=== PATIENT | female | born 1995 | race Caucasian/White ===

== ENCOUNTER 2018-06-22 15:02 | Emergency (ER) | payer OTHER, MEDICAID, SELFPAY ==
[2018-06-22 15:08] VITALS: BP 132/73; PULSE 98; RESP 16; TEMP 36.7; O2SAT 98
--- NOTE | 2018-06-22 15:14 | DI.RAD_ITS ---
SYMPTOM/DIAGNOSIS: LATERAL PAIN AFTER FALL RIGHT ANKLE: No fracture or ankle mortise widening is seen. The talar dome appears intact. IMPRESSION: Negative right ankle.
--- NOTE | 2018-06-22 15:17 | ED.GENADUL_ITS ---
Discharge Plan Disposition Patient Disposition: HOME Condition: Improving Discharge Details Chief Complaint: Orthopedic Clinical Impression: Right ankle sprain Primary Care Provider: Alexa Almonte ED Provider: Geremias Nair Discharge Instructions Instructions: Ankle Sprain (ED) Additional Instructions: Crutches and walking boot as needed. As we discussed if you have persistent pain a 2 weeks time please see regular doctor for repeat evaluation. May use crutches as needed for 3-5 days time, then continue walking boot for additional 3-5 days time. Elevate above the level of heart to reduce pain and swelling. Tylenol and/or ibuprofen as needed for discomfort. Return to the ER for any acute concern Stand Alone Forms: Work Release Discharge Data Discharge Date/Time-TO BE ENTERED AT DEPARTURE: 06/22/18 16:34 Medical Decision Making 22-year-old female who slipped and fell, deviating her right ankle, now with right lateral ankle pain and swelling. She is stable and without evidence of other injury. Given ice and ibuprofen, referred for x-ray to rule out underlying fracture, dislocation. No underlying fracture. She has significant pain. Vascular and sensory testing is intact. We will place in a walking boot. Discussed expected course of resolution over 7-10 days time including crutch walking and then eventual ambulation without support. She will return for any acute concern HPI General Mode of arrival: wheelchair . Date/Time Provider Initiated Documentation: 06/22/18 15:05 . Limitations to Documentation: no limitations . Information obtained by: patient . History of Present Illness 22 year old F presents to the emergency department with the chief complaint of Right ankle pain after fall, no other injury, described as moderate, Quality is described as aching, and is localized to the right and lower extremity. Patient reports no radiation. Patient started experiencing this minute(s) and it has been constant. Rest improves symptom(s), Movement worsens symptoms . Patient notes no other symptoms.. Patient did receive the following treatments prior to arrival, none Related Data Allergies Allergy/AdvReac Type Severity Reaction Status Date / Time adhesive Allergy Mild Skin Rash Unverified 06/22/18 15:12 ketorolac tromethamine Allergy Mild Skin Rash Unverified 06/22/18 15:12 [From Toradol] hydromorphone [Hydromorphone] Allergy hives Unverified 06/22/18 15:12 latex Allergy itching,audie Unverified 06/22/18 15:12 h General Stated Complaint: Orthopedic ROEL: 4 Review of Systems Review of Systems For systems reviewed and otherwise - PFSH Family History Mother Mental disorder Father Mental disorder Medical History BMI 45.0-49.9, adult History of depression Migraine Social History Smoking/Tobacco Use Status: Never Exam Narrative Exam Narrative: GEN: awake, alert, oriented 3. Pleasant, well groomed, interactive. HEAD: Normocephalic, atraumatic ENT: Mucous membranes moist, oropharynx unremarkable, External ear exam unremarkable EYES: PERRL, EOMI NECK: Full ROM, no OBEY, no menigismus EXT: Full ROM, no edema, no rash. Tender R lateral malleolus Neuro: Grossly normal neurologic exam, conversant, interactive. Psych: Speech fluent, thoughts congruent, affect normal Course Vital Signs Temperature 36.7 C 06/22/18 15:08 Pulse 98 H 06/22/18 15:08 Respiratory Rate 16 06/22/18 15:08 Blood Pressure 132/73 06/22/18 15:08 Pulse Oximetry 98 06/22/18 15:08 Temperature 36.7 C 06/22/18 15:08 Temperature Source Temporal Artery Scan 06/22/18 15:08 Pulse 98 H 06/22/18 15:08 Respiratory Rate 16 06/22/18 15:08 Respiratory Effort 06/22/18 15:13 Blood Pressure 132/73 06/22/18 15:08 Blood Pressure Position Sitting 06/22/18 15:08 Pulse Oximetry 98 06/22/18 15:08 Oxygen Delivery Method Room Air 06/22/18 15:08 Oxygen Flow Rate 0 06/22/18 15:08 Pain Level 8 06/22/18 15:08
[2018-06-22] MEDS: Ibuprofen 800 MG TAB PO (15:21)
--- NOTE | 2018-06-22 15:46 | DI.VRAD_ITS ---
EXAM: XR Right Ankle Complete, 3 or more Views EXAM DATE/TIME: 06/22/2018 3:37 PM CLINICAL HISTORY: 22 years old, female; Injury or trauma; Fall; Initial encounter; Sprain or strain; Ankle; Right TECHNIQUE: XR Right ankle 3 or more views. COMPARISON: No relevant prior studies available. FINDINGS: Bones/joints: Normal. No fracture or subluxation. Soft tissues: Soft tissue swelling is noted. IMPRESSION: No acute osseous findings. Dictated and Authenticated by: Brian Mg MD. Ordering:JOEL MELTON MD
== END 2018-06-22 16:34 | disposition home or self-care (01) ==
LOC: ER 16:42
PROVIDERS: Emergency Provider Emergency Medicine; PCP Nurse Practitioner
DX: S93.401A Sprain of unspecified ligament of right ankle, initial encounter (principal); W10.8XXA Fall (on) (from) other stairs and steps, initial encounter
CPT/HCPCS: 29515; 99283; 73610; E0114; L4361

== ENCOUNTER 2018-07-30 06:21 | Emergency (ER) | payer BC, SELFPAY ==
[2018-07-30 06:34] VITALS: BP 140/69; PULSE 119; RESP 16; TEMP 37.1; O2SAT 97
--- NOTE | 2018-07-30 06:36 | W.ED.GENAD ---
Discharge Plan Disposition Patient Disposition: HOME Condition: Stable Discharge Details Chief Complaint: Sorethroat Clinical Impression: Acute streptococcal pharyngitis Primary Care Provider: Alexa Almonte ED Provider: Akhil Lopez Home Meds and New Rx's Prescriptions: New amoxicillin 500 mg tablet 1,000 mg PO BID 10 Days Qty: 40 RF: 0 Discharge Instructions Instructions: Pharyngitis (ED) Additional Instructions: follow up with your primary care provider in 1-2 weeks especially if symptoms continue If you have inability to swallow liquids or difficulty breathing return to the emergency department Medical Decision Making 22 yo female comes in with sore throat and left ear pain for two days. No stridor or drooling or difficulty swallowing. Has midline uvula on exam, no restricted neck mvoements or pain over hyoid. Has posterior pharynx erythema and exudates with some mild swollen tonsils. No findings to suggest rpa, scow captain, epiglotitis, ludwigs. Her left tm has no erythema and has no pain behind over the mastoid to suggest mastoiditis. Strep test is positive, will treat for strep pharyngitis, advised f/u with pcp and return precautions given Differential Diagnosis strep pharyngitis, viral pharyngitis HPI General Mode of arrival: ambulatory. Date/Time Provider Initiated Documentation: 07/30/18 06:22. Limitations to Documentation: no limitations. Information obtained by: patient. History of Present Illness 22 year old F presents to the emergency department with the chief complaint of sore throat, described as moderate, with intensity rated at 5. Quality is described as aching, Patient started experiencing this day(s) (2) and it has been constant. No relieving factors improve symptom(s), No exacerbating factors reported . Patient notes other (left ear pain). Patient did receive the following treatments prior to arrival, NSAID Related Data Home Medications Medication Instructions Recorded Confirmed amoxicillin 1,000 mg PO BID 10 Days #40 tab 07/30/18 Previous Rx's Medication Instructions Recorded amoxicillin 1,000 mg PO BID 10 Days #40 tab 07/30/18 Allergies Allergy/AdvReac Type Severity Reaction Status Date / Time adhesive Allergy Mild Skin Rash Unverified 07/30/18 06:38 ketorolac tromethamine Allergy Mild Skin Rash Unverified 07/30/18 06:38 [From Toradol] hydromorphone [Hydromorphone] Allergy hives Unverified 07/30/18 06:38 latex Allergy itching,audie Unverified 07/30/18 06:38 h General ROEL: 4 Review of Systems Review of Systems All systems reviewed & are unremarkable except as noted in HPI and below Constitutional Denies chills and Denies weakness Cardiovascular Denies chest pain and Denies dyspnea Respiratory Denies dyspnea Gastrointestinal Denies abdominal pain, Denies nausea and Denies vomiting Genitourinary Denies dysuria Musculoskeletal Denies joint swelling Integumentary/Breasts Denies rash Neurologic Denies weakness [facility] Medical History BMI 45.0-49.9, adult History of depression Migraine Family History Mother Mental disorder Father Mental disorder Social History Smoking/Tobacco Use Status: Never Exam Const General: no acute distress Orientation: alert HENMT Head: normal to inspection Ears: external ears normal General nose exam: external nose normal Mouth: moist mucous membranes Eyes General: appearance normal, both eyes and all related structures Neck Neck: normal visual inspection Resp Effort & Inspection: normal respiratory effort and able to speak in complete sentences Cardio Rate: regular rate Skin General skin exam: no rashes or lesions noted Neuro General: alert and oriented x3 Extrem General: normal to inspection Psych Mental Status: mental status grossly normal
--- NOTE | 2018-07-30 06:53 | ED.GENADUL_ITS ---
Discharge Plan Disposition Patient Disposition: HOME Condition: Stable Discharge Details Chief Complaint: Sorethroat Clinical Impression: Acute streptococcal pharyngitis Primary Care Provider: Alexa Almonte ED Provider: Akhil Lopez Home Meds and New Rx's Prescriptions: New amoxicillin 500 mg tablet 1,000 mg PO BID 10 Days Qty: 40 RF: 0 Discharge Instructions Instructions: Pharyngitis (ED) Additional Instructions: follow up with your primary care provider in 1-2 weeks especially if symptoms continue If you have inability to swallow liquids or difficulty breathing return to the emergency department Medical Decision Making 22 yo female comes in with sore throat and left ear pain for two days. No stridor or drooling or difficulty swallowing. Has midline uvula on exam, no restricted neck mvoements or pain over hyoid. Has posterior pharynx erythema and exudates with some mild swollen tonsils. No findings to suggest rpa, captain airline pilot, epiglotitis, ludwigs. Her left tm has no erythema and has no pain behind over the mastoid to suggest mastoiditis. Strep test is positive, will treat for strep pharyngitis, advised f/u with pcp and return precautions given Differential Diagnosis strep pharyngitis, viral pharyngitis HPI General Mode of arrival: ambulatory . Date/Time Provider Initiated Documentation: 07/30/18 06:22 . Limitations to Documentation: no limitations . Information obtained by: patient . History of Present Illness 22 year old F presents to the emergency department with the chief complaint of sore throat, described as moderate, with intensity rated at 5. Quality is described as aching, Patient started experiencing this day(s) (2) and it has been constant. No relieving factors improve symptom(s), No exacerbating factors reported . Patient notes other (left ear pain). Patient did receive the following treatments prior to arrival, NSAID Related Data Home Medications Medication Instructions Recorded Confirmed amoxicillin 1,000 mg PO BID 10 Days #40 tab 07/30/18 Previous Rx's Medication Instructions Recorded amoxicillin 1,000 mg PO BID 10 Days #40 tab 07/30/18 Allergies Allergy/AdvReac Type Severity Reaction Status Date / Time adhesive Allergy Mild Skin Rash Unverified 07/30/18 06:38 ketorolac tromethamine Allergy Mild Skin Rash Unverified 07/30/18 06:38 [From Toradol] hydromorphone [Hydromorphone] Allergy hives Unverified 07/30/18 06:38 latex Allergy itching,audie Unverified 07/30/18 06:38 h General ROEL: 4 Review of Systems Review of Systems All systems reviewed & are unremarkable except as noted in HPI and below Constitutional Denies chills and Denies weakness Cardiovascular Denies chest pain and Denies dyspnea Respiratory Denies dyspnea Gastrointestinal Denies abdominal pain, Denies nausea and Denies vomiting Genitourinary Denies dysuria Musculoskeletal Denies joint swelling Integumentary/Breasts Denies rash Neurologic Denies weakness [facility] Medical History BMI 45.0-49.9, adult History of depression Migraine Family History Mother Mental disorder Father Mental disorder Social History Smoking/Tobacco Use Status: Never Exam Const General: no acute distress Orientation: alert HENMT Head: normal to inspection Ears: external ears normal General nose exam: external nose normal Mouth: moist mucous membranes Eyes General: appearance normal, both eyes and all related structures Neck Neck: normal visual inspection Resp Effort & Inspection: normal respiratory effort and able to speak in complete sentences Cardio Rate: regular rate Skin General skin exam: no rashes or lesions noted Neuro General: alert and oriented x3 Extrem General: normal to inspection Psych Mental Status: mental status grossly normal
[2018-07-30] MEDS: Dexamethasone 10 MG/ML VIAL PO (06:58)
[2018-07-30] MEDS: Amoxicillin 500 MG CAP 1000 MG PO (06:58)
[2018-07-30 07:20] VITALS: PULSE 115; RESP 16; TEMP 37.1; O2SAT 97
== END 2018-07-30 07:20 | disposition home or self-care (01) ==
PROVIDERS: Emergency Provider Emergency Medicine; PCP Nurse Practitioner
DX: J02.0 Streptococcal pharyngitis (principal)
CPT/HCPCS: 87880; 99283; J1100

== ENCOUNTER 2018-09-10 01:19 | Outpatient (CLI) | payer BC, SELFPAY ==
--- NOTE | 2018-09-10 11:51 | DI.US_ITS ---
SYMPTOM/DIAGNOSIS: RT KNEE PAIN, M25.561 RIGHT LOWER EXTREMITY ULTRASOUND: The deep veins of the right lower extremity show normal compression, augmentation and color flow. There is no evidence of a deep venous thrombus present. The visualized portions of the greater saphenous vein show normal compression and blood flow. No evidence of a popliteal cyst is seen. IMPRESSION: No evidence of a right lower extremity deep venous thrombus or popliteal cyst.
== END 2018-09-10 01:39 ==
PROVIDERS: PCP Nurse Practitioner; Visit Provider Nurse Practitioner
DX: M79.604 Pain in right leg (principal); M25.561 Pain in right knee
CPT/HCPCS: 93971

== ENCOUNTER 2018-10-10 16:15 | Outpatient (CLI) | payer BC, SELFPAY ==
[2018-10-10 17:04] LABS: *AMPHETAMINES SCREEN URINE Negative (Negative); *BARBITURATES SCREEN URINE Negative (Negative); *BENZODIAZEPINES SCREEN URINE Negative (Negative); Cannabinoids THC Negative (Negative); Cocaine Screen,Urine Negative (Negative); METHADONE URINE SCREEN Negative (Negative); OPIATES URINE SCREEN Negative (Negative); Tricyclic Antidepressants Negative (Negative)
[2018-10-15 17:17] LABS: Buprenorphine Negative; Norbuprenorphine Negative
== END 2018-10-10 16:35 ==
PROVIDERS: PCP Nurse Practitioner; Visit Provider Advanced Practice Midwife
DX: Z34.91 Encounter for supervision of normal pregnancy, unspecified, first trimester (principal)
CPT/HCPCS: 80307; 87086

== ENCOUNTER 2018-10-10 16:58 | Outpatient (REF) | payer BC, SELFPAY ==
[2018-10-12 13:46] LABS: GC Result Negative; Specimen Description CERVIX
[2018-10-12 16:22] LABS: Chlamydia Result Positive
== END 2018-10-10 17:18 ==
LOC: LBN 16:58
PROVIDERS: PCP Nurse Practitioner; Visit Provider Advanced Practice Midwife
DX: Z34.91 Encounter for supervision of normal pregnancy, unspecified, first trimester (principal); Z11.3 Encounter for screening for infections with a predominantly sexual mode of transmission
CPT/HCPCS: 87491; 87591

== ENCOUNTER 2018-10-11 20:41 | Emergency (ER) | payer BC, SELFPAY ==
[2018-10-11 20:44] VITALS: BP 134/74; PULSE 97; RESP 18; TEMP 36.7; O2SAT 98
--- NOTE | 2018-10-11 21:46 | ED.GENADUL_ITS ---
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 Touch base with OB in the morning. Return to ED for worse bleeding, severe pelvic pain, other concerns. Stand Alone Forms: Work Release Referrals: [facility] [Provider Group] Discharge Data Discharge Date/Time-TO BE ENTERED AT DEPARTURE: 10/11/18 23:59 Medical Decision Making Patient is 9 weeks presenting with vaginal bleeding without pain. I was able to perform bedside ultrasound and document IUP with heart beat detected. Pelvic exam performed with female nurse present. Unable to visualize cervical os. Minimal blood present in the vaginal vault. Os confirmed to be close on bimanual exam. Laboratory studies were obtained including a hemoglobin and beta quant for baseline. Patient's Rh status was determined to be negative. Patient ordered for RhoGam. Case discussed with OB on-call. Patient reassured. She is asked to rest and stay hydrated and contact OB in the morning for follow-up. She is given a note off from work for the rest of the weekend. Medical Records Medical records reviewed: Yes I reviewed the patient's medical records. Lab Data Lab results reviewed: Yes I reviewed the patient's lab results. HPI General Mode of arrival: ambulatory . Date/Time Provider Initiated Documentation: 10/11/18 20:42 . Limitations to Documentation: no limitations . Information obtained by: patient . HPI Narrative: Patient presents to ED with vaginal bleeding. Patient is 9 weeks . She is . She was just seen by OB yesterday. She has had no issues. She started bleeding this evening. She has no pain or cramping associated with it. She describes the bleeding as dark red blood like a period. She was very concerned and came in for evaluation. Related Data Home Medications Medication Instructions Recorded Confirmed 1 tab PO DAILY 09/27/18 10/11/18 vitamin,calcium,xzwiksaw-lkya-ejunr acid tablet aspirin 81 mg tablet,delayed 81 mg PO DAILY #90 tab 10/10/18 10/10/18 release Previous Rx's Medication Instructions Recorded aspirin 81 mg tablet,delayed 81 mg PO DAILY #90 tab 10/10/18 release Allergies Allergy/AdvReac Type Severity Reaction Status Date / Time adhesive Allergy Mild Skin Rash Unverified 10/11/18 20:49 ketorolac tromethamine Allergy Mild Skin Rash Unverified 10/11/18 20:49 [From Toradol] hydromorphone [Hydromorphone] Allergy hives Unverified 10/11/18 20:49 latex Allergy itching,audie Unverified 10/11/18 20:49 h General Stated Complaint: 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 CONSULTANT ROEL: 3 Review of Systems Constitutional Denies fever(s), Denies headache(s), Denies poor appetite and Denies weakness ENT Denies headache(s), Denies nasal congestion, Denies nasal discharge, Denies neck pain and Denies sore throat Cardiovascular Denies chest pain, Denies syncope, Denies leg edema and Denies dyspnea Respiratory Denies dyspnea Gastrointestinal Denies abdominal pain, Denies nausea and Denies vomiting Genitourinary Reports abnormal vaginal bleeding, Denies dysuria, Denies pelvic pain and Denies flank pain Musculoskeletal Denies back pain and Denies neck pain Neurologic Denies syncope, Denies headache(s) and Denies weakness [facility] Medical History BMI 45.0-49.9, adult History of depression Migraine Social History Smoking/Tobacco Use Status: Never Alcohol Intake: never Drug use: Never Substance use type: does not use Do you feel safe at home: Yes Do you feel safe in your relationship?: Yes History History 1 Para 0 Hx # Term Pregnancies 0 Multiple births 0 Hx # Pregnancies 0 Ectopic pregnancies 0 AB induced 0 Hx Number of Living Children 0 AB spontaneous 0 Exam Const General: cooperative, comfortable and no acute distress Nutritional Appearance: obese Orientation: alert and oriented x3 Neck Neck: trachea midline and supple Resp Effort & Inspection: normal respiratory effort GI Inspection: normal to inspection Palpation: soft and nontender External Female Exam: external appearance normal Speculum Exam - Vagina: vaginal bleeding and No tissue present in vagina Speculum Exam - Cervix: closed cervix and nontender Bimanual Exam- Vagina & Uterus: No cervical tenderness OB/External & Speculum: no tissue noted in vagina and vaginal bleeding Neuro General: alert, oriented x3, no focal motor deficits and CN's II-XI intact bilaterally Extrem General: normal to inspection and no clubbing, cyanosis or edema Course Vital Signs Temperature 98.1 F 10/11/18 20:44 Pulse 97 H 10/11/18 20:44 Respiratory Rate 18 10/11/18 20:44 Blood Pressure 134/74 10/11/18 20:44 Pulse Oximetry 98 10/11/18 20:44 Temperature 98.1 F 10/11/18 20:44 Temperature Source Skin 10/11/18 20:44 Pulse 97 H 10/11/18 20:44 Respiratory Rate 18 10/11/18 20:44 Respiratory Effort 10/11/18 20:50 Blood Pressure 134/74 10/11/18 20:44 Blood Pressure Position Sitting 10/11/18 20:44 Pulse Oximetry 98 10/11/18 20:44 Oxygen Delivery Method Room Air 10/11/18 20:44 Oxygen Flow Rate 0 10/11/18 20:44 Pain Level 0 10/11/18 20:44
[2018-10-11 22:04] LABS: HCT 36.7 % (36.0-46.0); HGB 12.4 g/dL (12.0-15.5)
[2018-10-11 23:55] VITALS: BP 128/64; PULSE 86; RESP 18; TEMP 36.7; O2SAT 98
== END 2018-10-11 23:59 | disposition home or self-care (01) ==
PROVIDERS: Emergency Provider Emergency Medicine; PCP Nurse Practitioner
DX: O20.0 Threatened abortion (principal); Z3A.09 9 weeks gestation of pregnancy
CPT/HCPCS: 86900; 86901; 90384; 96372; 99284; 84702; 85014; 85018; J2790

== ENCOUNTER 2018-10-15 07:00 | Outpatient (CLI) | payer BC, SELFPAY ==
[2018-10-15 14:01] LABS: Glucose,1 Hr (Glucola) 81 mg/dL (80-140)
[2018-10-15 14:05] LABS: Abs Immature Grans 0.03 k/cumm (0.0-0.09); Absolute Basophil Count 0.03 k/cumm (0.0-0.2); Absolute Lymphocyte Count 1.91 k/cumm (1.2-3.4); Basophils % 0.3; Eosinophils % 0.9; HCT 37.9 % (36.0-46.0); HGB 12.8 g/dL (12.0-15.5); Immature Grans % 0.3; Lymphocytes % 16.8; Mean Corp. HGB Concentration 33.8 g/dL (32.0-36.0); Mean Corpuscular Hemoglobin 31.1 pg (27.0-33.0); Mean Corpuscular Volume 92.2 fL (80-95); Mean Platelet Volume 10.7 fL (8.0-11.0); Monocytes % 4.4; Neutrophils % 77.3; Platelet Count 285 x1000/uL (130-400); RBC 4.11 m/cumm (4.00-5.20); RBC Distribution Width 12.3 % (11.7-14.6); White Blood Cell Count 11.38 k/cumm (4.4-10.8)
[2018-10-15 15:21] LABS: TSH (W/Ref FT4) 1.59 uIU/mL (0.358-3.74)
[2018-10-16 09:41] LABS: Hepatitis B Surface Ag Negative (NEGAT)
[2018-10-16 10:40] LABS: HIV-1/2 Ag & Ab Screen Negative (NEGAT)
[2018-10-16 10:49] LABS: Hepatitis C Ab w Rflx HCV PCR Negative (NEGAT)
[2018-10-16 13:18] LABS: Rubella IgG Ab (UVM) Positive; Syphilis Serology (RPR) Negative (Negative)
[2018-10-16 14:21] LABS: Varicella IgG Antibody Positive
== END 2018-10-15 07:20 ==
PROVIDERS: PCP Nurse Practitioner; Visit Provider Advanced Practice Midwife
DX: Z34.91 Encounter for supervision of normal pregnancy, unspecified, first trimester (principal); Z11.59 Encounter for screening for other viral diseases; Z11.4 Encounter for screening for human immunodeficiency virus [HIV]; Z01.84 Encounter for antibody response examination
CPT/HCPCS: 36415; 80055; 82950; 86787; 86803; 86850; 86900; 86901; 87340; 87389; 84443; 86592; 86762; 86870

== ENCOUNTER 2018-11-07 21:44 | Outpatient (REF) | payer BC, SELFPAY ==
[2018-11-09 13:48] LABS: Chlamydia Result Negative; GC Result Negative; Specimen Description URINE
== END 2018-11-07 22:04 ==
LOC: LBN 21:44
PROVIDERS: PCP Nurse Practitioner; Visit Provider Advanced Practice Midwife
DX: A74.9 Chlamydial infection, unspecified (principal)
CPT/HCPCS: 87491; 87591

== ENCOUNTER 2018-12-17 11:14 | Outpatient (REF) | payer BC, SELFPAY | END 2018-12-17 11:34 | LOC: NCHCN 11:14 | PROVIDERS: PCP Nurse Practitioner; Visit Provider Specialist/Technologist Athletic Trainer | DX: J02.9 Acute pharyngitis, unspecified (principal) | CPT/HCPCS: 87070 ==

== ENCOUNTER 2019-02-19 01:36 | Outpatient (CLI) | payer BC, SELFPAY ==
[2019-02-19 13:16] LABS: Absolute Basophil Count 0.01 k/cumm (0.0-0.2); Absolute Eosinophil Count 0.09 k/cumm (0.0-0.7); Absolute Lymphocyte Count 2.01 k/cumm (1.2-3.4); Absolute Monocyte Count 0.65 k/cumm (0.11-0.7); Basophils % 0.1; Eosinophils % 0.8; HCT 36.1 % (36.0-46.0); HGB 12.1 g/dL (12.0-15.5); Immature Grans % 0.9; Lymphocytes % 17.3; Mean Corp. HGB Concentration 33.5 g/dL (32.0-36.0); Mean Corpuscular Hemoglobin 31.4 pg (27.0-33.0); Mean Corpuscular Volume 93.8 fL (80-95); Mean Platelet Volume 10.4 fL (8.0-11.0); Monocytes % 5.6; Neutrophils % 75.3; Platelet Count 252 x1000/uL (130-400); RBC 3.85 m/cumm (4.00-5.20); RBC Distribution Width 13.7 % (11.7-14.6); White Blood Cell Count 11.63 k/cumm (4.4-10.8)
[2019-02-19 13:21] LABS: Absolute Neutrophil Count 8.76 k/cumm (1.2-6.7)
[2019-02-19 13:23] LABS: Glucose,1 Hr (Glucola) 78 mg/dL (80-140)
== END 2019-02-19 01:56 ==
PROVIDERS: PCP Nurse Practitioner; Visit Provider Obstetrics & Gynecology
DX: Z34.02 Encounter for supervision of normal first pregnancy, second trimester (principal)
CPT/HCPCS: 36415; 82950; 86850; 86900; 86901; 85025

== ENCOUNTER 2019-09-30 08:04 | Outpatient (CLI) | payer BC, SELFPAY ==
--- NOTE | 2019-09-30 | DI.RAD_ITS ---
EXAM: XR LUMBAR SPINE COMPLETE INDICATION: LOW BACK PAIN, M54.5. COMPARISON: No exams were available for comparison TECHNIQUE: 2D digital imaging was performed. FINDINGS: There are 5 lumbar type vertebral bodies. The vertebral bodies and disc spaces are well maintained. There is no spondylolysis, spondylolisthesis or scoliosis. The hip joints and SI joints are unremar kable. IMPRESSION: Negative lumbar spine. DATA REPOSITORY: RADIATION DOSE DELIVERED:
== END 2019-09-30 08:24 ==
PROVIDERS: PCP Nurse Practitioner; Visit Provider Nurse Practitioner Family
DX: M54.5 Low back pain (principal)
CPT/HCPCS: 72110

== ENCOUNTER 2020-06-30 20:19 | Outpatient (REF) | payer BC, SELFPAY ==
[2020-07-03 13:02] LABS: COVID-19 RT-PCR Result NEGATIVE (Negative)
== END 2020-06-30 20:39 ==
LOC: NCHCN 20:19
PROVIDERS: PCP Nurse Practitioner Family; Visit Provider Nurse Practitioner Family
DX: Z20.828 Contact with and (suspected) exposure to other viral communicable diseases (principal)
CPT/HCPCS: U0003

== ENCOUNTER 2020-12-31 17:16 | Outpatient (REF) | payer OTHER, SELFPAY ==
[2020-12-31 20:36] LABS: Bilirubin Negative (Negative); Blood Trace-intact (Negative); Clarity Clear (Clear); Glucose Negative (Negative); Ketones Negative (Negative); Leukocyte Esterase Negative (Negative); Nitrite Negative (Negative); Specific Gravity >= 1.030 (1.005-1.025); Urobilinogen 0.2 EU/dL (Up TO 0.2)
[2020-12-31 20:50] LABS: Bacteria Negative HPF (Negative); C & S Indicated? No; Casts Negative LPF (Negative); Crystals Negative HPF (Negative); Epithelial Cells Few HPF (Negative); Mucus Negative (Negative); Other Cells Negative (Negative); WBC 0-2 HPF (0-5)
== END 2020-12-31 17:17 | disposition home or self-care (01) ==
LOC: NCHCN 17:16
PROVIDERS: PCP Nurse Practitioner Family; Visit Provider Nurse Practitioner Family
DX: R31.9 Hematuria, unspecified (principal); R35.0 Frequency of micturition
CPT/HCPCS: 81003; 81015

== ENCOUNTER 2021-02-05 01:35 | Outpatient (CLI) | payer OTHER, SELFPAY ==
[2021-02-05 12:23] LABS: Source Nasal/Nares
[2021-02-05 15:00] LABS: COVID-19 PCR Negative (Negative)
== END 2021-02-05 01:36 | disposition home or self-care (01) ==
LOC: LBO 01:35
PROVIDERS: PCP Nurse Practitioner Family; Visit Provider Urology
DX: Z20.822 Contact with and (suspected) exposure to COVID-19 (principal); Z01.818 Encounter for other preprocedural examination
CPT/HCPCS: 87635

== ENCOUNTER 2021-02-08 14:54 | Observation (INO) | payer OTHER, SELFPAY ==
[2021-02-08] VITALS (14 sets, daily range): BP systolic 110–149; BP diastolic 60–85; PULSE 47–85; RESP 14–21; TEMP 35.8–36.7; O2SAT 92–100; BMI 49.2
--- NOTE | 2021-02-08 06:21 | W.ANESPRE ---
General Info Date of Service Date Performed: 02/08/21 Height: 5 ft 4 in Weight: 130.181 kg Body Mass Index (BMI): 49.2 Surgical Procedure: Operation Date: 02/08/21 08:40 Proposed Procedures Side Surgeon p CYSTO, RT RETROGRADE, RT FLEX URETEROSCOPY WITH HOLMIUM LASAER, POSSIBLE STENT Right Casey Alaniz MD Meds Allergies and Home Medications Allergies Allergy/AdvReac Type Severity Reaction Status Date / Time adhesive Allergy Mild Skin Rash Verified 02/08/21 07:31 ketorolac tromethamine Allergy Mild Skin Rash Verified 02/08/21 07:31 [From Toradol] hydromorphone [Hydromorphone] Allergy hives Verified 02/08/21 07:31 latex Allergy itching,audie Verified 02/08/21 07:31 h Home Medication Medication Instructions Recorded buspirone 10 mg tablet 10 mg PO DAILY tab 01/04/21 sertraline 100 mg tablet 100 mg PO DAILY 01/04/21 norelgestromin-ethin.estradiol See Rx Instructions .ROUTE .COMPLEX 02/04/21 [Zafemy] Current Visit Medications: Current Medications Generic Name Dose Route Start Last Admin Trade Name Freq PRN Reason Stop Dose Admin Ringer's Solution 1,000 mls @ 80 mls/hr 02/08/21 06:00 IV 03/07/21 23:59 INFUSION BEBETO Cefazolin Sodium/Dextrose 2 gm in 50 mls @ 100 mls/hr 02/08/21 06:00 Ancef Duplex IVPB 02/08/21 18:00 PREOP BEBETO IV Miscellaneous Supplies 1 each 02/08/21 06:00 Iv Access IV 03/07/21 23:59 DIRECTED BEBETO Sodium Chloride 0 ml 02/08/21 06:00 Normal Saline Flush 10 Ml Syr IV 03/07/21 23:59 PRN PRN Sodium Chloride 0 ml 02/08/21 06:00 Normal Saline 10 Ml Vial IJ 03/07/21 23:59 DIRECTED PRN Sterile Water 0 ml 02/08/21 06:00 Water,Injection,Sterile 10 Ml Vial IJ 03/07/21 23:59 DIRECTED PRN PFSH Active Problems Active Problems: Problem Status Onset Code Right kidney stone N20.0 Chlamydia A74.9 Rh negative state in antepartum period O26.899, Z67.91 Z34.90 BMI 45.0-49.9, adult 08/24/17 Z68.42 Other specified contraceptive management 04/22/13 Z30.8 Chronic rhinitis 05/29/17 J31.0 Chronic tonsillitis 05/29/17 J35.01 Family history of bleeding or clotting disorder 08/24/17 Z83.2 History of depression 08/24/17 Z86.59 Knee instability 03/12/14 M25.369 Postnasal drip 05/29/17 R09.82 Psoas tendinitis, right hip 12/06/17 M76.11 Right snapping hip 12/06/17 M24.851 Tonsillar hypertrophy 05/29/17 J35.1 Medical History Medical History BMI 45.0-49.9, adult History of depression Migraine Rh negative state in antepartum period Right kidney stone Surgical History Surgical History History of arthroscopic knee surgery History of carpal tunnel release History of section History of nasal septoplasty Tobacco Smoking/Tobacco Use Status: Never Alcohol Alcohol Intake: current Alcohol intake frequency: holidays/special occasions only Substance Use Substance use: Never Substance use type: does not use Prental History History 1 Para 0 Hx # Term Pregnancies 0 Multiple births 0 Hx # Pregnancies 0 Ectopic pregnancies 0 AB induced 0 Hx Number of Living Children 0 AB spontaneous 0 Vital Signs and Lab Results Lab Results Blood Type / Crossmatch: No Data to Display Complete Blood Count: No Data to Display Complete Metabolic Panel: No Data to Display Liver Function Panel: No Data to Display Coagulation Panel: No Data to Display Cardiac Panel: No Data to Display Arterial Blood Gas: No Data to Display Venous Blood Gas: No Data to Display Pancreas Panel: No Data to Display Thyroid Panel: No Data to Display Infectious Disease: Coronavirus (COVID-19)(PCR) Negative (Negative) 02/05/21 09:30 02/05/21 Coronavirus 2019 Source Nasal/Nares 02/05/21 09:30 02/05/21 Blood Cultures: No Data to Display Toxicology Panel: No Data to Display Panel: No Data to Display Anesthesia Assessment and Plan Anesthesia History Personal History: No History of Anesthesia Complications Family History: No Family History of Anesthesia Complications Exercise Tolerance Exercise Tolerance: Metabolic Equivalents>4 Pertinent Negatives Pertinent Negatives: No Symptoms of GERD, No Major Cardiovascular Symptoms or Complaints, No Major Pulmonary Symptoms or Complaints and No History of CVA/TIA Cardiac & Pulmonary Exam Cardiac Exam: Normal S1/S2 Heart Sounds Pulmonary Exam: Clear Bilateral Breath Sounds Airway Exam Known Difficult Airway: No Mallampati Class: 3 Mouth Opening: Normal (> 3cm) Thyromental Distance: Greater than 3 cm Neck Range of Motion: Full ROM Neck Circumference: Normal Teeth Condition: Normal Dentition ASA Classification ASA Score: ASA 3 Emergency Case?: No NPO Status NPO Status: NPO Clears >2 hours, Solids >8 hours Status Status: Negative HCG Anesthesia Plan Resuscitation Status: Full Code Anesthesia Technique: General Anesthesia Airway Planned: Endotracheal Tube Monitors Used: Standard Monitors Preoperative Comments:: 25 yo F for right kidney stone. no significant PmHx outside of BMI ~50. No airway/anesthesia history seen in chart review.
--- NOTE | 2021-02-08 06:25 | W.ANESPOSTOP ---
Postoperative Evaluation Date, Time and Location Date Performed: 02/08/21 Time Performed: 10:51 Patient Location: PACU Vital Signs Most Recent Imported Vital Signs: Temp Pulse Resp BP Pulse Ox 36.4 C L 64 17 118/61 95 02/08/21 10:25 02/08/21 10:25 02/08/21 10:25 02/08/21 10:25 02/08/21 10:25 Pain Score Most Recent Pain Score: 5 Assessment Mental Status: Awake (Alert & Oriented to Patient Baseline) Airway and Respiratory Function: Patent airway with normal (patient baseline) respiratory exam Cardiovascular Function: Hemodynamically Stable Hydration Status: Adequately Hydrated Nausea & Vomiting: Active Nausea or Vomiting Present Nausea and Vomiting Management: Nausea and vomiting active, being addressed with medication Pain: Pain is tolerable per patient Peripheral Nerve Block: Patient did not receive a nerve block
[2021-02-08] MEDS: Lactated Ringers 1,000 ML 80 ML IV ×2 (07:53→13:17)
--- NOTE | 2021-02-08 08:03 | W.PM.HP.N ---
Date of service: 02/08/21 Time of Service: 08:03 Assessment and Plan Assessment and plan (1) Right kidney stone: Status: Acute Assessment and plan: For flexible ureteroscopy and stone manipulation History of Present Illness History of Present Illness Chief Complaint: Right kidney stone Narrative: This is a 25 year old woman who had a CT scan to evaluate for abdominal pain. The source of her pain was an IUD (which has subsequently been removed), but a right sided kidney stone was also identified. She is not comfortable with observing the stone over time. She presents for a stone manipulation. She has no gross hematuria. She has some mild occasional flank discomfort. Review of Systems Narrative: No fevers or chills No vision change or dysphasia No diabetes or thyroid No shortness of breath, cough or hemoptysis No chest pain or palpitations No nausea, vomiting, hepatitis, ulcers, jaundice No seizures, strokes or peripheral neuropathy No bleeding disorders No gout PFSH Medical History BMI 45.0-49.9, adult History of depression Migraine Rh negative state in antepartum period Right kidney stone Surgical History History of arthroscopic knee surgery History of carpal tunnel release History of section History of nasal septoplasty Family History Mother Mental disorder Disabled. Mental health issues. Father Mental disorder suicide. Maternal Grandfather Diabetes Social History Smoking/Tobacco Use Status: Never Smoking risk assessment performed?: Yes Alcohol Intake: current Alcohol Intake frequency: holidays/special occasions only Drug use: Never Substance use type: does not use Do you feel safe at home: Yes Do you feel safe in your relationship?: Yes History History 1 Para 0 Hx # Term Pregnancies 0 Multiple births 0 Hx # Pregnancies 0 Ectopic pregnancies 0 AB induced 0 Hx Number of Living Children 0 AB spontaneous 0 Meds Allergies and Home Medications Allergies Allergy/AdvReac Type Severity Reaction Status Date / Time adhesive Allergy Mild Skin Rash Verified 02/08/21 07:31 ketorolac tromethamine Allergy Mild Skin Rash Verified 02/08/21 07:31 [From Toradol] hydromorphone [Hydromorphone] Allergy hives Verified 07/12/21 07:31 latex Allergy itching,audie Verified 02/08/21 07:31 h Home Medications Medication Instructions Recorded Confirmed Type buspirone 10 mg tablet 10 mg PO DAILY tab 01/04/21 02/08/21 History sertraline 100 mg tablet 100 mg PO DAILY 01/04/21 02/08/21 History norelgestromin-ethin.estradiol See Rx Instructions .ROUTE .COMPLEX 02/04/21 02/08/21 History [Rhondafemy] Exam Narrative Exam Narrative: I reviewed her CT scan. She has a nonobstructing stone in the right lower pole. Const General: cooperative Nutritional Appearance: obese Neck Neck: supple and nontender Resp Effort & Inspection: normal respiratory effort Auscultation: clear to auscultation bilaterally Cardio Rate: regular rate Rhythm: regular rhythm GI Palpation: soft and no masses Neuro General: patient alert, patient awake and patient oriented x3 Results Last Vital Signs Temp 36.5 C 02/08/21 07:33 Pulse 60 02/08/21 07:33 Resp 18 02/08/21 07:33 BP 114/69 02/08/21 07:33 Pulse Ox 97 02/08/21 07:33
--- NOTE | 2021-02-08 08:15 | DI.RAD_ITS ---
Exam(s) XR RETROGRADE IN OR EXAM: XR RETROGRADE IN OR CLINICAL HISTORY: RIGHT KIDNEY STONE. TECHNIQUE: 2D digital imaging was performed. COMPARISON: No exams were available for comparison FINDINGS: Prosperous provided during urologic procedure for right ureteral tract calculus. Images not provided . Total fluoroscopy time 30 seconds. Total clipped of dose 11.09mGy IMPRESSION: DATA REPOSITORY: RADIATION DOSE DELIVERED:
[2021-02-08] MEDS: ceFAZolin 2 GM/50 ML BAG IVPB (08:51)
[2021-02-08] MEDS: Lidocaine 2% Jelly 6 ML SYR (09:07)
[2021-02-08] MEDS: Omnipaque 300 MG/ML 50 ML BTL (09:10)
--- NOTE | 2021-02-08 09:50 | W.PM.DSUDISC ---
Discharge Plan Disposition Patient Disposition: HOME Condition: Stable Discharge Details Reason For Visit: right kidney stone Attending Provider: Casey Alaniz Primary Care Provider: Ese Alvarado Home Meds and New Rx's Prescriptions: No Action sertraline 100 mg tablet 100 mg PO DAILY RF: 0 buspirone 10 mg tablet 10 mg PO DAILY RF: 0 Zafemy 150-35 mcg/24 hr patch weekly See Rx Instructions .ROUTE .COMPLEX RF: 0 Discharge Instructions Additional Instructions: no need to strain urine followup appt @ 6 weeks with renal US Activity:: Activity as Tolerated Shower/Bathe:: 24 hours Diet:: As Tolerated Discharge Orders Discharge Orders: Discharge Order (Routine); Ordered 02/08/21 Ordered By: Casey Alaniz DS: Diagnosis Discharge Diagnosis (1) Right kidney stone: Status: Acute
--- NOTE | 2021-02-08 09:56 | W.PM.DSUDISC ---
Discharge Plan Disposition Patient Disposition: HOME Condition: Stable Discharge Details Reason For Visit: right kidney stone Attending Provider: Casey Alaniz Primary Care Provider: Ese Alvarado Home Meds and New Rx's Prescriptions: New oxycodone 5 mg capsule 5 - 10 mg PO Q6H PRN (Reason: pain) Qty: 20 RF: 0 No Action sertraline 100 mg tablet 100 mg PO DAILY RF: 0 buspirone 10 mg tablet 10 mg PO DAILY RF: 0 Zafemy 150-35 mcg/24 hr patch weekly See Rx Instructions .ROUTE .COMPLEX RF: 0 Discharge Instructions Additional Instructions: no need to strain urine followup appt @ 6 weeks with renal US Activity:: Activity as Tolerated Shower/Bathe:: 24 hours Diet:: As Tolerated Discharge Orders Discharge Orders: Discharge Order (Routine); Ordered 02/08/21 Ordered By: Casey Alaniz DS: Diagnosis Discharge Diagnosis (1) Right kidney stone: Status: Acute
--- NOTE | 2021-02-08 09:59 | W.PM.OP ---
Date of service: 02/08/21 Time of Service: 09:59 Operative Note Operative Note DATE OF PROCEDURE: 02/08/21 PRE-OP DIAGNOSIS: right kidney stone POST-OP DIAGNOSIS: same PROCEDURE: Cystoscopy, right retrograde pyelogram, right flexible ureteroscopy, holmium laser lithotripsy of stone, stone fragment extraction SURGEON: Casey Alaniz ANESTHESIA TYPE: Local By Surgeon and General LMA/ETT Refer to Anesthesia Record ESTIMATED BLOOD LOSS: 25 PATHOLOGY: other (stones for chemical analysis) Patient was transported to: PACU Patient's condition: stable Indications: This is a 25-year-old woman being evaluated for abdominal pain. She had a CT scan which showed a nonobstructing right kidney stone. The source of her pain was actually her IUD. Her pain improved once the IUD was removed. She was not comfortable with monitoring the stone alone. She presents now for stone manipulation. Findings: Stone in midpole calyx Procedure Description: The patient was brought to the operating room on 02/08/2021. She was given preoperative IV antibiotics. After successful induction of general anesthesia, she was placed in the dorsal lithotomy position. Her genitalia was prepped and draped. 2% Xylocaine jelly was instilled into the urethra to act as a local anesthetic. A 22 [place] rigid cystoscope was passed through the urethra into the bladder. The bladder was inspected with a 30 degree lens. Both ureteral orifices appeared normal with no blood coming from either side. The remainder of the bladder was smooth-walled with no papillary or nodular lesions. A 6 [place]ian access catheter was introduced to the cystoscope and maneuvered into the right ureteral orifice. Retrograde film was obtained by injecting Omnipaque through the access catheter under fluoroscopic guidance. This allowed us to map out the position of the calyces. We then passed the guidewire through the access catheter and maneuvered the wire up the ureter until the proximal end was seen in the collecting system. The access catheter was removed and replaced by a dual-lumen catheter. A second wire was then positioned. A ureteral access sheath was advanced over one of the wires. The other wire remained as a safety wire. We then passed the flexible ureteroscope up through the access sheath into the renal pelvis. Each of the calyces was inspected. The stone could be seen in the midpole calyx. There appeared to be a thin membrane over the stone. We treated the stone with a 272 ?m holmium laser fiber. We used a dusting setting with a rate of 8 and a power of 200. The stone fragmented very well. The largest fragment was grasped in a 0 tip stone basket and removed in its entirety. At the completion of the procedure no large stone fragments were noted. We elected not to place a ureteral stent. The ureteroscope and ureteral access sheath were both removed. The bladder was emptied. The patient tolerated this procedure well with no complications. She was taken to the recovery room in stable condition.
[2021-02-08] MEDS: fentaNYL 100 MCG/2 ML VIAL IVP ×2 (10:19→10:35)
[2021-02-08] MEDS: Phenazopyridine 200 MG TAB PO (11:17)
[2021-02-08] MEDS: oxyCODONE 5 MG TAB PO (11:49)
[2021-02-08] MEDS: Ondansetron 4 MG/2 ML VIAL IVP ×2 (13:57→17:26)
--- NOTE | 2021-02-08 15:02 | W.PM.DSUDISC ---
Discharge Plan Disposition Patient Disposition: HOME Condition: Stable Discharge Details Reason For Visit: right kidney stone Attending Provider: Casey Alaniz Primary Care Provider: Ese Alvarado Home Meds and New Rx's Prescriptions: New oxycodone 5 mg capsule 5 - 10 mg PO Q6H PRN (Reason: pain) Qty: 20 RF: 0 ondansetron HCl [Zofran] 4 mg tablet 4 - 8 mg PO Q6H PRNQty: 20 RF: 0 No Action sertraline 100 mg tablet 100 mg PO DAILY RF: 0 buspirone 10 mg tablet 10 mg PO DAILY RF: 0 Zafemy 150-35 mcg/24 hr patch weekly See Rx Instructions .ROUTE .COMPLEX RF: 0 Discharge Instructions Additional Instructions: no need to strain urine followup appt @ 6 weeks with renal US may take oxycodone with ibuprofen and/or tylenol Stand Alone Forms: Anesthesia Discharge Inst., [facility] May[facility] Moseley ([facility]) Activity:: Activity as Tolerated Shower/Bathe:: 24 hours Diet:: As Tolerated Discharge Orders Discharge Orders: Discharge Order (Routine); Ordered 02/08/21 Ordered By: Casey Alaniz DS: Diagnosis Discharge Diagnosis (1) Right kidney stone: Status: Acute
--- NOTE | 2021-02-08 16:44 | NUR.NOTE ---
Nursing Note: unable to medicate patient at this time as the chart shows being discharged. Charge nurse was notified
[2021-02-08] MEDS: MORPHine 4 MG/ML SYR IVP ×2 (17:26→20:32)
[2021-02-08] MEDS: Scopolamine 1 MG/3 DAYS PATCH TD (17:26)
[2021-02-08] MEDS: Lactated Ringers 1,000 ML 100 ML IV ×2 (17:59→20:31)
--- NOTE | 2021-02-08 18:29 | NUR.NOTE ---
Nursing Note: Patient reports no relief with one dose of morphine and zofran IV. She had one episode of vomit and continuous abdominal pain. Opium/belladona and Phenerhgan administred.
[2021-02-08] MEDS: Docusate Sodium 100 MG CAP PO (20:31)
[2021-02-08] MEDS: oxyCODONE 10 MG TAB PO (22:11)
[2021-02-09] MEDS: Ondansetron 4 MG/2 ML VIAL IVP ×2 (01:32→07:25)
[2021-02-09] MEDS: MORPHine 4 MG/ML SYR IVP ×5 (01:32→23:24)
[2021-02-09] MEDS: Lactated Ringers 1,000 ML 100 ML IV ×2 (06:37→16:42)
[2021-02-09 06:45] VITALS: BP 99/63; PULSE 53; RESP 14; TEMP 36.8; O2SAT 97
[2021-02-09] MEDS: oxyCODONE 10 MG TAB PO ×2 (07:25→21:40)
[2021-02-09] MEDS: Docusate Sodium 100 MG CAP PO ×2 (07:25→19:20)
[2021-02-09] MEDS: busPIRone 5 MG TAB 10 MG PO (07:34)
[2021-02-09] MEDS: Sertraline 50 MG TAB 100 MG PO (07:34)
--- NOTE | 2021-02-09 07:35 | W.PM.PROGNOT ---
Date of Service Date of service: 02/09/21 Time of Service: 07:35 Assessment and Plan Assessment and plan (1) Right kidney stone: Status: Acute (2) Post-op pain: Status: Acute (3) Postoperative nausea: Status: Acute Assessment and plan: Until we get her nausea under control, we are limited in our choice of analgesics for her. I have discontinued the Zofran and started her on Phenergan. She already has a scopolamine patch. I will add an antispasmodic. We have chosen Levsin which can be given in a sublingual fashion. Subjective Subjective Interval history since last seen: She continues to have pain and nausea especially when she moves. She has not been able to tolerate oral medications as of yet. She has been on [id number] Zofran with no improvement of the nausea. With her allergies, we have only been able to provide her with IV morphine. She is not having any fevers or chills. Her urine is clear. Exam Narrative Exam Narrative: She has better color than yesterday afternoon Her vital signs are documented elsewhere Her abdomen is soft with no peritoneal signs She is awake and alert Objective Last Vital Signs Temp 36.8 C 02/09/21 06:45 Pulse 53 L 02/09/21 06:45 Resp 14 02/09/21 06:45 BP 99/63 L 02/09/21 06:45 Pulse Ox 97 02/09/21 06:45
[2021-02-09] MEDS: Hyoscyamine 0.125 MG SL/ORAL/CHEW SL (11:32)
[2021-02-09 12:49] VITALS: BP 110/72; PULSE 52; RESP 12; TEMP 36.6; O2SAT 95
[2021-02-09] MEDS: Omeprazole 20 MG CAPCR PO (16:42)
[2021-02-09] MEDS: Tamsulosin 0.4 MG CAPCR PO (16:42)
--- NOTE | 2021-02-09 16:46 | PHA.REVIEW ---
Pharmacy Admission Review - Admission Clinical Review (Last Reviewed 02/08/21 @ 07:31 by Alley Jones) Postoperative nausea (Acute) Post-op pain (Acute) Right kidney stone (Acute) adhesive Allergy (Mild, Verified 02/08/21 07:31) Skin Rash ketorolac tromethamine [From Toradol] Allergy (Mild, Verified 02/08/21 07:31) Skin Rash hydromorphone [Hydromorphone] Allergy (Verified 02/08/21 07:31) hives latex Allergy (Verified 02/08/21 07:31) itching,rash Resuscitation Status Full Code Height 5 ft 4 in Weight 127.006 kg - Renal Dosing Medications needing adjustments: Reviewed (Crcl ~143.7 mL/min using adjusted body weight, current meds okay) - Anticoagulation DVT Prophylaxis: N/A Therapeutic Anticoagulation: N/A - Opiate Usage Evaluate Pain Scale/Pains Meds: Reviewed Scheduled Bowel Reg ordered if on Opiates?: Yes - Relevant Labs Electrolytes, C-Reactive P, ESR: N/A - DM Control Insulin Dosing: N/A - Heart Failure/[place] EF%, EZEQUIEL's, B-Blockers, Diuretics: N/A - BP Control BP Control: Blood Pressure 110/72 Blood Pressure 99/63 - Qtc Review If Elevated: N/A - IV to PO Switch IV Medications: Reviewed - Home Meds Home Med List reviewed: Reviewed Relevent Home Meds Not ordered & why?: control patch, ondansetron (provider changed antiemetics) - Current meds Current Medication Order Review: Reviewed - Comments Comments/Follow Ups: Watch VS, labs and for med changes.
[2021-02-09 18:32] VITALS: BP 124/65; PULSE 52; RESP 12; TEMP 36.8; O2SAT 95
[2021-02-09] MEDS: Oxybutynin 5 MG TAB PO (19:20)
[2021-02-09] MEDS: Normal Saline Flush 10 ML SYR IV (19:21)
[2021-02-10 01:40] VITALS: BP 114/53; PULSE 92; RESP 20; TEMP 36.9; O2SAT 94
[2021-02-10] MEDS: MORPHine 4 MG/ML SYR IVP (01:52)
[2021-02-10] MEDS: Normal Saline Flush 10 ML SYR IV (01:53)
[2021-02-10] MEDS: Lactated Ringers 1,000 ML 100 ML IV (02:22)
[2021-02-10 07:04] VITALS: BP 97/60; PULSE 86; RESP 18; TEMP 36.8; O2SAT 95
[2021-02-10] MEDS: busPIRone 5 MG TAB 10 MG PO (07:34)
[2021-02-10] MEDS: Sertraline 50 MG TAB 100 MG PO (07:34)
[2021-02-10] MEDS: Docusate Sodium 100 MG CAP PO (07:35)
[2021-02-10] MEDS: Oxybutynin 5 MG TAB PO ×2 (07:35→13:32)
[2021-02-10] MEDS: diazePAM 5 MG TAB PO (08:23)
--- NOTE | 2021-02-10 08:53 | W.PM.PROGNOT ---
Date of Service Date of service: 02/10/21 Time of Service: 08:53 Assessment and Plan Assessment and plan (1) Post-op pain: Status: Acute Assessment and plan: Her pain is spasmotic and episodic in nature likely related to ureteral spasms. NSAIDs are the ideal treatment, but she is unable to take Toradol due to allergies. Now that she can tolerate oral meds, I will start her on round the clock Ibuprofen and muscle relaxers. I will fill out her discharge paperwork with the expectation that she will go home later today if she is tolerating her oral medications. (2) Postoperative nausea: Status: Acute Subjective Subjective Interval history since last seen: Pain under better control but still has spasms especially when she gets up to restroom. Nauseated but did not vomit with oral meds. No fever or chills. Exam Narrative Exam Narrative: She does not appear septic or toxic Her abdomen is soft with no peritoneal signs She is awake and alert Objective Last Vital Signs Temp 36.8 C 02/10/21 07:04 Pulse 86 02/10/21 07:04 Resp 18 02/10/21 07:04 BP 97/60 L 02/10/21 07:04 Pulse Ox 95 02/10/21 07:04
--- NOTE | 2021-02-10 09:05 | DSE_ITS ---
Date of service: 02/10/21 Time of Service: 09:06 DS: Diagnosis Discharge Diagnosis (1) Post-op pain: Status: Acute (2) Postoperative nausea: Status: Acute Discharge Plan Disposition Patient Disposition: HOME Condition: Improving Discharge Details Reason For Visit: Kidney Stone Admit Date/Time: 02/08/21 14:54 Admit Provider: Casey Alaniz Attending Provider: Casey Alaniz Primary Care Provider: Ese Alvarado Hospital Course Hospital Course: The patient had persistent nausea, vomiting and pain following her ureteroscopy on 02/08/2021. We were unable to control her nausea or pain adequately with oral medications, so she was admitted for IV hydration, antiemetics and analgesics. By postoperative day #2, she was able to keep oral medications down. She was fairly comfortable until she would get up to the restroom. She would then have significant spasms in the right flank. We then changed to oral medications and she will be discharged with oral analgesics, antispasmotics and antiemetics later today if she tolerates the oral meds. Home Meds and New Rx's Prescriptions: New oxycodone 5 mg capsule 5 - 10 mg PO Q6H PRN (Reason: pain) Qty: 20 RF: 0 ondansetron HCl [Zofran] 4 mg tablet 4 - 8 mg PO Q6H PRNQty: 20 RF: 0 oxybutynin chloride 5 mg tablet 5 mg PO Q8H PRN (Reason: spasm) Qty: 10 RF: 0 No Action sertraline 100 mg tablet 100 mg PO DAILY RF: 0 buspirone 10 mg tablet 10 mg PO DAILY RF: 0 Zafemy 150-35 mcg/24 hr patch weekly See Rx Instructions .ROUTE .COMPLEX RF: 0 Discharge Instructions Additional Instructions: no need to strain urine followup appt @ 6 weeks with renal US may take oxycodone with ibuprofen 800 mg every 8 hours prescriptions for zofran and oxybutynin also sent to pharmacy pt will need to remove scopolamine patch on afternoon may use lidocaine patches prn Stand Alone Forms: Anesthesia Discharge Inst., [facility]ose[facility] ([facility]) Activity:: Activity as Tolerated Equipment/Supplies:: No Equipment Needed Diet:: As Tolerated Discharge Orders Discharge Orders: Discharge Order (Routine); Ordered 02/08/21 Ordered By: Casey Alaniz Discharge Data Discharge Comment: may discharge later today if tolerating oral meds DS: Summary Time Spent with Patient providing and/or coordinating discharge services: Less than 30 minutes Status at Discharge Functional status at discharge: independent ambulation Overall status at discharge: patient is progressing back to baseline Mental Status: mental status grossly normal Speech and Movement: speech and movement normal Mood: congruent mood Affect: normal affect Exam Const General: cooperative Nutritional Appearance: obese Orientation: alert, awake and oriented x3 Neck Neck: supple Resp Effort & Inspection: normal respiratory effort Auscultation: clear to auscultation bilaterally Cardio Rate: regular rate Rhythm: regular rhythm GI Palpation: soft, not firm, no guarding and nontender Rectal Exam - female: heme negative stool Neuro General: patient alert, patient awake and patient oriented x3 Psych Mental Status: mental status grossly normal Speech and Movement: speech and movement normal Mood: congruent mood Affect: normal affect DS: Data Vitals/I&O Vitals and I&O: Vital Signs Temperature 36.8 C 02/10/21 07:04 Temperature Source Tympanic 02/10/21 07:04 Pulse 86 02/10/21 07:04 Pulse Rhythm Regular 02/10/21 04:53 Respiratory Rate 18 02/10/21 07:04 Respiratory Effort Non-Labored 02/10/21 04:53 Respiratory Depth Normal 02/10/21 04:53 Respiratory Pattern Normal 02/10/21 04:53 Blood Pressure 97/60 L 02/10/21 07:04 Pulse Oximetry 95 02/10/21 07:04 Oxygen Delivery Method Room Air 02/10/21 07:04 Oxygen Flow Rate 0 02/10/21 07:04 Pain Level 4 02/10/21 07:04 Intake & Output 02/09/21 02/09/21 02/10/21 11:59 23:59 11:59 Intake Total 1000 / 3240 2240 / 3240 966.667 / 966.667 Output Total 2100 / 2700 600 / 2700 650 / 650 Balance -1100 / 540 1640 / 540 316.667 / 316.667 Intake: IV 1000 / 3000 2000 / 3000 966.667 / 966.667 Oral 240 / 240 Output: Urine 2100 / 2700 600 / 2700 650 / 650 Other: Urine Color Yellow Light Rachel Yellow Urine Appearance Clear Clear Clear Urine Odor Normal Comment bed side camode Voiding Methods Bedside Commode Bedside Commode Bedside Commode [facility] Medical History BMI 45.0-49.9, adult History of depression Migraine Rh negative state in antepartum period Right kidney stone Surgical History History of arthroscopic knee surgery History of carpal tunnel release History of section History of nasal septoplasty Family History Mother Mental disorder Disabled. Mental health issues. Father Mental disorder suicide. Maternal Grandfather Diabetes Social History Smoking/Tobacco Use Status: Never Smoking risk assessment performed?: Yes Alcohol Intake: current Alcohol Intake frequency: holidays/special occasions only Drug use: Never Substance use type: does not use Do you feel safe at home: Yes Do you feel safe in your relationship?: Yes History History 1 Para 0 Hx # Term Pregnancies 0 Multiple births 0 Hx # Pregnancies 0 Ectopic pregnancies 0 AB induced 0 Hx Number of Living Children 0 AB spontaneous 0
[2021-02-10] MEDS: Lidocaine 5% Patch 1 PATCH TP (10:08)
[2021-02-10] MEDS: Ibuprofen 800 MG TAB PO (10:08)
[2021-02-10] MEDS: Tamsulosin 0.4 MG CAPCR PO (10:08)
--- NOTE | 2021-02-10 13:32 | NUR.NOTE ---
Nursing Note: pt states that she feels lot better and wants to go home, pain at 2 and no N?V
[2021-02-12 14:10] LABS: Source: Right Kidney
== END 2021-02-10 14:20 | disposition home or self-care (01) ==
LOC: MS 15:25
PROVIDERS: Admitting Provider Urology; PCP Nurse Practitioner Family; Visit Provider Urology
PROC: (CPT 52353; principal; 2021-02-08 08:30)
DX: N20.0 Calculus of kidney (principal); G89.18 Other acute postprocedural pain; R11.0 Nausea; G43.909 Migraine, unspecified, not intractable, without status migrainosus; F32.9 Major depressive disorder, single episode, unspecified; E66.9 Obesity, unspecified; Z68.42 Body mass index [BMI] 45.0-49.9, adult
CPT/HCPCS: 52353; 81025; 74420; 82365; G0378; J0690; J1100; J2001; J2250; J2270; J2405; J2704; J3010; J3490; Q9967

== ENCOUNTER 2021-05-21 10:53 | Outpatient (REF) | payer OTHER, SELFPAY ==
[2021-05-21 15:45] LABS: Abs Immature Grans 0.02 10^3/uL (0.0-0.06); Absolute Basophil Count 0.03 10^3/uL (0.0-0.2); Absolute Eosinophil Count 0.05 10^3/uL (0.0-0.7); Absolute Lymphocyte Count 1.63 10^3/uL (1.2-3.4); Absolute Monocyte Count 0.46 10^3/uL (0.1-0.8); Absolute Neutrophil Count 4.82 10^3/uL (1.2-6.7); Basophils % 0.4; Eosinophils % 0.7; HCT 43.8 % (36.0-46.0); HGB 14.3 g/dL (11.2-15.7); Immature Grans % 0.3; Lymphocytes % 23.3; MCH 30.2 pg (27.0-33.0); MCHC 32.6 % (32.0-36.0); MCV 92.4 fL (80-95); MPV 11.3 fL (8.0-11.0); Monocytes % 6.6; Neutrophils % 68.7; Nucleated RBC 0 %; Platelet Count 275 10^3/uL (130-400); RBC 4.74 10^6/uL (3.93-5.22); RDW 12.4 % (11.7-14.6); RDW-SD 42.5 fL; WBC 7.01 10^3/uL (4.4-10.8)
[2021-05-21 16:06] LABS: Mono Screening Negative (Negative)
[2021-05-21 16:36] LABS: ALT 39 U/L (14-59); AST 19 U/L (15-37); Albumin 3.6 g/dL (3.4-5.0); Alkaline Phosphatase 60 U/L (46-116); Anion Gap 10.3 mmol/L (3-11); BUN 12 mg/dL (7-18); Bilirubin, Total 0.5 mg/dL (0.2-1.0); CO2 25.7 mmol/L (21.0-32.0); CREATININE 0.9 mg/dL (0.55-1.02); Calcium 9.1 mg/dL (8.5-10.1); Chloride 105 mmol/L (98-107); Glucose 89 mg/dL (74-106); Potassium 3.9 mmol/L (3.5-5.1); Sodium 141 mmol/L (136-145); Total Protein 7.8 g/dL (6.4-8.2)
[2021-05-23 16:35] LABS: COVID-19 RT-PCR UVMMC Result Negative (Negative)
== END 2021-05-21 10:54 | disposition home or self-care (01) ==
LOC: NCHCN 10:53
PROVIDERS: PCP Nurse Practitioner Family; Visit Provider Nurse Practitioner Family
DX: L72.9 Follicular cyst of the skin and subcutaneous tissue, unspecified (principal); R59.9 Enlarged lymph nodes, unspecified; H92.02 Otalgia, left ear
CPT/HCPCS: 80053; U0003; 85025; 86308

== ENCOUNTER 2021-11-03 14:03 | Outpatient (REF) | payer OTHER, SELFPAY ==
[2021-11-03 15:47] LABS: HCT 44.2 % (36.0-46.0); HGB 14.5 g/dL (11.2-15.7); MCHC 32.8 % (32.0-36.0); MCV 91.3 fL (80-95); MPV 11.2 fL (8.0-11.0); Platelet Count 313 10^3/uL (130-400); RBC 4.84 10^6/uL (3.93-5.22); RDW 12.5 % (11.7-14.6); RDW-SD 41.3 fL; WBC 8.84 10^3/uL (4.4-10.8)
== END 2021-11-03 14:04 | disposition home or self-care (01) ==
LOC: NCHCN 14:03
PROVIDERS: PCP Nurse Practitioner Family; Visit Provider Nurse Practitioner Family
DX: R11.0 Nausea (principal); K21.9 Gastro-esophageal reflux disease without esophagitis
CPT/HCPCS: 80053; 85027

== ENCOUNTER 2021-11-04 18:46 | Outpatient (REF) | payer OTHER, SELFPAY ==
[2021-11-04 20:30] LABS: ALT 36 U/L (14-59); AST 24 U/L (15-37); Albumin 3.6 g/dL (3.4-5.0); Alkaline Phosphatase 60 U/L (46-116); Anion Gap 11.2 mmol/L (3-11); BUN 9 mg/dL (7-18); Bilirubin, Total 0.5 mg/dL (0.2-1.0); CO2 24.8 mmol/L (21.0-32.0); CREATININE 0.9 mg/dL (0.55-1.02); Calcium 8.6 mg/dL (8.5-10.1); Chloride 105 mmol/L (98-107); Glucose 93 mg/dL (74-106); Potassium 3.8 mmol/L (3.5-5.1); Sodium 141 mmol/L (136-145); Total Protein 7.5 g/dL (6.4-8.2)
== END 2021-11-04 18:47 | disposition home or self-care (01) ==
LOC: NCHCN 18:46
PROVIDERS: PCP Nurse Practitioner Family; Visit Provider Nurse Practitioner Family
DX: R11.0 Nausea (principal)
CPT/HCPCS: 80053

== ENCOUNTER 2021-11-15 09:48 | Emergency (ER) | payer OTHER, SELFPAY ==
[2021-11-15 09:57] VITALS: BP 146/70; PULSE 63; RESP 18; TEMP 36.7; O2SAT 99
--- NOTE | 2021-11-15 10:26 | ED.GENADUL_ITS ---
Discharge Plan Disposition Patient Disposition: HOME Condition: Improving Discharge Details Clinical Impression: Epigastric pain Primary Care Provider: Ese Alvarado ED Provider: Bautista Chinchilla Home Meds and New Rx's Prescriptions: Continued buspirone 7.5 mg tablet 7.5 mg PO BID 0RF sertraline 100 mg tablet 100 mg PO HS 0RF sucralfate 1 gram tablet 1 g PO QID 0RF omeprazole 40 mg capsule,delayed release(DR/EC) 40 mg PO DAILY 0RF ondansetron HCl 4 mg tablet 4 mg PO Q8H 0RF hydroxyzine HCl 25 mg tablet 25 mg PO QHS 0RF tretinoin [Retin-A] 0.05 % cream 1 applic topical QHS 0RF Nexplanon 68 mg implant 1 implant subdermal ONCE 0RF Rx Instructions: as a single dose Discharge Instructions Instructions: Epigastric Pain (ED) Additional Instructions: Please continue take your medications as prescribed. Please be seen by your primary care physician and discuss moving your endoscopy procedure forward. Return to emergency department for worsening symptoms including fever abdominal pain nausea vomiting or other abnormal symptoms. Medical Decision Making 26-year-old female history of recurrent abdominal pain presents with epigastric abdominal pain over the past several months, nausea, and decreased p.o. intake, endorses soft small stool without bleeding or mucus. Surgical history includes section. Patient is on Nexplanon control. Abdomen soft nondistended does have epigastric discomfort on palpation without guarding or rebounding. Appears well-hydrated hemodynamically stable. Consider gastritis GERD versus duodenal ulcer versus biliary colic versus less likely cholecystitis is less likely pancreatitis versus unlikely bowel obstruction enteritis or colitis screening labs imaging fluids symptomatic treatment close reassessment. 11: 51 patient resting comfortably, nausea is improved, CT unremarkable labs unremarkable. Likely contaminated urine sample given large amount of squames. Patient encouraged to continue to follow-up with primary as well as surgical team that we will be doing the endoscopy to see if they can push up the procedure. HPI General Date/Time Provider Initiated Documentation: 11/15/21 09:52 . HPI Narrative: 26-year-old female presents endorsing several months of epigastric abdominal discomfort associate with nausea and decreased p.o. intake, endorses small soft stool nonbloody nonmucoid, is scheduled to see surgical services for endoscopy and biopsy to be tested for H. pylori, persistent pain over the past several d ays unchanged from prior. Abdominal surgical history includes section. Patient is on control Nexplanon. Related Data Home Medications Medication Instructions Recorded Confirmed sertraline 100 mg tablet 100 mg PO HS 01/04/21 11/15/21 buspirone 7.5 mg tablet 7.5 mg PO BID 03/23/21 11/09/21 etonogestrel 68 mg subdermal 1 implant SUBDERMAL ONCE 11/05/21 11/15/21 implant (Nexplanon) hydroxyzine HCl 25 mg tablet 25 mg PO QHS 11/05/21 11/15/21 omeprazole 40 mg capsule,delayed 40 mg PO DAILY 11/05/21 11/15/21 release ondansetron HCl 4 mg tablet 4 mg PO Q8H 11/05/21 11/15/21 sucralfate 1 gram tablet 1 g PO QID 11/05/21 11/15/21 tretinoin 0.05 % topical cream 1 applic TOPICAL QHS 11/05/21 11/15/21 (Retin-A) Allergies Allergy/AdvReac Type Severity Reaction Status Date / Time adhesive Allergy Mild Skin Rash Verified 11/15/21 10:15 ketorolac tromethamine Allergy Mild Skin Rash Verified 11/15/21 10:15 [From Toradol] hydromorphone [Hydromorphone] Allergy hives Verified 11/15/21 10:15 latex Allergy itching,audie Verified 11/15/21 10:15 h General Stated Complaint: Abd Prob ROEL: 3 Review of Systems Narrative: Review of Systems Constitutional: negative Eyes: negative ENT: negative Cardiovascular: negative Respiratory: negative Gastrointestinal: Abdominal pain, nausea : negative Musculoskeletal: negative Skin: negative Neurologic: negative Psych: negative PFSH All Active Problems (Updated 11/15/21 @ 11:55 by Bautista Chinchilla MD) Nausea (Acute) Left upper quadrant pain (Acute) Epigastric pain (Acute) GERD (gastroesophageal reflux disease) (Chronic) Medical History Adenopathy BMI 45.0-49.9, adult Chlamydia Chronic rhinitis (05/29/17) Chronic tonsillitis (05/29/17) Deviated septum Family history of bleeding or clotting disorder (08/24/17) Pt reports mother has clotting disorder. Pt told not to use estrogen containing contraception. Hematuria History of depression History of depression (08/24/17) Intermittent palpitations Knee instability (03/12/14) CHRONIC LEFT KNEE Migraine Other specified contraceptive management (04/22/13) Post-op pain Postnasal drip (05/29/17) Postoperative nausea Psoas tendinitis, right hip (12/06/17) Rh negative state in antepartum period Right kidney stone Right snapping hip (12/06/17) Tonsillar hypertrophy (05/29/17) Urinary frequency Urticaria Surgical History History of arthroscopic knee surgery History of carpal tunnel release History of section History of nasal septoplasty Family History Mother Mental disorder Disabled. Mental health issues. Father Mental disorder suicide. Maternal Grandfather Diabetes Social History Smoking/Tobacco Use Status: Never Smoking risk assessment performed?: Yes Alcohol Intake: current Alcohol Intake frequency: holidays/special occasions only Drug use: Never Substance use type: does not use Current gender identity: female Do you feel safe at home: Yes Do you feel safe in your relationship?: Yes History History 1 Para 0 Hx # Term Pregnancies 0 Multiple births 0 Hx # Pregnancies 0 Ectopic pregnancies 0 AB induced 0 Hx Number of Living Children 0 AB spontaneous 0 Exam Narrative Exam Narrative: Physical Examination General: alert, awake, cooperative, resting comfortably, no acute distress HEENT: normocephalic, atraumatic; PERRL, EOM intact, conjunctiva normal; no nasal discharge; moist mucous membranes, oral and pharyngeal mucosa normal, tolerating secretions Neck: supple, trachea midline; full ROM Chest: normal to inspection Respiratory: normal respiratory effort, speaking in full sentences, clear to auscultation, no wheezing, rales or rhonchi Cardiac: regular rate, regular rhythm, S1S2 intact, no murmurs rubs or gallops GI: abdomen soft, tenderness in epigastrium, without guarding or rebounding, non-distended; no palpable mass or hepatosplenomegaly Skin: no lesions, rashes or trauma appreciated Neuro: AAOx3, normal speech, moving all extremities Extremities: Psych: Appropriate mood and affect Course Vital Signs Vital signs: Vital Signs Temperature 36.7 C 11/15/21 09:57 Pulse 63 11/15/21 09:57 Respiratory Rate 18 11/15/21 09:57 Blood Pressure 146/70 H 11/15/21 09:57 Pulse Oximetry 99 11/15/21 09:57 Temperature 36.7 C 11/15/21 09:57 Temperature Source Temporal Artery Scan 11/15/21 09:57 Pulse 63 11/15/21 09:57 Respiratory Rate 18 11/15/21 09:57 Respiratory Effort 11/15/21 10:17 Blood Pressure 146/70 H 11/15/21 09:57 Blood Pressure Position Sitting 11/15/21 09:57 Pulse Oximetry 99 11/15/21 09:57
[2021-11-15] MEDS: Lidocaine 2% Viscous 15 ML CUP PO (10:39)
[2021-11-15 10:48] LABS: Bilirubin Negative (Negative); Blood Moderate (Negative); Clarity Cloudy (Clear); Glucose Negative (Negative); Ketones Negative (Negative); Leukocyte Esterase Moderate (Negative); Nitrite Negative (Negative); Urobilinogen 0.2 EU/dL (Up TO 0.2)
[2021-11-15 10:55] LABS: Bacteria Many HPF (Negative); C & S Indicated? No/Sq. Contamination; Casts Negative LPF (Negative); Crystals Negative HPF (Negative); Epithelial Cells Many HPF (Negative); Mucus Negative (Negative)
[2021-11-15] MEDS: Mylanta Suspension 30 ML CUP PO (10:57)
[2021-11-15] MEDS: Ondansetron 4 MG/2 ML VIAL IVP (10:59)
[2021-11-15] MEDS: Famotidine 20 MG/2 ML VIAL IVP (10:59)
[2021-11-15] MEDS: Normal Saline 500 ML 1000 ML IV (11:00)
[2021-11-15 11:04] LABS: Abs Immature Grans 0.03 10^3/uL (0.0-0.06); Absolute Basophil Count 0.03 10^3/uL (0.0-0.2); Absolute Eosinophil Count 0.05 10^3/uL (0.0-0.7); Absolute Lymphocyte Count 1.97 10^3/uL (1.2-3.4); Absolute Monocyte Count 0.38 10^3/uL (0.1-0.8); Absolute Neutrophil Count 5.98 10^3/uL (1.2-6.7); Basophils % 0.4; Eosinophils % 0.6; HCT 42.6 % (36.0-46.0); HGB 14.1 g/dL (11.2-15.7); Immature Grans % 0.4; Lymphocytes % 23.3; MCH 30.2 pg (27.0-33.0); MCHC 33.1 % (32.0-36.0); MCV 91.2 fL (80-95); MPV 10.6 fL (8.0-11.0); Monocytes % 4.5; Neutrophils % 70.8; Platelet Count 267 10^3/uL (130-400); RBC 4.67 10^6/uL (3.93-5.22); RDW 12.7 % (11.7-14.6); RDW-SD 42.5 fL; WBC 8.44 10^3/uL (4.4-10.8)
--- NOTE | 2021-11-15 11:21 | DI.CT_ITS ---
Exam(s) CT ABDOMEN PELVIS W EXAM: CT ABDOMEN PELVIS W CLINICAL HISTORY: epigastric abdominal pain nausea, vomiting. TECHNIQUE: Imaging Protocol: Axial computed tomography images with coronal and sagittal reformatted images were created and reviewed CONTRAST MATERIAL: Intravenous: Omnipaque 350 Contrast volume:100 ml Oral: no COMPARISON: CT CT RENAL COLIC WO from 01/01/2021 FINDINGS: ABDOMEN: Lung Bases: Normal where visualized. Liver: Normal density. No measurable mass. Gallbladder and biliary tract: No radiodense calculus or dilation. Pancreas: Normal density, no abnormal calcifications or inflammatory process. Spleen: Normal. Kidneys: Normal size, contour and axis. No radiodense stones or obstructive uropathy. No masses seen. Adrenal glands: No masses seen. Abdominal Aorta: Abdominal portion non-dilated. PELVIS: Bladder: No gross wall thickening. No calculi.No focal mass. Bowel: No obstruction or bowel wall thickening. Appendix normal. Peritoneal cavity: No ascites, collection or mesenteric inflammatory response. Bones: Within normal limits for age. Reproductive organs: Within normal limits. Lymph nodes: Unremarkable. Impression: Unremarkable CT scan of the abdomen and pelvis. RADIATION DOSE DELIVERED: 1,527.74mGy.cm Total DLP DATA REPOSITORY: All CT scans at this facility are submitted to the National Radiology Data Registry (NRDR) Dose Index Registry (DIR) with the [employer] (A[employer]). RADIATION OPTIMIZATION: All CT scans at this facility use at least one of these dose optimization te chniques: automated exposure control; mA and/or kV adjustment per patient size (includes targeted exa ms where dose is matched to clinical indication); or iterative reconstruction.
[2021-11-15 11:28] LABS: ALT 36 U/L (14-59); AST 30 U/L (15-37); Albumin 3.6 g/dL (3.4-5.0); Alkaline Phosphatase 57 U/L (46-116); Anion Gap 8.8 mmol/L (3-11); BUN 8 mg/dL (7-18); Bilirubin, Total 0.8 mg/dL (0.2-1.0); CO2 25.2 mmol/L (21.0-32.0); CREATININE 0.8 mg/dL (0.55-1.02); Calcium 8.6 mg/dL (8.5-10.1); Chloride 104 mmol/L (98-107); Glucose 94 mg/dL (74-106); Potassium 3.8 mmol/L (3.5-5.1); Sodium 138 mmol/L (136-145); Total Protein 8.1 g/dL (6.4-8.2)
[2021-11-15] MEDS: Omnipaque 350 MG/ML 100 ML BTL IJ (11:34)
[2021-11-15 11:47] LABS: Lipase 53 U/L (73-393)
[2021-11-15 11:49] VITALS: BP 117/45; PULSE 72
[2021-11-15 11:51] VITALS: BP 117/45; PULSE 75; RESP 18; O2SAT 99
== END 2021-11-15 12:14 | disposition home or self-care (01) ==
PROVIDERS: Emergency Provider Emergency Medicine; PCP Nurse Practitioner Family
DX: R10.13 Epigastric pain (principal); R11.2 Nausea with vomiting, unspecified
CPT/HCPCS: 80053; 81025; 83690; 96361; 96374; 96375; 99285; 74177; 81003; 81015; 85025; 99284; J2405; J3490

== ENCOUNTER 2021-11-16 16:57 | Outpatient (REF) | payer OTHER, SELFPAY | END 2021-11-16 16:58 | disposition home or self-care (01) | LOC: NCHCN 16:57 | PROVIDERS: PCP Nurse Practitioner Family; Visit Provider Nurse Practitioner Family | DX: R30.0 Dysuria (principal) | CPT/HCPCS: 87086 ==

== ENCOUNTER 2021-11-18 15:08 | Emergency (ER) | payer OTHER, SELFPAY ==
[2021-11-18 15:17] VITALS: BP 165/86; PULSE 88; RESP 16; TEMP 37.1; O2SAT 97
[2021-11-18 15:33] LABS: Clarity Clear (Clear)
[2021-11-18 15:34] LABS: Bilirubin Negative (Negative); Blood Trace (Negative); Glucose Negative (Negative); Ketones Negative (Negative); Leukocyte Esterase Trace (Negative); Nitrite Negative (Negative); Specific Gravity 1.015 (1.005-1.025); Urobilinogen 0.2 EU/dL (Up TO 0.2)
--- NOTE | 2021-11-18 15:39 | ED.GENADUL_ITS ---
Discharge Plan Disposition Patient Disposition: HOME Condition: Improving Discharge Details Clinical Impression: UTI (urinary tract infection) Primary Care Provider: Ese Alvarado ED Provider: Bautista Chinchilla Home Meds and New Rx's Prescriptions: New cefpodoxime 100 mg tablet 100 mg PO BID 7 Days Qty: 14 0RF Rx Instructions: must administer with a meal/food phenazopyridine [Pyridium] 100 mg tablet 100 mg PO TID PRN (Reason: pain) Qty: 6 0RF No Action buspirone 7.5 mg tablet 7.5 mg PO BID 0RF sertraline 100 mg tablet 100 mg PO HS 0RF sucralfate 1 gram tablet 1 g PO QID 0RF omeprazole 40 mg capsule,delayed release(DR/EC) 40 mg PO DAILY 0RF ondansetron HCl 4 mg tablet 4 mg PO Q8H 0RF hydroxyzine HCl 25 mg tablet 25 mg PO QHS 0RF tretinoin [Retin-A] 0.05 % cream 1 applic topical QHS 0RF Nexplanon 68 mg implant 1 implant subdermal ONCE 0RF Rx Instructions: as a single dose sulfamethoxazole-trimethoprim 800-160 mg tablet 1 tab PO BID 0RF Discharge Instructions Instructions: Urinary Tract Infection in Women (ED) Additional Instructions: Please take medications as prescribed. Please return the emergency department for any worsening symptomatology which may include fever chills nausea vomiting back pain worsening urinary symptoms vaginal discharge or bleeding. Medical Decision Making 26-year-old female presents with dysuria and urethral irritation recently treated with Bactrim for presumed UTI by her primary care doctor, no vomiting, patient is hemodynamically stable, nontoxic, denies vaginal discharge or bleeding. Will assess UA. Pelvic exam showing normal external genitalia without lesions or rash, internal exam showing white clumping mucoid discharge consider yeast infection versus gonorrhea versus chlamydia versus trichomoniasis. No signs of systemic infection. Patient denies any new sexual partners. Less likely pelvic inflammatory disease will likely broaden spectrum of patient's antibiotic for UTI and cover with Diflucan pending wet prep 17: 27 patient resting comfortably no acute distress. Negative for trichomonas BV or candidiasis. Patient Dors is monogamous relationship with partner last sexual activity 1 week ago. No new vaginal discharge. Will treat empirically for UTI. Home care instructions and return precautions given. HPI General Date/Time Provider Initiated Documentation: 11/18/21 15:11 . HPI Narrative: 26-year-old female history of GERD, presents with dysuria and urethral irritation even without urinating, feels fullness sensation, denies vaginal ble eding or discharge, remote history of chlamydia years ago treated, patient has Implanon. Chronic GERD symptomatology. Patient endorses that she was treated for UTI within the last week by her primary care doctor given Bactrim Related Data Home Medications Medication Instructions Recorded Confirmed sertraline 100 mg tablet 100 mg PO HS 01/04/21 11/18/21 buspirone 7.5 mg tablet 7.5 mg PO BID 03/23/21 11/18/21 etonogestrel 68 mg subdermal 1 implant SUBDERMAL ONCE 11/05/21 11/18/21 implant (Nexplanon) hydroxyzine HCl 25 mg tablet 25 mg PO QHS 11/05/21 11/18/21 omeprazole 40 mg capsule,delayed 40 mg PO DAILY 11/05/21 11/18/21 release ondansetron HCl 4 mg tablet 4 mg PO Q8H 11/05/21 11/18/21 sucralfate 1 gram tablet 1 g PO QID 11/05/21 11/18/21 tretinoin 0.05 % topical cream 1 applic TOPICAL QHS 11/05/21 11/18/21 (Retin-A) cefpodoxime 100 mg tablet 100 mg PO BID 7 Days #14 tab 11/18/21 phenazopyridine 100 mg tablet 100 mg PO TID PRN #6 tab 11/18/21 (Pyridium) sulfamethoxazole 800 1 tab PO BID 11/18/21 11/18/21 mg-trimethoprim 160 mg tablet Previous Rx's Medication Instructions Recorded cefpodoxime 100 mg tablet 100 mg PO BID 7 Days #14 tab 11/18/21 phenazopyridine 100 mg tablet 100 mg PO TID PRN #6 tab 11/18/21 (Pyridium) Allergies Allergy/AdvReac Type Severity Reaction Status Date / Time adhesive Allergy Mild Skin Rash Verified 11/18/21 15:24 ketorolac tromethamine Allergy Mild Skin Rash Verified 11/18/21 15:24 [From Toradol] hydromorphone [Hydromorphone] Allergy hives Verified 11/18/21 15:24 latex Allergy itching,audie Verified 11/18/21 15:24 h General Stated Complaint: Urinary ROEL: 3 Review of Systems Narrative: Review of Systems Constitutional: negative Eyes: negative ENT: negative Cardiovascular: negative Respiratory: negative Gastrointestinal: negative : Dysuria Musculoskeletal: negative Skin: negative Neurologic: negative Psych: negative PFSH All Active Problems (Updated 11/18/21 @ 17:29 by Bautista Chinchilla MD) UTI (urinary tract infection) (Acute) Nausea (Acute) Left upper quadrant pain (Acute) Epigastric pain (Acute) GERD (gastroesophageal reflux disease) (Chronic) Medical History Adenopathy BMI 45.0-49.9, adult Chlamydia Chronic rhinitis (05/29/17) Chronic tonsillitis (05/29/17) Deviated septum Family history of bleeding or clotting disorder (08/24/17) Pt reports mother has clotting disorder. Pt told not to use estrogen containing contraception. Hematuria History of depression History of depression (08/24/17) Intermittent palpitations Knee instability (03/12/14) CHRONIC LEFT KNEE Migraine Other specified contraceptive management (04/22/13) Post-op pain Postnasal drip (05/29/17) Postoperative nausea Psoas tendinitis, right hip (12/06/17) Rh negative state in antepartum period Right kidney stone Right snapping hip (12/06/17) Tonsillar hypertrophy (05/29/17) Urinary frequency Urticaria Surgical History History of arthroscopic knee surgery History of carpal tunnel release History of section History of nasal septoplasty Family History Mother Mental disorder Disabled. Mental health issues. Father Mental disorder suicide. Maternal Grandfather Diabetes Social History Smoking/Tobacco Use Status: Never Smoking risk assessment performed?: Yes Alcohol Intake: current Alcohol Intake frequency: holidays/special occasions only Drug use: Never Substance use type: does not use Current gender identity: female Do you feel safe at home: Yes Do you feel safe in your relationship?: Yes History History 1 Para 0 Hx # Term Pregnancies 0 Multiple births 0 Hx # Pregnancies 0 Ectopic pregnancies 0 AB induced 0 Hx Number of Living Children 0 AB spontaneous 0 Exam Narrative Exam Narrative: Physical Examination General: alert, awake, cooperative, resting comfortably, no acute distress HEENT: normocephalic, atraumatic; PERRL, EOM intact, conjunctiva normal; no nasal discharge; moist mucous membranes, oral and pharyngeal mucosa normal, tolerating secretions Neck: supple, trachea midline; full ROM Chest: normal to inspection Respiratory: normal respiratory effort, speaking in full sentences, clear to auscultation, no wheezing, rales or rhonchi Cardiac: regular rate, regular rhythm, S1S2 intact, no murmurs rubs or gallops GI: abdomen soft, non-tender, non-distended; no palpable mass or hepatosplenomegaly Skin: no lesions, rashes or trauma appreciated Neuro: AAOx3, normal speech, moving all extremities Psych: Appropriate mood and affect Course Vital Signs Vital signs: Vital Signs Temperature 37.1 C 11/18/21 15:17 Pulse 88 11/18/21 15:17 Respiratory Rate 16 11/18/21 15:17 Blood Pressure 165/86 H 11/18/21 15:17 Pulse Oximetry 97 11/18/21 15:17 Temperature 37.1 C 11/18/21 15:17 Temperature Source Skin 11/18/21 15:17 Pulse 88 11/18/21 15:17 Respiratory Rate 16 11/18/21 15:17 Respiratory Effort 11/18/21 15:17 Blood Pressure 165/86 H 11/18/21 15:17 Blood Pressure Position Sitting 11/18/21 15:17 Pulse Oximetry 97 11/18/21 15:17 Oxygen Delivery Method Room Air 11/18/21 15:17 Oxygen Flow Rate 0 11/18/21 15:17 Pain Level 8 11/18/21 15:17 Lab/Test Results Lab/Test Results: Laboratory Tests Range/Units 11/18/21 15:08 Urine Color (Yellow) Yellow Urine Clarity (Clear) Clear Urine pH (5-8) 7.0 Ur Specific Powell (1.005-1.025) 1.015 Urine Protein (Negative) mg/dL Negative Urine Ketones (Negative) mg/dL Negative Urine Blood (Negative) Trace H Urine Nitrite (Negative) Negative Urine Bilirubin (Negative) Negative Urine Urobilinogen (Up TO 0.2) EU/dL 0.2 Ur Leukocyte Esterase (Negative) Trace H Urine Glucose (Negative) mg/dL Negative
[2021-11-18 15:42] LABS: Bacteria Rare HPF (Negative); Crystals Negative HPF (Negative); Epithelial Cells Moderate HPF (Negative); Mucus Trace (Negative)
[2021-11-18 15:43] LABS: C & S Indicated? No; Casts Negative LPF (Negative)
[2021-11-18] MEDS: Phenazopyridine 100 MG TAB PO (16:03)
--- NOTE | 2021-11-18 16:10 | NUR.NOTE ---
Pt states that she has hx of kidney stones. in december pt had stone surgically removed. marlene
[2021-11-18 17:55] VITALS: BP 131/59; PULSE 69; RESP 16; TEMP 37.1; O2SAT 97
== END 2021-11-18 18:03 | disposition home or self-care (01) ==
PROVIDERS: Emergency Provider Emergency Medicine; PCP Nurse Practitioner Family
DX: N39.0 Urinary tract infection, site not specified (principal)
CPT/HCPCS: 87491; 87591; 99284; 81003; 81015; 87480; 87510; 87660; 99283

== ENCOUNTER 2021-11-24 19:34 | Outpatient (REF) | payer OTHER, SELFPAY ==
[2021-11-26 18:09] LABS: Chlamydia Result Negative (Negative); GC Result Negative (Negative)
== END 2021-11-24 19:35 | disposition home or self-care (01) ==
LOC: LBN 19:34
PROVIDERS: PCP Nurse Practitioner Family; Visit Provider Obstetrics & Gynecology
DX: R10.2 Pelvic and perineal pain (principal); Z11.3 Encounter for screening for infections with a predominantly sexual mode of transmission
CPT/HCPCS: 87491; 87591; 87480; 87510; 87660

== ENCOUNTER 2021-11-24 19:56 | Outpatient (REF) | payer OTHER, SELFPAY ==
[2021-11-24 15:47] LABS: Bilirubin Negative (Negative); Blood Trace-intact (Negative); Clarity Clear (Clear); Glucose Negative (Negative); Ketones Negative (Negative); Leukocyte Esterase Negative (Negative); Nitrite Negative (Negative); Specific Gravity 1.015 (1.005-1.025); Urobilinogen 0.2 EU/dL (Up TO 0.2)
[2021-11-24 16:08] LABS: Bacteria Negative HPF (Negative); Epithelial Cells Moderate HPF (Negative); RBC 0-2 HPF (0-2); WBC 0-2 HPF (0-5)
[2021-11-24 16:09] LABS: C & S Indicated? C&S Done As Ordered; Mucus Negative (Negative)
== END 2021-11-24 19:57 | disposition home or self-care (01) ==
LOC: NCHCN 19:56
PROVIDERS: PCP Nurse Practitioner Family; Visit Provider Nurse Practitioner Family
DX: R30.0 Dysuria (principal)
CPT/HCPCS: 81003; 81015; 87086

== ENCOUNTER 2021-11-29 01:59 | Outpatient (CLI) | payer OTHER, SELFPAY ==
[2021-11-29 12:13] LABS: Source Nasal/Nares
[2021-11-29 16:40] LABS: COVID-19 PCR Negative (Negative)
== END 2021-11-29 02:00 | disposition home or self-care (01) ==
LOC: LBO 01:59
PROVIDERS: PCP Nurse Practitioner Family; Visit Provider Surgery
DX: Z20.822 Contact with and (suspected) exposure to COVID-19 (principal); Z01.818 Encounter for other preprocedural examination
CPT/HCPCS: 87635

== ENCOUNTER 2021-12-01 10:36 | Day surgery (SDC) | payer OTHER, SELFPAY ==
--- NOTE | 2021-12-01 07:20 | W.PM.ENDDOP ---
Date of service: 12/01/21 Time of Service: 13:47 Endoscopy Report DATE OF PROCEDURE: 12/01/21 PRE-OP DIAGNOSIS: GERD/NAusea/Epigastric pain POST-OP DIAGNOSIS: other (gastritis and esophagitis) PROCEDURE: EGD with biopsies SURGEON: Rocio Chew ANESTHESIA TYPE: General:No Airway ESTIMATED BLOOD LOSS: 2 PATHOLOGY: other (antral bx, GE junction bx) COMPLICATIONS: None DISPOSITION: same day INDICATIONS: Mrs Harmon is a pleasant 26-year-old female with new onset of reflux, and heartburn symptoms.? Her symptoms are not improved on 40 mg of omeprazole daily and Carafate 4 times daily.? She has not yet been tested for H. pylori although she states her primary care physician placed an order.? I have recommended an upper endoscopy at which point I can test for H. pylori with a biopsy.? I discussed the procedure with the patient in detail and reviewed the risks and benefits. Risks, benefits and complications have been reviewed. Complications include but are not limited to bleeding, pain, perforation, sore throat, aspiration, and adverse reaction to the medications.? Questions were entertained and answered to their satisfaction and they wished to proceed. No guarantees were given or implied. Proceed with EGD under sedation. (2) Nausea: (3) Left upper quadrant pain: (4) Epigastric pain: FINDINGS: mild gastritis moderate GE junction bx PROCEDURE DESCRIPTION: After informed consent was obtained the patient was take to the procedure room and placed in a supine position. Monitors were applied and a time out was done. The patients name, date of , procedure type, allergies to medications and metal in their body was reviewed. A bite block was placed and the patient was sedated. Once sedated and comfortable the gastroscope was advanced through the oropharynx which was grossly normal into the esophagus. The proximal and mid-esophagus were normal. In the distal esophagus there was mild noted. The scope was advanced into the stomach and through the pylorus into the 3rd portion of the duodenum. The duodenum was noted to be normal. The scope was retracted back into the stomach and biopsies were done to rule out H. pylori. There were no ulcers. The scope was retroflexed. The cardia and fundus were noted to be normal. There was no hiatal hernia noted. The scope was retracted back into the esophagus and biopsies were done of the GE junction to rule out Haq's. The Z line was regular. The GE junction was at 34 cm. The scope was removed and the patient was woken up and taken back to [facility] in stable condition. Follow up: 2 weeks in the office
--- NOTE | 2021-12-01 07:21 | PDOC.DSDIS_ITS ---
Discharge Plan Disposition Patient Disposition: HOME Condition: Good Discharge Details Reason For Visit: EGD Attending Provider: Rocio Chew Primary Care Provider: Ese Alvarado Home Meds and New Rx's Prescriptions: New famotidine [Pepcid] 40 mg tablet 40 mg PO QHS Qty: 30 3RF Continued buspirone 7.5 mg tablet 7.5 mg PO BID 0RF hydroxyzine HCl 25 mg tablet 25 mg PO TID 0RF fluconazole 150 mg tablet 150 mg PO ONCE Qty: 2 0RF Label Comments: 12/01 Pt states last dose 11/30 Rx Instructions: Repeat in 72hrs if still having symptoms sertraline 100 mg tablet 100 mg PO HS 0RF omeprazole 40 mg capsule,delayed release(DR/EC) 40 mg PO DAILY 0RF ondansetron HCl 4 mg tablet 4 mg PO Q8H PRN0RF tretinoin [Retin-A] 0.05 % cream 1 applic topical QHS 0RF Nexplanon 68 mg implant 1 implant subdermal ONCE 0RF Rx Instructions: as a single dose metronidazole 500 mg tablet 500 mg PO BID Qty: 10 0RF Discontinued sucralfate 1 gram tablet 1 g PO QID 0RF Discharge Instructions Instructions: Diet for Stomach Ulcers and Gastritis (ED), Gastritis (DC), GERD (Gastroesophageal Reflux Disease) (DC) Additional Instructions: Findings: mild inflammation in the stomach mild inflammation of the GE junction Follow up: 2 weeks in the office Please call if you develop: fevers >101.5 Nausea or Vomiting Abdominal pain that is not transient Rectal bleeding that is more then a tbsp A hard abdomen and inability to pass gas DAY SURGERY UNIT POST ENDOSCOPY INSTRUCTIONS Instructions for everyone who is given Anesthesia: For your safety, please do the following for the next 24 Hours: a. Do not drive or operate dangerous equipment b. Do not drink alcohol beverages or use any recreational drugs for the first 24 hours or while taking pain medications. The medications in your body may have a reaction that can be dangerous. c. Do not make any important decisions or sign any important papers 1. Generally there are no restrictions on your activity after a day or so has go ne by, but you may feel a bit fatigued for a few days. 2. After you arrive home you may have a light meal and return to a normal diet as you can tolerate it without feeling sick to your stomach. 3. After surgery, you may feel pain or discomfort. This should be only transient, but if it persists please contact your doctor. 4. If there are any questions regarding the findings of your procedure, please feel free to contact your doctor. 6. If you are unable to contact your doctor with a problem, contact the hospital at [phone]. 7. Continue all your regular medications unless directed otherwise. I understand the above instructions and have no questions. Signature of Patient or Responsible Adult Escort Date/Time Name of Responsible Adult Escort Signature of Nurse Date/Time Stand Alone Forms: Anesthesia Discharge Inst., Mayi Adame ([facility]) Referrals: Rocio Chew MD [ [facility] STAFF PHYSICIAN] - 12/14/21 9:00 am Activity:: Activity as Tolerated Diet:: As Tolerated Discharge Orders Discharge Orders: Discharge Order (Routine); Ordered 12/01/21 Ordered By: Rocio Chew
--- NOTE | 2021-12-01 10:32 | W.ANESPRE ---
General Info Date of Service Date Performed: 12/01/21 Height: 5 ft 4 in Weight: 136.078 kg Body Mass Index (BMI): 51.5 Surgical Procedure: Operation Date: 12/01/21 12:35 Proposed Procedure Side Surgeon p Gastroscopy Rocio Chew MD Meds Allergies and Home Medications Allergies Allergy/AdvReac Type Severity Reaction Status Date / Time adhesive Allergy Mild Skin Rash Verified 12/01/21 11:01 ketorolac tromethamine Allergy Mild Skin Rash Verified 12/01/21 11:01 [From Toradol] hydromorphone [Hydromorphone] Allergy hives Verified 12/01/21 11:01 latex Allergy itching,audie Verified 12/01/21 11:01 h Home Medication Medication Instructions Recorded sertraline 100 mg tablet 100 mg PO HS 01/04/21 buspirone 7.5 mg tablet 7.5 mg PO BID 03/23/21 etonogestrel 68 mg subdermal 1 implant SUBDERMAL ONCE 11/05/21 implant (Nexplanon) omeprazole 40 mg capsule,delayed 40 mg PO DAILY 11/05/21 release ondansetron HCl 4 mg tablet 4 mg PO Q8H PRN 11/05/21 sucralfate 1 gram tablet 1 g PO QID 11/05/21 tretinoin 0.05 % topical cream 1 applic TOPICAL QHS 11/05/21 (Retin-A) fluconazole 150 mg tablet 150 mg PO ONCE #2 tab 11/24/21 hydroxyzine HCl 25 mg tablet 25 mg PO TID tab 11/24/21 metronidazole 500 mg tablet 500 mg PO BID #10 tab 11/25/21 Current Visit Medications: Current Medications Generic Name Dose Route Start Last Admin Trade Name Freq PRN Reason Stop Dose Admin Hyoscyamine Sulfate 0.125 mg 12/01/21 07:21 Hyoscyamine 0.125 Mg Sl/Oral/Chew SL DIRECTED PRN Ringer's Solution 1,000 mls @ 80 mls/hr 12/01/21 06:00 IV 12/30/21 23:59 INFUSION BEBETO IV Miscellaneous Supplies 1 each 12/01/21 06:00 Iv Access IV 12/30/21 23:59 DIRECTED BEBETO Ondansetron HCl 4 mg 12/01/21 07:21 Ondansetron 4 Mg/2 Ml Vial IVP Q4H PRN PRN Nausea / Vomiting Sodium Chloride 0 ml 12/01/21 06:00 Normal Saline Flush 10 Ml Syr IV 12/30/21 23:59 PRN PRN Sodium Chloride 0 ml 12/01/21 06:00 Normal Saline 10 Ml Vial IJ 12/30/21 23:59 DIRECTED PRN Sterile Water 0 ml 12/01/21 06:00 Water,Injection,Sterile 10 Ml Vial IJ 12/30/21 23:59 DIRECTED PRN PFSH Active Problems Active Problems: Problem Status Onset Code Pelvic pressure in female R10.2 Nausea R11.0 Left upper quadrant pain R10.12 Epigastric pain R10.13 GERD (gastroesophageal reflux disease) K21.9 Medical History Medical History Chronic rhinitis (05/29/17) Chronic tonsillitis (05/29/17) Deviated septum Family history of bleeding or clotting disorder (08/24/17) Pt reports mother has clotting disorder. Pt told not to use estrogen containing contraception. Hematuria History of depression (08/24/17) History of kidney stones Intermittent palpitations Knee instability (03/12/14) CHRONIC LEFT KNEE Migraine Other specified contraceptive management (04/22/13) Psoas tendinitis, right hip (12/06/17) Right snapping hip (12/06/17) Tonsillar hypertrophy (05/29/17) Urticaria UTI (urinary tract infection) Surgical History Surgical History (Updated 12/01/21 @ 11:00 by María Rodriges) History of arthroscopic knee surgery History of carpal tunnel release History of section History of nasal septoplasty Hx of cystoscopy Tobacco Smoking/Tobacco Use Status: Never Alcohol Alcohol Intake: current Alcohol intake frequency: holidays/special occasions only Substance Use Substance use: Never Substance use type: does not use Prental History History 1 Para 1 Hx # Term Pregnancies 0 Multiple births 0 Hx # Pregnancies 0 Ectopic pregnancies 0 AB induced 0 Hx Number of Living Children 0 AB spontaneous 0 Past Pregnancies Del. Date GA/Weeks # Outcome Route Wgt Sex Labor Lgth Anesthesia Location Prov Complic 05/13/19 40 No Successful 3855.535 g Male >24 hours [facility] Delivery Date: 05/13/19 Last Updated by: Suyapa Morin Pt had for failed induction Vital Signs and Lab Results Vital Signs Most Recent Vital Signs in EMR: Temp Pulse Resp BP Pulse Ox 36.3 C L 60 16 129/70 97 12/01/21 10:46 12/01/21 10:46 12/01/21 10:46 12/01/21 10:46 12/01/21 10:46 Lab Results Blood Type / Crossmatch: No Data to Display Complete Blood Count: White Blood Count 8.44 10^3/uL (4.4-10.8) 11/15/21 10:55 11/15/21 Red Blood Count 4.67 10^6/uL (3.93-5.22) 11/15/21 10:55 11/15/21 Hemoglobin 14.1 g/dL (11.2-15.7) 11/15/21 10:55 11/15/21 Hematocrit 42.6 % (36.0-46.0) 11/15/21 10:55 11/15/21 Platelet Count 267 10^3/uL (130-400) 11/15/21 10:55 11/15/21 Complete Metabolic Panel: Sodium Level 138 mmol/L (136-145) 11/15/21 10:55 11/15/21 Potassium Level 3.8 mmol/L (3.5-5.1) 11/15/21 10:55 11/15/21 Chloride Level 104 mmol/L (98-107) 11/15/21 10:55 11/15/21 Carbon Dioxide Level 25.2 mmol/L (21.0-32.0) 11/15/21 10:55 11/15/21 Blood Urea Nitrogen 8 mg/dL (7-18) 11/15/21 10:55 11/15/21 Creatinine 0.8 mg/dL (0.55-1.02) 11/15/21 10:55 11/15/21 Estimated GFR/1.73 m2 >= 60.00 (mL/min/1.73m2) 11/15/21 10:55 11/15/21 Calcium Level 8.6 mg/dL (8.5-10.1) 11/15/21 10:55 11/15/21 Albumin 3.6 g/dL (3.4-5.0) 11/15/21 10:55 11/15/21 Glucose Level 94 mg/dL (74-106) 11/15/21 10:55 11/15/21 Liver Function Panel: Alanine Aminotransferase (ALT/SGPT) 36 U/L (14-59) 11/15/21 10:55 11/15/21 Aspartate Amino Transf (AST/SGOT) 30 U/L (15-37) 11/15/21 10:55 11/15/21 Coagulation Panel: No Data to Display Cardiac Panel: No Data to Display Arterial Blood Gas: No Data to Display Venous Blood Gas: No Data to Display Pancreas Panel: Lipase 53 U/L (73-393) 11/15/21 10:55 11/15/21 Thyroid Panel: No Data to Display Infectious Disease: Coronavirus (COVID-19)(PCR) Negative (Negative) 11/29/21 09:10 11/29/21 Coronavirus 2019 Source Nasal/Nares 11/29/21 09:10 11/29/21 Neisseria gonorrhoeae DNA Probe Negative (Negative) 11/24/21 13:30 11/24/21 Blood Cultures: No Data to Display Toxicology Panel: No Data to Display Panel: No Data to Display Anesthesia Assessment and Plan Anesthesia History Personal History: PONV and Delayed Emergence Family History: No Family History of Anesthesia Complications Exercise Tolerance Exercise Tolerance: Metabolic Equivalents>4 Cardiac & Pulmonary Exam Cardiac Exam: Normal S1/S2 Heart Sounds Pulmonary Exam: Clear Bilateral Breath Sounds Implantable Cardiac Device Does patient have a Pacemaker or an ICD?: No Airway Exam Known Difficult Airway: No Mallampati Class: 3 Mouth Opening: Normal (> 3cm) Thyromental Distance: Greater than 3 cm Neck Range of Motion: Full ROM Neck Circumference: Normal Teeth Condition: Normal Dentition ASA Classification ASA Score: ASA 3 Emergency Case?: No NPO Status NPO Status: NPO Clears >2 hours, Solids >8 hours Status Status: Negative HCG Anesthesia Plan Resuscitation Status: Full Code Anesthesia Technique: General Anesthesia Airway Planned: Natural Airway Monitors Used: Standard Monitors Preoperative Comments:: Active Gerd, ordered famotidine.
[2021-12-01 10:46] VITALS: BP 129/70; PULSE 60; RESP 16; TEMP 36.3; O2SAT 97
[2021-12-01] MEDS: Lactated Ringers 1,000 ML 80 ML IV (11:00)
[2021-12-01 11:58] VITALS: BMI 51.5
[2021-12-01] MEDS: FAMOTIDINE 20 MG in Normal Saline 100 ML 400 MG IVPB (12:29)
[2021-12-01] MEDS: Normal Saline Flush 10 ML SYR IV (12:50)
--- NOTE | 2021-12-01 13:28 | STOM_PTH ---
PATIENT: Mary Ann Harmon LOC: [facility] U#:[id number] AGE/SX: 26/F ROOM: RE12/01/[address]: Rocio Chew MD : 1995 BED: DIS: 12/01/2021 SPEC #: [id number] RECD: 12/01/21 15:25 STATUS: SHALONDA REQ #: [id number] MARZENA: 12/01/21 13:[address]: Rocio Chew DEPT: Surgical Specimen RECD BY: Cassi Reno ENTERED: 12/01/21 15:27 SP TYPE: STOMACH OTHR DR: Ese Alvarado Tissues: 1 - STOMACH BIOPSY 2 - ESOPHAGUS BIOPSY Procedures: GROSS AND MICRO LEVEL 4 Comments: [id number]
[2021-12-01 13:49] VITALS: BP 101/43; PULSE 82; RESP 16; TEMP 36.1; O2SAT 96
[2021-12-01 14:08] VITALS: BP 106/53; PULSE 80; RESP 17; TEMP 36.2; O2SAT 99
--- NOTE | 2021-12-01 15:03 | W.ANESPOSTOP ---
Postoperative Evaluation Date, Time and Location Date Performed: 12/01/21 Time Performed: 14:00 Patient Location: Day Surgery Unit Vital Signs Most Recent Imported Vital Signs: Most Recent Vital Signs Temp Pulse Resp BP Pulse Ox 36.2 C L 82 17 106/53 L 99 12/01/21 14:08 12/01/21 13:49 12/01/21 14:08 12/01/21 14:08 12/01/21 14:08 Pain Score Most Recent Pain Score: Most Recent Pain Score Pain Level 1 12/01/21 14:08 Assessment Mental Status: Awake (Alert & Oriented to Patient Baseline) Airway and Respiratory Function: Patent airway with normal (patient baseline) respiratory exam Cardiovascular Function: Hemodynamically Stable Hydration Status: Adequately Hydrated Nausea & Vomiting: No Nausea or Vomiting Pain: Pt. Denies Any Pain Peripheral Nerve Block: Patient did not receive a nerve block
== END 2021-12-01 15:10 | disposition home or self-care (01) ==
LOC: SUR 10:36
PROVIDERS: PCP Nurse Practitioner Family; Visit Provider Surgery
PROC: 0DJ68ZZ Inspection of Stomach, Via Natural or Artificial Opening Endoscopic (ICD-10-PCS; CPT 43235; principal; 2021-12-01 12:30)
DX: K21.9 Gastro-esophageal reflux disease without esophagitis (principal); K20.90 Esophagitis, unspecified without bleeding; K29.70 Gastritis, unspecified, without bleeding; K22.89 Other specified disease of esophagus; K31.89 Other diseases of stomach and duodenum
CPT/HCPCS: 43239; 81025; 88305

== ENCOUNTER 2021-12-19 13:21 | Emergency (ER) | payer OTHER, SELFPAY ==
[2021-12-19 13:30] VITALS: BP 125/74; PULSE 78; RESP 16; TEMP 36.7; O2SAT 99
[2021-12-19 13:42] LABS: Bilirubin Negative (Negative); Blood Trace-lysed (Negative); Clarity Clear (Clear); Glucose Negative (Negative); Ketones Negative (Negative); Leukocyte Esterase Negative (Negative); Nitrite Negative (Negative); Specific Gravity 1.015 (1.005-1.025); Urobilinogen 0.2 EU/dL (Up TO 0.2)
--- NOTE | 2021-12-19 13:45 | DI.CT_ITS ---
Exam(s) CT ABDOMEN PELVIS WO EXAM: CT ABDOMEN PELVIS WO CLINICAL HISTORY: RUQ pain. TECHNIQUE: Imaging Protocol: Axial computed tomography images with coronal and sagittal reformatted images were created and reviewed. COMPARISON: CT CT ABDOMEN PELVIS W from 11/15/2021 FINDINGS: ABDOMEN: Lung Bases: Normal where visualized. Liver: Normal density. No measurable mass. Gallbladder and biliary tract: No radiodense calculus or biliary ductal dilation. Pancreas: Normal density, no abnormal calcifications or inflammatory process. Spleen: Normal. Kidneys: Normal size, contour and axis.No radiodense stones or obstructive uropathy. No masses seen. Adrenal glands: No mass is seen. Lymph nodes: Within normal limits. Abdominal Aorta: Abdominal portion non-dilated. PELVIS: Bladder:Symmetric distention, no gross wall thickening. Bowel: No obstruction or bowel wall thickening. No inflammatory changes are seen around the bowel. No evidence of appendicitis. Peritoneal cavity: No ascites, collection or mesenteric inflammatory response. No free air. Reproductive organs: There is a 3.2 cm right adnexal cyst, likely ovarian. Reproductive organs are o therwise unremarkable. Bones: Within normal limits. Soft Tissues: Within normal limits. IMPRESSION: 3.2 cm right adnexal cyst, likely ovarian. This may be a physiologic cyst. If there is concern for torsion, ultrasound should be obtained. RADIATION DOSE DELIVERED: 1,558.32mGy.cm Total DLP DATA REPOSITORY: All CT scans at this facility are submitted to the National Radiology Data Registry (NRDR) Dose Index Registry (DIR) with the [employer] (ACR). RADIATION OPTIMIZATION: All CT scans at this facility use at least one of these dose optimization te chniques: automated exposure control; mA and/or kV adjustment per patient size (includes targeted exa ms where dose is matched to clinical indication); or iterative reconstruction.
[2021-12-19 13:48] LABS: Bacteria Rare HPF (Negative); C & S Indicated? No; Casts Negative LPF (Negative); Crystals Negative HPF (Negative); Epithelial Cells Many HPF (Negative); Mucus Trace (Negative); WBC 0-2 HPF (0-5)
[2021-12-19] MEDS: Normal Saline 1,000 ML 1000 ML IV (14:05)
[2021-12-19 14:13] LABS: Abs Immature Grans 0.03 10^3/uL (0.0-0.06); Absolute Basophil Count 0.04 10^3/uL (0.0-0.2); Absolute Eosinophil Count 0.13 10^3/uL (0.0-0.7); Absolute Lymphocyte Count 2.28 10^3/uL (1.2-3.4); Absolute Monocyte Count 0.45 10^3/uL (0.1-0.8); Basophils % 0.4; Eosinophils % 1.4; HCT 41.1 % (36.0-46.0); HGB 13.5 g/dL (11.2-15.7); Immature Grans % 0.3; MCH 29.7 pg (27.0-33.0); MCHC 32.8 % (32.0-36.0); MCV 91 fL (80-95); MPV 10.6 fL (8.0-11.0); Monocytes % 4.9; Platelet Count 261 10^3/uL (130-400); RBC 4.54 10^6/uL (3.93-5.22); RDW 12.4 % (11.7-14.6); RDW-SD 41.1 fL; WBC 9.13 10^3/uL (4.4-10.8)
[2021-12-19] MEDS: Ondansetron 4 MG/2 ML VIAL IVP (14:15)
[2021-12-19 14:25] LABS: ALT 37 U/L (14-59); AST 38 U/L (15-37); Albumin 3.2 g/dL (3.4-5.0); Alkaline Phosphatase 59 U/L (46-116); Anion Gap 9.1 mmol/L (3-11); BUN 12 mg/dL (7-18); Bilirubin, Total 0.5 mg/dL (0.2-1.0); CO2 25.9 mmol/L (21.0-32.0); CREATININE 0.8 mg/dL (0.55-1.02); Calcium 8.5 mg/dL (8.5-10.1); Chloride 105 mmol/L (98-107); Glucose 93 mg/dL (74-106); Lipase 64 U/L (73-393); Potassium 3.8 mmol/L (3.5-5.1); Sodium 140 mmol/L (136-145); Total Protein 7.8 g/dL (6.4-8.2)
[2021-12-19 15:22] VITALS: BP 111/83; PULSE 65; TEMP 36.6; O2SAT 98
--- NOTE | 2021-12-19 15:34 | DI.VRAD_ITS ---
PROCEDURE INFORMATION: Exam: CT Abdomen And Pelvis Without Contrast Exam date and time: 12/19/2021 3:05 PM Age: 26 years old Clinical indication: Abdominal pain; Localized; Right upper quadrant (ruq) TECHNIQUE: Imaging protocol: Computed tomography of the abdomen and pelvis without contrast. Radiation optimization: All CT scans at this facility use at least one of these dose optimization techniques: automated exposure control; mA and/or kV adjustment per patient size (includes targeted exams where dose is matched to clinical indication); or iterative reconstruction. COMPARISON: CT ABDOMEN PELVIS W 11/15/2021 11:21 AM FINDINGS: Liver: Normal. No mass. Gallbladder and bile ducts: Normal. No calcified stones. No ductal dilation. Pancreas: Normal. No ductal dilation. Spleen: Normal. No splenomegaly. Adrenal glands: Normal. No mass. Kidneys and ureters: There is no evidence of renal or ureteral calcifications. Stomach and bowel: Low-attenuation bowel wall thickening is seen throughout the colon consistent with colitis. Differential diagnosis includes infectious and inflammatory etiologies.. Appendix: Normal appendix Intraperitoneal space: Unremarkable. No free air. No significant fluid collection. Vasculature: Unremarkable. No abdominal aortic aneurysm. Lymph nodes: Unremarkable. No enlarged lymph nodes. Urinary bladder: Unremarkable as visualized. Reproductive: 4.4 cm simple cyst in the right adnexal region. This was not present November 15 2021. Findings may reflect right ovarian cyst.. Differential includes torsion.. Bones/joints: Unremarkable. No acute fracture. Soft tissues: Unremarkable. IMPRESSION: 1. 4.4 cm simple cyst in the right adnexal region. This was not present November 15 2021. Findings may reflect right ovarian cyst.. Differential includes torsion.. If torsion is suspected, recommend duplex assessment of the ovaries 2. Low-attenuation bowel wall thickening is seen throughout the colon consistent with colitis. Differential diagnosis includes infectious and inflammatory etiologies.. Dictated and Authenticated by: Chrystal Garcia MD. Ordering:VENKAT Hoyt MD
--- NOTE | 2021-12-19 15:50 | ED.GENADUL_ITS ---
Discharge Plan Disposition Patient Disposition: HOME Condition: Stable Discharge Details Clinical Impression: Diarrhea, Colitis Primary Care Provider: Ese Alvarado ED Provider: Evelina Guzmán Home Meds and New Rx's Prescriptions: New hyoscyamine sulfate [Levsin] 0.125 mg tablet 0.125 mg PO BID-QID PRNQty: 10 0RF hydrocodone-acetaminophen 5-325 mg tablet 1 tab PO Q6H PRNQty: 7 0RF ondansetron HCl 4 mg tablet 4 mg PO Q8H PRNQty: 7 0RF Continued buspirone 7.5 mg tablet 7.5 mg PO BID hydroxyzine HCl 25 mg tablet 25 mg PO TID fluconazole 150 mg tablet 150 mg PO ONCE Qty: 2 0RF Label Comments: 12/01 Pt states last dose 11/30 Rx Instructions: Repeat in 72hrs if still having symptoms sertraline 100 mg tablet 100 mg PO HS esomeprazole magnesium [Nexium] 40 mg capsule,delayed release(DR/EC) 40 mg PO DAILY Qty: 30 2RF ondansetron HCl 4 mg tablet 4 mg PO Q8H PRN tretinoin [Retin-A] 0.05 % cream 1 applic topical QHS Nexplanon 68 mg implant 1 implant subdermal ONCE Rx Instructions: as a single dose Discharge Instructions Instructions: Acute Diarrhea (ED) Additional Instructions: Take the Levsin then as needed for abdominal cramping Return a stool sample to the to the lab Take Zofran as needed for nausea and vomiting Take hydrocodone sparingly, this medication is addictive and he should not drive for 8 hours after taking it Referrals: Ese Alvarado [Primary Care Provider] - Discharge Data Discharge Date/Time-TO BE ENTERED AT DEPARTURE: 12/19/21 16:55 Medical Decision Making Patient is tender predominantly in the right upper quadrant and right flank, no right lower quadrant or adnexal pain appreciated I did review the [facility] interpretation of CT abdomen and pelvis which was utilized without contrast secondary to national shortage The interpretation and did not display any acute findings in the right upper quadrant Patient however did have a reported 4 cm ovarian cyst with a differential listed including that of torsion, patient is presenting clinically with diarrhea for the past 48 hours on recent antibiotic and has no reproducible right lower quadrant pain on examination presents most likely However patient really only: Right upper quadrant ultrasound and they pelvic ultrasound secondary to both her right upper quadrant tenderness and adnexal reported on [facility] interpretation us Is ordered in the outpatient setting secondary to lack of ultrasound ability on the weekends Patient discharged home on Zofran, several tablets of Percocet as needed for pain with risk of addiction reviewed, and Levsin for antispasmodic She also is discharged home to return stool cultures as she will need to be tested for C. difficile and other pathogens, she was supplied with a return kit and laboratory slip Return precautions discussed and patient expressed understanding Medical Records Medical records reviewed: Yes I reviewed the patient's medical records. Lab Data Lab results reviewed: Yes I reviewed the patient's lab results. HPI General Date/Time Provider Initiated Documentation: 12/19/21 13:29 . HPI Narrative: This 26-year-old female presents with diarrhea and abdominal pain today. She states that she has had some intermittent epigastric pain for which she had an endoscopy for several months ago which showed gastritis. She states this pain is different. She has a pain pump with morning. She denies any known sick contacts. She has been on 3 different antibiotics for the past few months per patient. She denies any fever or chills. She states the pain is predominantly in her right quadrant and just to the right flank. She denies any lower abdominal pain. Related Data Home Medications Medication Instructions Recorded Confirmed sertraline 100 mg tablet 100 mg PO HS 01/04/21 12/19/21 buspirone 7.5 mg tablet 7.5 mg PO BID 03/23/21 12/19/21 etonogestrel 68 mg subdermal 1 implant subdermal ONCE 11/05/21 12/19/21 implant (Nexplanon) ondansetron HCl 4 mg tablet 4 mg PO Q8H PRN 11/05/21 12/19/21 tretinoin 0.05 % topical cream 1 applic topical QHS 11/05/21 12/19/21 (Retin-A) fluconazole 150 mg tablet 150 mg PO ONCE #2 tabs 11/24/21 12/14/21 hydroxyzine HCl 25 mg tablet 25 mg PO TID 11/24/21 12/19/21 esomeprazole magnesium 40 mg 40 mg PO DAILY #30 caps 12/14/21 12/19/21 capsule,delayed release (Nexium) hydrocodone 5 mg-acetaminophen 325 1 tab PO Q6H PRN #7 tabs 12/19/21 mg tablet hyoscyamine sulfate 0.125 mg 0.125 mg PO BID-QID PRN #10 tabs 12/19/21 tablet (Levsin) ondansetron HCl 4 mg tablet 4 mg PO Q8H PRN #7 tabs 12/19/21 Previous Rx's Medication Instructions Recorded fluconazole 150 mg tablet 150 mg PO ONCE #2 tabs 11/24/21 esomeprazole magnesium 40 mg 40 mg PO DAILY #30 caps 12/14/21 capsule,delayed release (Nexium) hydrocodone 5 mg-acetaminophen 325 1 tab PO Q6H PRN #7 tabs 12/19/21 mg tablet hyoscyamine sulfate 0.125 mg 0.125 mg PO BID-QID PRN #10 tabs 12/19/21 tablet (Levsin) ondansetron HCl 4 mg tablet 4 mg PO Q8H PRN #7 tabs 12/19/21 Allergies Allergy/AdvReac Type Severity Reaction Status Date / Time adhesive Allergy Mild Skin Rash Verified 12/19/21 13:45 ketorolac tromethamine Allergy Mild Skin Rash Verified 12/19/21 13:45 [From Toradol] hydromorphone [Hydromorphone] Allergy hives Verified 12/19/21 13:45 latex Allergy itching,audie Verified 12/19/21 13:45 h General Stated Complaint: Abd Prob ROEL: 3 Review of Systems All systems reviewed & are unremarkable except as noted in HPI and below PFSH All Active Problems (Updated 12/19/21 @ 15:55 by EMELIA Soto) Diarrhea (Acute) Colitis (Acute) Diarrhea (Acute) Upper abdominal pain (Acute) Gastritis (Acute) Esophagitis (Acute) GERD (gastroesophageal reflux disease) (Chronic) Epigastric pain (Acute) Left upper quadrant pain (Acute) Nausea (Acute) Pelvic pressure in female (Acute) Medical History Chronic rhinitis (05/29/17) Chronic tonsillitis (05/29/17) Deviated septum Family history of bleeding or clotting disorder (08/24/17) Pt reports mother has clotting disorder. Pt told not to use estrogen containing contraception. Hematuria History of depression (08/24/17) History of kidney stones Intermittent palpitations Knee instability (03/12/14) CHRONIC LEFT KNEE Migraine Other specified contraceptive management (04/22/13) Psoas tendinitis, right hip (12/06/17) Right snapping hip (12/06/17) Tonsillar hypertrophy (05/29/17) Urticaria UTI (urinary tract infection) Surgical History History of arthroscopic knee surgery History of carpal tunnel release History of section History of esophagogastroduodenoscopy (EGD) (~11/2021) History of nasal septoplasty Hx of cystoscopy Family History Mother Mental disorder Disabled. Mental health issues. Father Mental disorder suicide. 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 Date GA/Weeks # Outcome Route Wgt Sex Labor Lgth Anesthes ia Location Prov Complic 05/13/19 40 No Successful 3855.535 g Male >[address] [facility] Delivery Date: 05/13/19 Last Updated by: Suyapa Morin Pt had for failed induction Exam Const General: cooperative and comfortable Eyes Sclera: sclerae normal Resp Effort & Inspection: normal respiratory effort Auscultation: clear to auscultation bilaterally Cardio Rate: regular rate Rhythm: regular rhythm GI Other: Mild tenderness right upper quadrant and right, no right lower quadrant tenderness, no rebound or guarding, no CVA tenderness Skin General skin exam: no rashes or lesions noted Neuro General: patient alert and patient oriented x3 Course Vital Signs Vital signs: Vital Signs Temperature 36.7 C 12/19/21 13:30 Pulse 78 12/19/21 13:30 Respiratory Rate 16 12/19/21 13:30 Blood Pressure 125/74 12/19/21 13:30 Pulse Oximetry 99 12/19/21 13:30 Temperature 36.6 C 12/19/21 15:22 Temperature Source Tympanic 12/19/21 15:22 Pulse 65 12/19/21 15:22 Respiratory Rate 16 12/19/21 13:30 Respiratory Effort 12/19/21 13:53 Blood Pressure 111/83 12/19/21 15:22 Pulse Oximetry 98 12/19/21 15:22 Oxygen Delivery Method Room Air 12/19/21 15:22 Oxygen Flow Rate 0 12/19/21 15:22 Pain Level 7 12/19/21 15:22 Lab/Test Results Lab/Test Results: Laboratory Tests Range/Units 12/19/21 12/19/21 12/19/21 13:30 14:05 14:05 WBC (4.4-10.8) 10^3/uL 9.13 RBC (3.93-5.22) 10^6/uL 4.54 Hgb (11.2-15.7) g/dL 13.5 Hct (36.0-46.0) % 41.1 MCV (80-95) fL 91 MCH (27.0-33.0) pg 29.7 MCHC (32.0-36.0) % 32.8 RDW (11.7-14.6) % 12.4 Plt Count (130-400) 10^3/uL 261 MPV (8.0-11.0) fL 10.6 Immature Gran % 0.3 Neutrophils % 68.0 Lymphocytes % 25.0 Monocytes % 4.9 Eosinophils % 1.4 Basophils % 0.4 Nucleated RBC % (0.0-0.3) % 0.0 Absolute Neutrophils (1.2-6.7) 10^3/uL 6.20 Absolute Lymphocytes (1.2-3.4) 10^3/uL 2.28 Absolute Monocytes (0.1-0.8) 10^3/uL 0.45 Absolute Eosinophils (0.0-0.7) 10^3/uL 0.13 Absolute Basophils (0.0-0.2) 10^3/uL 0.04 Sodium (136-145) mmol/L 140 Potassium (3.5-5.1) mmol/L 3.8 Chloride (98-107) mmol/L 105 Carbon Dioxide (21.0-32.0) mmol/L 25.9 Anion Gap (3-11) mmol/L 9.1 BUN (7-18) mg/dL 12 Creatinine (0.55-1.02) mg/dL 0.8 Estimated GFR/1.73 m2 (mL/min/1.73m2) >= 60.00 Glucose (74-106) mg/dL 93 Calcium (8.5-10.1) mg/dL 8.5 Total Bilirubin (0.2-1.0) mg/dL 0.5 AST (15-37) U/L 38 H ALT (14-59) U/L 37 Alkaline Phosphatase (46-116) U/L 59 Total Protein (6.4-8.2) g/dL 7.8 Albumin (3.4-5.0) g/dL 3.2 L Lipase (73-393) U/L 64 Urine Color (Yellow) Yellow Urine Clarity (Clear) Clear Urine pH (5-8) 6.0 Ur Specific Panacea (1.005-1.025) 1.015 Urine Protein (Negative) mg/dL Negative Urine Ketones (Negative) mg/dL Negative Urine Blood (Negative) Trace-lysed H Urine Nitrite (Negative) Negative Urine Bilirubin (Negative) Negative Urine Urobilinogen (Up TO 0.2) EU/dL 0.2 Ur Leukocyte Esterase (Negative) Negative Urine RBC (0-2) HPF 3-5 H Urine WBC (0-5) HPF 0-2 Ur Epithelial Cells (Negative) HPF Many Urine Crystals (Negative) HPF Negative Urine Bacteria (Negative) HPF Rare Urine Casts (Negative) LPF Negative Urine Mucus (Negative) Trace Ur Culture Indicated? No Urine Glucose (Negative) mg/dL Negative POC Urine Test Start: 12/19/21 13:29 Freq: Status: Complete Protocol: Document 12/19/21 13:39 OTTO (Rec: 12/19/21 13:39 [id number] [id number]) Test(Urine)-POC POC- Test(urine) Negative POC- Test(urine) Negative PAWSS Have you Been Recently Intoxicated or Drunk Within the Last 30 days?: No Have you Ever Experienced Previous Episodes of Alcohol Withdrawal?: No Have you ever Experienced Withdrawal Seizures?: No Have you ever Experienced Delirium Tremens(DT)s?: No Have you ever undergone Alcohol Rehabilitation Treatment (i.e, inpt ot outpatient treatment programs)?: No Have you ever Experienced Blackouts?: No Have you ever Combined Alcohol with other Downers within the last 90 days?: No Have you ever Combined Alcohol with any other Substance of Abuse during the last 90 days?: No Positive Blood Alcohol level on Presentation? [PCS.BAL]: No Evidence of Increased Autonomic Activity (i.e. HR>120, tremor, sweating, agitation, nausea)?: No Result: 0
[2021-12-19 16:27] VITALS: BP 137/65; PULSE 68; TEMP 36.5; O2SAT 98
[2021-12-19] MEDS: Dicyclomine 20 MG TAB (16:40)
--- NOTE | 2021-12-19 18:08 | NUR.NOTE ---
pt called ER looking for rx's discussed with Dr Nair advised no concern to wait until morning to pick them up pt stated she would pick them up in the morning Nursing Note:
== END 2021-12-19 16:55 | disposition home or self-care (01) ==
PROVIDERS: Emergency Provider Physician Assistant; PCP Nurse Practitioner Family
DX: R19.7 Diarrhea, unspecified (principal); K52.9 Noninfective gastroenteritis and colitis, unspecified; R10.11 Right upper quadrant pain
CPT/HCPCS: 36415; 80053; 81025; 83690; 96361; 96374; 99284; 74176; 81003; 81015; 85025; J2405

== ENCOUNTER 2021-12-20 14:35 | Outpatient (REF) | payer OTHER, SELFPAY ==
[2021-12-20 10:30] LABS: C Diff PCR Negative (Negative)
[2021-12-20 23:26] LABS: Campylobacter PCR Negative (Negative); Salmonella PCR Negative (Negative); Shiga Toxin PCR Negative (Negative); Shigella/Enteroinvasive Ecoli Negative (Negative)
== END 2021-12-20 14:36 | disposition home or self-care (01) ==
LOC: NCHCN 14:35
PROVIDERS: Physician Assistant; PCP Nurse Practitioner Family; Visit Provider Nurse Practitioner Family
DX: R19.7 Diarrhea, unspecified (principal); K52.89 Other specified noninfective gastroenteritis and colitis
CPT/HCPCS: 87493; 87505; 87177

== ENCOUNTER 2021-12-21 18:44 | Outpatient (REF) | payer OTHER, SELFPAY ==
[2021-12-21 15:08] LABS: TSH (W/Ref FT4) 1.13 uIU/mL (0.36-3.74)
== END 2021-12-21 18:45 | disposition home or self-care (01) ==
LOC: NCHCN 18:44
PROVIDERS: PCP Nurse Practitioner Family; Visit Provider Nurse Practitioner Family
DX: R10.9 Unspecified abdominal pain (principal); R19.7 Diarrhea, unspecified
CPT/HCPCS: 84443

== ENCOUNTER → 2021-12-31 09:52 | Outpatient (CLI) | payer OTHER, SELFPAY ==
--- NOTE | 2021-12-31 07:15 | DI.NM_ITS ---
Exam(s) NM HEPATOBILIARY CCK GRP EXAM: NM HEPATOBILIARY CCK GRP CLINICAL HISTORY: normal US,upper abd pain,diarrhea,r10.10. TECHNIQUE: Injected dose: 4.5 mCi Tc-99 mebrofenin Initial dynamic images: 60 minutes Post-Gallbladder fillin mcg CCK intravenously. No worsening of symptoms with CCK infusion. Addition images: According to protocol. COMPARISON: No exams were available for comparison FINDINGS: Normal hepatic transit time. Prompt excretion into the small bowel. Prompt excretion into the gallbladder. The gallbladder ejection fraction was 25 percent. This is be low normal. IMPRESSION: 1. Decreased gallbladder ejection fraction. This can be seen with gallbladder dyskinesia. SN guidelines: Gallbladder visualization should be present by 3 hours. Delayed doiresw-mm-ifndy may sit beyond 60 min raises the suspicion for partial common bile duct (CBD) obstruction. Gallbladder ejection fraction <35% has a good correlation with acalculous disease (i.e., chronic acal culous cholecystitis, cystic duct syndrome, sphincter of Oddi disease).
[2021-12-31] MEDS: Sincalide 5 MCG VIAL 2 MCG IJ (11:32)
== END ==
PROVIDERS: PCP Nurse Practitioner Family; Visit Provider Surgery
DX: R10.31 Right lower quadrant pain (principal); R19.7 Diarrhea, unspecified
CPT/HCPCS: 78227

== ENCOUNTER 2022-01-04 15:51 | Outpatient (CLI) | payer OTHER, SELFPAY | END 2022-01-04 15:52 | disposition home or self-care (01) | LOC: LBO 15:52 | PROVIDERS: PCP Nurse Practitioner Family; Visit Provider Surgery | DX: Z20.822 Contact with and (suspected) exposure to COVID-19 (principal); Z01.818 Encounter for other preprocedural examination | CPT/HCPCS: 87635 ==

== ENCOUNTER 2022-01-05 06:20 | Day surgery (SDC) | payer OTHER, SELFPAY ==
[2022-01-04 15:48] LABS: Source Nasal/Nares
[2022-01-04 22:21] LABS: COVID-19 PCR Negative (Negative)
[2022-01-05] VITALS (11 sets, daily range): BP systolic 107–133; BP diastolic 56–75; PULSE 58–85; RESP 16–26; TEMP 36.4–36.8; O2SAT 94–98; BMI 36.6
--- NOTE | 2022-01-05 06:30 | W.PREOPHP ---
Assessment and Plan Assessment and plan (1) Biliary dyskinesia: Status: Acute Assessment and plan: Darrian is a pleasant 26 year old female with Biliary Dyskinesia. We discussed treatment which consists of Laparoscopic Cholecystectomy. We reviewed the procedure and the potential complications. Risks, benefits, complications were reviewed with the patient in the office. Complications include but are not limited to bleeding, infection, injury to stomach, small bowel and large bowel, injury to the pancreas, injury to the common bile duct necessitating drainage and referral to tertiary center for repair, bile leak, adverse reactions to the medications, complications of intubation including a sore throat or injury to the uvula, PA, stroke and even . Questions were entertained and answered to her satisfaction and she wished to proceed. No guarantees were given or implied. proceed with Lap. Bia History of Present Illness Narrative: Darrian is a pleasant 26-year-old female who just underwent an upper endoscopy for abdominal pain, bloating and reflux type symptoms.? Pathology showed some inflammation in her stomach with some areas of erosion as well as some mild inflammation in the esophagus consistent with reflux.? She has been on omeprazole, Carafate and Pepcid without improvement in her symptoms.? She is now also complaining of loose stools and right upper quadrant pain.? Looking at her record she has not had an ultrasound done of her gallbladder.? CT scan done in October was unremarkable. US was ordered and was unremarkable. HIDA scan was done which showed an abnormal EF. She continues to have RUQ pain, diarrhea and Nausea Review of Systems All systems reviewed & are unremarkable except as noted in HPI and below PFSH All Active Problems Biliary dyskinesia (Acute) Pelvic pressure in female (Acute) Right lower quadrant pain (Acute) Ovarian cyst, right (Acute) Diarrhea (Acute) Colitis (Acute) Gastritis (Acute) Esophagitis (Acute) GERD (gastroesophageal reflux disease) (Chronic) Medical History Chronic rhinitis (05/29/17) Chronic tonsillitis (05/29/17) Deviated septum Family history of bleeding or clotting disorder (08/24/17) Pt reports mother has clotting disorder. Pt told not to use estrogen containing contraception. Hematuria History of depression (08/24/17) History of kidney stones Intermittent palpitations Knee instability (03/12/14) CHRONIC LEFT KNEE Migraine Nausea Psoas tendinitis, right hip (12/06/17) Tonsillar hypertrophy (05/29/17) Urticaria UTI (urinary tract infection) Surgical History History of arthroscopic knee surgery History of carpal tunnel release History of section History of esophagogastroduodenoscopy (EGD) (~11/2021) History of nasal septoplasty Hx of cystoscopy Family History Mother Mental disorder Disabled. Mental health issues. Father Mental disorder suicide. 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 Date GA/Weeks # Outcome Route Wgt Sex Labor Lgth Anesthesia Location Prov Complic 05/13/19 40 No Successful 8 lb 8 oz Male >24 hours [facility] Delivery Date: 05/13/19 Last Updated by: Suyapa Morin Pt had for failed induction Meds Allergies and Home Medications Allergies Allergy/AdvReac Type Severity Reaction Status Date / Time hydromorphone [Hydromorphone] Allergy Severe Anaphylaxis Verified 01/05/22 06:41 adhesive Allergy Mild Skin Rash Verified 01/05/22 06:41 ketorolac tromethamine Allergy Mild Skin Rash Verified 01/05/22 06:41 [From Toradol] latex Allergy itching,audie Verified 01/05/22 06:41 h Home Medications Medication Instructions Recorded Confirmed Type sertraline 100 mg tablet 100 mg PO HS 01/04/21 01/05/22 History buspirone 7.5 mg tablet 7.5 mg PO BID 03/23/21 01/05/22 History etonogestrel 68 mg subdermal 1 implant subdermal ONCE 11/05/21 01/05/22 History implant (Nexplanon) ondansetron HCl 4 mg tablet 4 mg PO Q8H PRN 11/05/21 01/05/22 History tretinoin 0.05 % topical cream 1 applic topical QHS 11/05/21 01/05/22 History (Retin-A) hydroxyzine HCl 25 mg tablet 25 mg PO TID 11/24/21 01/05/22 History esomeprazole magnesium 40 mg 40 mg PO DAILY #30 caps 12/14/21 01/05/22 Rx capsule,delayed release (Nexium) hydrocodone 5 mg-acetaminophen 325 1 tab PO Q6H PRN #7 tabs 12/19/21 01/05/22 Rx mg tablet hyoscyamine sulfate 0.125 mg 0.125 mg PO BID-QID PRN #10 tabs 12/19/21 01/05/22 Rx tablet (Levsin) omeprazole 40 mg capsule,delayed 40 mg PO DAILY 01/04/22 01/05/22 History release Exam Const General: comfortable and no acute distress Orientation: alert, awake and oriented x3 HENMT Head: normocephalic and atraumatic Eyes Pupils: PERRL Resp Effort & Inspection: normal respiratory effort Auscultation: clear to auscultation bilaterally Cardio Rate: regular rate Rhythm: regular rhythm Heart Sounds: no gallops, no murmurs and no rubs GI Inspection: normal to inspection Palpation: soft, no hepatosplenomegaly and tender in the RUQ Auscultation: normal bowel sounds Results Labs Labs: Laboratory Results - last 24 hr 01/04/22 15:23 COVID-19 Source Nasal/Nares SARS-CoV-2 (PCR) Negative
--- NOTE | 2022-01-05 06:37 | ROE_ITS ---
Date of service: 01/05/22 Time of Service: 08:34 Operative Note Operative Note DATE OF PROCEDURE: 01/05/22 PRE-OP DIAGNOSIS: Biliary Dyskinesia POST-OP DIAGNOSIS: same PROCEDURE: Laparoscopic Cholecystectomy SURGEON: Rocio Chew ROUNDING MACHINE OPERATOR: Cielo Scales ANESTHESIA TYPE: General LMA/ETT Refer to Anesthesia Record PATHOLOGY: other (Gallbladder and contents) COMPLICATIONS: None Patient was transported to: PACU Patient's condition: stable Indications: Mary Ann is a pleasant 26 year old female with Biliary Dyskinesia. We discussed treatment which? consists of Laparoscopic Cholecystectomy.? We reviewed the procedure and the potential complications. Risks, benefits, complications were reviewed with the patient in the office.? Complications include but are not limited to bleeding, infection, injury to stomach, small bowel and large bowel, injury to the pancreas, injury to the common bile duct necessitating drainage and referral to tertiary center for repair, bile leak, adverse reactions to the medications, complications of intubation including a sore throat or injury to the uvula, HI, stroke and even .? Questions were entertained and answered to her satisfaction and she wished to proceed.? No guarantees were given or implied. Procedure Description: After informed consent was obtained the patient was brought to the operating room, placed in a supine position and monitors were applied. SCDs were applied to her lower extremities and she was placed under general anesthesia and intubated without difficulty. Her abdomen was then prepped and draped in a sterile fashion using ChloraPrep. At this point a timeout was done and the patient's name, date of , procedure type, allergies to medications, metal in her body, antibiotic and DVT prophylaxis, and fire risk was assessed. At this point 0.25% Bupivocaine was injected just above the umbilicus into the dermis and subcutaneous tissue. A 5 mm incision was made with an 11 blade. The fascia was grasped with cockers and while pulling up on the fascia a 5 mm port was placed under direct visualization. The abdomen was insuflated and then 3 more ports were placed. A 12 mm port was placed in the subxiphoid area and two 5 mm ports were placed in the right upper quadrant. The liver was inspected and looked normal. The patient's bed was then turned to the left and her head was brought up. The gallbladder was grasped at the body and pushed towards the right shoulder, this allowed me to visualize the neck of the gallbladder. The neck was grasped and pulled towards the right flank and down allowing me to visualize the lymph node. Using a [place] dissector with cautery the lymph node was gently dissected away from the tissues and the fatty tissue was also dissected away. The cystic duct was identified it was normal in size. The duct was dissected 360 degrees using the [place] dissector in order for me to visualize its entrance into the gallbladder. Liver was noted behind it. There were no other structures right behind. Critical view was achieved. 3 clips were placed one proximal and 2 distal and the cystic duct was cut. The cystic artery was then identified and dissected 360 degrees. It was located just medial to the cystic duct. It was visualized going into the gallbladder. Once dissected 3 more clips were placed one proximal and 2 distal and the artery was cut. Using the hook dissector the gallbladder was then dissected away from the liver bed and placed into an Endo Catch bag and pulled through the 12 mm port site. The 12 mm port was placed back into the abdomen under direct visualization. The liver bed was inspected no bleeding was noted. The abdomen was then irrigated with a liter of normal saline until the effluent was clear. Once all the fluid was suctioned out 20 cc of 0.25% Bupivocaine was injected above the liver bed. The 12 mm and the 2 right upper quadrant ports were removed under direct visualization and no bleeding was noted from the fascia. The abdomen was deflated completely and lastly the umbilical port was removed. The skin was cleaned and the incisions were closed with 4-0 Vicryl. The skin was dried and skin affix was applied over the closed incisions. Needle, instrument and sponge counts were correct at the end of the case. At this point the patient was woken up, extubated and taken back to recovery in stable condition. There were no immediate complications.
--- NOTE | 2022-01-05 06:39 | PDOC.DSDIS_ITS ---
Discharge Plan Disposition Patient Disposition: HOME Condition: Good Discharge Details Reason For Visit: Biliary Dyskinesia Attending Provider: Rocio Chew Primary Care Provider: Ese Alvarado Home Meds and New Rx's Prescriptions: New hydrocodone-acetaminophen 5-325 mg tablet 1 tab PO Q6H PRNQty: 14 0RF Continued buspirone 7.5 mg tablet 7.5 mg PO BID hydroxyzine HCl 25 mg tablet 25 mg PO TID sertraline 100 mg tablet 100 mg PO HS esomeprazole magnesium [Nexium] 40 mg capsule,delayed release(DR/EC) 40 mg PO DAILY Qty: 30 2RF ondansetron HCl 4 mg tablet 4 mg PO Q8H PRN tretinoin [Retin-A] 0.05 % cream 1 applic topical QHS Nexplanon 68 mg implant 1 implant subdermal ONCE Rx Instructions: as a single dose hyoscyamine sulfate [Levsin] 0.125 mg tablet 0.125 mg PO BID-QID PRNQty: 10 0RF omeprazole 40 mg Capsule,Delayed Release(Dr/Ec) 40 mg PO DAILY Discontinued hydrocodone-acetaminophen 5-325 mg tablet 1 tab PO Q6H PRNQty: 7 0RF Discharge Instructions Instructions: Low Fat Diet (DC), Laparoscopic Cholecystectomy (DC) Additional Instructions: Activity at Home after surgery: 1. Make sure you walk outside at least 4 times per day 2. You should be able to climb a flight of stairs 3. No driving while in pain or taking pain medications 4. No strenuous activity or heavy lifting for 2 weeks (laparoscopic surgery) Diet, Nutrition, & wound healin. Avoid alcohol until after you are recovered from your surgery 2. Make sure to eat plenty of lean protein (meat, fish, eggs, cottage cheese, beans) 3. Eat a variety of fruits and vegetables. Eat plenty of high fiber foods to avoid constipation. 4. Drink plenty of liquids to stay hydrated and avoid constipation Pain Medications: 1. Tylenol 650mg every 6 hours as needed and Ibuprofen 600 mg every 6 hours as needed. You may alternate between the 2 medications every 3 hours 2. If a narcotic has been prescribed take as directed only for breakthrough pain For Constipation: 1. Take Milk of Magnesia or MiraLax as needed for constipation Other: 1. You may shower daily. Do not scrub the incisions 2. Do not soak the incisions for 1 week 3. You may alternate ice and heat as needed for pain and swelling Wound Care: 1. Keep the incisions clean and dry Please call our office if you develop: 1. Fevers >101.5 2. Nausea or Vomiting 3. Worsening pain 4. Redness and thick discharge from the wounds If after hours please call the Hospital at and ask to speak to the on-call surgeon Referrals: Rocio Chew MD [ [facility] STAFF PHYSICIAN] - 01/18/22 1:00 pm Activity:: see above Remove Dressings/Wound Care:: Do Not Remove Shower/Bathe:: 24 hours Diet:: low fat Discharge Orders Discharge Orders: Discharge Order (Routine); Ordered 01/05/22 Ordered By: Rocio Chew DS: Diagnosis Discharge Diagnosis (1) Biliary dyskinesia: Status: Acute
[2022-01-05] MEDS: Acetaminophen 500 MG TAB 1000 MG PO (06:45)
[2022-01-05] MEDS: Gabapentin 300 MG CAP 600 MG PO (06:46)
[2022-01-05] MEDS: Lactated Ringers 1,000 ML 80 ML IV (06:53)
--- NOTE | 2022-01-05 06:56 | ANES.PREOP_ITS ---
General Info Date of Service Date Performed: 01/05/22 Height: 6 ft 4 in Weight: 136.4 kg Body Mass Index (BMI): 36.6 Surgical Procedure: Operation Date: 01/05/22 07:40 Proposed Procedure Side Surgeon p Cholecystectomy Laparoscopic Rocio Chew MD Meds Allergies and Home Medications Allergies Allergy/AdvReac Type Severity Reaction Status Date / Time hydromorphone [Hydromorphone] Allergy Severe Anaphylaxis Verified 01/05/22 06:41 adhesive Allergy Mild Skin Rash Verified 01/05/22 06:41 ketorolac tromethamine Allergy Mild Skin Rash Verified 01/05/22 06:41 [From Toradol] latex Allergy itching,audie Verified 01/05/22 06:41 h Home Medication Medication Instructions Recorded sertraline 100 mg tablet 100 mg PO HS 01/04/21 buspirone 7.5 mg tablet 7.5 mg PO BID 03/23/21 etonogestrel 68 mg subdermal 1 implant subdermal ONCE 11/05/21 implant (Nexplanon) ondansetron HCl 4 mg tablet 4 mg PO Q8H PRN 11/05/21 tretinoin 0.05 % topical cream 1 applic topical QHS 11/05/21 (Retin-A) hydroxyzine HCl 25 mg tablet 25 mg PO TID 11/24/21 esomeprazole magnesium 40 mg 40 mg PO DAILY #30 caps 12/14/21 capsule,delayed release (Nexium) hydrocodone 5 mg-acetaminophen 325 1 tab PO Q6H PRN #7 tabs 12/19/21 mg tablet hyoscyamine sulfate 0.125 mg 0.125 mg PO BID-QID PRN #10 tabs 12/19/21 tablet (Levsin) omeprazole 40 mg capsule,delayed 40 mg PO DAILY 01/04/22 release Current Visit Medications: Current Medications Generic Name Dose Route Start Last Admin Trade Name Freq PRN Reason Stop Dose Admin Acetaminophen 1,000 mg 01/05/22 06:00 01/05/22 06:45 Acetaminophen 500 Mg Tab PO 02/03/22 23:59 1,000 mg PREOP BEBETO Administration Celecoxib 200 mg 01/05/22 06:00 Celecoxib 200 Mg Cap PO 02/03/22 23:59 PREOP BEBETO Gabapentin 600 mg 01/05/22 06:00 01/05/22 06:46 Gabapentin 300 Mg Cap PO 02/03/22 23:59 600 mg PREOP BEBETO Administration Ringer's Solution 1,000 mls @ 80 mls/hr 01/05/22 06:00 01/05/22 06:53 IV 02/03/22 23:59 80 mls/hr INFUSION BEBETO Administration Cefazolin Sodium 100 mls @ 200 mls/hr 01/05/22 06:00 Ancef Premix IVPB PREOP BEBETO Ondansetron HCl 4 mg/ Sodium 52 mls @ 200 mls/hr 01/05/22 06:41 Chloride IVPB Q6H PRN PRN IV Miscellaneous Supplies 1 each 01/05/22 06:00 Iv Access IV 02/03/22 23:59 DIRECTED BEBETO Sodium Chloride 0 ml 01/05/22 06:00 Normal Saline Flush 10 Ml Syr IV 02/03/22 23:59 PRN PRN Sodium Chloride 0 ml 01/05/22 06:00 Normal Saline 10 Ml Vial IJ 02/03/22 23:59 DIRECTED PRN Sterile Water 0 ml 01/05/22 06:00 Water,Injection,Sterile 10 Ml Vial IJ 02/03/22 23:59 DIRECTED PRN PFSH Active Problems Active Problems: Problem Status Onset Code Biliary dyskinesia K82.8 Pelvic pressure in female R10.2 Right lower quadrant pain R10.31 Ovarian cyst, right N83.201 Diarrhea R19.7 Colitis K52.9 Gastritis K29.70 Esophagitis K20.90 GERD (gastroesophageal reflux disease) K21.9 Medical History Medical History Chronic rhinitis (05/29/17) Chronic tonsillitis (05/29/17) Deviated septum Family history of bleeding or clotting disorder (08/24/17) Pt reports mother has clotting disorder. Pt told not to use estrogen containing contraception. Hematuria History of depression (08/24/17) History of kidney stones Intermittent palpitations Knee instability (03/12/14) CHRONIC LEFT KNEE Migraine Nausea Psoas tendinitis, right hip (12/06/17) Tonsillar hypertrophy (05/29/17) Urticaria UTI (urinary tract infection) Surgical History Surgical History History of arthroscopic knee surgery History of carpal tunnel release History of section History of esophagogastroduodenoscopy (EGD) (~11/2021) History of nasal septoplasty Hx of cystoscopy Tobacco Smoking/Tobacco Use Status: Never Alcohol Alcohol Intake: current Alcohol intake frequency: holidays/special occasions only Alcohol type: hard liquor Substance Use Substance use: Never Substance use type: does not use Prental History History 1 Para 1 Hx # Term Pregnancies 0 Multiple births 0 Hx # Pregnancies 0 Ectopic pregnancies 0 AB induced 0 Hx Number of Living Children 0 AB spontaneous 0 Past Pregnancies Del. Date GA/Weeks # Outcome Route Wgt Sex Labor Lgth Anesthes ia Location Prov Complic 05/13/19 40 No Successful 3855.535 g Male >24 hours [facility] Delivery Date: 05/13/19 Last Updated by: Suyapa Morin Pt had for failed induction Vital Signs and Lab Results Vital Signs Most Recent Vital Signs in EMR: Most Recent Vital Signs Temp Pulse Resp BP Pulse Ox 36.8 C 63 17 122/61 96 01/05/22 06:28 01/05/22 06:28 01/05/22 06:28 01/05/22 06:28 01/05/22 06:28 Lab Results Blood Type / Crossmatch: No Data to Display Complete Blood Count: White Blood Count 9.13 10^3/uL (4.4-10.8) 12/19/21 14:05 Red Blood Count 4.54 10^6/uL (3.93-5.22) 12/19/21 14:05 Hemoglobin 13.5 g/dL (11.2-15.7) 12/19/21 14:05 Hematocrit 41.1 % (36.0-46.0) 12/19/21 14:05 Platelet Count 261 10^3/uL (130-400) 12/19/21 14:05 Complete Metabolic Panel: Sodium Level 140 mmol/L (136-145) 12/19/21 14:05 Potassium Level 3.8 mmol/L (3.5-5.1) 12/19/21 14:05 Chloride Level 105 mmol/L (98-107) 12/19/21 14:05 Carbon Dioxide Level 25.9 mmol/L (21.0-32.0) 12/19/21 14:05 Blood Urea Nitrogen 12 mg/dL (7-18) 12/19/21 14:05 Creatinine 0.8 mg/dL (0.55-1.02) 12/19/21 14:05 Estimated GFR/1.73 m2 >= 60.00 (mL/min/1.73m2) 12/19/21 14:05 Calcium Level 8.5 mg/dL (8.5-10.1) 12/19/21 14:05 Albumin 3.2 g/dL (3.4-5.0) L 12/19/21 14:05 Glucose Level 93 mg/dL (74-106) 12/19/21 14:05 Liver Function Panel: Alanine Aminotransferase (ALT/SGPT) 37 U/L (14-59) 12/19/21 14: 05 Aspartate Amino Transf (AST/SGOT) 38 U/L (15-37) H 12/19/21 14: 05 Coagulation Panel: No Data to Display Cardiac Panel: No Data to Display Arterial Blood Gas: No Data to Display Venous Blood Gas: No Data to Display Pancreas Panel: Lipase 64 U/L (73-393) 12/19/21 14:05 Thyroid Panel: Thyroid Stimulating Hormone (TSH) 1.13 uIU/mL (0.36-3.74) 12/21 11:44 Infectious Disease: Coronavirus (COVID-19)(PCR) Negative (Negative) 01/04/22 15:23 Coronavirus 2019 Source Nasal/Nares 01/04/22 15:23 Blood Cultures: No Data to Display Toxicology Panel: No Data to Display Panel: No Data to Display Anesthesia Assessment and Plan Anesthesia History Personal History: PONV Family History: No Family History of Anesthesia Complications Exercise Tolerance Exercise Tolerance: Metabolic Equivalents>4 Pertinent Negatives Pertinent Negatives: Other (Has gerd. On meds) Cardiac & Pulmonary Exam Cardiac Exam: Normal S1/S2 Heart Sounds Pulmonary Exam: Clear Bilateral Breath Sounds Implantable Cardiac Device Does patient have a Pacemaker or an ICD?: No Airway Exam Known Difficult Airway: No Mallampati Class: 3 Mouth Opening: Normal (> 3cm) Thyromental Distance: Greater than 3 cm Neck Range of Motion: Full ROM Neck Circumference: Normal Teeth Condition: Normal Dentition ASA Classification ASA Score: ASA 3 Emergency Case?: No NPO Status NPO Status: NPO Clears >2 hours, Solids >8 hours Status Status: Negative HCG Anesthesia Plan Resuscitation Status: Full Code Anesthesia Technique: General Anesthesia Airway Planned: Endotracheal Tube Monitors Used: Standard Monitors
[2022-01-05] MEDS: Celecoxib 200 MG CAP PO (07:05)
--- NOTE | 2022-01-05 08:18 | GB_PTH ---
PATIENT: Mary Ann Harmon LOC: [facility] U#:[id number] AGE/SX: 26/F ROOM: RE01/05/[address]: Rocio Chew MD : 1995 BED: DIS: 01/05/2022 SPEC #: [id number] RECD: 01/05/22 16:59 STATUS: SHALONDA REQ #: [id number] MARZENA: 01/05/22 08:[address]: Rocio Chew DEPT: Surgical Specimen RECD BY: Evelina Swanson ENTERED: 01/05/22 17:00 SP TYPE: GB OTHR DR: Ese Alvarado Tissues: 1 - GALLBLADDER Procedures: GROSS AND MICRO LEVEL 3 Comments: [id number]
[2022-01-05] MEDS: Normal Saline 10 ML VIAL IJ (09:01)
[2022-01-05] MEDS: Droperidol 5 MG/2 ML VIAL 0.625 MG IVP (09:01)
[2022-01-05] MEDS: fentaNYL 100 MCG/2 ML VIAL IVP ×3 (09:07→09:37)
--- NOTE | 2022-01-05 10:37 | W.ANESPOSTOP ---
Postoperative Evaluation Date, Time and Location Date Performed: 01/05/22 Time Performed: 10:39 Patient Location: Day Surgery Unit Vital Signs Most Recent Imported Vital Signs: Most Recent Vital Signs Temp Pulse Resp BP Pulse Ox 36.5 C 69 17 120/69 94 01/05/22 10:00 01/05/22 10:00 01/05/22 10:00 01/05/22 10:00 01/05/22 10:00 Pain Score Most Recent Pain Score: Most Recent Pain Score Pain Level 6 01/05/22 10:00 Assessment Mental Status: Awake (Alert & Oriented to Patient Baseline) Airway and Respiratory Function: Patent airway with normal (patient baseline) respiratory exam Cardiovascular Function: Hemodynamically Stable Hydration Status: Adequately Hydrated Nausea & Vomiting: No Nausea or Vomiting Pain: Pain is tolerable per patient Peripheral Nerve Block: Patient did not receive a nerve block
[2022-01-05] MEDS: HYDROcodone 10/Acetaminophen 325 TAB PO (10:48)
== END 2022-01-05 11:45 | disposition home or self-care (01) ==
PROVIDERS: PCP Nurse Practitioner Family; Visit Provider Surgery
PROC: 0FT44ZZ Resection of Gallbladder, Percutaneous Endoscopic Approach (ICD-10-PCS; CPT 47562; principal; 2022-01-05 07:30)
DX: K82.8 Other specified diseases of gallbladder (principal); K29.70 Gastritis, unspecified, without bleeding; K20.90 Esophagitis, unspecified without bleeding; K81.1 Chronic cholecystitis
CPT/HCPCS: 47562; 81025; 88304; J1790; J1885; J2405; J3010; J3490

== ENCOUNTER 2022-03-10 08:43 | Emergency (ER) | payer OTHER, SELFPAY ==
[2022-03-10 08:48] VITALS: BP 135/94; PULSE 79; RESP 18; TEMP 36.8
--- NOTE | 2022-03-10 09:00 | NUR.NOTE ---
patient denies pregnqancy. stated she had U/S on February 17 2022
--- NOTE | 2022-03-10 09:01 | ED.GENADUL_ITS ---
Discharge Plan Disposition Patient Disposition: HOME Condition: Stable Discharge Details Clinical Impression: Left knee sprain, Recurrent subluxation of left patella Primary Care Provider: Ese Alvarado ED Provider: Bailey Engel Home Meds and New Rx's Prescriptions: Continued buspirone 7.5 mg tablet 7.5 mg PO BID hydroxyzine HCl 25 mg tablet 25 mg PO TID sertraline 100 mg tablet 100 mg PO HS esomeprazole magnesium [Nexium] 40 mg capsule,delayed release(DR/EC) 40 mg PO DAILY Qty: 30 2RF ondansetron HCl 4 mg tablet 4 mg PO Q8H PRN tretinoin [Retin-A] 0.05 % cream 1 applic topical QHS Nexplanon 68 mg implant 1 implant subdermal ONCE Rx Instructions: as a single dose hyoscyamine sulfate [Levsin] 0.125 mg tablet 0.125 mg PO BID-QID PRNQty: 10 0RF omeprazole 40 mg Capsule,Delayed Release(Dr/Ec) 40 mg PO DAILY Discharge Instructions Instructions: Knee Sprain (ED) Additional Instructions: Wear the knee immobilizer and use crutches for weightbearing as tolerated. Please see orthopedics in the next 1 to 2 weeks you are placed on a care management list they should call you with an appointment if you do not hear from them the next 3 to 5 days please make an appointment. Rest ice compression elevation. X-rays show no effusion or fluid in the joint space or fracture. However discussed with orthopedics for possible MRI and further evaluation. Please take Tylenol or Ibuprofen with food every 4-6 hours as needed for pain and swelling. Stand Alone Forms: Work Release Referrals: Garrison Pepe MD [ [facility] STAFF PHYSICIAN] - 1 week Medical Decision Making 26-year-old female presents to the ER with chief complaint left knee pain patient reports that last night she was in a deep knee bend and possibly dislocated her patella it did go back in the place. She now has some anterior patellar swelling and tenderness. She reports that she has increased pain with full extension and she states that it does not feel like her patella is tracking well. Patient is declining test, reports that she recently had an ultrasound a couple weeks ago. X-ray left knee 4 view of patella ordered. Patient complains any pain given crutches placed on orthopedic follow-up list. This text was generated using Nuance dictation system, please disregard any oddities of phrase or misspellings. Medical Records Medical records reviewed: Yes I reviewed the patient's medical records. Imaging Data Radiologic Study: Imaging: X-Ray Radiologist's impression: EXAM:? XR KNEE LT 4V AP,LAT,JAZZY,PAT CLINICAL HISTORY: ? Left knee pain, hx mult surg, hx patella dislocati. ? TECHNIQUE:? 2D digital imaging was performed. COMPARISON:? CR LEFT KNEE 4+ VIEWS from 09/18/2013 FINDINGS: Four views Previously present hardware screws in the proximal tibial metaphysis have been removed..? There is no evidence of acute fracture nor obvious joint effusion.? On the merchant's view the patella is situated normally.? There are, however, osteophytes off the medial lateral aspects of the patella noted, difficult to compared to the prior study as prior study did not have a merchant's-sunrise view.? There is no prominent narrowing of the retropatellar space.? There are channels in the patella from prior surgery evident IMPRESSION: As above but without evidence of acute fractures and there is no knee joint effusion evident. HPI General Mode of arrival: ambulatory . Date/Time Provider Initiated Documentation: 03/10/22 08:47 . Limitations to Documentation: no limitations . Information obtained by: patient, RN notes reviewed and old records reviewed . HPI Narrative: 26-year-old female presents to the ER with chief complaint left knee pain patient reports that last night she was in a deep knee bend and possibly dislocated her patella it did go back in the place. She now has some anterior patellar swelling and tenderness. She reports that she has increased pain with full extension and she states that it does not feel like her patella is tracking well. She has had multiple bilateral knee surgeries here and at [facility]. She has taken 800 ibuprofen and a gram of Tylenol prior to arrival. Distal CMS is intact she also reports some tingling to her anterior thigh. Past medical history includes biliary dyskinesia, depression, kidney stones, migraine, nausea, psoas tendinitis right hip, arthroscopic knee surgery, carpal tunnel release, EGD, cholecystectomy January 05 of this year. She is denying possibility of . She did have a urine not OB ultrasound couple weeks ago for ovarian cyst. Related Data Home Medications Medication Instructions Recorded Confirmed sertraline 100 mg tablet 100 mg PO HS 01/04/21 02/08/22 buspirone 7.5 mg tablet 7.5 mg PO BID 03/23/21 02/08/22 etonogestrel 68 mg subdermal 1 implant subdermal ONCE 11/05/21 02/08/22 implant (Nexplanon) ondansetron HCl 4 mg tablet 4 mg PO Q8H PRN 11/05/21 02/08/22 tretinoin 0.05 % topical cream 1 applic topical QHS 11/05/21 02/08/22 (Retin-A) hydroxyzine HCl 25 mg tablet 25 mg PO TID 11/24/21 02/08/22 esomeprazole magnesium 40 mg 40 mg PO DAILY #30 caps 12/14/21 02/08/22 capsule,delayed release (Nexium) hyoscyamine sulfate 0.125 mg 0.125 mg PO BID-QID PRN #10 tabs 12/19/21 02/08/22 tablet (Levsin) omeprazole 40 mg capsule,delayed 40 mg PO DAILY 01/04/22 02/08/22 release Previous Rx's Medication Instructions Recorded esomeprazole magnesium 40 mg 40 mg PO DAILY #30 caps 12/14/21 capsule,delayed release (Nexium) hyoscyamine sulfate 0.125 mg 0.125 mg PO BID-QID PRN #10 tabs 12/19/21 tablet (Levsin) Allergies Allergy/AdvReac Type Severity Reaction Status Date / Time hydromorphone [Hydromorphone] Allergy Severe Anaphylaxis Verified 01/18/22 13:01 adhesive Allergy Mild Skin Rash Verified 01/18/22 13:01 ketorolac tromethamine Allergy Mild Skin Rash Verified 01/18/22 13:01 [From Toradol] latex Allergy itching,audie Verified 01/18/22 13:01 h skin glue Allergy Intermediate Skin Rash Uncoded 01/18/22 13:01 General Stated Complaint: Orthopedic ROEL: 3 Review of Systems All systems reviewed & are unremarkable except as noted in HPI and below PFSH All Active Problems (Updated 03/10/22 @ 10:29 by Bailey Engel NP) Left knee sprain (Acute) Recurrent subluxation of left patella (Acute) S/P laparoscopic cholecystectomy (Acute) Nausea and vomiting (Acute) Pelvic pressure in female (Acute) Right lower quadrant pain (Acute) Ovarian cyst, right (Acute) Gastritis (Acute) Esophagitis (Acute) GERD (gastroesophageal reflux disease) (Chronic) Medical History Biliary dyskinesia Chronic rhinitis (05/29/17) Chronic tonsillitis (05/29/17) Deviated septum Family history of bleeding or clotting disorder (08/24/17) Pt reports mother has clotting disorder. Pt told not to use estrogen containing contraception. Hematuria History of depression (08/24/17) History of kidney stones Intermittent palpitations Knee instability (03/12/14) CHRONIC LEFT KNEE Migraine Nausea Psoas tendinitis, right hip (12/06/17) Tonsillar hypertrophy (05/29/17) Urticaria UTI (urinary tract infection) Surgical History History of arthroscopic knee surgery History of carpal tunnel release History of section History of esophagogastroduodenoscopy (EGD) (~11/2021) History of nasal septoplasty Hx of cystoscopy S/P laparoscopic cholecystectomy (~01/05/22) Family History Mother Mental disorder Disabled. Mental health issues. Father Mental disorder suicide. 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 Date GA/Weeks # Preg Succ Route Wgt Sex Labor Lgth Anesth esia Location Prov Complic 05/13/19 40 No 3855.535 g Male >24 hours [facility] Delivery Date: 05/13/19 Last Updated by: Suyapa Morin Pt had for failed induction Exam Extrem Right upper extremity: normal to inspection Left upper extremity: normal to inspection Left lower extremity: normal capillary refill and knee Details: abnormal to inspection Details: with a suprapatellar bulge, tenderness and swelling; no unusual warmth; no cyanosis and no edema Course Vital Signs Vital signs: Vital Signs Temperature 36.8 C 03/10/22 08:48 Pulse 79 03/10/22 08:48 Respiratory Rate 18 03/10/22 08:48 Blood Pressure 135/94 H 03/10/22 08:48 Temperature 36.8 C 03/10/22 08:48 Temperature Source Tympanic 03/10/22 08:48 Pulse 79 03/10/22 08:48 Respiratory Rate 18 03/10/22 08:48 Respiratory Effort 03/10/22 08:56 Blood Pressure 135/94 H 03/10/22 08:48 Oxygen Delivery Method Room Air 03/10/22 08:48 Oxygen Flow Rate 0 03/10/22 08:48 Pain Level 5 03/10/22 08:53 PAWSS Have you Been Recently Intoxicated or Drunk Within the Last 30 days?: No Have you Ever Experienced Previous Episodes of Alcohol Withdrawal?: No Have you ever Experienced Withdrawal Seizures?: No Have you ever Experienced Delirium Tremens(DT)s?: No Have you ever undergone Alcohol Rehabilitation Treatment (i.e, inpt ot outpatient treatment programs)?: No Have you ever Experienced Blackouts?: No Have you ever Combined Alcohol with other Downers within the last 90 days?: No Have you ever Combined Alcohol with any other Substance of Abuse during the last 90 days?: No Positive Blood Alcohol level on Presentation? [PCS.BAL]: No Evidence of Increased Autonomic Activity (i.e. HR>120, tremor, sweating, agitation, nausea)?: No Result: 0
--- NOTE | 2022-03-10 09:20 | DI.RAD_ITS ---
Exam(s) XR KNEE LT 4V AP,LAT,JAZZY,PAT EXAM: XR KNEE LT 4V AP,LAT,JAZZY,PAT CLINICAL HISTORY: Left knee pain, hx mult surg, hx patella dislocati. TECHNIQUE: 2D digital imaging was performed. COMPARISON: CR LEFT KNEE 4+ VIEWS from 09/18/2013 FINDINGS: Four views Previously present hardware screws in the proximal tibial metaphysis have been removed.. There is no evidence of acute fracture nor obvious joint effusion. On the merchant's view the patell a is situated normally. There are, however, osteophytes off the medial lateral aspects of the patell a noted, difficult to compared to the prior study as prior study did not have a merchant's-sunrise vi ew. There is no prominent narrowing of the retropatellar space. There are channels in the patella f rom prior surgery evident IMPRESSION: As above but without evidence of acute fractures and there is no knee joint effusion evident. DATA REPOSITORY: RADIATION DOSE DELIVERED:
== END 2022-03-10 10:51 | disposition home or self-care (01) ==
PROVIDERS: Emergency Provider Registered Nurse Emergency; PCP Nurse Practitioner Family
DX: S83.92XA Sprain of unspecified site of left knee, initial encounter (principal); M22.12 Recurrent subluxation of patella, left knee; X50.1XXA Overexertion from prolonged static or awkward postures, initial encounter
CPT/HCPCS: 99283; 73564

== ENCOUNTER 2022-03-22 10:53 | Outpatient (CLI) | payer OTHER, SELFPAY ==
--- NOTE | 2022-03-22 | DI.RAD_ITS ---
Exam(s) XR ANKLE RT COMPLETE XR FOOT RT COMPLETE EXAM: XR ANKLE RT COMPLETE CLINICAL HISTORY: SWELLING RT LEG, M79.89 TECHNIQUE: COMPARISON: CR XR ANKLE RT COMPLETE from 06/22/2018 CR XR FOOT RT COMPLETE from 03/22/2022 FINDINGS: Three views of the ankle and three views of the foot were obtained. The ankle mortise is well mainta ined. Alignment of the bones of the foot and ankle is within normal limits. No bony abnormality see n. IMPRESSION: Negative examination of the foot and ankle. RADIATION DOSE DELIVERED: Total DLP
== END 2022-03-22 11:13 ==
LOC: DI 04-01 10:53
PROVIDERS: PCP Nurse Practitioner Family; Visit Provider Nurse Practitioner Family
DX: M25.571 Pain in right ankle and joints of right foot (principal); M79.671 Pain in right foot; M79.89 Other specified soft tissue disorders
CPT/HCPCS: 73610; 73630

== ENCOUNTER 2022-03-22 16:18 | Outpatient (REF) | payer OTHER, SELFPAY ==
[2022-03-22 17:13] LABS: HCT 41.3 % (36.0-46.0); HGB 14.1 g/dL (11.2-15.7); MCH 30.7 pg (27.0-33.0); MCHC 34.1 % (32.0-36.0); MCV 90 fL (80-95); MPV 11.3 fL (8.0-11.0); Platelet Count 316 10^3/uL (130-400); RDW-SD 42.5 fL; WBC 9.29 10^3/uL (4.4-10.8)
[2022-03-22 17:42] LABS: Anion Gap 13.7 mmol/L (3-11); BUN 15 mg/dL (7-18); CO2 23.3 mmol/L (21.0-32.0); CREATININE 0.9 mg/dL (0.55-1.02); Calcium 9.1 mg/dL (8.5-10.1); Chloride 103 mmol/L (98-107); Glucose 94 mg/dL (74-106); Magnesium 1.9 mg/dL (1.8-2.4); Potassium 3.8 mmol/L (3.5-5.1); Sodium 140 mmol/L (136-145)
[2022-03-22 17:59] LABS: D-Dimer 420 ng/mlFEU (<500)
== END 2022-03-22 16:19 | disposition home or self-care (01) ==
LOC: LBN 16:18
PROVIDERS: PCP Nurse Practitioner Family; Visit Provider Nurse Practitioner Family
DX: G43.909 Migraine, unspecified, not intractable, without status migrainosus (principal); M79.89 Other specified soft tissue disorders
CPT/HCPCS: 80048; 85027; 83735; 85379

== ENCOUNTER 2022-03-29 14:04 | Emergency (ER) | payer OTHER, SELFPAY ==
[2022-03-29 14:34] VITALS: BP 125/61; PULSE 87; RESP 18; TEMP 36.7; O2SAT 98
--- NOTE | 2022-03-29 16:01 | ED.GENADUL_ITS ---
Discharge Plan Discharge Details Chief Complaint: RespSymp Primary Care Provider: Ese Alvarado ED Provider: Michelle Nicole Home Meds and New Rx's Prescriptions: No Action buspirone 7.5 mg tablet 7.5 mg PO BID hydroxyzine HCl 25 mg tablet 25 mg PO TID sumatriptan succinate [Imitrex] 25 mg tablet 25 mg PO ONCE sertraline 100 mg tablet 100 mg PO HS esomeprazole magnesium [Nexium] 40 mg capsule,delayed release(DR/EC) 40 mg PO DAILY Qty: 30 2RF ondansetron HCl 4 mg tablet 4 mg PO Q8H PRN tretinoin [Retin-A] 0.05 % cream 1 applic topical QHS Nexplanon 68 mg implant 1 implant subdermal ONCE Rx Instructions: as a single dose HPI General Date/Time Provider Initiated Documentation: 03/29/22 15:38 . Related Data Home Medications Medication Instructions Recorded Confirmed sertraline 100 mg tablet 100 mg PO HS 01/04/21 03/29/22 buspirone 7.5 mg tablet 7.5 mg PO BID 03/23/21 03/29/22 etonogestrel 68 mg subdermal 1 implant subdermal ONCE 11/05/21 03/29/22 implant (Nexplanon) ondansetron HCl 4 mg tablet 4 mg PO Q8H PRN 11/05/21 03/29/22 tretinoin 0.05 % topical cream 1 applic topical QHS 11/05/21 03/29/22 (Retin-A) hydroxyzine HCl 25 mg tablet 25 mg PO TID 11/24/21 03/29/22 esomeprazole magnesium 40 mg 40 mg PO DAILY #30 caps 12/14/21 03/29/22 capsule,delayed release (Nexium) sumatriptan succinate 25 mg tablet 25 mg PO ONCE 03/23/22 03/29/22 (Imitrex) Previous Rx's Medication Instructions Recorded esomeprazole magnesium 40 mg 40 mg PO DAILY #30 caps 12/14/21 capsule,delayed release (Nexium) Allergies Allergy/AdvReac Type Severity Reaction Status Date / Time hydromorphone [Hydromorphone] Allergy Severe Anaphylaxis Verified 03/29/22 14:42 adhesive Allergy Mild Skin Rash Verified 03/29/22 14:42 ketorolac tromethamine Allergy Mild Skin Rash Verified 03/29/22 14:42 [From Toradol] latex Allergy itching,audie Verified 03/29/22 14:42 h skin glue Allergy Intermediate Skin Rash Uncoded 03/29/22 14:42 General Stated Complaint: RespSymp ROEL: 4 PFSH All Active Problems (Updated 03/23/22 @ 09:40 by EMELIA Valdez) Patellofemoral arthritis of left knee (Acute) Left knee sprain (Acute) Recurrent subluxation of left patella (Acute) S/P laparoscopic cholecystectomy (Acute) Nausea and vomiting (Acute) Pelvic pressure in female (Acute) Right lower quadrant pain (Acute) Ovarian cyst, right (Acute) Gastritis (Acute) Esophagitis (Acute) GERD (gastroesophageal reflux disease) (Chronic) Medical History Biliary dyskinesia Chronic rhinitis (05/29/17) Chronic tonsillitis (05/29/17) Deviated septum Family history of bleeding or clotting disorder (08/24/17) Pt reports mother has clotting disorder. Pt told not to use estrogen containing contraception. Hematuria History of depression (08/24/17) History of kidney stones Intermittent palpitations Knee instability (03/12/14) CHRONIC LEFT KNEE Migraine Nausea Psoas tendinitis, right hip (12/06/17) Tonsillar hypertrophy (05/29/17) Urticaria UTI (urinary tract infection) Surgical History History of arthroscopic knee surgery History of carpal tunnel release History of section History of esophagogastroduodenoscopy (EGD) (~11/2021) History of nasal septoplasty Hx of cystoscopy S/P laparoscopic cholecystectomy (~01/05/22) Family History Mother Mental disorder Disabled. Mental health issues. Father Mental disorder suicide. 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 Date GA/Weeks # Preg Succ Route Wgt Sex Labor Lgth Anesth esia Location [facility] 05/13/19 40 No 3855.535 g Male >24 hours [facility] Delivery Date: 05/13/19 Last Updated by: Suyapa Morin Pt had for failed induction Course Vital Signs Vital signs: Vital Signs Temperature 98.0 F 03/29/22 14:34 Pulse 87 03/29/22 14:34 Respiratory Rate 18 03/29/22 14:34 Blood Pressure 125/61 03/29/22 14:34 Pulse Oximetry 98 03/29/22 14:34 Temperature 98.0 F 03/29/22 14:34 Temperature Source Oral 03/29/22 14:34 Pulse 87 03/29/22 14:34 Respiratory Rate 18 03/29/22 14:34 Respiratory Effort Short of Breath 03/29/22 14:38 Respiratory Depth Normal 03/29/22 14:38 Blood Pressure 125/61 03/29/22 14:34 Blood Pressure Position Sitting 03/29/22 14:34 Pulse Oximetry 98 03/29/22 14:34 Oxygen Delivery Method Room Air 03/29/22 14:34 Oxygen Flow Rate 0 03/29/22 14:34 Pain Level 6 03/29/22 14:34 PAWSS Have you Been Recently Intoxicated or Drunk Within the Last 30 days?: No Have you Ever Experienced Previous Episodes of Alcohol Withdrawal?: No Have you ever Experienced Withdrawal Seizures?: No Have you ever Experienced Delirium Tremens(DT)s?: No Have you ever undergone Alcohol Rehabilitation Treatment (i.e, inpt ot outpat ient treatment programs)?: No Have you ever Experienced Blackouts?: No Have you ever Combined Alcohol with other Downers within the last 90 days?: No Have you ever Combined Alcohol with any other Substance of Abuse during the last 90 days?: No Result: 0
--- NOTE | 2022-03-29 16:15 | NUR.NOTE ---
Nursing Note: Dr Nicole went to Triage to evaluate pt, and pt was not in the room @ 1605. Pt LWBS
== END 2022-03-29 16:05 | disposition left before discharge ==
PROVIDERS: Emergency Provider Physician Assistant; PCP Nurse Practitioner Family
DX: Z53.21 Procedure and treatment not carried out due to patient leaving prior to being seen by health care provider (principal)

== ENCOUNTER 2022-04-13 01:17 | Outpatient (CLI) | payer OTHER, SELFPAY ==
--- NOTE | 2022-04-13 07:30 | DI.MRI_ITS ---
Exam(s) MR LOWER JOINT LT WO EXAM: MR LOWER JOINT LT WO CLINICAL HISTORY: LEFT KNEE INJURY,SPRAIN,PAIN,M22.2X2,M22.12,S83.92XA TECHNIQUE: Multiplanar multisequence MRI of the left knee was performed. COMPARISON: MR MRI R LOWER JOINT WO CONT from 01/18/2017 CR XR KNEE LT 4V AP,LAT,JAZZY,PAT from 03/10/2022 FINDINGS: EFFUSION: There is small joint effusion. No Beatty cyst. MARROW:There is no evidence of fracture, bone contusion, nor osteochondral defects.. However, there is artifact in the anterior tibia and findings in the patella which are probably related to prior pat ellar realignment surgery PATELLOFEMORAL COMPARTMENT: The quadriceps tendon is intact. The patellar ligament is intact. There is signal abnormality in the supero lateral aspect of the anterior intra-articular Hoffa fat consist ent with element of impingement. There is moderate thinning of the retropatellar cartilage, more so medially than laterally. There is also approximately 1 cm lateral displacement of the patella. Smal l degenerative subarticular cyst is seen in the posterior aspect of the lateral patella. There are n o acute patellar retinacular tears. CRUCIATE LIGAMENTS: The anterior cruciate ligament is intact.The posterior cruciate ligament is intac t. MEDIAL COMPARTMENT/MEDIAL MENISCUS: There are no tears of the medial meniscus evident.. There are no chondral defects, osteochondral defects, subarticular marrow edema, nor osteophytes evid ent. MEDIAL COLLATERAL LIGAMENT: Intact LATERAL COMPARTMENT/LATERAL MENISCUS: There is no evidence of lateral meniscal tear.There are no antonio dral defects, osteochondral defects, subarticular marrow edema, nor osteophytes evident. ILIOTIBIAL BAND: Intact LATERAL COLLATERAL LIGAMENT COMPLEX: The fibular collateral ligament is intact. The biceps femoris t endon is intact.Popliteus muscle and tendon are intact. IMPRESSION: 1. Evidence of previous patellofemoral compartment stabilization surgery. However, the patella is corona bluxed approximately 1 centimeter laterally with some retropatellar cartilage sys thinning and mild p atellofemoral compartment degenerative changes on the patellar side and there is also signal abnormal ity in the infrapatellar fat within the superior lateral aspect of the intra-articular Hoffa fat pad. Consistent with impingement syndrome at this level 2. Small joint effusion. No Beatty cyst in the popliteal fossa. 3. No meniscal tears and no cruciate ligament tears. No collateral ligament tears. DATA REPOSITORY:
== END 2022-04-13 01:37 ==
LOC: DI 01:17
PROVIDERS: PCP Nurse Practitioner Family; Visit Provider Student in an Organized Health Care Education/Training Program
DX: M25.562 Pain in left knee; M25.462 Effusion, left knee; M23.8X2 Other internal derangements of left knee; M22.12 Recurrent subluxation of patella, left knee; S83.8X2A Sprain of other specified parts of left knee, initial encounter
CPT/HCPCS: 73721

== ENCOUNTER 2022-05-06 19:13 | Outpatient (REF) | payer OTHER, SELFPAY | END 2022-05-06 19:14 | disposition home or self-care (01) | LOC: LBN 19:13 | PROVIDERS: PCP Nurse Practitioner Family; Visit Provider Physician Assistant Medical | DX: J02.0 Streptococcal pharyngitis (principal) | CPT/HCPCS: 87077; 87070 ==

== ENCOUNTER 2022-05-16 20:46 | Outpatient (REF) | payer OTHER, SELFPAY | END 2022-05-16 20:47 | disposition home or self-care (01) | LOC: LBN 20:46 | PROVIDERS: PCP Nurse Practitioner Family; Visit Provider Nurse Practitioner Family | DX: J02.9 Acute pharyngitis, unspecified (principal) | CPT/HCPCS: 87070 ==

== ENCOUNTER 2022-05-18 21:28 | Outpatient (REF) | payer OTHER, SELFPAY | END 2022-05-18 21:29 | disposition home or self-care (01) | LOC: LBN 21:28 | PROVIDERS: PCP Nurse Practitioner Family; Visit Provider Physician Assistant Medical | DX: J02.9 Acute pharyngitis, unspecified (principal) | CPT/HCPCS: 87070 ==

== ENCOUNTER 2022-05-26 09:56 | Day surgery (SDC) | payer OTHER, SELFPAY ==
[2022-05-26] VITALS (10 sets, daily range): BP systolic 89–148; BP diastolic 49–92; PULSE 55–81; RESP 15–24; TEMP 36.1–36.7; O2SAT 94–100; BMI 48.9
[2022-05-26] MEDS: Lactated Ringers 1,000 ML 30 ML IV (10:27)
--- NOTE | 2022-05-26 11:11 | ANES.PREOP_ITS ---
General Info Date of Service Date Performed: 05/26/22 Height: 5 ft 4 in Weight: 129.4 kg Body Mass Index (BMI): 48.9 Surgical Procedure: Operation Date: 05/26/22 11:40 Proposed Procedure Side Surgeon p Knee Arthroscopy w/any indicated Meniscal, Chondrial & Synovial Surgery/ Revision Medial Patellofemoral Ligament Reconstruction (Allograft) Left Garrison Pepe MD Meds Allergies and Home Medications Allergies Allergy/AdvReac Type Severity Reaction Status Date / Time hydromorphone [Hydromorphone] Allergy Severe Anaphylaxis Verified 05/26/22 10:06 adhesive Allergy Mild Skin Rash Verified 05/26/22 10:06 ketorolac tromethamine Allergy Mild Skin Rash Verified 05/26/22 10:06 [From Toradol] latex Allergy itching,audie Verified 05/26/22 10:06 h skin glue Allergy Intermediate Skin Rash Uncoded 05/26/22 10:06 Home Medication Medication Instructions Recorded sertraline 100 mg tablet 100 mg PO DAILY 01/04/21 buspirone 7.5 mg tablet 7.5 mg PO BID 03/23/21 etonogestrel 68 mg subdermal 1 implant subdermal ONCE 11/05/21 implant (Nexplanon) ondansetron HCl 4 mg tablet 4 mg PO Q8H PRN 11/05/21 tretinoin 0.05 % topical cream 1 applic topical QHS 11/05/21 (Retin-A) hydroxyzine HCl 25 mg tablet 25 mg PO TID 11/24/21 esomeprazole magnesium 40 mg 40 mg PO DAILY #30 caps 12/14/21 capsule,delayed release (Nexium) sumatriptan succinate 25 mg tablet 25 mg PO ONCE 03/23/22 (Imitrex) vitamin B complex (B 1 tab PO DAILY 04/27/22 Complex-Vitamin B12 tablet) acetylcysteine 600 mg capsule 1 cap PO DAILY 05/25/22 lamotrigine 25 mg tablet 2 tab PO DAILY 05/25/22 Current Visit Medications: Current Medications Generic Name Dose Route Start Last Admin Trade Name Freq PRN Reason Stop Dose Admin Cefazolin Sodium 3,000 mg/ 100 mls @ 200 mls/hr 05/26/22 06:00 Sodium Chloride IVPB 05/26/22 16:00 PREOP BEBETO Ringer's Solution 1,000 mls @ 30 mls/hr 05/26/22 06:00 05/26/22 10:27 IV 05/26/22 16:00 30 mls/hr INFUSION BEBETO Administration IV Miscellaneous Supplies 1 each 05/26/22 06:00 Iv Access IV 05/26/22 23:59 DIRECTED BEBETO Sodium Chloride 0 ml 05/26/22 06:00 Normal Saline Flush 10 Ml Syr IV 05/26/22 16:00 PRN PRN Sodium Chloride 0 ml 05/26/22 06:00 Normal Saline 10 Ml Vial IJ 05/26/22 23:59 DIRECTED PRN Sterile Water 0 ml 05/26/22 06:00 Water,Injection,Sterile 10 Ml Vial IJ 05/26/22 23:59 DIRECTED PRN PFSH Active Problems Active Problems: Problem Status Onset Code 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 Pt told not to use estrogen containing contraception. Hematuria History of depression (08/24/17) History of kidney stones Intermittent palpitations Knee instability (03/12/14) CHRONIC LEFT KNEE Migraine Nausea Psoas tendinitis, right hip (12/06/17) Tonsillar hypertrophy (05/29/17) Urticaria UTI (urinary tract infection) Surgical History Surgical History History of arthroscopic knee surgery History of carpal tunnel release History of section History of esophagogastroduodenoscopy (EGD) (~11/2021) History of nasal septoplasty Hx of cystoscopy S/P laparoscopic cholecystectomy (~01/05/22) Tobacco Smoking/Tobacco Use Status: Never Alcohol Alcohol Intake: current Alcohol intake frequency: holidays/special occasions on ly Alcohol type: hard liquor Substance Use Substance use: Never Substance use type: does not use Prental History History 1 Para 1 Hx # Term Pregnancies 0 Multiple births 0 Hx # Pregnancies 0 Ectopic pregnancies 0 AB induced 0 Hx Number of Living Children 0 AB spontaneous 0 Past Pregnancies Del. Date GA/Weeks # Preg Succ Route Wgt Sex Labor Lgth [facility]h [facility] No 3855.535 g Male >24 hours [facility] Delivery Date: 05/13/19 Last Updated by: Suyapa Morin Pt had for failed induction Vital Signs and Lab Results Vital Signs Most Recent Vital Signs in EMR: Most Recent Vital Signs Temp Pulse Resp BP Pulse Ox 36.7 C 71 16 143/72 H 96 05/26/22 10:00 05/26/22 10:00 05/26/22 10:00 05/26/22 10:00 05/26/22 10:00 Point of Care Results Point of Care Results: POC- Test(urine) Negative 05/26/22 10:46 Lab Results Blood Type / Crossmatch: No Data to Display Complete Blood Count: No Data to Display Complete Metabolic Panel: No Data to Display Liver Function Panel: No Data to Display Coagulation Panel: No Data to Display Cardiac Panel: No Data to Display Arterial Blood Gas: No Data to Display Venous Blood Gas: No Data to Display Pancreas Panel: No Data to Display Thyroid Panel: No Data to Display Infectious Disease: No Data to Display Blood Cultures: No Data to Display Toxicology Panel: No Data to Display Panel: No Data to Display Anesthesia Assessment and Plan Anesthesia History Personal History: PONV Family History: No Family History of Anesthesia Complications Exercise Tolerance Exercise Tolerance: Metabolic Equivalents>4 Pertinent Negatives Pertinent Negatives: No Symptoms of GERD, No Major Cardiovascular Symptoms or Complaints and No Major Pulmonary Symptoms or Complaints Cardiac & Pulmonary Exam Cardiac Exam: Normal S1/S2 Heart Sounds Pulmonary Exam: Clear Bilateral Breath Sounds Implantable Cardiac Device Does patient have a Pacemaker or an ICD?: No Airway Exam Known Difficult Airway: No Mallampati Class: 3 Mouth Opening: Normal (> 3cm) Thyromental Distance: Greater than 3 cm Neck Range of Motion: Full ROM Neck Circumference: Normal Teeth Condition: Normal Dentition ASA Classification ASA Score: ASA 3 Emergency Case?: No NPO Status NPO Status: NPO Clears >2 hours, Solids >8 hours Status Status: Negative HCG Anesthesia Plan Resuscitation Status: Full Code Anesthesia Technique: General Anesthesia Airway Planned: Endotracheal Tube Pain Management: Surgeon and patient request nerve block Monitors Used: Standard Monitors
--- NOTE | 2022-05-26 12:00 | W.ANESNERVE ---
Nerve Block Single Injection Procedure Date and Time Date Performed: 05/26/22 Procedure Start: 11:53 Location Where Procedure Performed Procedure Location: Operating Room Procedure Stop: 12:00 Reason Performed: Postoperative Analgesia Requesting Provider: Garrison Pepe Timeout Performed Timeout Performed: Yes Monitoring Used ECG, Blood Pressure, SpO2 and See EMR for corresponding vital signs Sterility Sterility: Hand Hygiene, Surgical Cap and Chlorhexidine Sedation Given During Procedure Sedation Given (Indicate Dose Given): Versed IV Dose:: 2mg Patient Mental Status Patient Mental Status: Awake Nerve Block 1st Nerve Block: Laterality: Left Block Type: Femoral Needle / Catheter Used: 100mm SonoPlex II Local Anesthetic Bolus (Indicate Dose Given): Lidocaine used for local infiltration of skin, Injected in 3-5ml increments after negative blood aspiration and Bupivacaine 0.5% Dose:: 15mL Additives (Indicate Dose Given): None Ultrasound: Sterile probe cover and gel used Ultrasound Image Saved?: Yes Nerve Stimulator: Supplement to Ultrasound use, Expected parasthesia or motor response elicited and No twitch or parasthesia noted < 0.5 mA Paresthesia: None Procedure Tolerated: No Complications Procedure Outcome: Successful Performed By: Sandrita Barbosa
--- NOTE | 2022-05-26 12:12 | DI.RAD_ITS ---
Exam(s) XR KNEE LT 2V AP,LAT EXAM: XR KNEE LT 2V AP,LAT CLINICAL HISTORY: MPFL RECONSTRUCTION TECHNIQUE: 2D and realtime digital imaging was performed. CONTRAST MATERIAL: Refer to procedure report. COMPARISON: MR MR LOWER JOINT LT WO from 04/13/2022 FINDINGS: Fluoroscopy was provided for Dr. Pepe during the performance of a ligament reconstruction. Please refer to the procedure report for complete details. Ka,r=1.36 mGy IMPRESSION: RADIATION DOSE DELIVERED:
--- NOTE | 2022-05-26 12:15 | W.PM.DSUDISC ---
Date of service: 05/26/22 Time of Service: 14:00 Discharge Plan Disposition Patient Disposition: HOME Condition: Stable Discharge Details Reason For Visit: Left knee surgery Attending Provider: Garrison Pepe Primary Care Provider: Ese Alvarado Home Meds and New Rx's Prescriptions: New naproxen 250 mg tablet 250 - 500 mg PO BID PRNQty: 40 0RF Rx Instructions: take with a meal aspirin 325 mg tablet,delayed release (DR/EC) 325 mg PO BID 30 Days Qty: 60 0RF oxycodone 5 mg tablet 5 - 10 mg PO Q4H MDD 30 mg PRN (Reason: moderate to severe pain) Qty: 18 0RF Continued buspirone 7.5 mg tablet 7.5 mg PO BID hydroxyzine HCl 25 mg tablet 25 mg PO TID sumatriptan succinate [Imitrex] 25 mg tablet 25 mg PO ONCE sertraline 100 mg tablet 100 mg PO DAILY esomeprazole magnesium [Nexium] 40 mg capsule,delayed release(DR/EC) 40 mg PO DAILY Qty: 30 2RF vitamin B complex [B Complex-Vitamin B12] Tablet 1 tab PO DAILY ondansetron HCl 4 mg tablet 4 mg PO Q8H PRN tretinoin [Retin-A] 0.05 % cream 1 applic topical QHS Nexplanon 68 mg implant 1 implant subdermal ONCE Rx Instructions: as a single dose lamotrigine 25 mg tablet 2 tab PO DAILY Label Comments: TAKE ONE TABLET BY MOUTH EVERY DAY, MONITOR FOR RASH acetylcysteine 600 mg capsule 1 cap PO DAILY Label Comments: TAKE TWO CAPSULES BY MOUTH IN THE MORNING AND AN ADDITIONAL TWO CAPSULES IN THE AFTERNOON OR EVENING NEEDED FOR ANXIETY Discharge Instructions Additional Instructions: Surgery: Left knee arthroscopy with patellar chondroplasty and revision allograft MPFL reconstruction Activity: Weightbearing as tolerated. No knee brace or crutches needed as soon as comfortable. Range of motion 0-90 degrees for 6 weeks. Avoid sports, pivoting, and squatting for 2-3 months. A physical therapy prescription will be sent electronically to start in 2 to 3 weeks. Prescriptions: Aspirin 325 mg take 1 twice daily to prevent a blood clot for 30 days Naproxen 250 mg take 1-2 every 12 hours with a meal as needed for moderate pain Oxycodone 5 mg take 1-2 every 4-6 hours as needed for severe pain You may use [id number]-davgdif Tylenol (acetaminophen) as needed for mild pain. These pain medications may be taken all at once or in different combinations as needed. Also, recommend Colace (docusate) as a stool softener as surgery and pain medicine cause constipation. You may try [id number] diphenhydramine (Benadryl) 25-50 mg nightly as a sleep aid Dressings: Leave dressing in place for 3 days. May then remove and leave open to air or cover incisions with Band-Aids. May shower after 5 days. Follow-up: 10-[address] Pepe You may take off the leg compression stockings this evening at home. You may also leave them on a few days longer if you have a history of leg swelling or edema. Let us know right away if you develop any redness, drainage, fevers, chest pain, or trouble breathing. Do not drink alcohol or drive for at least 24 hours after anesthesia. Please call the office during business hours with any questions or concerns. Discharge Orders Discharge Orders: Discharge Order (Routine); Ordered 05/26/22 Ordered By: Garrison Pepe DS: Diagnosis Discharge Diagnosis (1) Patellar instability of left knee: Status: Acute (2) Chondromalacia of left patella: Status: Acute
[2022-05-26] MEDS: ceFAZolin 3,000 MG in Normal Saline 100 ML 200 MG IVPB (12:37)
[2022-05-26] MEDS: Bupivacaine 0.5% Pres-Free W/EPI 30 ML VIAL (13:30)
[2022-05-26] MEDS: EPINEPHrine 30 MG/30 ML VIAL (13:30)
--- NOTE | 2022-05-26 15:01 | ROE_ITS ---
Date of service: 05/26/22 Time of Service: 14:00 Operative Note Operative Note DATE OF PROCEDURE: 05/26/22 PRE-OP DIAGNOSIS: Left knee 1. Chondromalacia patella 2. Recurrent patellar instability POST-OP DIAGNOSIS: same PROCEDURE: Left knee 1. Arthroscopic chondroplasty, CPT #49025: Undersurface patella 2. Removal of hardware, CPT #16276 3. Revision allograft medial patellofemoral ligament (MPFL) reconstruction, CPT #73558 SURGEON: Garrison Pepe [employer] ACCOUNT REPRESENTATIVE: Farhana Ordonez ANESTHESIA TYPE: Local By Surgeon, General LMA/ETT and Primary Nerve Block Refer to Anesthesia Record ESTIMATED BLOOD LOSS: 15 PATHOLOGY: none sent TOURNIQUET TIME: 0 Patient was transported to: PACU Patient's condition: stable Implants: Arthrex 3.9 mm bio composite SwiveLock x2 and tight rope Indications: Please see complete medical record for details. Findings: Exam under anesthesia: Significantly unstable patella, resting far lateral position, full alignment with increased femoral anteversion Arthroscopic findings: Largely isolated moderately sized undersurface patellar central apex lesion with relatively intact trochlea, especially central and medial trochlea. Some lateral femoral condyle evidence of prior dislocation injury. Intact medial and lateral menisci. Intact ACL. No loose body. Procedure Description: In the operating room, genral anesthesia was induced. The patient was positioned supine on the operating room table. All bony prominences were well- padded. Preoperative antibiotics were administered. The knee was prepped and draped in the usual sterile fashion. The correct patient, procedure, and side of the procedure were all verified prior to incision. Exam under anesthesia was performed. 20 cc of 0.25% bupivacaine containing epinephrine was infiltrated about the planned anteromedial and anterolateral knee arthroscopy portals as well as the prior medial patellar and posterior medial surgical sites. The portals were established and a complete diagnostic arthroscopy was performed with relevant findings detailed above. There was a Central undersurface patellar moderately sized lesion with about full-thickness fissures. Cartilage fraying was debrided but as much cartilage possible was left intact. The remnant had smooth margins without any engaging fraying or loose tissue. The fissures were probed and cartilage was not impending loose so no additional cartilage was removed. Should the patella remained stable but the chondromalacia cause pain, could consider patellar oats procedure. The knee was copiously irrigated with arthroscopic fluid until there was a clear effluent before being drained of all fluid. The prior medial patellar and posterior medial surgical sites were reopened using part of these incisions. Deep dissection down to the medial border the patella while taking care to raise full-thickness tissue down to the medial aspect of the patella palpating the prior suture anchor sites. The suture anchors were somewhat palpable, largely hidden in tissue and somewhat superficial as seen on imaging to the central aspect of the patella. The suture anchor had this and permanent suture was removed with rongeur at both sites sites and the medial aspect of the patella was prepared to optimize bone and tissue healing. In order to avoid prior anchor sites had to start and direct more toward the articular surface. Drill was placed, checked fluoroscopically, distal pain adjusted to be more parallel to the articular surface, second pin was placed proximally, and both overreamed to the appropriate depth. Shuttles point localize laterally about the site of prior interference screw fixation. Beath pin directed anteriorly and proximally toward the lateral thigh coming out mid lateral on the patient's skin at the appropriate level proximally. X-rays did show it was probably targeting the anterior lateral corner of the femur with position somewhat confounded by patient's soft tissue envelope and anatomy but remained superior to the patellofemoral joint. Overdrilled to the far cortex to a depth greater than 60 mm with a 7.5 mm spade tip reamer. The peroneus longus allograft was prepared on the back table. It was doubled over about 7.5 mm diameter. It was trimmed to about 200 mm length. Each side was prepped using fiber loop about 10-15 mm. Back in the medial border the patella, proximal fixated with 3.9mm SwiveLock keeping graft tight to the suture anchor insertion to deliver it in interference fit style also into the premade hole. The tight rope placed around the graft, and distal fixation also done with SwiveLock. The passage of the graft was made bluntly and enlarged with a clamp superficial the capsule deep to the fascia toward shuttles point. Fiber loop used to shuttle tight rope and then passed tight rope sutures with the Beath pin out the lateral thigh. The graft was delivered to the posterior medial incision and directed toward the socket. The button was carefully pulled and then flipped under tactile feeling and confirmed fluoroscopically. The graft was then delivered steadily into the socket in about 30 degrees of flexion until there was early tension. Re-tensioning was done checking patellar excursion and medial tension between 0, 30, 60, and ensuring 90 degrees of flexion and reasonable. After final tightening was done passing sutures were removed and tensioning sutures cut The suture tapes from the graft prep along the medial patellar margin were then passed through the full-thickness raised medial retinacular flaps and then passed again through the patellar sided flaps and securely tied together with excellent reinforced pants over vent style closure. Patellar excursion was appropriate and quite physiologic through range of motion especially considering prior surgeries, challenging anatomy, and complex recurrent problem The anteromedial and anterolateral portals were closed in 3-0 Monocryl in a buried interrupted fashion. The surgical sites were closed using 2-0 Monocryl followed by 3-0 Monocryl. Mastisol, Steri-Strips, and 4 x 4 gauze were applied over the incisions followed by sterile soft roll. The knee was then wrapped gently with an EZEQUIEL comressive bandage. The patient awoke from anesthesia without complication and was transferred to the recovery room in a stable condition.
[2022-05-26] MEDS: fentaNYL 100 MCG/2 ML VIAL IVP (15:45)
--- NOTE | 2022-05-26 16:42 | W.ANESPOSTOP ---
Postoperative Evaluation Date, Time and Location Date Performed: 05/26/22 Time Performed: 16:42 Patient Location: PACU Vital Signs Most Recent Imported Vital Signs: Most Recent Vital Signs Temp Pulse Resp BP Pulse Ox 36.5 C 74 16 148/92 H 94 05/26/22 16:33 05/26/22 16:33 05/26/22 16:33 05/26/22 16:33 05/26/22 16:33 Pain Score Most Recent Pain Score: Most Recent Pain Score Pain Level 0 05/26/22 16:33 Assessment Mental Status: Awake (Alert & Oriented to Patient Baseline) Airway and Respiratory Function: Patent airway with normal (patient baseline) respiratory exam Cardiovascular Function: Hemodynamically Stable Hydration Status: Adequately Hydrated Nausea & Vomiting: No Nausea or Vomiting Pain: Pain is tolerable per patient Peripheral Nerve Block: Regional nerve block not resolved at time of post operative discharge
== END 2022-05-26 17:08 | disposition home or self-care (01) ==
PROVIDERS: PCP Nurse Practitioner Family; Visit Provider Student in an Organized Health Care Education/Training Program
PROC: (CPT 29888; principal; 2022-05-26 11:30)
DX: M25.362 Other instability, left knee (principal); M22.42 Chondromalacia patellae, left knee; Z47.2 Encounter for removal of internal fixation device
CPT/HCPCS: 29877; 20680; 27427; 76942; 81025; 73560; J0690; J1100; J1885; J2250; J2405; J2704; J3010

== ENCOUNTER 2022-06-06 19:28 | Outpatient (REF) | payer OTHER, SELFPAY | END 2022-06-06 19:29 | disposition home or self-care (01) | LOC: LBN 19:28 | PROVIDERS: PCP Nurse Practitioner Family; Visit Provider Physician Assistant | DX: J02.9 Acute pharyngitis, unspecified (principal) | CPT/HCPCS: 87070 ==

== ENCOUNTER 2022-06-09 04:40 | Outpatient (CLI) | payer OTHER, SELFPAY ==
[2022-06-09 12:01] LABS: Abs Immature Grans 0.03 10^3/uL (0.0-0.06); Absolute Basophil Count 0.06 10^3/uL (0.0-0.2); Absolute Eosinophil Count 0.17 10^3/uL (0.0-0.7); Absolute Lymphocyte Count 2.55 10^3/uL (1.2-3.4); Basophils % 0.5; Eosinophils % 1.5; HCT 41.3 % (36.0-46.0); HGB 13.7 g/dL (11.2-15.7); Immature Grans % 0.3; Lymphocytes % 22.3; MCHC 33.2 % (32.0-36.0); MCV 91 fL (80-95); MPV 10.1 fL (8.0-11.0); Monocytes % 4.4; Platelet Count 311 10^3/uL (130-400); RBC 4.56 10^6/uL (3.93-5.22); RDW 12.7 % (11.7-14.6); RDW-SD 42.1 fL; WBC 11.44 10^3/uL (4.4-10.8)
[2022-06-09 12:04] LABS: Absolute Neutrophil Count 8.12 10^3/uL (1.2-6.7)
[2022-06-10 10:42] LABS: EBV EA IgG Negative (Negative)
== END 2022-06-09 04:41 | disposition home or self-care (01) ==
PROVIDERS: PCP Nurse Practitioner Family; Visit Provider Physician Assistant
DX: J03.90 Acute tonsillitis, unspecified (principal)
CPT/HCPCS: 36415; 86663; 85025

== ENCOUNTER 2022-07-28 13:35 | Outpatient (CLI) | payer OTHER, SELFPAY ==
--- NOTE | 2022-07-28 13:40 | DI.RAD_ITS ---
Exam(s) XR ELBOW LT COMPLETE EXAM: XR ELBOW LT COMPLETE CLINICAL HISTORY: LT ELBOW PAIN, M25.522, SLIPPED ON ICE 3 DAYS AGO INJURING LT ELBOW, ? FX. TECHNIQUE: 2D digital imaging was performed. COMPARISON: CR RIGHT ELBOW COMPLETE from 10/18/2009 FINDINGS: 3 views No evidence of fracture or joint effusion. No swelling of the olecranon bursa. Radial head and neck unremarkable. No loose bodies. No degenerative changes. IMPRESSION: No elbow fracture seen. DATA REPOSITORY: RADIATION DOSE DELIVERED:
== END 2022-07-28 13:55 ==
LOC: DI 13:37
PROVIDERS: PCP Nurse Practitioner Family; Visit Provider Physician Assistant Medical
DX: M25.522 Pain in left elbow (principal)
CPT/HCPCS: 73080

== ENCOUNTER 2022-08-08 02:45 | Outpatient (CLI) | payer OTHER, SELFPAY ==
--- NOTE | 2022-08-08 11:45 | DI.MRI_ITS ---
Exam(s) MR LOWER JOINT LT WO EXAM: MR LOWER JOINT LT WO CLINICAL HISTORY: Recurrent pain, instability,PRIOR REVISION MPFL RECONSTRUCTION,M25,32,. TECHNIQUE: Multiplanar multisequence MRI was performed. COMPARISON: CR XR KNEE LT 4V AP,LAT,JAZZY,PAT from 03/10/2022 MR MR LOWER JOINT LT WO from 04/13/2022 No recent plain films are available for comparison. FINDINGS: Exam is limited by patient motion and body habitus.. Patient is status post medial patellofemoral ligament reconstruction. This appears intact. There is some overlying edema in the subcutaneous fat. There is some thinning of the cartilage of the medial patellar facet. There is periarticular spurring at the patella. Cartilage is not well evaluated du e to motion. Artifact related to prior surgery are noted in the proximal anterior tibia. There is a small joint effusion. The patellar tendon and visualized portions of distal quadriceps tendon appear intact. The cruciate and collateral ligaments appear intact. No meniscal tear is are seen. IMPRESSION: Exam limited by patient motion. Status post medial patellofemoral ligament reconstruction which appears intact. No ligament or menisc al tear. DATA REPOSITORY:
== END 2022-08-08 03:05 ==
LOC: DI 02:45
PROVIDERS: PCP Nurse Practitioner Family; Visit Provider Student in an Organized Health Care Education/Training Program
DX: M22.42 Chondromalacia patellae, left knee (principal); M25.362 Other instability, left knee; Z98.890 Other specified postprocedural states
CPT/HCPCS: 73721

== ENCOUNTER 2022-09-03 12:35 | Emergency (ER) | payer OTHER, SELFPAY ==
[2022-09-03 12:42] VITALS: BP 136/98; PULSE 72; RESP 18; TEMP 36.9; O2SAT 99
--- NOTE | 2022-09-03 12:45 | DI.RAD_ITS ---
Exam(s) XR PORTABLE CHEST AP EXAM: XR PORTABLE CHEST AP CLINICAL HISTORY: cough TECHNIQUE: 2D digital imaging was performed of the chest. One image was obtained. An AP view was ob tained. COMPARISON: CR CHEST 2 VIEWS PA,LAT from 11/17/2014 FINDINGS: MEDIASTINUM: Normal. HEART: Normal. PULMONARY VASCULATURE: Normal. LUNGS: Clear. PLEURAL SPACE: No pleural effusion or pneumothorax. BONE:Within normal limits for the patient's age. OTHER FINDINGS:Normal. IMPRESSION: No acute pulmonary findings. DATA REPOSITORY: RADIATION DOSE DELIVERED:
[2022-09-03 12:59] LABS: Bilirubin Negative (Negative); Blood Large (Negative); Clarity Sl Cloudy (Clear); Glucose Negative (Negative); Ketones Negative (Negative); Leukocyte Esterase Small (Negative); Nitrite Negative (Negative); Specific Gravity 1.025 (1.005-1.025); Urobilinogen 0.2 EU/dL (Up TO 0.2)
--- NOTE | 2022-09-03 12:59 | ED.GENADUL_ITS ---
Discharge Plan Disposition Patient Disposition: Home Condition: Stable Discharge Details Clinical Impression: Nausea vomiting and diarrhea, Influenza Primary Care Provider: Ese Alvarado ED Provider: Akhil Lopez Home Meds and New Rx's Prescriptions: Continued buspirone 7.5 mg tablet 7.5 mg PO BID hydroxyzine HCl 25 mg tablet 25 mg PO TID PRN sumatriptan succinate [Imitrex] 25 mg tablet 25 mg PO ONCE PRN trazodone 50 mg tablet 50 mg PO DAILY sertraline 100 mg tablet 100 mg PO DAILY vitamin B complex [B Complex-Vitamin B12] Tablet 1 tab PO DAILY fluticasone propionate [Flonase Allergy Relief] 50 mcg/actuation spray,suspension 2 spray intranasal DAILY 30 Days Qty: 16 6RF Rx Instructions: administer into each nostril ondansetron HCl 4 mg tablet 4 mg PO Q8H PRN tretinoin [Retin-A] 0.05 % cream 1 applic topical QHS Nexplanon 68 mg implant 1 implant subdermal ONCE Rx Instructions: as a single dose esomeprazole magnesium [Nexium] 40 mg capsule,delayed release(DR/EC) 40 mg PO DAILY PRN acetylcysteine 600 mg capsule 600 mg PO DAILY Label Comments: TAKE TWO CAPSULES BY MOUTH IN THE MORNING AND AN ADDITIONAL TWO CAPSULES IN THE AFTERNOON OR EVENING NEEDED FOR ANXIETY lamotrigine 25 mg tablet 150 mg PO DAILY Label Comments: TAKE ONE TABLET BY MOUTH EVERY DAY, MONITOR FOR RASH Discharge Instructions Instructions: Influenza (ED) Additional Instructions: if not improving this week follow up with your primary care provider if you feel more ill, have persistent vomiting or severe worsening pain return to the emergency department Medical Decision Making 26 yo female comes in with several days of n/v and diarrhea. She states a week ago she started with a cough and body aches and subjective fevers, these symptoms improved other than her cough then the n/v/d started. She deniess evere abdominal pain, chest pain, dyspnea. She also has noted vaginal bleeding without clots for 2-3 days. She arrives stable speaking clearly in full sentences. She has a normal posterior pharynx, midline uvula, no submandibular swelling or pain over the hyoid or restricted neck movements. She has no abdominal tenderness, clear lung sounds, no murmurs. Her symtoms seem most consistent with viral gastroenteritis, given lack of abdominal tenderness doubt surgical pathology such as torsion or sbo. Will treat with IV fluids, compazine and check cbc, cmp and reassess. labs show mild low K, is positive for Flu A, xray unremarkable. She is feeling significantly better, tolerating po, still no abdominal tenderness. She is stable for d/c, advised to see pcp this week if not improving, return precautions given Differential Diagnosis Differential Diagnosis: gastroenteritis, flu, covid Imaging Data Radiologic Study: Attestation: I personally reviewed and interpreted this imaging study as follows: Imaging: X-Ray My impression: no acute findings Lab Data Lab results reviewed: Yes I reviewed the patient's lab results. HPI General Mode of arrival: ambulatory . Date/Time Provider Initiated Documentation: 09/03/22 12:36 . Limitations to Documentation: no limitations . Information obtained by: patient . History of Present Illness 26 year old F presents to the emergency department with the chief complaint of nausea/vomiting, described as moderate, Patient started experiencing this day(s) (2) and it has been constant. No relieving factors improve symptom(s), No exacerbating factors reported . Patient notes fever/chills. Patient did receive the following treatments prior to arrival, none Related Data Home Medications Medication Instructions Recorded Confirmed sertraline 100 mg tablet 100 mg PO DAILY 01/04/21 09/03/22 buspirone 7.5 mg tablet 7.5 mg PO BID 03/23/21 09/03/22 etonogestrel 68 mg subdermal 1 implant subdermal ONCE 11/05/21 09/03/22 implant (Nexplanon) ondansetron HCl 4 mg tablet 4 mg PO Q8H PRN 11/05/21 09/03/22 tretinoin 0.05 % topical cream 1 applic topical QHS 11/05/21 09/03/22 (Retin-A) hydroxyzine HCl 25 mg tablet 25 mg PO TID PRN 11/24/21 09/03/22 sumatriptan succinate 25 mg tablet 25 mg PO ONCE PRN 03/23/22 09/03/22 (Imitrex) vitamin B complex (B 1 tab PO DAILY 04/27/22 09/03/22 Complex-Vitamin B12 tablet) fluticasone propionate 50 2 spray intranasal DAILY 30 days 07/18/22 09/03/22 mcg/actuation nasal #16 grams spray,suspension (Flonase Allergy Relief) acetylcysteine 600 mg capsule 600 mg PO DAILY 08/16/22 09/03/22 lamotrigine 25 mg tablet 150 mg PO DAILY 08/16/22 09/03/22 trazodone 50 mg tablet 50 mg PO DAILY 08/16/22 09/03/22 esomeprazole magnesium 40 mg 40 mg PO DAILY PRN 09/03/22 09/03/22 capsule,delayed release (Nexium) Previous Rx's Medication Instructions Recorded fluticasone propionate 50 2 spray intranasal DAILY 30 days 07/18/22 mcg/actuation nasal #16 grams spray,suspension (Flonase Allergy Relief) Allergies Allergy/AdvReac Type Severity Reaction Status Date / Time hydromorphone [Hydromorphone] Allergy Severe Anaphylaxis Verified 09/03/22 14:12 adhesive Allergy Mild Skin Rash Verified 09/03/22 14:12 ketorolac tromethamine Allergy Mild Skin Rash Verified 09/03/22 14:12 [From Toradol] latex Allergy itching,audie Verified 09/03/22 14:12 h skin glue Allergy Intermediate Skin Rash Uncoded 09/03/22 14:12 General Stated Complaint: Nausea/Vomit/Diar ROEL: 3 Review of Systems All systems reviewed & are unremarkable except as noted in HPI and below Constitutional Constitutional: Denies weakness Cardiovascular Cardiovascular: Denies chest pain and Denies dyspnea Respiratory Respiratory: Denies cough and Denies dyspnea Genitourinary Genitourinary: Denies dysuria Integumentary/Breasts Skin/Breast: Denies rash Neurologic Neurologic: Denies weakness PFSH All Active Problems (Updated 09/03/22 @ 14:29 by Akhil Lopez MD) Nausea vomiting and diarrhea (Acute) Influenza (Acute) Status post arthroscopy of left knee (Acute 05/26/22) Left knee arthroscopy with patellar chondroplasty and revision allograft MPFL reconstruction Dr. Pepe Chondromalacia of left patella (Acute) Patellar instability of left knee (Acute) S/P laparoscopic cholecystectomy (Acute) Nausea and vomiting (Acute) Pelvic pressure in female (Acute) Right lower quadrant pain (Acute) Ovarian cyst, right (Acute) Gastritis (Acute) Esophagitis (Acute) GERD (gastroesophageal reflux disease) (Chronic) Medical History Biliary dyskinesia Chronic rhinitis (05/29/17) Chronic tonsillitis (05/29/17) Deviated septum Family history of bleeding or clotting disorder (08/24/17) Pt reports mother has clotting disorder. Pt told not to use estrogen containing contraception. Hematuria History of depression (08/24/17) History of kidney stones Intermittent palpitations Knee instability (03/12/14) CHRONIC LEFT KNEE Migraine Nausea Pharyngitis Psoas tendinitis, right hip (12/06/17) Thrush Tonsillar hypertrophy (05/29/17) Urticaria UTI (urinary tract infection) Surgical History History of arthroscopic knee surgery History of carpal tunnel release History of section History of esophagogastroduodenoscopy (EGD) (~11/2021) History of nasal septoplasty Hx of cystoscopy S/P laparoscopic cholecystectomy (~01/05/22) Family History Mother Mental disorder Disabled. Mental health issues. Father Mental disorder suicide. 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 Date GA/Weeks # Preg Succ Route Wgt Sex Labor Lgth Anesth esia Location Prov Complic 05/13/19 40 No 3855.535 g Male >24 hours [facility] Delivery Date: 05/13/19 Last Updated by: Suyapa Morin Pt had for failed induction Exam Const General: no acute distress Orientation: alert HENMT Head: normal to inspection Ears: external ears normal General nose exam: external nose normal Mouth: moist mucous membranes Eyes General: appearance normal, both eyes and all related structures Neck Neck: normal visual inspection Resp Effort & Inspection: normal respiratory effort and able to speak in complete sentences Auscultation: clear to auscultation bilaterally Cardio Jugular venous pressure: no JVD Rate: regular rate Heart Sounds: no murmurs GI Palpation: soft and nontender Skin General skin exam: no rashes or lesions noted Neuro General: patient alert and patient oriented x3 Extrem General: normal to inspection Psych Mental Status: mental status grossly normal Course Vital Signs Vital signs: Vital Signs Temperature 36.9 C 09/03/22 12:42 Pulse 72 09/03/22 12:42 Respiratory Rate 18 09/03/22 12:42 Blood Pressure 136/98 H 09/03/22 12:42 Pulse Oximetry 99 09/03/22 12:42 Temperature 36.9 C 09/03/22 12:42 Temperature Source Skin 09/03/22 12:42 Pulse 72 09/03/22 12:42 Respiratory Rate 18 09/03/22 12:42 Blood Pressure 136/98 H 09/03/22 12:42 Blood Pressure Position Sitting 09/03/22 12:42 Pulse Oximetry 99 09/03/22 12:42 Oxygen Delivery Method Room Air 09/03/22 12:42 Oxygen Flow Rate 0 09/03/22 12:42 Pain Level 6 09/03/22 12:42
[2022-09-03 13:02] LABS: Bacteria Few HPF (Negative); C & S Indicated? No/Sq. Contamination; Casts Negative LPF (Negative); Crystals Negative HPF (Negative); Epithelial Cells Many HPF (Negative); Mucus Trace (Negative); RBC 20-50 HPF (0-2)
[2022-09-03 13:08] LABS: Abs Immature Grans 0.03 10^3/uL (0.0-0.06); Absolute Basophil Count 0.02 10^3/uL (0.0-0.2); Absolute Eosinophil Count 0.05 10^3/uL (0.0-0.7); Absolute Lymphocyte Count 2.66 10^3/uL (1.2-3.4); Absolute Monocyte Count 0.53 10^3/uL (0.1-0.8); Absolute Neutrophil Count 5.47 10^3/uL (1.2-6.7); Basophils % 0.2; Eosinophils % 0.6; HCT 39.9 % (36.0-46.0); HGB 13.5 g/dL (11.2-15.7); Immature Grans % 0.3; Lymphocytes % 30.4; MCH 29.7 pg (27.0-33.0); MCHC 33.8 % (32.0-36.0); MCV 88 fL (80-95); MPV 9.6 fL (8.0-11.0); Monocytes % 6.1; Neutrophils % 62.4; Platelet Count 285 10^3/uL (130-400); RBC 4.55 10^6/uL (3.93-5.22); RDW 11.9 % (11.7-14.6); RDW-SD 38.2 fL; WBC 8.76 10^3/uL (4.4-10.8)
[2022-09-03] MEDS: Normal Saline 1,000 ML 1000 ML IV (13:10)
[2022-09-03] MEDS: Prochlorperazine 10 MG/2 ML VIAL IVP (13:12)
[2022-09-03 13:33] LABS: ALT 41 U/L (14-59); AST 30 U/L (15-37); Albumin 3.7 g/dL (3.4-5.0); Alkaline Phosphatase 77 U/L (46-116); Anion Gap 10.9 mmol/L (3-11); BUN 8 mg/dL (7-18); Bilirubin, Total 0.5 mg/dL (0.2-1.0); CO2 27.1 mmol/L (21.0-32.0); CREATININE 0.9 mg/dL (0.55-1.02); Calcium 8.9 mg/dL (8.5-10.1); Chloride 103 mmol/L (98-107); Estimated GFR 90.42 (mL/min/1.73m2); Glucose 101 mg/dL (74-106); Lipase 23 U/L (16-77); Magnesium 1.9 mg/dL (1.8-2.4); Potassium 3.1 mmol/L (3.5-5.1); Sodium 141 mmol/L (136-145); TSH (W/Ref FT4) 0.77 uIU/mL (0.36-3.74); Total Protein 7.9 g/dL (6.4-8.2)
--- NOTE | 2022-09-03 13:50 | NUR.NOTE ---
pt ambulated to bathroom without difficulty Nursing Note:
[2022-09-03 14:08] LABS: COVID-19 PCR Negative (Negative); Influenza A PCR Positive (Negative); Influenza B PCR Negative (Negative); RSV PCR Negative (Negative)
--- NOTE | 2022-09-03 14:10 | DI.VRAD_ITS ---
PROCEDURE INFORMATION: Exam: XR Chest Exam date and time: 09/03/2022 1:10 PM Age: 26 years old Clinical indication: Cough TECHNIQUE: Imaging protocol: Radiologic exam of the chest. Views: 1 view. COMPARISON: CT ABDOMEN PELVIS WO 12/19/2021 3:05 PM FINDINGS: Lungs: Unremarkable. No consolidation. Pleural spaces: Unremarkable. No pleural effusion. No pneumothorax. Heart/Mediastinum: Unremarkable. No cardiomegaly. Bones/joints: Unremarkable. IMPRESSION: No acute findings. Dictated and Authenticated by: Chrystal Garcia MD. Ordering:KENNY Landaverde MD
[2022-09-03 14:19] LABS: Source Nasopharynx
[2022-09-03 14:34] VITALS: BP 142/92; PULSE 71; RESP 16; TEMP 36.7; O2SAT 97
== END 2022-09-03 14:39 | disposition home or self-care (01) ==
PROVIDERS: Emergency Provider Emergency Medicine; PCP Nurse Practitioner Family
DX: J11.1 Influenza due to unidentified influenza virus with other respiratory manifestations (principal); E87.6 Hypokalemia; Z20.822 Contact with and (suspected) exposure to COVID-19
CPT/HCPCS: 36415; 80053; 81025; 83690; 87637; 96361; 96374; 99284; 71045; 81003; 81015; 83735; 84443; 85025; J0780

== ENCOUNTER 2022-09-07 14:14 | Outpatient (CLI) | payer OTHER, SELFPAY ==
--- NOTE | 2022-09-07 14:00 | DI.RAD_ITS ---
Exam(s) XR KNEE LT 3V AP,LAT,JAZZY EXAM: XR KNEE LT 3V AP,LAT,JAZZY CLINICAL HISTORY: left knee f/u. TECHNIQUE: 2D digital imaging was performed of the left knee. Four images were obtained. Merchant, AP and lateral views were obtained. COMPARISON: CR XR KNEE LT 4V AP,LAT,JAZZY,PAT from 03/10/2022 FINDINGS: BONES: No acute fracture is present. No bony destructive lesion is seen. Postsurgical changes are no w present in the distal femur. JOINTS: The knee is normally aligned. No joint effusion is seen. SOFT TISSUE: Normal. IMPRESSION: No acute abnormality. DATA REPOSITORY: RADIATION DOSE DELIVERED:
== END 2022-09-07 14:15 | disposition home or self-care (01) ==
LOC: DIORS 14:15
PROVIDERS: PCP Nurse Practitioner Family; Referring Provider Nurse Practitioner Family; Visit Provider Student in an Organized Health Care Education/Training Program
DX: Z98.890 Other specified postprocedural states (principal)
CPT/HCPCS: 73562

== ENCOUNTER 2022-09-22 13:08 | Outpatient (REF) | payer OTHER, SELFPAY ==
[2022-09-23 15:31] LABS: ANA Interpretation Negative (Negative)
[2022-09-26 14:01] LABS: IgA 309 mg/dL (85-499); Interpretation (See Note); Tissue Transglutaminase IgA <1.2 U/mL (<4.0)
== END 2022-09-22 13:09 | disposition home or self-care (01) ==
LOC: NCHCN 13:08
PROVIDERS: PCP Nurse Practitioner Family; Visit Provider Nurse Practitioner Family
DX: R11.10 Vomiting, unspecified (principal); R11.0 Nausea
CPT/HCPCS: 82784; 83516; 86038

== ENCOUNTER 2022-10-06 15:08 | Outpatient (CLI) | payer OTHER, SELFPAY ==
--- NOTE | 2022-10-06 | DI.RAD_ITS ---
Exam(s) XR CHEST 2V PA LATERAL EXAM: XR CHEST 2V PA LATERAL CLINICAL HISTORY: COUGH, R05.8 TECHNIQUE: 2D digital imaging was performed. COMPARISON: CR,XR XR PORTABLE CHEST AP from 09/03/2022 FINDINGS: HEART: Normal size. Aorta: Not dilated. PULMONARY VASCULATURE: Normal. LUNGS: Clear. PLEURAL SPACE: No pleural effusion or pneumothorax. BONE:Unremarkable for age. IMPRESSION: No acute abnormality. DATA REPOSITORY: RADIATION DOSE DELIVERED:
== END 2022-10-06 15:28 ==
LOC: DI 15:11
PROVIDERS: PCP Nurse Practitioner Family; Visit Provider Nurse Practitioner Family
DX: R05.9 Cough, unspecified (principal)
CPT/HCPCS: 71046

== ENCOUNTER 2022-10-25 07:14 | Day surgery (SDC) | payer OTHER, SELFPAY ==
[2022-10-25] VITALS (10 sets, daily range): BP systolic 98–133; BP diastolic 55–92; PULSE 51–83; RESP 14–20; TEMP 36.3–36.5; O2SAT 95–99; BMI 44.2
--- NOTE | 2022-10-25 07:23 | W.PM.DS.N ---
Date of service: 10/25/22 Time of Service: 09:09 DS: Diagnosis Discharge Diagnosis (1) Patellofemoral arthritis of left knee: Status: Acute Discharge Plan Disposition Patient Disposition: Home Condition: Good Discharge Details Reason For Visit: Left patellofemoral DJD Attending Provider: Roman Bustos Primary Care Provider: Ese Alvarado Home Meds and New Rx's Prescriptions: New celecoxib [Celebrex] 200 mg capsule 200 mg PO BID PRNQty: 60 0RF Rx Instructions: Take one tablet twice daily for pain and inflammation aspirin 81 mg tablet,delayed release (DR/EC) 81 mg PO BID 30 Days Qty: 60 0RF acetaminophen 500 mg tablet 1,000 mg PO Q8H PRN Qty: 90 0RF Rx Instructions: Take two tablets up to every 8 hours as needed for pain dexamethasone 4 mg tablet 4 mg PO DAILY Qty: 2 0RF Rx Instructions: Take one tablet once daily for two days docusate sodium [Colace] 100 mg capsule 100 mg PO BID Qty: 30 0RF gabapentin 300 mg capsule 300 mg PO QHS Qty: 14 0RF Rx Instructions: Take one tablet at bedtime oxycodone 5 mg tablet 5 mg PO Q6H PRNQty: 12 0RF Rx Instructions: Take one tablet up to every 6 hours as needed for severe postoperative pain Continued hydroxyzine HCl 25 mg tablet 25 mg PO TID PRN sumatriptan succinate [Imitrex] 25 mg tablet 25 mg PO ONCE PRN trazodone 50 mg tablet 50 mg PO DAILY PRN sertraline 100 mg tablet 100 mg PO DAILY vitamin B complex [B Complex-Vitamin B12] Tablet 1 tab PO DAILY fluticasone propionate [Flonase Allergy Relief] 50 mcg/actuation spray,suspension 2 spray intranasal DAILY 30 Days Qty: 16 6RF Rx Instructions: administer into each nostril lurasidone [Latuda] 20 mg tablet 20 mg PO DAILY Rx Instructions: must administer with food (at least 350 calories) hyoscyamine sulfate 0.375 mg tablet extended release 12 hr 0.375 mg PO Q12H tretinoin [Retin-A] 0.05 % cream 1 applic topical QHS Nexplanon 68 mg implant 1 implant subdermal ONCE Rx Instructions: as a single dose esomeprazole magnesium [Nexium] 40 mg capsule,delayed release(DR/EC) 40 mg PO DAILY PRN Discharge Instructions Additional Instructions: Patellofemoral Replacement Discharge Instructions Activity: The most important activity is to walk and to work on gentle motion (both flexion and extension). You should try to take short walks a few times a day. It is important that when resting you work on keeping the knee straight. Avoid putting a pillow behind the knee as this will encourage flexion. Work on range of motion exercises as provided by Physical Therapy. - Start outpatient physical therapy within 2 weeks. - You should wear the CHANDRAKANT hose on both legs for 2 weeks. You may remove these at night. You may also use any compression sock in place of the CHANDRAKANT hose. - Utilize [employer] to review exercises, see videos on exercises and obtain basic information pertaining to your surgery and your recovery. Dressing: Remove the Fabian wrap by 2 days after your surgery and put on the CHANDRAKANT stocking given to you from the hospital. Keep the surgical dressing (underneath the FABIAN wrap) in place for at least one week. After the first week it may be removed and replaced with light gauze and tape or nothing. The wound and dressing may get wet after 3 days but avoid soaking the dressing or otherwise it will need to be changed. Many people prefer covering the dressing with cling wrap (saran wrap) to minimize it from getting soaked. If it gets wet, just pat dry. If it starts to peel off then it will need to be changed. Medications: - You should take Tylenol and anti-inflammatory Celebrex as your primary pain control medications. If the Celebrex is too expensive or not covered, please call the office for another alternative (Advil/Ibuprofen or Naproxen/Aleve). - You have been prescribed a stronger pain medication Oxycodone for breakthrough pain, take as needed as prescribed. - You take a stomach acid reduction agent Esomeprazole at baseline - continue with this medication to help reduce stomach acid and reflux. - You have been prescribed Gabapentin to take at night for restlessness and nerve pain. - You will be taking Aspirin 81mg twice a day for DVT prevention unless instructed otherwise. - You have also been prescribed Decadron to take to control post-operative nausea and pain. You will start this tomorrow. - If you have constipation you should take Colace (which has been prescribed) or Miralax (which is available [id number]). It takes most people 3-4 days to have a bowel movement. Follow-up: 2 weeks If you have any acute concerns or questions, please do not hesitate to contact the office at [phone]. You may contact Dr. Bustos with any questions after hours through the hospital at [phone] or on his cell phone at [phone]. Stand Alone Forms: Anesthesia Discharge Inst., Anes.Sugammadex Interaction, Anes.Nerve Block Instructions, Mayi Adame (DSU) Referrals: Roman Bustos MD [ [facility] STAFF PHYSICIAN] - 11/07/22 11:00 am Equipment/Supplies: Walker Activity:: Elevate Remove Dressings/Wound Care:: Do Not Remove Shower/Bathe:: Cover Diet:: As Tolerated Discharge Orders Discharge Orders: Discharge Order (Routine); Ordered 10/25/22 Ordered By: Roman Bustos DS: Summary Time Spent with Patient providing and/or coordinating discharge services: Less than 30 minutes Status at Discharge Functional status at discharge: uses cane/walker Overall status at discharge: patient is progressing back to baseline Mental Status: mental status grossly normal Speech and Movement: speech and movement normal Mood: congruent mood Affect: normal affect Exam Psych Mental Status: mental status grossly normal Speech and Movement: speech and movement normal Mood: congruent mood Affect: normal affect DS: Data Vitals/I&O Vitals and I&O: Intake & Output 10/24/22 10/24/22 10/25/22 11:59 23:59 11:59 Weight 280 lb 15.984 oz PFSH All Active Problems Painful orthopaedic hardware (Acute) Patellofemoral arthritis of left knee (Acute) Status post arthroscopy of left knee (Acute 05/26/22) Left knee arthroscopy with patellar chondroplasty and revision allograft MPFL reconstruction Dr. Pepe Chondromalacia of left patella (Acute) Patellar instability of left knee (Acute) S/P laparoscopic cholecystectomy (Acute) Nausea and vomiting (Acute) Pelvic pressure in female (Acute) Right lower quadrant pain (Acute) Ovarian cyst, right (Acute) Gastritis (Acute) Esophagitis (Acute) GERD (gastroesophageal reflux disease) (Chronic) Medical History Biliary dyskinesia Chronic rhinitis (05/29/17) Chronic tonsillitis (05/29/17) Deviated septum Family history of bleeding or clotting disorder (08/24/17) Pt reports mother has clotting disorder. Pt told not to use estrogen containing contraception. Hematuria History of depression (08/24/17) History of kidney stones Intermittent palpitations Knee instability (03/12/14) CHRONIC LEFT KNEE Migraine Nausea Pharyngitis Psoas tendinitis, right hip (12/06/17) Thrush Tonsillar hypertrophy (05/29/17) Urticaria UTI (urinary tract infection) Surgical History History of arthroscopic knee surgery History of carpal tunnel release History of section History of esophagogastroduodenoscopy (EGD) (~11/2021) History of nasal septoplasty Hx of cystoscopy S/P laparoscopic cholecystectomy (~01/05/22) Family History Mother Mental disorder Disabled. Mental health issues. Father Mental disorder suicide. 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 Date GA/Weeks # Preg Succ Route Wgt Sex Labor Lgth Anesthesia Location Prov Complic 05/13/19 40 No 3855.535 g Male >24 hours [facility] Delivery Date: 05/13/19 Last Updated by: Suyapa Morin Pt had for failed induction Time Spent with Patient Time Spent with Patient: <45 minutes Time was spent: obtaining and/or reviewing separately otained hiistory, ordering medications,tests, procedures and counseling the patient
[2022-10-25] MEDS: Gabapentin 300 MG CAP PO (08:07)
[2022-10-25] MEDS: Acetaminophen 500 MG TAB 1000 MG PO (08:07)
[2022-10-25] MEDS: Lactated Ringers 1,000 ML 80 ML IV (08:20)
--- NOTE | 2022-10-25 08:50 | ANES.PREOP_ITS ---
General Info Date of Service Date Performed: 10/25/22 Height: 5 ft 7 in Weight: 128.1 kg Body Mass Index (BMI): 44.2 Surgical Procedure: Operation Date: 10/25/22 10:00 Proposed Procedure Side Surgeon p Knee Patellofemoral Replacement Left Roman Bustos MD Meds Allergies and Home Medications Allergies Allergy/AdvReac Type Severity Reaction Status Date / Time hydromorphone [Hydromorphone] Allergy Severe Anaphylaxis Verified 10/25/22 07:57 adhesive Allergy Mild Skin Rash Verified 10/25/22 07:57 ketorolac tromethamine Allergy Mild Skin Rash Verified 10/25/22 07:57 [From Toradol] latex Allergy itching,audie Verified 10/25/22 07:57 h lamotrigine AdvReac Intermediate Verified 10/25/22 07:57 skin glue Allergy Intermediate Skin Rash Uncoded 10/25/22 07:57 Home Medication Medication Instructions Recorded sertraline 100 mg tablet 100 mg PO DAILY 01/04/21 etonogestrel 68 mg subdermal 1 implant subdermal ONCE 11/05/21 implant (Nexplanon) tretinoin 0.05 % topical cream 1 applic topical QHS 11/05/21 (Retin-A) hydroxyzine HCl 25 mg tablet 25 mg PO TID PRN 11/24/21 sumatriptan succinate 25 mg tablet 25 mg PO ONCE PRN 03/23/22 (Imitrex) vitamin B complex (B 1 tab PO DAILY 04/27/22 Complex-Vitamin B12 tablet) fluticasone propionate 50 2 spray intranasal DAILY 30 days 07/18/22 mcg/actuation nasal #16 grams spray,suspension (Flonase Allergy Relief) esomeprazole magnesium 40 mg 40 mg PO DAILY PRN 09/03/22 capsule,delayed release (Nexium) hyoscyamine sulfate 0.375 mg 0.375 mg PO Q12H 10/10/22 tablet,extended release,12 hr lurasidone 20 mg tablet (Latuda) 20 mg PO DAILY 10/10/22 trazodone 50 mg tablet 50 mg PO DAILY PRN 10/21/22 acetaminophen 500 mg tablet 1,000 mg PO Q8H PRN pain #90 tabs 10/25/22 aspirin 81 mg tablet,delayed 81 mg PO BID 30 days #60 tabs 10/25/22 release celecoxib 200 mg capsule (Celebrex) 200 mg PO BID PRN #60 caps 10/25/22 dexamethasone 4 mg tablet 4 mg PO DAILY #2 tabs 10/25/22 docusate sodium 100 mg capsule 100 mg PO BID #30 caps 10/25/22 (Colace) gabapentin 300 mg capsule 300 mg PO QHS #14 caps 10/25/22 oxycodone 5 mg tablet 5 mg PO Q6H PRN #12 tabs 10/25/22 Current Visit Medications: Current Medications Generic Name Dose Route Start Last Admin Trade Name Freq PRN Reason Stop Dose Admin Acetaminophen 1,000 mg 10/25/22 06:00 10/25/22 08:07 Acetaminophen 500 Mg Tab PO 10/25/22 16:00 1,000 mg PREOP BEBETO Administration Acetaminophen 1,000 mg 10/25/22 08:30 Acetaminophen 500 Mg Tab PO TID BEBETO Aspirin 81 mg 10/25/22 20:00 Aspirin E.C. 81 Mg Tabec PO BID BEBETO Celecoxib 400 mg 10/25/22 06:00 Celecoxib 200 Mg Cap PO 10/25/22 16:00 PREOP BEBETO Celecoxib 200 mg 10/25/22 20:00 Celecoxib 200 Mg Cap PO BID BEBETO Dexamethasone 4 mg 10/26/22 08:30 Dexamethasone 4 Mg Tab PO 10/27/22 08:31 DAILY BEBETO Docusate Sodium 100 mg 10/25/22 07:21 Docusate Sodium 100 Mg Cap PO BID PRN PRN Constipation Gabapentin 300 mg 10/25/22 06:00 10/25/22 08:07 Gabapentin 300 Mg Cap PO 10/25/22 16:00 300 mg PREOP BEBETO Administration Gabapentin 300 mg 10/25/22 22:00 Gabapentin 300 Mg Cap PO HS BEBETO Tranexamic Acid 1,000 mg/ 60 mls @ 360 mls/hr 10/25/22 06:00 Sodium Chloride IVPB 10/25/22 16:00 PREOP BEBETO Ringer's Solution 1,000 mls @ 80 mls/hr 10/25/22 06:00 10/25/22 08:20 IV 11/23/22 23:59 80 mls/hr INFUSION BEBETO Administration Cefazolin Sodium 3,000 mg/ 100 mls @ 200 mls/hr 10/25/22 06:00 Sodium Chloride IVPB 10/25/22 18:00 PREOP BEBETO Cefazolin Sodium/Dextrose 1 gm in 50 mls @ 100 mls/hr 10/25/22 08:00 Ancef Duplex IVPB 10/26/22 00:29 Q8H BEBETO IV Miscellaneous Supplies 1 each 10/25/22 06:00 Iv Access IV 11/23/22 23:59 DIRECTED BEBETO Ondansetron HCl 4 mg 10/25/22 07:21 Ondansetron 4 Mg/2 Ml Vial IVP Q6H PRN PRN Nausea Oxycodone HCl 0 mg 10/25/22 07:21 Oxycodone 5 Mg Tab PO Q3H PRN PRN Pain Polyethylene Glycol 17 gm 10/25/22 07:21 Polyethylene Glycol 3350 17 Gm Packet PO BID PRN PRN Constipation Sodium Chloride 0 ml 10/25/22 06:00 Normal Saline Flush 10 Ml Syr IV 11/23/22 23:59 PRN PRN Sodium Chloride 0 ml 10/25/22 06:00 Normal Saline 10 Ml Vial IJ 11/23/22 23:59 DIRECTED PRN Sterile Water 0 ml 10/25/22 06:00 Water,Injection,Sterile 10 Ml Vial IJ 11/23/22 23:59 DIRECTED PRN PFSH Active Problems Active Problems: Problem Status Onset Code Painful orthopaedic hardware T84.84XA Patellofemoral arthritis of left knee M17.12 Status post arthroscopy of left knee 05/26/22 Z98.890 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 Pt told not to use estrogen containing contraception. Hematuria History of depression (08/24/17) History of kidney stones Intermittent palpitations Knee instability (03/12/14) CHRONIC LEFT KNEE Migraine Nausea Pharyngitis Psoas tendinitis, right hip (12/06/17) Thrush Tonsillar hypertrophy (05/29/17) Urticaria UTI (urinary tract infection) Surgical History Surgical History History of arthroscopic knee surgery History of carpal tunnel release History of section History of esophagogastroduodenoscopy (EGD) (~11/2021) History of nasal septoplasty Hx of cystoscopy S/P laparoscopic cholecystectomy (~01/05/22) Tobacco Smoking/Tobacco Use Status: Never Alcohol Alcohol Intake: current Alcohol intake frequency: holidays/special occasions only Alcohol type: hard liquor Substance Use Substance use: Never Substance use type: does not use Prental History History 1 Para 1 Hx # Term Pregnancies 0 Multiple births 0 Hx # Pregnancies 0 Ectopic pregnancies 0 AB induced 0 Hx Number of Living Children 0 AB spontaneous 0 Past Pregnancies Del. Date GA/Weeks # Preg Succ Route Wgt Sex Labor Lgth Anesth esia Location Prov Complic 05/13/19 40 No 3855.535 g Male >24 hours [facility] Delivery Date: 05/13/19 Last Updated by: Suyapa Morin Pt had for failed induction Vital Signs and Lab Results Vital Signs Most Recent Vital Signs in EMR: Most Recent Vital Signs Temp Pulse Resp BP Pulse Ox 36.5 C 83 20 129/75 95 10/25/22 07:20 10/25/22 07:20 10/25/22 07:20 10/25/22 07:20 10/25/22 07:20 Point of Care Results Point of Care Results: POC- Test(urine) Negative 10/25/22 07:55 Lab Results Blood Type / Crossmatch: No Data to Display Complete Blood Count: No Data to Display Complete Metabolic Panel: No Data to Display Liver Function Panel: 2 No Data to Display Coagulation Panel: No Data to Display Cardiac Panel: No Data to Display Arterial Blood Gas: No Data to Display Venous Blood Gas: No Data to Display Pancreas Panel: No Data to Display Thyroid Panel: No Data to Display Infectious Disease: No Data to Display Blood Cultures: No Data to Display Toxicology Panel: No Data to Display Panel: No Data to Display Anesthesia Assessment and Plan Anesthesia History Personal History: PONV Family History: No Family History of Anesthesia Complications Exercise Tolerance Exercise Tolerance: Metabolic Equivalents>4 Pertinent Negatives Pertinent Negatives: No Symptoms of GERD, No Major Cardiovascular Symptoms or Complaints, No Major Pulmonary Symptoms or Complaints and No History of CVA/TIA Cardiac & Pulmonary Exam Cardiac Exam: Normal S1/S2 Heart Sounds Pulmonary Exam: Clear Bilateral Breath Sounds Implantable Cardiac Device Does patient have a Pacemaker or an ICD?: No Airway Exam Known Difficult Airway: No Mallampati Class: 3 Mouth Opening: Normal (> 3cm) Thyromental Distance: Greater than 3 cm Neck Range of Motion: Full ROM Neck Circumference: Normal Teeth Condition: Normal Dentition ASA Classification ASA Score: ASA 3 Emergency Case?: No NPO Status NPO Status: NPO Clears >2 hours, Solids >8 hours Status Status: Negative HCG Anesthesia Plan Resuscitation Status: Full Code Anesthesia Technique: Spinal Anesthesia Airway Planned: Natural Airway Pain Management: Surgeon and patient request nerve block Monitors Used: Standard Monitors
[2022-10-25] MEDS: Celecoxib 200 MG CAP 400 MG PO (08:55)
[2022-10-25] MEDS: ceFAZolin 3,000 MG in Normal Saline 100 ML 200 MG IVPB (09:42)
--- NOTE | 2022-10-25 09:49 | W.ANESNERVE ---
Nerve Block Single Injection Procedure Date and Time Date Performed: 10/25/22 Procedure Start: 09:26 Location Where Procedure Performed Procedure Location: Day Surgery Unit Reason Performed: Postoperative Analgesia Requesting Provider: Roman Bustos Timeout Performed Timeout Performed: Yes Monitoring Used ECG, Blood Pressure, SpO2 and See EMR for corresponding vital signs Sterility Sterility: Hand Hygiene, Surgical Cap, Surgical Mask, Sterile Gloves, Sterile Drape/Sheet and Chlorhexidine Sedation Given During Procedure Sedation Given (Indicate Dose Given): Versed IV Dose:: 2 mg Patient Mental Status Patient Mental Status: Awake Nerve Block 1st Nerve Block: Laterality: Left Block Type: Adductor Canal Ultrasound Image Saved?: Yes Needle / Catheter Used: 120mm SonoPlex II Local Anesthetic Bolus (Indicate Dose Given): Lidocaine used for local infiltration of skin, Injected in 3-5ml increments after negative blood aspiration and Bupivacaine 0.25% Dose:: 15 ml Additives (Indicate Dose Given): None Ultrasound: Sterile probe cover and gel used Nerve Stimulator: Not Used Paresthesia: None Procedure Tolerated: No Complications and Patient tolerated well Procedure Outcome: Successful Performed By: Alice German
--- NOTE | 2022-10-25 11:28 | ROE_ITS ---
Date of service: 10/25/22 Time of Service: 11:15 Operative Note Operative Note DATE OF PROCEDURE: 10/25/22 PRE-OP DIAGNOSIS: Left PatelloFemoral Chondromalacia POST-OP DIAGNOSIS: same PROCEDURE: Left Patlleofemoral Replacement SURGEON: Roman Bustos PROGRAM DIRECTOR SCOUTING: Farhana Ordonez Refer to Anesthesia Record ESTIMATED BLOOD LOSS: 50 PATHOLOGY: none sent TOURNIQUET TIME: 0 COMPLICATIONS: None Patient was transported to: PACU Patient's condition: stable Implants: 1. Arthrosurface Wave Trochlear Component, 8.5x5mm 2. Depuy Attune Patellar Button, 32mm Indications: Mary Ann is a 27 year old female who has had patellofemoral symptoms for many years. She had multiple procedures including MPFL reconstruction, tibial tubercle osteotomy, revision MPFL reconstruction. Her most recent procedure done by Dr. Pepe has shown to be successful with a stable patella. Unfortunately, she feels that the pain is actually worse now that the patella is localized. She has failed all other treatment options and continues have pain with known chondromalacia about the patella. Conservative measures have been exhausted yet pain and dysfunction persisted. Please see office notes for complete details. Given the continued symptoms, I recommended a patellofemoral replacement. I reviewed the risks of the procedure to include bleeding, infection, pain, stiffness, worsening medial or lateral compartment arthritis, patellar instability, loosening, fracture, clot. Despite these risks, Mary Ann elected to proceed. Findings: There was notable chondromalacia over the apex of the patella with generalized thinning of the patellar cartilage surface. The MPFL graft was in a good position and was well affixed to the medial aspect of the patella. A patellofemoral replacement was placed without difficulty. Procedure Description: Mary Ann was greeted in the preoperative holding area where the correct side was identified and marked. The consent was reviewed with the patient and signed. The history and physical was updated. All questions were answered. Preoperative mediacations were administered: Acetaminophen 1000mg, Celebrex 400mg, and Gabapentin 300mg. An adductor canal block was then administered by the anesthesia team in the PACU. She was taken back to the operating room. A spinal anesthestic was then administered. The patient was placed into the supine position on the operating room table. A nonsterile tourniquet was placed high onto the leg but not used. Posts were placed for positioning during the procedure. All bony prominences were well padded. Prophylactic antibiotics in the form of Cefazolin were administered. 1g of Tranxemic Acid was given intravenously within 30 minutes of incision. The left leg was then prepped with Chloraprep and draped in a standard fashion with impervious stockinette and extremity drape. A second prep with Chloraprep was performed prior to placing Ioband. A timeout to confirm correct identity, side and site, procedure, allergies, anesthesia, and medical concerns was performed. With the knee in some flexion, a midline incision was made overlying the knee. Full thickness skin flaps were raised once the extensor mechanism was encountered. These were raised medially and laterally. Any bleeding was controlled with electrocautery. Once the extensor mechanism was fully exposed, a medial parapatellar arthrotomy was performed in a flexed position. All bleeding from the arthrotomy and the geniculate arteries was coagulated. The menisci and intrameniscal ligament was preserved. The Arthrosurface patellofemoral trial was then placed in the appropriate position and a single guidewire was placed through the center of this device. This was confirmed to be in appropriate location using the targeting arm. The trochlea was then sized in both directions corresponding to an 8.5 x 5. The initial reamer was then placed and taken down to appropriate depth. The reaming and drill guide was then placed within this recess and secured with pins. Using both the centralized reamer and the edge reamer, the trochlear recess was prepared. The guide was removed and the edges were curetted for completeness. The central hole was then prepared with a drill and a tap. The outer surface screw was then inserted to the premeasured depth. The 8.5 x 5mm patellofemoral Wave trochlear component by Arthrosurface was then malleted into position sitting flush over the lateral and proximal lateral aspect. The knee was held in extension and the patella was measured as 21 mm. Using the patellar clamp and cut guide, this was resected to a flat surface with at least 13mm of thickness remaining. The size 32 patella fit the best. This was oriented and then clamped into position. The lugs were drilled. High viscosity cement was prepared on the back table under vacuum preparation. When ready, cement was manually impacted into the cut surface of the patella and the patellar button was clamped into position and held. During this process attention was turned to the gutters of the knee and for all interfaces for any excess cement. While the cement was hardening, the knee was irrigated with Irrisept chlorhexadine solution. It was allowed to sit in the knee for 3 minutes. After the cement had finally cured, approximately 15min, the clamp was removed from the patella and the knee was taken through range of motion. Even without any medial attachments the patella was tracking centrally within the trochlea. I then used a #2 FiberWire to reapproximate the MPFL graft and the medial aspect of the patella. The capsule was then reapproximated with a No. 1 Vicryl. The second dosing of 1g TXA was started. Deep tissues were then reapproximated with 0 Vicryl and 2-0 Vicryl. The skin was closed with a running 3-0 Monocryl in a subcuticular fashion. This was reinforced with steri-strips but no skin glue due to allergy. A Mepilex silver dressing was applied along with a [id number] EZEQUIEL wrap. A CryoCuff was applied. Mary Ann was transferred to the hospital bed without difficulty an suffering no apparent complication. Mary Ann has a good prognosis. Physical therapy will start today and without restrictions, weight-bearing as tolerated. Aspirin 81mg BID will be used for DVT prophylaxis.
[2022-10-25] MEDS: oxyCODONE 5 MG TAB PO (12:27)
--- NOTE | 2022-10-25 12:27 | W.ANESPOSTOP ---
Postoperative Evaluation Date, Time and Location Date Performed: 10/25/22 Time Performed: 12:15 Patient Location: Day Surgery Unit Vital Signs Most Recent Imported Vital Signs: Most Recent Vital Signs Temp Pulse Resp BP Pulse Ox 36.4 C L 51 L 14 100/55 L 99 10/25/22 11:45 10/25/22 11:45 10/25/22 11:45 10/25/22 11:45 10/25/22 11:45 Pain Score Most Recent Pain Score: Most Recent Pain Score Pain Level 0 10/25/22 11:45 Assessment Mental Status: Awake (Alert & Oriented to Patient Baseline) Airway and Respiratory Function: Patent airway with normal (patient baseline) respiratory exam Cardiovascular Function: Hemodynamically Stable Hydration Status: Adequately Hydrated Nausea & Vomiting: No Nausea or Vomiting Pain: Pt. Denies Any Pain Peripheral Nerve Block: Regional nerve block not resolved at time of post operative discharge
--- NOTE | 2022-10-25 18:02 | IN_ITS ---
Date of service: 10/25/22 Time of Service: 13:11 PT Notes Visit Reasons: Left patellofemoral DJD Physical Therapy Day Surgery Initial Evaluation Date: 10/25/2022 Referring Doctor: EMELIA Burks PT Orders: PT CONSULT: S/P ortho surgery Precautions: WBAT on the L LE with AD. Patient Profile/Admitting Diagnosis: Mary Ann is a 27-year-old female patient with L patellofemoral chondromalacia and is S/P L patellofemoral replacement on post-operative day 0. PMHX: Medical History? Biliary dyskinesia Chronic rhinitis (05/29/17) Chronic tonsillitis (05/29/17) Deviated septum Family history of bleeding or clotting disorder (08/24/17) Pt reports mother has clotting disorder. Pt told not to use estrogen containing contraception. Hematuria History of depression (08/24/17) History of kidney stones Intermittent palpitations Knee instability (03/12/14) CHRONIC LEFT KNEE Migraine Nausea Pharyngitis Psoas tendinitis, right hip (12/06/17) Thrush Tonsillar hypertrophy (05/29/17) Urticaria UTI (urinary tract infection) Surgical History? History of arthroscopic knee surgery History of carpal tunnel release History of section History of esophagogastroduodenoscopy (EGD) (~11/2021) History of nasal septoplasty Hx of cystoscopy S/P laparoscopic cholecystectomy (~01/05/22) Social History/Home Situation: Lives with in a private home with no steps to enter. Independent with all aspects of ADLs prior to admission. Has 4 steps to enter her workplace. Equipment Owned/DME: Bilateral axillary crutches Subjective: Denies headache, chest pain, and lightheadedness throughout. Objective: General Observation: Supine in bed. Mental Status: Alert and oriented x 4 Pain: 1-2/10 in the L knee ROM: Right Lower Extremity: Hip flexion WFL. Hip abduction WFL. Knee flexion WFL. Ankle dorsiflexion WFL. Ankle plantarflexion WFL. Left Lower Extremity: Hip flexion WFL. Hip abduction WFL. Knee flexion 0-90. Ankle dorsiflexion WFL. Ankle plantarflexion WFL. Strength: Right Lower Extremity: Hip flexors 5/5. Hip abductors 5/5. Knee flexors 5/5. Knee extensors 5/5. Ankle dorsiflexors 5/5. Ankle plantarflexors 5/5. Left Lower Extremity:Hip flexors 4/5. Hip abductors 4/5. Knee flexors 3-/5. Knee extensors 4-/5. Ankle dorsiflexors 5/5. Ankle plantarflexors 5/5. Sensation: Intact as to pain and light touch in B LE Bed Mobility/Transfers: Supine to sit stand by assist Sit to stand stand by assist Stand to sit stand by assist Bed to chair stand by assist Gait: 150 feet using bilateral axillary crutches with 3-point gait pattern. WBAT on the L LE. Denies headache, chest pain, and lightheadedness throughout. Stairs: Up and down 6 x 4-inch patient steps and 4 x 6-inch steps with bilateral axillary crutches Balance: Static Sitting: Normal Dynamic Sitting: Normal Static Standing: Good Dynamic Standing: Fair Special Tests: Mobility Limitations Standardized Measure [facility] AM-PAC 6 clicks Basic Mobility Inpatient Short Form: Raw Score: 24 CMS Score: 0% deficit Informed Consent/Education: Patient instructed in purpose of PT consult. Packet containing PF replacement exercise protocol has been given to patient. Education and training on initial set of exercises that can be done at home have been completed with patient. THERA EX: Supine quads sests x 5 Supine helle slides x 5 Supine Ankle DF/PF Seated marches x5 LAQ x 5 Assessment: Mary Ann requires the use of bilateral axillary crutches in order to maximize in dependence and reduce fall risk. Patient presents with clinical signs and symptoms consistent with current/admitting diagnoses that have resulted to mobility limitations, gait instability, generalized weakness, and impairment of motor control as demonstrated by the following impairment level findings: 1. Decreased strength to left knee major muscle groups 2. Impaired standing balance 3. Limitation of joint range of motion in left knee Impairments are contributing to the following functional limitations: 1. Inability to safely ambulate without assistive device 2. Increase completion time for mobility ADL performance 3. Increased fall risk Patient is assessed as a 43603 moderate complexity based on the following: History: 27-year-old female with impairment level findings, functional limitations, and past medical history as indicated above Examination: Demonstrable impairment in strength, balance, and mobility level with underlying impairments and functional limitations as documented above Presentation: Evolving Decision Makin moderate complexity Goals: N/A. PT evaluation and 1-2 treatment sessions only for functional mobility training using recommended AD and for HEP instruction. Plan of Care/Treatment Plan: N/A. PT evaluation and 1-2 treatment session only for functional mobility training using recommended AD and for HEP instruction. DISCHARGE RECOMMENDATIONS: Home when medically cleared by orthopedic surgeon. Recommend outpatient PT services in order to optimize functional mobility outcomes and facilitate return to independent community ambulation and vocational activities without an assistive device. TREATMENT CODE/TIME: 71378 x 20 minutes, 86677 x 19 minutes beginning at 13:11 PM. Thank you for the opportunity to participate in the care of this patient. Maricel Perez PT, DPT, CLT [facility] [place], [place]
== END 2022-10-25 14:55 | disposition home or self-care (01) ==
PROVIDERS: PCP Nurse Practitioner Family; Visit Provider Student in an Organized Health Care Education/Training Program
PROC: (CPT 27437; principal; 2022-10-25 09:30)
DX: M17.12 Unilateral primary osteoarthritis, left knee (principal); M22.42 Chondromalacia patellae, left knee
CPT/HCPCS: 27442; 76942; 97162; 97530; J0690; J1100; J2250; J2405

== ENCOUNTER 2022-11-07 12:05 | Outpatient (CLI) | payer OTHER, SELFPAY ==
--- NOTE | 2022-11-07 11:30 | DI.RAD_ITS ---
Exam(s) XR KNEE LT 3V AP,LAT,JAZZY EXAM: XR KNEE LT 3V AP,LAT,JAZZY CLINICAL HISTORY: POST OP. TECHNIQUE: 2D digital imaging was performed of the left knee. Three images were obtained. Merchant ,AP and lateral views were obtained. COMPARISON: CR XR KNEE LT 3V AP,LAT,JAZZY from 09/07/2022 FINDINGS: BONES: No acute fracture is present. No bony destructive lesion is seen. JOINTS: The knee is normally aligned. There are stable postsurgical changes of a partial knee replace ment. Orthopedic hardware appears in good position. SOFT TISSUE: Normal. IMPRESSION: No acute abnormality. DATA REPOSITORY: RADIATION DOSE DELIVERED:
== END 2022-11-07 12:06 | disposition home or self-care (01) ==
LOC: DIORS 12:05
PROVIDERS: PCP Nurse Practitioner Family; Referring Provider Nurse Practitioner Family; Visit Provider Physician Assistant
DX: M25.562 Pain in left knee (principal); M17.12 Unilateral primary osteoarthritis, left knee; Z96.652 Presence of left artificial knee joint; Z47.1 Aftercare following joint replacement surgery
CPT/HCPCS: 73562

== ENCOUNTER 2022-11-22 12:25 | Outpatient (CLI) | payer OTHER, SELFPAY ==
--- NOTE | 2022-11-22 12:28 | DI.RAD_ITS ---
Exam(s) XR KNEE LT 3V AP,LAT,JAZZY EXAM: XR KNEE LT 3V AP,LAT,JAZZY CLINICAL HISTORY: left knee f/u. TECHNIQUE: 2D digital imaging was performed. Three images were obtained. Merchant's, AP and lateral views were obtained. COMPARISON: CR XR KNEE LT 3V AP,LAT,JAZZY from 11/07/2022 FINDINGS: BONES: There are stable post operative changes present. No fracture or dislocation. JOINTS: The orthopedic hardware is in good position. No evidence of hardware loosening. SOFT TISSUE: There is soft tissue swelling around the knee. IMPRESSION: Stable postoperative changes. DATA REPOSITORY: RADIATION DOSE DELIVERED:
== END 2022-11-22 12:26 | disposition home or self-care (01) ==
LOC: DIORS 12:25
PROVIDERS: PCP Nurse Practitioner Family; Visit Provider Physician Assistant
DX: Z96.652 Presence of left artificial knee joint (principal); Z47.1 Aftercare following joint replacement surgery
CPT/HCPCS: 73562

== ENCOUNTER 2022-11-22 13:59 | Outpatient (REF) | payer OTHER, SELFPAY ==
[2022-11-22 14:31] LABS: Clarity Cloudy
[2022-11-22 14:32] LABS: Mononuclear Cells 60 %; Nucleated Cells 2225 uL (0); Polynuclear Cells 40 %
[2022-11-22 14:33] LABS: Crystals (BF) No Crystals seen
== END 2022-11-22 14:00 | disposition home or self-care (01) ==
LOC: LBN 13:59
PROVIDERS: PCP Nurse Practitioner Family; Visit Provider Physician Assistant
DX: Z96.652 Presence of left artificial knee joint (principal); M70.42 Prepatellar bursitis, left knee
CPT/HCPCS: 87070; 87075; 87205; 89051; 89060

== ENCOUNTER 2022-11-23 02:55 | Outpatient (CLI) | payer OTHER, SELFPAY ==
[2022-11-23 15:50] LABS: Abs Immature Grans 0.02 10^3/uL (0.0-0.06); Absolute Basophil Count 0.05 10^3/uL (0.0-0.2); Absolute Eosinophil Count 0.21 10^3/uL (0.0-0.7); Absolute Lymphocyte Count 3.39 10^3/uL (1.2-3.4); Absolute Monocyte Count 0.52 10^3/uL (0.1-0.8); Absolute Neutrophil Count 5.56 10^3/uL (1.2-6.7); Basophils % 0.5; Eosinophils % 2.2; HCT 39.9 % (36.0-46.0); HGB 13.7 g/dL (11.2-15.7); Immature Grans % 0.2; Lymphocytes % 34.8; MCH 30.3 pg (27.0-33.0); MCHC 34.3 % (32.0-36.0); MCV 88 fL (80-95); MPV 9.8 fL (8.0-11.0); Monocytes % 5.3; Platelet Count 308 10^3/uL (130-400); RBC 4.52 10^6/uL (3.93-5.22); RDW 12.8 % (11.7-14.6); RDW-SD 41.4 fL; WBC 9.75 10^3/uL (4.4-10.8)
[2022-11-23 15:52] LABS: ESR 44 mm/hr (0-20)
[2022-11-23 16:36] LABS: C-Reactive Protein 1.83 mg/dL (0.0-0.3)
== END 2022-11-23 02:56 | disposition home or self-care (01) ==
LOC: LBO 02:55
PROVIDERS: PCP Nurse Practitioner Family; Visit Provider Physician Assistant
DX: Z96.652 Presence of left artificial knee joint (principal)
CPT/HCPCS: 36415; 85652; 85025; 86140

== ENCOUNTER 2022-11-28 10:59 | Outpatient (REF) | payer OTHER, SELFPAY ==
[2022-11-28 13:26] LABS: Clarity Cloudy; Mononuclear Cells 52 %; Nucleated Cells 583 uL (0); Polynuclear Cells 48 %
[2022-11-28 13:54] LABS: Crystals (BF) No Crystals seen
== END 2022-11-28 11:00 | disposition home or self-care (01) ==
LOC: LBN 10:59
PROVIDERS: Physician Assistant; PCP Nurse Practitioner Family; Visit Provider Student in an Organized Health Care Education/Training Program
DX: M70.42 Prepatellar bursitis, left knee (principal)
CPT/HCPCS: 87070; 87205; 89051; 89060

== ENCOUNTER 2022-12-14 11:29 | Outpatient (REF) | payer OTHER, SELFPAY ==
--- NOTE | 2022-12-14 10:40 | PAPFT_PTH ---
PATIENT: Mary Ann Harmon LOC: [facility]#:[id number] AGE/SX: 27/F ROOM: RE12/14/[address]: Ese Alvarado : 1995 BED: DIS: 12/14/2022 SPEC #: [id number] RECD: 12/14/22 17:31 STATUS: SHALONDA RESherin #: [id number] MARZENA: 12/14/22 10:[address]: Ese Alvarado DEPT: [facility] Cytology RECD BY: Evelina Swanson Tissues: 1 - CX/ENDOCX FOR PAP SMEARS Procedures: PAP THIN PREP/[facility] Screening Comments: [id number] (CHLAMYDIA/GC)
[2022-12-15 14:39] LABS: Chlamydia Result Negative (Negative); GC Result Negative (Negative)
== END 2022-12-14 11:30 | disposition home or self-care (01) ==
LOC: NCHCN 11:29
PROVIDERS: PCP Nurse Practitioner Family; Visit Provider Nurse Practitioner Family
DX: N89.8 Other specified noninflammatory disorders of vagina (principal); Z12.4 Encounter for screening for malignant neoplasm of cervix; Z11.3 Encounter for screening for infections with a predominantly sexual mode of transmission; A59.01 Trichomonal vulvovaginitis
CPT/HCPCS: 87491; 87591; 88142; 87480; 87510; 87660

== ENCOUNTER 2023-01-11 13:48 | Outpatient (REF) | payer OTHER, SELFPAY | END 2023-01-11 13:49 | disposition home or self-care (01) | LOC: NCHCN 13:48 | PROVIDERS: PCP Nurse Practitioner Family; Visit Provider Nurse Practitioner Family | DX: N89.8 Other specified noninflammatory disorders of vagina (principal) | CPT/HCPCS: 87480; 87510; 87660 ==

== ENCOUNTER 2024-04-19 15:14 | Outpatient (REF) | payer OTHER, SELFPAY ==
[2024-04-19 15:01] LABS: HCT 41.8 % (36.0-46.0); HGB 14.1 g/dL (11.2-15.7); MCH 31.3 pg (27.0-33.0); MCHC 33.7 % (32.0-36.0); MCV 93 fL (80-95); MPV 10.7 fL (8.0-11.0); Platelet Count 261 10^3/uL (130-400); RBC 4.51 10^6/uL (3.93-5.22); RDW 12.6 % (11.7-14.6); RDW-SD 43.4 fL; WBC 8.89 10^3/uL (4.4-10.8)
[2024-04-19 15:14] LABS: ALT 58 U/L (14-59); AST 110 U/L (15-37); Albumin 3.7 g/dL (3.4-5.0); Alkaline Phosphatase 78 U/L (46-116); BUN 7 mg/dL (7-18); Bilirubin, Total 0.51 mg/dL (0.2-1.0); Calcium 8.9 mg/dL (8.5-10.1); Calculated LDL 92 mg/dL (<100); Chloride 104 mmol/L (98-107); Cholesterol 184 mg/dL (<200); Glucose 102 mg/dL (74-106); HDL Cholesterol 82 mg/dL (40-60); Potassium 3.4 mmol/L (3.5-5.1); Sodium 142 mmol/L (136-145); Total Protein 7.6 g/dL (6.4-8.2); Triglyceride 51 mg/dL (<150)
--- OUTSIDE RECORDS SUMMARY | 2024-04-19 15:21 | XMS_ITS | Encounter Summary ---
Author Organization [facility] [place] [address] Care Team Providers Care Medical Manager Name Role Phone Ese Alvarado APRN Primary Care Provider [phone] Encounter Details Date Type Department Care Team (Late st Contact Info) Description 04/14/2022 Telephone [place] [phone] Joanie Coy Social History Tobacco Use Types Packs/Day Years Used Date Smoking Tobacco: Never Assessed Sex and Gender Information Value Date Recorded Sex Assigned at Not on file Gender Identity Not on file Sexual Orientation Not on file documented as of this encounter Miscellaneous Notes * Telephone Encounter - Joanie Coy - 04/14/2022 12:50 PM EDT Called pt to go over something before scheduling the GES.. she is scheduled for the smart pill as im assuming its all set and covered under her insurance , do you still want her having the GES? documented in this encounter Plan of Treatment Not on file documented as of this encounter Visit Diagnoses Not on filedocumented in this encounter Care Teams Medical Manager Relationship Specialty Start Date End Date Ese Alvarado APRN [address] [place] [address] PCP - General Family Medicine 10/31/21 documented as of this encounter
--- OUTSIDE RECORDS SUMMARY | 2024-04-19 15:21 | XMS_ITS | Encounter Summary ---
Author Organization [place] [id number] Care Team Providers Care Sterilization Specialist Name Role Phone Ese Alvarado APRN Primary Care Provider [phone] Reason for Referral * Diagnostic Test (Routine) - Closed Specialty Diagnoses / Procedures Referred By Contac t Referred To Contact Radiology Diagnoses Bloating Nausea and vomiting, unspecified vomiting type Procedures NM Gastric Emptying Scan Peyton Ivy APRN [address] [place] [address] [place] [address] Referral ID Status Reason Start Date Expiration Date V isits Requested Visits Authorized [id number] Closed Specialty Service Requested 10/20/2022 04/22/2024 1 1 Reason for Visit * Diagnostic Test (Routine) - Closed Specialty Diagnoses / Procedures Referred By Contac t Referred To Contact Radiology Diagnoses Bloating Nausea and vomiting, unspecified vomiting type Procedures NM Gastric Emptying Scan Peyton Ivy APRN [address] [place] [address] [place] [address] Referral ID Status Reason Start Date Expiration Date V isits Requested Visits Authorized [id number] Closed Specialty Service Requested 10/20/2022 04/22/2024 1 1 Encounter Details Date Type Department Care Team (Latest Contact Info) Description 01/06/2023 9:30 AM EDT Hospital Encounter [place] [address] Peyton Ivy, FURNITURE DESIGNER [address] [place] [address] Bloating; Nausea and vomiting, unspecified vomiting type Discharge Disposition: Home Social History Tobacco Use Types Packs/Day Years Used Date Smoking Tobacco: Never Assessed Sex and Gender Information Value Date Recorded Sex Assigned at Not on file Gender Identity Not on file Sexual Orientation Not on file documented as of this encounter Medications at Time of Discharge Medication Sig Dispensed Refills Start Date End Date albuteroL 90 mcg/actuation HFA Aerosol Inhaler INHALE 2 PUFFS BY MOUTH EVERY 4-6 HOURS NEEDED USE WITH SPACER 03/27/2022 busPIRone (Buspar) 7.5 mg Tablet Take 7.5 mg by mouth 2 times daily. 03/25/2022 esomeprazole (NexIUM) 40 mg Capsule, Delayed Release(E.C.) Take 40 mg by mouth daily. 12/14/2021 hydrOXYzine (Atarax) 25 mg Tablet Take 25-50 mg by mouth every 6 hours as needed. 03/25/2022 ondansetron ODT (Zofran-ODT) 4 mg Tablet, Rapid Dissolve DISSOLVE ONE TABLET ON THE TONGUE EVERY 8 HOURS NEEDED FOR NAUSEA OR VOMITING 03/22/2022 ondansetron (Zofran) 4 mg Tablet Take 4 mg by mouth every 8 hours as needed. 12/20/2021 Vitamin B-2 100 mg Tablet TAKE TWO TABLETS BY MOUTH TWICE A DAY FOR MIGRAINE PREVENTION 03/22/2022 sertraline (ZOLOFT) 100 mg Tablet Take 100 mg by mouth daily. 12/10/2021 SUMAtriptan (Imitrex) 100 mg Tablet TAKE 1 TABLET BY MOUTH NEEDED , DO NOT EXCEED 2 TABLETS IN 24 HOURS 03/22/2022 esomeprazole (NexIUM) 40 mg Capsule, Delayed Release(E.C.) Take 1 capsule by mouth 2 times daily. 180 capsule 3 04/08/2022 documented as of this encounter Plan of Treatment Not on file documented as of this encounter Procedures Procedure Name Priority Date/Time Associated Diagnosis Comments NM GASTRIC EMPTYING SCAN Routine 01/06/2023 1:58 PM EDT Bloating Nausea and vomiting, unspecified vomiting type documented in this encounter Results * NM Gastric Emptying Scan (01/06/2023 1:58 PM EDT) Anatomical Region Laterality Modality Nuclear Medicine Impressions 01/06/2023 2:07 PM EDT Normal gastric emptying. I have personally reviewed the image(s) and the resident's interpretation and agree with the findings, Kalyn Thurman MD at 01/06/2023 2:07 PM Thank you for letting us participate in the care of this patient. ??If you are a health care provider and have any questions regarding this report, please contact the number below. ??For patients who have questions please contact the health childcare worker that requested your imaging first. ? Narrative 01/06/2023 2:07 PM EDT EXAMINATION: NM GASTRIC EMPTYING SCAN CLINICAL HISTORY: nausea with vomiting TECHNIQUE: A standard meal was labeled with 0.5 mCi of Technetium-99m sulfur colloid and ingested. Images of the stomach were obtained in the anterior and posterior projections immediately thereafter and 1, 2, 3 and 4 hours later. COMPARISON: Noncontrast CT abdomen/pelvis 12/19/2021 from outside institution FINDINGS: Activity fills the stomach on the initial images obtained immediately after ingesting the meal. Small bowel is visible at one hour. There is minimal activity present in the stomach at 4 hours. Quantitative analysis: 2 hours: 44 percent remains in the stomach (normal less than 60%) 4 hours: 7 percent remains in the stomach (normal less than 10% at four hours) Procedure Note Kalyn Thurman MD - 01/06/2023 EXAMINATION: NM GASTRIC EMPTYING SCAN CLINICAL HISTORY: nausea with vomiting TECHNIQUE: A standard meal was labeled with 0.5 mCi of Technetium-99msulfur colloid and ingested. Images of the stomach were obtained in the anteriorand posterior projections immediately thereafter and 1, 2, 3 and 4 hourslater. COMPARISON: Noncontrast CT abdomen/pelvis 12/19/2021 from outsideinstitution FINDINGS: Activity fills the stomach on the initial images obtained immediatelyafter ingesting the meal. Small bowel is visible at one hour. There is minimal activity present in the stomach at 4 hours. Quantitative analysis: 2 hours: 44 percent remains in the stomach (normal less than 60%) 4 hours: 7 percent remains in the stomach (normal less than 10% at fourhours) IMPRESSION Normal gastric emptying. I have personally reviewed the image(s) and the resident's interpretationand agree with the findings, Kalyn Thurman MD at 01/06/2023 2:07 PM Thank you for letting us participate in the care of this patient. If youare a health care provider and have any questions regarding this report,please contact the number below. For patients who have questions please contactthe health childcare worker that requested your imaging first. Peyton Ivy FURNITURE DESIGNER IMG NM ORDERABLE S documented in this encounter Visit Diagnoses Diagnosis Bloating Flatulence, eructation, and gas pain Nausea and vomiting, unspecified vomiting type documented in this encounter Administered Medications Inactive Administered Medications - up to 3 most recent administrations Medication Order MAR Action Action Date Dose Rate Site technetium (Tc-99m) sulfur colloid injection 0-18 mCi 0-18 mCi, Oral, ONCE PRN, 1 dose, Starting on Mon01/06/23 at 1001, Until Mon01/06/23 at 1000, Per Protocol, Radiology Contrast, Routine Given 01/06/2023 10:00 AM EDT 0.5 mCi documented in this encounter Care Teams Sterilization Specialist Relationship Specialty Start Date End Date Ese Alvarado APRN [address] [place] [address] PCP - General Family Medicine 10/31/21 documented as of this encounter
--- OUTSIDE RECORDS SUMMARY | 2024-04-19 15:21 | XMS_ITS | Clinical Summary ---
Author Organization [facility] Address [facility] [place] [address] Care Team Providers Care Laboratory Mechanical Technician Name Role Phone Ese Alvarado APRN Primary Care Provider [phone] Allergies Active Allergy Reactions Criticality Noted Date Comments Hydromorphone 04/08/2022 Ketorolac 04/08/2022 Medications Medication Sig Dispensed Refills Start Date End Date Status albuteroL 90 mcg/actuation HFA Aerosol Inhaler INHALE 2 PUFFS BY MOUTH EVERY 4-6 HOURS NEEDED USE WITH SPACER 03/27/2022 Active busPIRone (Buspar) 7.5 mg Tablet Take 7.5 mg by mouth 2 times daily. 03/25/2022 Active esomeprazole (NexIUM) 40 mg Capsule, Delayed Release(E.C.) Take 40 mg by mouth daily. 12/14/2021 Active hydrOXYzine (Atarax) 25 mg Tablet Take 25-50 mg by mouth every 6 hours as needed. 03/25/2022 Active ondansetron ODT (Zofran-ODT) 4 mg Tablet, Rapid Dissolve DISSOLVE ONE TABLET ON THE TONGUE EVERY 8 HOURS NEEDED FOR NAUSEA OR VOMITING 03/22/2022 Active ondansetron (Zofran) 4 mg Tablet Take 4 mg by mouth every 8 hours as needed. 12/20/2021 Active Vitamin B-2 100 mg Tablet TAKE TWO TABLETS BY MOUTH TWICE A DAY FOR MIGRAINE PREVENTION 03/22/2022 Active sertraline (ZOLOFT) 100 mg Tablet Take 100 mg by mouth daily. 12/10/2021 Active SUMAtriptan (Imitrex) 100 mg Tablet TAKE 1 TABLET BY MOUTH NEEDED , DO NOT EXCEED 2 TABLETS IN 24 HOURS 03/22/2022 Active esomeprazole (NexIUM) 40 mg Capsule, Delayed Release(E.C.) Take 1 capsule by mouth 2 times daily. 180 capsule 3 04/08/2022 Active Active Problems No known active problems Immunizations Name Administration Dates Next Due Covid-19 Monovalent (Moderna Spikevax) 12yrs+ ([id number]) 09/07/2020,08/10/2020 Social History Tobacco Use Types Packs/Day Years Used Date Smoking Tobacco: Never Assessed Sex and Gender Information Value Date Recorded Sex Assigned at Not on file Gender Identity Not on file Sexual Orientation Not on file Plan of Treatment Health Maintenance Due Date Last Done Comments HIV screen 10/05/2013 Hepatitis C Screening 10/05/2013 Hepatitis B vaccine (0-59 yrs) (1) 10/05/2014 Tdap adult 10/05/2014 Tetanus vaccine 10/05/2014 PAP Smear 10/05/2016 Covid-19 Vaccine (3 season) 03/31/202402/2021, 08/10/2020 Influenza (Flu) vaccine (1 o f 1 - Influenza standard series) 03/31/2024 Care Teams Laboratory Mechanical Technician Relationship Specialty Start Date End Date Ese Alvarado APRN [address] [place] [address] PCP - General Family Medicine 10/31/21
--- OUTSIDE RECORDS SUMMARY | 2024-04-19 15:21 | XMS_ITS | Encounter Summary ---
[place] [address] Care Team Providers Care Healthcare Consultant Name Role Phone Ese Alvarado APRN Primary Care Provider [phone] Reason for Referral * Consultation (Routine) - Closed Specialty Diagnoses / Procedures Referred By Contmanjit t Referred To Contact Gastroenterology Diagnoses Vomiting, unspecified vomiting type, unspecified whether nausea present Nausea without vomiting Abdominal pain, unspecified abdominal location vomiting, nausea, abd pain Ese Alvraado APRN [address] [place] [address] [address] Referral ID Status Reason Start Date Expiration Date V isits Requested Visits Authorized [id number] Closed Consult, Test & Treat PCP Updated and/or Approved 10/01/2022 10/01/2023 12 12 Encounter Details Date Type Department Care Team (Latest Contact Info) Description 10/01/2022 Transcribe Orders eDH Incoming Referrals [phone] Ese Alvarado APRN [address] [place] [address] Vomiting, unspecified vomiting type, unspecified whether nausea present; Nausea without vomiting; Abdominal pain, unspecified abdominal location Social History Tobacco Use Types Packs/Day Years Used Date Smoking Tobacco: Never Assessed Sex and Gender Information Value Date Recorded Sex Assigned at Not on file Gender Identity Not on file Sexual Orientation Not on file documented as of this encounter Plan of Treatment Scheduled Referrals Name Type Priority Associated Diagnoses Order Schedule Referral to Gastroenterology Outpatient Referral Routine Vomiting, unspecified vomiting type, unspecified whether nausea present Nausea without vomiting Abdominal pain, unspecified abdominal location Ordered: 10/01/2022 documented as of this encounter Visit Diagnoses Diagnosis Vomiting, unspecified vomiting type, unspecified whether nausea present Nausea without vomiting Abdominal pain, unspecified abdominal location documented in this encounter Care Teams Healthcare Consultant Relationship Specialty Start Date End Date Ese Alvarado APRN [address] [place] [address] PCP - General Family Medicine 10/31/21 documented as of this encounter
--- OUTSIDE RECORDS SUMMARY | 2024-04-19 15:21 | XMS_ITS | Encounter Summary ---
Author Organization [facility] [place] [address] Care Team Providers Care Credit Collections Analyst Name Role Phone Ese Alvarado APRN Primary Care Provider [phone] Reason for Visit * Diagnostic Test (Routine) - Closed Specialty Diagnoses / Procedures Referred By Contmanjit t Referred To Contact Radiology Diagnoses Bloating Nausea and vomiting, unspecified vomiting type Procedures NM Gastric Emptying Scan Peyton Ivy APRN [address] [place] [address] [place] [address] Referral ID Status Reason Start Date Expiration Date V isits Requested Visits Authorized [id number] Closed Specialty Service Requested 10/20/2022 04/22/2024 1 1 Encounter Details Date Type Department Care Team (Latest Contact Info) Description 01/06/2023 9:33 AM EDT - 01/06/2023 11:59 PM EDT Hospital Encounter [place] [address] Peyton Ivy APRN [address] [place] [address] Discharge Disposition: Home Social History Tobacco Use [...] who have questions please contact the health career specialist that requested your imaging first. ? Narrative [...] hourslater. COMPARISON: Noncontrast CT [facility] FINDINGS: Activity fills the stomach on the [...] patients who have questions please contactthe health career specialist that requested your imaging first. Peyton Ivy APRN IMG NM ORDERABLE S documented in this encounter Visit Diagnoses Not on filedocumented in this encounter Care Teams Credit Collections Analyst Relationship Specialty Start Date End Date Ese Alvarado APRN [address] [place] [address] PCP - General Family Medicine 10/31/21 documented as of this encounter
--- OUTSIDE RECORDS SUMMARY | 2024-04-19 15:21 | XMS_ITS | Encounter Summary ---
[facility] [place] [address] Care Team Providers Care Radio Communications Superintendent Name Role Phone Ese Alvarado APRN Primary Care Provider [phone] Encounter Details Date Type Department Care Team (Late st Contact Info) Description 10/18/2022 [place] [address] Peyton Ivy APRN [address] [place] [address] Nausea and vomiting, unspecified vomiting type Social History Tobacco Use Types Packs/Day Years Used Date Smoking Tobacco: Never Assessed Sex and Gender Information Value Date Recorded Sex Assigned at Not on file Gender Identity Not on file Sexual Orientation Not on file documented as of this encounter Plan of Treatment Not on file documented as of this encounter Visit Diagnoses Diagnosis Nausea and vomiting, unspecified vomiting type documented in this encounter Care Teams Radio Communications Superintendent Relationship Specialty Start Date End Date Ese Alvarado APRN [address] [place] [address] PCP - General Family Medicine 10/31/21 documented as of this encounter
--- OUTSIDE RECORDS SUMMARY | 2024-04-19 15:21 | XMS_ITS | Encounter Summary ---
Author Organization [facility] [place] [address] Care Team Providers Care Coin Purse Framer Name Role Phone Ese Alvarado APRN Primary Care Provider [phone] Encounter Details Date Type Department Care Team (Late st Contact Info) Description 08/19/2022 Telephone Otolaryngology at [facility] [place] [phone] Nicole Waldrop Social History Tobacco Use Types Packs/Day Years Used Date Smoking Tobacco: Never Assessed Sex and Gender Information Value Date Recorded Sex Assigned at Not on file Gender Identity Not on file Sexual Orientation Not on file documented as of this encounter Miscellaneous Notes * Telephone Encounter - Nicole Waldrop - 08/19/2022 9:10 AM EST Patient called to schedule for referral. Patient has seen ENT for this - Dr. Resendiz (notes in chart) Patient has not had any imaging done appt scheduled patient aware of appt day/time/location Reviewed pcp, demographics and insurance documented in this encounter Plan of Treatment Not on file documented as of this encounter Visit Diagnoses Not on filedocumented in this encounter Care Teams Coin Purse Framer Relationship Specialty Start Date End Date Ese Alvarado APRN [address] [place] [address] PCP - General Family Medicine 10/31/21 documented as of this encounter
--- OUTSIDE RECORDS SUMMARY | 2024-04-19 15:21 | XMS_ITS | Encounter Summary ---
Author Organization [facility] [place] [address] Care Team Providers Care Cattle Dipper Name Role Phone Ese Alvarado APRN Primary Care Provider [phone] Reason for Visit * Diagnostic Test (Routine) - Closed Specialty Diagnoses / Procedures Referred By Contmanjit t Referred To Contact Radiology Diagnoses Bloating Nausea and vomiting, unspecified vomiting type Procedures NM Gastric Emptying Scan Peyton Ivy APRN [address] [place] [address] [place] [address] Referral ID Status Reason Start Date Expiration Date V isits Requested Visits Authorized [id number] Closed Specialty Service Requested 10/20/2022 04/22/2024 1 1 Encounter Details Date Type Department Care Team (Latest Contact Info) Description 01/06/2023 9:32 AM EDT Hospital Encounter [place] [address] Peyton Ivy APRN [address] [place] [address] Discharge Disposition: Home Social History [...] who have questions please contact the health rn progressive care that requested your imaging first. ? Electronically signed by: Kalyn Thurman MD, [facility] ([phone]), at 01/06/2023 2:07 PM Narrative 01/06/2023 2:07 PM EDT EXAMINATION: NM [...] patients who have questions please contactthe health rn progressive care that requested your imaging first. Electronically signed by: Kalyn Thurman MD, [facility]([phone]), at 01/06/2023 2:07 PM Peyton Ivy APRN IMG NM ORDERABLE S documented in this encounter Visit Diagnoses Not on filedocumented in this encounter Care Teams Cattle Dipper Relationship Specialty Start Date End Date Ese Alvarado APRN [address] [place] [address] PCP - General Family Medicine 10/31/21 documented as of this encounter
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
--- OUTSIDE RECORDS SUMMARY | 2024-04-19 15:21 | XMS_ITS | Encounter Summary ---
[facility] [place] [address] Care Team Providers Care Corncob Pipe Supervisor Name Role Phone Ese Alvarado APRN Primary Care Provider [phone] Encounter Details Date Type Department Care Team (Latest Contact Info) Description 01/05/2023 Travel Social History Tobacco Use Types Packs/Day Years Used Date Smoking Tobacco: Never Assessed Sex and Gender Information Value Date Recorded Sex Assigned at Not on file Gender Identity Not on file Sexual Orientation Not on file documented as of this encounter Plan of Treatment Not on file documented as of this encounter Visit Diagnoses Not on filedocumented in this encounter Care Teams Corncob Pipe Supervisor Relationship Specialty Start Date End Date Ese Alvarado APRN [address] [place] [address] PCP - General Family Medicine 10/31/21 documented as of this encounter
--- OUTSIDE RECORDS SUMMARY | 2024-04-19 15:21 | XMS_ITS | Encounter Summary ---
Author Organization [facility] [address] Care Team Providers Care Channel Process Plant Operator Name Role Phone Ese Alvarado APRN Primary Care Provider [phone] Reason for Visit * Diagnostic Test (Routine) - Closed Specialty Diagnoses / Procedures Referred By Contmanjit t Referred To Contact Radiology Diagnoses Bloating Nausea and vomiting, unspecified vomiting type Procedures NM Gastric Emptying Scan Peyton Ivy APRN [address] [place] [address] [place] [address] Referral ID Status Reason Start Date Expiration Date V isits Requested Visits Authorized [id number] Closed Specialty Service Requested 10/20/2022 04/22/2024 1 1 Encounter Details Date Type Department Care Team (Latest Contact Info) Description 01/06/2023 9:32 AM EDT Hospital Encounter [place] [address] Peyton Ivy APRN [address] [place] [address] Discharge Disposition: Home Social History [...] who have questions please contact the health residential care facility manager that requested your imaging first. ? Electronically signed by: Kalyn Thurman MD, [facility] ([phone]), at 01/06/2023 2:07 PM Narrative 01/06/2023 2:07 [...] patients who have questions please contactthe health residential care facility manager that requested your imaging first. Peyton Ivy APRN IMG NM ORDERABLE S documented in this encounter Visit Diagnoses Not on filedocumented in this encounter Care Teams Channel Process Plant Operator Relationship Specialty Start Date End Date Ese Alvarado APRN [address] [place] [address] PCP - General Family Medicine 10/31/21 documented as of this encounter
--- OUTSIDE RECORDS SUMMARY | 2024-04-19 15:21 | XMS_ITS | Encounter Summary ---
Author Organization [facility] [place] [address] Care Team Providers Care Special Class Welder Name Role Phone Ese Alvarado APRN Primary Care Provider [phone] Reason for Visit * Diagnostic Test (Routine) - Closed Specialty Diagnoses / Procedures Referred By Contmanjit t Referred To Contact Radiology Diagnoses Bloating Nausea and vomiting, unspecified vomiting type Procedures NM Gastric Emptying Scan Peyton Ivy APRN [address] [place] [address] [place] [address] Referral ID Status Reason Start Date Expiration Date V isits Requested Visits Authorized [id number] Closed Specialty Service Requested 10/20/2022 04/22/2024 1 1 Encounter Details Date Type Department Care Team (Latest Contact Info) Description 01/06/2023 9:31 AM EDT Hospital Encounter [place] [address] Peyton Ivy APRN [address] [place] [address] Discharge Disposition: Home Social History [...] who have questions please contact the health housekeeper child care that requested your imaging first. ? Narrative [...] patients who have questions please contactthe health housekeeper child care that requested your imaging first. Peyton Ivy APRN IMG NM ORDERABLE S documented in this encounter Visit Diagnoses Not on filedocumented in this encounter Care Teams Special Class Welder Relationship Specialty Start Date End Date Ese Alvarado APRN [address] [place] [address] PCP - General Family Medicine 10/31/21 documented as of this encounter
--- OUTSIDE RECORDS SUMMARY | 2024-04-19 15:21 | XMS_ITS | Encounter Summary ---
[place] [address] Care Team Providers Care Income Tax Adjuster Name Role Phone Ese Alvarado APRN Primary Care Provider [phone] Reason for Referral * Consultation (Routine) - Closed Specialty Diagnoses / Procedures Referred By Cullen tierney Referred To Contact Otolaryngology Diagnoses Chronic tonsillitis Hypertrophy of tonsils Asher Resendiz MD [address] [place] [address] [facility] Otolaryngology [address] [place] [phone] Referral ID Status Reason Start Date Expiration Date V isits Requested Visits Authorized [id number] Closed Consult, Test & Treat 08/19/2022 08/19/2023 1 1 Encounter Details Date Type Department Care Team (Late st Contact Info) Description 08/19/2022 Transcribe Orders eDH Incoming Referrals [phone] Asher Resendiz MD [address] [place] [address] [id number] Chronic tonsillitis; Hypertrophy of tonsils Social History Tobacco Use Types Packs/Day Years Used Date Smoking Tobacco: Never Assessed Sex and Gender Information Value Date Recorded Sex Assigned at Not on file Gender Identity Not on file Sexual Orientation Not on file documented as of this encounter Plan of Treatment Scheduled Referrals Name Type Priority Associated Diagnoses Orde r Schedule Referral to ENT Outpatient Referral Routine Chronic tonsillitis Hypertrophy of tonsils Ordered: 08/19/2022 documented as of this encounter Visit Diagnoses Diagnosis Chronic tonsillitis Hypertrophy of tonsils Hypertrophy of tonsils alone documented in this encounter Care Teams Income Tax Adjuster Relationship Specialty Start Date End Date Ese Alvarado APRN [address] [place] [address] PCP - General Family Medicine 10/31/21 documented as of this encounter
--- OUTSIDE RECORDS SUMMARY | 2024-04-19 15:21 | XMS_ITS | Encounter Summary ---
Author Organization [facility] [place] [address] Care Team Providers Care Metal Sprayer Name Role Phone Ese Alvarado APRN Primary Care Provider [phone] Encounter Details Date Type Department Care Team (Late st Contact Info) Description 03/13/2023 Notes [place] [address] Tea Segovia PA [facility] [place] [address] Social History Tobacco Use Types Packs/Day Years Used Date Smoking Tobacco: Never Assessed Sex and Gender Information Value Date Recorded Sex Assigned at Not on file Gender Identity Not on file Sexual Orientation Not on file documented as of this encounter Progress Notes * Tea Segovia PA - 03/13/2023 7:29 AM EDT Patient did not log on for 7 telehealth Attempted to call pt- no response documented in this encounter Plan of Treatment Not on file documented as of this encounter Visit Diagnoses Not on filedocumented in this encounter Care Teams Metal Sprayer Relationship Specialty Start Date End Date Ese Alvarado APRN [address] [place] [address] PCP - General Family Medicine 10/31/21 documented as of this encounter
--- OUTSIDE RECORDS SUMMARY | 2024-04-19 15:21 | XMS_ITS | Encounter Summary ---
Author Organization [facility] [address] Care Team Providers Care Flatwork Ironer Name Role Phone Ese Alvarado APRN Primary Care Provider [phone] Encounter Details Date Type Department Care Team (Late st Contact Info) Description 05/18/2022 Telephone [place] [address] Flaca Alfaro Social History Tobacco Use Types Packs/Day Years Used Date Smoking Tobacco: Never Assessed Sex and Gender Information Value Date Recorded Sex Assigned at Not on file Gender Identity Not on file Sexual Orientation Not on file documented as of this encounter Miscellaneous Notes * Telephone Encounter - Flaca Alfaro - 05/18/2022 1:15 PM EDT Inbound/Outbound: OUT Spoke to Patient/Left Message: LVM Notes: Called patient to schedule Motility Testing. Left VM Return calls can be handled by: [facility] Senior Accountant Analyst documented in this encounter Plan of Treatment Not on file documented as of this encounter Visit Diagnoses Not on filedocumented in this encounter Care Teams Flatwork Ironer Relationship Specialty Start Date End Date Ese Alvarado APRN [address] [place] [address] PCP - General Family Medicine 10/31/21 documented as of this encounter
--- OUTSIDE RECORDS SUMMARY | 2024-04-19 15:21 | XMS_ITS | Encounter Summary ---
Author Organization [facility] [place] [address] Care Team Providers Care Property Disposal Manager Name Role Phone Ese Alvarado APRN Primary Care Provider [phone] Encounter Details Date Type Department Care Team (Late st Contact Info) Description 10/14/2022 Telephone [place] [phone] Chris Ignacio RN Social History Tobacco Use Types Packs/Day Years Used Date Smoking Tobacco: Never Assessed Sex and Gender Information Value Date Recorded Sex Assigned at Not on file Gender Identity Not on file Sexual Orientation Not on file documented as of this encounter Miscellaneous Notes * Telephone Encounter - Chris Ignacio RN - 10/14/2022 9:46 AM EDT TC from pt who requests call back related to GI symptoms and scheduling follow up with Provider possibly too far out. Review of pt's chart reveals that pt has not completed any of the Motility Testing that Peyton had ordered at their last office visit on 04/08/2022. Called pt and left message requesting that pt return call to office. Msg left on pt identified voice mail. documented in this encounter Plan of Treatment Not on file documented as of this encounter Visit Diagnoses Not on filedocumented in this encounter Care Teams Property Disposal Manager Relationship Specialty Start Date End Date Ese Alvarado APRN [address] [place] [address] PCP - General Family Medicine 10/31/21 documented as of this encounter
--- OUTSIDE RECORDS SUMMARY | 2024-04-19 15:21 | XMS_ITS | Encounter Summary ---
Author Organization [facility] [place] [address] Care Team Providers Care Scraper Loader Operator Name Role Phone Ese Alvarado APRN Primary Care Provider [phone] Encounter Details Date Type Department Care Team (Late st Contact Info) Description 10/19/2022 Telephone [place] [address] Ridge Ellis Social History Tobacco Use Types Packs/Day Years Used Date Smoking Tobacco: Never Assessed Sex and Gender Information Value Date Recorded Sex Assigned at Not on file Gender Identity Not on file Sexual Orientation Not on file documented as of this encounter Miscellaneous Notes * Telephone Encounter - Ridge Ellis - 10/19/2022 9:07 AM EDT Inbound/Outbound: Outbound Spoke to Patient/Left Message: Left message Notes: Outbound call to patient to schedule motility lab testing from referral. Left message askingfor callback to schedule. Return calls can be handled by: [facility] Client Services Manager documented in this encounter Plan of Treatment Not on file documented as of this encounter Visit Diagnoses Not on filedocumented in this encounter Care Teams Scraper Loader Operator Relationship Specialty Start Date End Date Ese Alvarado APRN [address] [place] [address] PCP - General Family Medicine 10/31/21 documented as of this encounter
--- OUTSIDE RECORDS SUMMARY | 2024-04-19 15:21 | XMS_ITS | Encounter Summary ---
Author Organization [facility] [place] [address] Care Team Providers Care Press Service Reader Name Role Phone Ese Alvarado APRN Primary Care Provider [phone] Reason for Referral * Diagnostic Test (Routine) - Closed Specialty Diagnoses / Procedures Referred By Contmanjit t Referred To Contact Radiology Diagnoses Bloating Nausea and vomiting, unspecified vomiting type Procedures NM Gastric Emptying Scan Peyton Ivy APRN [address] [place] [address] [place] [address] Referral ID Status Reason Start Date Expiration Date V isits Requested Visits Authorized [id number] Closed Specialty Service Requested 10/20/2022 04/22/2024 1 1 Encounter Details Date Type Department Care Team (Late st Contact Info) Description 10/20/2022 Orders [place] [address] Peyton Ivy APRN [address] [place] [place] [address] Bloating; Nausea and vomiting, unspecified vomiting type Social History Tobacco Use Types Packs/Day Years Used Date Smoking Tobacco: Never Assessed Sex and Gender Information Value Date Recorded Sex Assigned at Not on file Gender Identity Not on file Sexual Orientation Not on file documented as of this encounter Plan of Treatment Not on file documented as of this encounter Results * NM Gastric Emptying [...] have questions please contact the health career consultant that requested your imaging first. ? Electronically signed by: Kalyn Thurman MD, [facility] ([phone]), at 01/06/2023 2:07 PM Narrative 01/06/2023 2:07 [...] who have questions please contactthe health career consultant that requested your imaging first. Electronically signed by: Kalyn Thurman MD, [facility]([phone]), at 01/06/2023 2:07 PM Peyton Ivy SHADE MAKER IMG NM ORDERABLE S documented in this encounter Visit Diagnoses Diagnosis Bloating Flatulence, eructation, and gas pain Nausea and vomiting, unspecified vomiting type Bloating Flatulence, eructation, and gas pain Nausea and vomiting, unspecified vomiting type documented in this encounter Care Teams Press Service Reader Relationship Specialty Start Date End Date Ese Alvarado APRN [address] [place] [address] PCP - General Family Medicine 10/31/21 documented as of this encounter
--- OUTSIDE RECORDS SUMMARY | 2024-04-19 15:22 | XMS_ITS | Encounter Summary ---
Author Organization [facility] Address [address] [place] [address] Care Team Providers Care Estate Planning Counselor Name Role Phone Ese Alvarado DENNIS Primary Care Provider [phone] Encounter Details Date Type Department Care Team (Late st Contact Info) Description 12/14/2022 Lab Requisition [facility] Pathology & Laboratory Medicine - [address] [address] Outr Resulting Lab, Provider Social History Tobacco Use Types Packs/Day Years Used Date Smoking Tobacco: Never Assessed Interpersonal Safety Answer Date Record ed Physically Hurt Never 07/03/2020 Verbally Threaten Not on file 07/03/2020 Sex and Gender Information Value Date Recorded Sex Assigned at Not on file Gender Identity Not on file Sexual Orientation Not on file documented as of this encounter Plan of Treatment Not on file documented as of this encounter Procedures Procedure Name Priority Date/Time Associated Diagnosis Comments CHLAMYDIA/N. GONORRHOEAE AMPLIFIED NUCLEIC ACID, THINPREP Routine 12/14/2022 10:40 EDT documented in this encounter Results * CHLAMYDIA/N. GONORRHOEAE AMPLIFIED RNA, THINPREP (12/14/2022 10:40 EDT) Neisseria gonorrhoeae Result Negative Negative 12/15/2022 14:34 EDT [facility] Chlamydia trachomatis Result Negative Negative 12/15/2022 14:34 EDT [facility] Papanicolaou smear specimen (specimen) CERVIX UTERI STRUCTURE / Unknown 12/14/2022 10:40 EDT 12/15/2022 10:06 EDT Provider Outr Resulting Lab MICROBIOLOGY - GENERAL ORDERABLES [facility] [address] [place] [address] documented in this encounter Visit Diagnoses Not on filedocumented in this encounter Care Teams Estate Planning Counselor Relationship Specialty Start Date End Date Ese Alvarado FNP [address] [place] [address] [address] [place] [phone] PCP - General 10/29/21 documented as of this encounter
--- OUTSIDE RECORDS SUMMARY | 2024-04-19 15:22 | XMS_ITS | Encounter Summary ---
Author Organization [facility] [place] [address] Care Team Providers Care Asbestos Removal Worker Name Role Phone Ese Alvarado APRN Primary Care Provider [phone] Encounter Details Date Type Department Care Team (Late st Contact Info) Description 12/19/2021 Ancillary Procedure Radiology Library at [facility] [place] [address] Ese Alvarado APRN [address] [place] [address] Social History Tobacco Use Types Packs/Day Years Used Date Smoking Tobacco: Never Assessed Sex and Gender Information Value Date Recorded Sex Assigned at Not on file Gender Identity Not on file Sexual Orientation Not on file documented as of this encounter Plan of Treatment Not on file documented as of this encounter Procedures Procedure Name Priority Date/Time Associated Diagnosis Comments FILM LIBRARY STORAGE ONLY CT ABDOMEN AND PELVIS Routine 12/19/2021 12:00 AM EDT documented in this encounter Results * Film Library- Storage Only CT Abdomen & Pelvis (12/19/2021 12:00 AM EDT) Narrative [facility] - 09/23/2022 3:30 PM EST This exam is auto-finalizing. It's purpose is for storage only. Ese Alvarado APRN IMG FILM LIBRARY ORD ERABLES [place] documented in this encounter Visit Diagnoses Not on filedocumented in this encounter Care Teams Asbestos Removal Worker Relationship Specialty Start Date End Date Ese Alvarado APRN [address] [place] [address] PCP - General Family Medicine 10/31/21 documented as of this encounter
--- OUTSIDE RECORDS SUMMARY | 2024-04-19 15:22 | XMS_ITS | Encounter Summary ---
Author Organization [facility] [place] [address] Care Team Providers Care Information Systems Analyst Name Role Phone Ese Alvarado APRN Primary Care Provider [phone] Encounter Details Date Type Department Care Team (Late st Contact Info) Description 02/17/2022 Ancillary Procedure Radiology Library at [facility] [place] [address] Ese Alvarado APRN [address] [place] [address] Social History Tobacco Use Types Packs/Day Years [...] Associated Diagnosis Comments FILM LIBRARY STORAGE ONLY ULTRASOUND STUDY Routine 02/17/2022 12:00 AM EDT documented in this encounter Results * Film Library- Storage Only Ultrasound Study (02/17/2022 12:00 AM EDT) Narrative [facility] - 09/23/2022 3:29 PM EST This exam is auto-finalizing. It's purpose is for storage only. Ese KANG FILM LIBRARY ORD ERABLES [facility] [place] documented in this encounter Visit Diagnoses Not on filedocumented in this encounter Care Teams Information Systems Analyst Relationship Specialty Start Date End Date Ese Alvarado APRN [address] [place] [address] PCP - General Family Medicine 10/31/21 documented as of this encounter
--- OUTSIDE RECORDS SUMMARY | 2024-04-19 15:22 | XMS_ITS | Encounter Summary ---
Author Organization [facility] Address [address] [place] [address] Care Team Providers Care Tower Dragline Operator Name Role Phone Ese Alvarado DENNIS Primary Care Provider Encounter Details Date Type Department Care Team (Late st Contact Info) Description 12/01/2021 Lab Requisition [facility] Pathology & Laboratory Medicine - [address] [address] Virgie Chew MD [address] [place] [phone] Encounter for other general examination Social History Tobacco Use Types Packs/Day Years [...] Procedure Name Priority Date/Time Associated Diagnosis Comments SURGICAL PATHOLOGY Today 12/01/2021 13 :28 EDT Encounter for other general examination documented in this encounter Results * SURGICAL PATHOLOGY (12/01/2021 13:28 EDT) Note to Patient The following pathology results have been interpreted by your pathologist and may be available to you before your health provider has had the opportunity to review them. Please allow time for your provider to receive these results and explore management options, if applicable. 12/03/2021 16:21 EDT [facility] Final Diagnosis A. STOMACH, ANTRUM, BIOPSY: - Gastric antral and oxyntic gland mucosa with mild congestion and surface denudation/erosion. - No H.pylori identified on H&E stain. B. GE JUNCTION, BIOPSY: - Squamous esophageal mucosa with features suggestive of reflux esophagitis. - Columnar mucosa with reactive epithelial changes and lymphoplasmacytic inflammation of the lamina propria. Negative for intestinal metaplasia. 12/03/2021 16:21 [facility] Attestation By the signature below, the attending physician certifies that they have 1) personally conducted a gross and/or microscopic examination of the described specimen(s), and/or personally interpreted the results of laboratory testing of the described specimen(s), and 2) personally rendered or confirmed the above diagnosis. 12/03/2021 16:21 [facility] at 1621 Clinical History GERD 12/03/2021 16:21 [facility] Gross Description A. Received in formalin labelled with proper patient identification (initials R, C) and antrum are four fulton focally brown speckled tissues (0.5 x 0.2 x 0.1 cm to 0.2 x 0.2 x 0.1 cm). Entirely submitted in A1. B. Received in formalin labelled with proper patient identification (initials R, C) and GE junction are two white focally brown speckled tissues (0.3 x 0.3 x 0.1 cm and 0.3 x 0.2 x 0.1 cm). Entirely submitted in B1. Jarrett Dior 12/02/2021 9:51 12/03/2021 16:21 [facility] Performing Lab [facility] 12/03/2021 16:21 [facility] Scanned Images 12/03/2021 16:21 [facility] Tissue ENTIRE ESOPHAGUS / Unknown 12/01/2021 13:28 EDT 12/01/2021 23:49 EDT Tissue specimen (specimen) ESOPHAGEAL STRUCTURE / Unknown 12/01/2021 13:28 EDT 12/01/2021 23:49 EDT Vigrie Chew MD PATHOLOGY ORDERA BLES [facility] [address] [place] [address] documented in this encounter Visit Diagnoses Diagnosis Encounter for other general examination documented in this encounter Care Teams Tower Dragline Operator Relationship Specialty Start Date End Date Ese Alvarado FNP [address] [phone] PCP - General 10/29/21 documented as of this encounter
--- OUTSIDE RECORDS SUMMARY | 2024-04-19 15:22 | XMS_ITS | Encounter Summary ---
Author Organization [facility] Address [address] [place] [address] Care Team Providers Care Milk Hauler Name Role Phone Ese Alvarado DENNIS Primary Care Provider [phone] Encounter Details Date Type Department Care Team (Late st Contact Info) Description 09/22/2022 Lab Requisition [facility] Pathology & Laboratory Medicine - [address] [address] Outr Resulting Lab, Provider Social History Tobacco [...] Procedure Name Priority Date/Time Associated Diagnosis Comments CELIAC DISEASE PANEL Today 09/22/2022 11:50 EST HOLD SST Today 09/22/2022 11:50 EST ANTI NUCLEAR AB (LORI), IFA Today 09/22/2022 11:50 EST documented in this encounter Results * HOLD SST (09/22/2022 11:50 EST) Hold Hold 09/23/2022 0:01 EST [facility] Blood VENOUS BLOOD / Unknown 09/22/2022 11:50 EST 09/22/2022 23:00 EST Provider Outr Resulting Lab LAB INFO SER VICE AND SUPPORT & PHONE RESULT Performing Organization Address City/[facility]/ZIP Co de Phone Number [facility] [address] [place] [address] * ANTI NUCLEAR AB (LORI), IFA (09/22/2022 11:50 EST) LORI Interpretation Negative Negative 2022 15:26 [facility] Comment:No titer performed, LORI Screen is negative. Blood VENOUS BLOOD / Unknown 09/22/2022 11:50 EST 09/22/2022 23:00 EST Narrative [facility] - 09/23/2022 15:26 EST Results were obtained with the [employer] NOVA Lite HEp-2 LORI Kit by indirect immunofluorescence. Provider Outr Resulting Lab IMMUNOLOGY A ND SEROLOGY ORDERABLES Performing Organization Address [facility] Co de Phone Number [facility] [address] [place] [address] * CELIAC DISEASE PANEL (09/22/2022 11:50 EST) Pathologist [facility] Tissue Transglutaminase Antibody IGA <1.2 <4.0 U/mL 09/26/2022 13:57 [facility] Comment: A negative result may be due to IgA deficiency and does not rule out celiac disease. ? Negative: ??<4.0 U/mL ? Weak Positive: ??4.0 - 10.0 U/mL ? Positive: ??>10.0 U/mL Results were obtained with the [employer] QUANTA Lite R h-tTG IgA NATHALY assay on the [employer]. IgA 309 85 - 499 mg/dL 09/26/2022 13:57 [facility] Celiac Disease Interpretation Negative Serology. Celiac disease unlikely. Approximately 10% of patients with celiac disease are seronegative. Patients who are already adhering to a gluten-free diet may also be seronegative. If celiac disease is highly clinically suspected, referral to gastroenterology for additional evaluation is recommended. 09/26/2022 13:57 [facility] Blood VENOUS BLOOD / Unknown 09/22/2022 11:50 EST 09/22/2022 23:00 EST Provider Outr Resulting Lab IMMUNOLOGY A ND SEROLOGY ORDERABLES [facility] [address] [place] [address] documented in this encounter Visit Diagnoses Not on filedocumented in this encounter Care Teams Milk Hauler Relationship Specialty Start Date End Date Ese Alvarado FNP [address] [place] [address] [place] [phone] PCP - General 10/29/21 documented as of this encounter
--- OUTSIDE RECORDS SUMMARY | 2024-04-19 15:22 | XMS_ITS | Encounter Summary ---
Author Organization [facility] [place] [address] Care Team Providers Care Leasing Specialist Name Role Phone Christiano Ese BERMEO Primary Care Provider [phone] Reason for Referral * Consultation (Routine) - Closed Specialty Diagnoses / Procedures Referred By Cullen tierney Referred To Contact Gastroenterology Diagnoses Nausea and vomiting, unspecified vomiting type Right lower quadrant abdominal pain Gastroesophageal reflux disease, unspecified whether esophagitis present Nausea, vomiting, RLQ pain, Gerd, s/p Laparoscopic choleastectomy Farhana Miller DO [address] [place] [address] [facility] [address] [address] Referral ID Status Reason Start Date Expiration Date V isits Requested Visits Authorized [id number] Closed Consult, Test & Treat 02/16/2022 02/16/2023 1 1 Encounter Details Date Type Department Care Team (Latest Contact Info) Description 02/16/2022 Transcribe [place] [address] Naty Knowles Nausea and vomiting, unspecified vomiting type; Right lower quadrant abdominal pain; Gastroesophageal reflux disease, unspecified whether esophagitis present Social History Tobacco Use Types Packs/Day Years Used Date Smoking Tobacco: Never Assessed Sex and Gender Information Value Date Recorded Sex Assigned at Not on file Gender Identity Not on file Sexual Orientation Not on file documented as of this encounter Plan of Treatment Scheduled Referrals Name Type Priority Associated Diagnoses Order Schedule Referral to Gastroenterology Outpatient Referral Routine Nausea and vomiting, unspecified vomiting type Right lower quadrant abdominal pain Gastroesophageal reflux disease, unspecified whether esophagitis present Ordered: 02/16/2022 documented as of this encounter Visit Diagnoses Diagnosis Nausea and vomiting, unspecified vomiting type Right lower quadrant abdominal pain Abdominal pain, right lower quadrant Gastroesophageal reflux disease, unspecified whether esophagitis present documented in this encounter Care Teams Leasing Specialist Relationship Specialty Start Date End Date Ese Alvarado APRN [address] [place] [address] PCP - General Family Medicine 10/31/21 documented as of this encounter
--- OUTSIDE RECORDS SUMMARY | 2024-04-19 15:22 | XMS_ITS | Encounter Summary ---
Author Organization [facility] Address [address] [place] [address] Care Team Providers Care Director Of Business Applications Name Role Phone Ese Alvarado Primary Care Provider Encounter Details Date Type Department Care Team (Latest Contact Info) Description 12/16/2022 Lab Requisition [facility] Pathology & Laboratory Medicine - [address] [address] Ese Alvarado FNP [address] [place] [address] [place] [phone] Encounter for general adult medical examination without abnormal findings; Encounter for gynecological examination (general) (routine) without abnormal findings; Encounter for screening for malignant neoplasm of cervix Social History Tobacco Use Types Packs/Day Years [...] Procedure Name Priority Date/Time Associated Diagnosis Comments PAP TEST Today 12/14/2022 10:40 EDT Encounter for general adult medical examination without abnormal findings Encounter for gynecological examination (general) (routine) without abnormal findings Encounter for screening for malignant neoplasm of cervix documented in this encounter Results * PAP TEST (12/14/2022 10:40 EDT) Specimens A. Cervix and/or Endocervix , ThinPrep Imaging System with Manual Evaluation 12/28/2022 8:19 EDT [facility] Specimen Adequacy Satisfactory for Evaluation - transformation zone component present Scant due to excessive inflammation 12/28/2022 8:19 EDT [facility] General Categorization Negative for intraepithelial lesion or malignancy 12/28/2022 8:19 EDT [facility] Descriptive Diagnosis Reactive cellular changes associated with inflammation present (includes repair). Trichomonas vaginalis present. 12/28/2022 8:19 T [facility] Attestation By the signature below, the attending physician certifies that they have personally conducted a gross and/or microscopic examination of the described specimens and rendered or confirmed the above diagnosis. 12/28/2022 8:19 EDT [facility] at 0819 Clinical History SEE BELOW 12/29/19 8:19 [facility] Performing Lab [facility] 12/28/2022 8:19 [facility] Scanned Images 12/28/2022 8:19 [facility] Papanicolaou smear specimen (specimen) CERVIX UTERI STRUCTURE / Unknown 12/14/2022 10:40 EDT 12/16/2022 14:58 EDT Ese COLLINS PATHOLOGY ORDERABLES [facility] [address] [place] [address] documented in this encounter Visit Diagnoses Diagnosis Encounter for general adult medical examination without abnormal findings Unspecified general medical examination Encounter for gynecological examination (general) (routine) without abnormal findings Encounter for screening for malignant neoplasm of cervix Screening for malignant neoplasm of the cervix documented in this encounter Care Teams Director Of Business Applications Relationship Specialty Start Date End Date Ese Alvarado FNP [address] [place] [address] [place] [phone] PCP - General 10/29/21 documented as of this encounter
--- OUTSIDE RECORDS SUMMARY | 2024-04-19 15:22 | XMS_ITS | Encounter Summary ---
Author Organization [facility] [place] [address] Care Team Providers Care Wool Spotter Name Role Phone Unavailable Primary Care Provider Unavailabl e Encounter Details Date Type Department Care Team (Late st Contact Info) Description 01/01/2021 Ancillary Procedure Radiology Library at [facility] [place] [phone] Ese Alvarado APRN [address] [place], [place] [address] Social History Tobacco Use Types Packs/Day Years [...] STORAGE ONLY CT ABDOMEN AND PELVIS Routine 01/01/2021 12:00 AM EDT documented in this encounter Results * Film Library- Storage Only CT Abdomen & Pelvis (01/01/2021 12:00 AM EDT) Narrative [facility] - 09/23/2022 3:02 PM EST This exam is auto-finalizing. It's purpose is for storage only. Ese KANG FILM LIBRARY ORD ERABLES [facility] [place] documented in this encounter Visit Diagnoses Not on filedocumented in this encounter
--- OUTSIDE RECORDS SUMMARY | 2024-04-19 15:22 | XMS_ITS | Encounter Summary ---
Author Organization [facility] [place] [address] Care Team Providers Care Cold Mill Inspector Name Role Phone Ese Alvarado APRN Primary Care Provider [phone] Encounter Details Date Type Department Care Team (Late st Contact Info) Description 12/21/2021 Ancillary Procedure Radiology Library at [facility] [place] [address] Ese Alvarado APRN [address] [place] [address] Social History Tobacco Use Types Packs/Day Years [...] FILM LIBRARY STORAGE ONLY ULTRASOUND STUDY Routine 12/21/2021 12:00 AM EDT documented in this encounter Results * Film Library- Storage Only Ultrasound Study (12/21/2021 12:00 AM EDT) Narrative [facility] - 09/23/2022 3:01 PM EST This exam is auto-finalizing. It's purpose is for storage only. Ese KANG FILM LIBRARY ORD ERABLES [facility] [place] documented in this encounter Visit Diagnoses Not on filedocumented in this encounter Care Teams Cold Mill Inspector Relationship Specialty Start Date End Date Ese Alvarado APRN [address] [place] [address] PCP - General Family Medicine 10/31/21 documented as of this encounter
--- OUTSIDE RECORDS SUMMARY | 2024-04-19 15:22 | XMS_ITS | Encounter Summary ---
Author Organization [facility] Address [address] [place] [address] Care Team Providers Care Chemical Pumper Name Role Phone Ese Alvarado DENNIS Primary Care Provider [phone] Encounter Details Date Type Department Care Team (Late st Contact Info) Description 07/01/2020 Lab Requisition [facility] Pathology & Laboratory Medicine - [address] [address] Outr Resulting Lab, Provider Social History Tobacco [...] Procedure Name Priority Date/Time Associated Diagnosis Comments DO NOT ORDER STANDALONE - BROAD COVID TEST Today 06/30/2020 13:10 EST COVID-19 TESTING Routine 06/30/2020 13:1 0 EST documented in this encounter Results * DO NOT ORDER STANDALONE - [facility]OAD COVID TEST (06/30/2020 13:10 EST) COVID-19 rt-PCR Result NEGATIVE Negative 07/03/2020 12:57 EST [facility] Comment: 2019-novel Coronavirus (2019-nCoV) not detected by the qRT-PCR assay. Consider testing for other respiratory viruses or re-collecting for 2019-nCoV testing. Note: Optimum timing for peak viral levels during infections caused by 2019-nCoV have not been determined. Collection of multiple specimens from the same patient may be necessary to detect the virus. Limitations Positive results are indicative of active infection with SARS-CoV-2 but do not rule out bacterial infection or co-infection with other viruses. The agent detected may not be the definite cause of disease. In addition, detection of viral RNA may not indicate the presence of infectious virus or that SARS-CoV-2 is the causative agent for clinical symptoms. Negative results do not preclude SARS-CoV-2 infection and should not be used as the sole basis for patient management decisions. Negative results must be combined with clinical observations, patient history, and epidemiological information. False negative results may also occur if amplification inhibitors are present in the specimen or if inadequate numbers of organisms are present in the specimen. Optimum specimen types and timing for peak viral levels during infections caused by SARS-CoV-2 have not been fully determined. Collection of multiple specimens (types and time points) from the same patient may be necessary to detect the virus. The test was validated for use with upper respiratory specimens obtained via nasopharyngeal or oropharyngeal swabs in VTM, UTM, M4, M5, M6, saline, and MTM media. The performance of this test has not been established for other specimens. Specimens collected using other FDA recommended Specimen Collection Materials listed in the FDA COVID-19 Diagnostic Technologies communication (October 24, 2019) are processed with the caveat that they were not all validated for use with this test and the result must be interpreted in this context. Furthermore, a false negative results may occur if a specimen is improperly collected, transported or handled. If the virus mutates in the RT-PCR target region, SARS-CoV-2 may not be detected or may be detected less predictably. Inhibitors or other types of interference may produce a false negative result. An interference study evaluating the effect of common cold medications was not performed. This test is not FDA-cleared but its performance characteristics were established by our CLIA-certified, CAP-accredited, high complexity laboratory in accordance with CLIA regulations, [employer] [place] (CAP) guidelines (Oct 17, 2019), and FDA guidance (Sep 28, 2019). This test is only for use under the Food and Drug Administration's Emergency Use Authorization. Swab ENTIRE NASOPHARYNX / Unknown 06/30/2020 13:10 EST 07/01/2020 16:31 EST Provider Outr Resulting Lab MICROBIOLOGY - GENERAL ORDERABLES [facility] [place] * COVID-19 TESTING (06/30/2020 13:10 EST) COVID-19 rt-PCR Result NEGATIVE Negative 07/03/2020 12:[address] [facility] Comment: 2019-novel Coronavirus (2019-nCoV) not detected by the qRT-PCR assay. Consider testing for other respiratory viruses or re-collecting for 2019-nCoV testing. Note: Optimum timing for peak viral levels during infections caused by 2019-nCoV have not been determined. Collection of multiple specimens from the same patient may be necessary to detect the virus. Limitations Positive results are indicative of active infection with SARS-CoV-2 but do not rule out bacterial infection or co-infection with other viruses. The agent detected may not be the definite cause of disease. In addition, detection of viral RNA may not indicate the presence of infectious virus or that SARS-CoV-2 is the causative agent for clinical symptoms. Negative results do not preclude SARS-CoV-2 infection and should not be used as the sole basis for patient management decisions. Negative results must be combined with clinical observations, patient history, and epidemiological information. False negative results may also occur if amplification inhibitors are present in the specimen or if inadequate numbers of organisms are present in the specimen. Optimum specimen types and timing for peak viral levels during infections caused by SARS-CoV-2 have not been fully determined. Collection of multiple specimens (types and time points) from the same patient may be necessary to detect the virus. The test was validated for use with upper respiratory specimens obtained via nasopharyngeal or oropharyngeal swabs in VTM, UTM, M4, M5, M6, saline, and MTM media. The performance of this test has not been established for other specimens. Specimens collected using other FDA recommended Specimen Collection Materials listed in the FDA COVID-19 [employer] communication (October 24, 2019) are processed with the caveat that they were not all validated for use with this test and the result must be interpreted in this context. Furthermore, a false negative results may occur if a specimen is improperly collected, transported or handled. If the virus mutates in the RT-PCR target region, SARS-CoV-2 may not be detected or may be detected less predictably. Inhibitors or other types of interference may produce a false negative result. An interference study evaluating the effect of common cold medications was not performed. This test is not FDA-cleared but its performance characteristics were established by our CLIA-certified, CAP-accredited, high complexity laboratory in accordance with CLIA regulations, [employer] [place] [employer] (CAP) guidelines (Oct 17, 2019), and FDA guidance (Sep 28, 2019). This test is only for use under the Food and Drug Administration's Emergency Use Authorization. Performing Lab [facility] [place] 07/03/2020 12:57 EST [facility] Swab 06/30/2020 13:1 0 EST 07/01/2020 16:31 EST Provider Outr Resulting Lab MICROBIOLOGY - GENERAL ORDERABLES [facility] [address] [place] [address] [facility] [place], [place] documented in this encounter Visit Diagnoses Not on filedocumented in this encounter Care Teams Chemical Pumper Relationship Specialty Start Date End Date Ese Alvarado FNP [address] [place] [address] [place] [phone] PCP - General 10/29/21 documented as of this encounter
--- OUTSIDE RECORDS SUMMARY | 2024-04-19 15:22 | XMS_ITS | Encounter Summary ---
Author Organization [facility] Address [address] [place] [address] Care Team Providers Care Filer Helper Name Role Phone Ese Alvarado DENNIS Primary Care Provider [phone] Encounter Details Date Type Department Care Team (Late st Contact Info) Description 12/20/2021 Lab Requisition [facility] Pathology & Laboratory Medicine - [address] [address] Outr Resulting Lab, Provider Social History Tobacco [...] Procedure Name Priority Date/Time Associated Diagnosis Comments FECAL BACTERIAL PATHOGENS BY PCR Routine 12/20/2021 8:30 EDT OVA/PARASITE EXAM Routine 12/20/2021 8:30 EDT documented in this encounter Results * FECAL BACTERIAL PATHOGENS BY PCR (12/20/2021 8:30 EDT) Salmonella PCR Negative Negative 12/20/2021 23:21 EDT [facility] Shigella/Enteroin vasive E. coli Negative Negative 12/20/2021 23:21 EDT [facility] HN LAB CAMPYLOBACTER PCR Negative Negative 12/20/2021 23:21 EDT [facility] Shiga Toxin PCR Negative Negative 23:21 EDT [facility] Feces SPECIMEN FROM RECTUM / Unknown Stool Collect / Unknown 12/20/2021 8:30 EDT 12/20/2021 17:50 EDT Provider Outr Resulting Lab MICROBIOLOGY - GENERAL ORDERABLES [facility] [address] [place] [address] * OVA/PARASITE EXAM (12/20/2021 8:30 EDT) Parasite No ova and parasites seen. 12/21/2021 14:06 EDT [facility] Feces SPECIMEN FROM RECTUM / Unknown Stool Collect / Unknown 12/20/2021 8:30 EDT 12/20/2021 17:50 EDT Narrative [facility] - 12/21/2021 14:06 EDT (If Cryptosporidium, Cyclospora, or Microsporidium are suspected, specific tests must be requested.) Single negative specimen does not rule out the possibility of a parasitic infection. Provider Outr Resulting Lab MICROBIOLOGY - GENERAL ORDERABLES Performing Organization Address City/[facility] Co de Phone Number [facility] [address] [place] [address] documented in this encounter Visit Diagnoses Not on filedocumented in this encounter Care Teams Filer Helper Relationship Specialty Start Date End Date Ese Alvarado FNP [address] [place] [phone] PCP - General 10/29/21 documented as of this encounter
--- OUTSIDE RECORDS SUMMARY | 2024-04-19 15:22 | XMS_ITS | Encounter Summary ---
Author Organization [facility] [place] [address] Care Team Providers Care Sailmaker Name Role Phone Ese Alvarado APRN Primary Care Provider [phone] Encounter Details Date Type Department Care Team (Late st Contact Info) Description 11/15/2021 Ancillary Procedure Radiology Library at [facility] [place] [phone] Ese Alvarado APRN [address] [place] [address] Social History Tobacco Use Types Packs/Day Years [...] STORAGE ONLY CT ABDOMEN AND PELVIS Routine 11/15/2021 12:00 AM EDT documented in this encounter Results * Film Library- Storage Only CT Abdomen & Pelvis (11/15/2021 12:00 AM EDT) Narrative [facility] - 09/23/2022 3:28 PM EST This exam is auto-finalizing. It's purpose is for storage only. Ese Alvarado APRN IMG FILM LIBRARY ORD ERABLES [place] documented in this encounter Visit Diagnoses Not on filedocumented in this encounter Care Teams Sailmaker Relationship Specialty Start Date End Date Ese Alvarado APRN [address] [place] [address] PCP - General Family Medicine 10/31/21 documented as of this encounter
--- OUTSIDE RECORDS SUMMARY | 2024-04-19 15:22 | XMS_ITS | Encounter Summary ---
Author Organization [facility] Address [address] [place] [address] Care Team Providers Care Constitutional Law Professor Name Role Phone Ese Alvarado DENNIS Primary Care Provider [phone] Encounter Details Date Type Department Care Team (Late st Contact Info) Description 11/25/2021 Lab Requisition [facility] Pathology & Laboratory Medicine - [address] [address] Outr Resulting Lab, Provider Social History Tobacco [...] Associated Diagnosis Comments CHLAMYDIA/N. GONORRHOEAE AMPLIFIED NUCLEIC ACID Routine 11/24/2021 13:30 EDT documented in this encounter Results * CHLAMYDIA/N. GONORRHOEAE AMPLIFIED RNA (11/24/2021 13:30 EDT) Neisseria gonorrhoeae Result Negative Negative 11/26/2021 18:05 EDT [facility] Chlamydia trachomatis Result Negative Negative 11/26/2021 18:05 EDT [facility] Swab ENTIRE ENDOCERVIX / Unknown 11/24/2021 13:30 EDT 11/25/2021 17:59 EDT Provider Outr Resulting Lab MICROBIOLOGY - GENERAL ORDERABLES [facility] [address] [place] [address] documented in this encounter Visit Diagnoses Not on filedocumented in this encounter Care Teams Constitutional Law Professor Relationship Specialty Start Date End Date Ese Alvarado FNP [address] [place] [phone] PCP - General 10/29/21 documented as of this encounter
--- OUTSIDE RECORDS SUMMARY | 2024-04-19 15:22 | XMS_ITS | Encounter Summary ---
Author Organization [facility] Address [address] [place] [address] Care Team Providers Care Customer Service Engineer Name Role Phone Ese Alvarado DENNIS Primary Care Provider [phone] Encounter Details Date Type Department Care Team (Late st Contact Info) Description 05/22/2021 Lab Requisition [facility] Pathology & Laboratory Medicine - [address] [address] Outr Resulting Lab, Provider Social History Tobacco [...] Procedure Name Priority Date/Time Associated Diagnosis Comments ZZCOVID-19 TEST [facility] PCR Today 05/21/2021 10:00 EDT COVID-19 TESTING Routine 05/21/2021 10:0 0 EDT documented in this encounter Results * COVID-19 TEST [facility] PCR (05/21/2021 10:00 EDT) Swab ENTIRE NASOPHARYNX / Unknown 05/21/2021 10:00 EDT 05/22/2021 21:47 EDT Provider Outr Resulting Lab MICROBIOLOGY - GENERAL ORDERABLES [facility] [address] [place] [address] * COVID-19 TESTING (05/21/2021 10:00 EDT) COVID-19 rt-PCR Result Negative Negative 05/23/2021 16:28 EDT [facility] Comment: This test has not been FDA cleared or approved. This test has been authorized by FDA under an EUA for use by authorized laboratories. This test has been authorized only for detection of nucleic acid from 2019-nCoV, not for any other viruses or pathogens. This test is only authorized for the duration of the declaration that circumstances exist justifying the authorization of emergency use of in vitro diagnostic tests for detection and/or diagnosis of 2019-nCoV under section 564(b)(1) of Act, 21 U.S.C ?? 360bbb-3(b) (1), unless the authorization is terminated or revoked sooner. Negative results do not preclude 2019-nCoV infection and should not be used as the sole basis for treatment or other patient management decisions. Negative results must be combined with clinical observations, patient history, and epidemiological information. This test was developed and its performance characteristics determined by [facility]. It has not been cleared or approved by the US Food and Drug Administration. FDA does not require this test to go through premarket FDA review. This test is used for clinical purposes. It should not be regarded as investigational or for research. This laboratory is certified under the Clinical Laboratory Improvement Amendments (CLIA) as qualified to perform high complexity clinical laboratory testing. This test is based on the [facility] COVID-19 Emergency Use Authorization (EUA) assay, with minor modification as defined by the FDA Performed on the [employer] 7 Flex RT-PCR System. Performing Lab VI [facility] Lab 05/23/2021 16:28 EDT [facility] Swab 05/21/2021 10:0 0 EDT 05/22/2021 21:47 EDT Provider Outr Resulting Lab MICROBIOLOGY - GENERAL ORDERABLES [facility] [address] [place] [address] documented in this encounter Visit Diagnoses Not on filedocumented in this encounter Care Teams Customer Service Engineer Relationship Specialty Start Date End Date Ese Alvarado FNP [address] [address] PCP - General 10/29/21 documented as of this encounter
--- OUTSIDE RECORDS SUMMARY | 2024-04-19 15:22 | XMS_ITS | Encounter Summary ---
Author Organization [facility] [place] [address] Care Team Providers Care Auger Mill Operator Name Role Phone Unavailable Primary Care Provider Unavailabl e Encounter Details Date Type Department Care Team (Late st Contact Info) Description 03/23/2021 Ancillary Procedure Radiology Library at [facility] [place] [address] Ese Alvarado APRN [address] [place], [place] [address] Social History Tobacco Use Types Packs/Day Years [...] FILM LIBRARY STORAGE ONLY ULTRASOUND STUDY Routine 03/23/2021 12:00 AM EDT documented in this encounter Results * Film Library- Storage Only Ultrasound Study (03/23/2021 12:00 AM EDT) Narrative [facility] - 09/23/2022 3:27 PM EST This exam is auto-finalizing. It's purpose is for storage only. Ese KANG FILM LIBRARY ORD ERABLES [facility] [place] documented in this encounter Visit Diagnoses Not on filedocumented in this encounter
--- OUTSIDE RECORDS SUMMARY | 2024-04-19 15:22 | XMS_ITS | Encounter Summary ---
Author Organization [facility] Address [address] [place] [address] Care Team Providers Care Truck Driver Rubbish Collector Name Role Phone Ese Alvarado DENNIS Primary Care Provider [phone] Encounter Details Date Type Department Care Team (Late st Contact Info) Description 01/06/2022 Lab Requisition [facility] Pathology & Laboratory Medicine - [address] [address] Virgie Chew MD [address] [place] [id number] Encounter for other general examination Social History [...] Date/Time Associated Diagnosis Comments SURGICAL PATHOLOGY Today 01/05/2022 8: 18 EDT Encounter for other general examination documented in this encounter Results * SURGICAL PATHOLOGY (01/05/2022 8:18 EDT) Note to Patient The following pathology results have been interpreted by your pathologist and may be available to you before your health provider has had the opportunity to review them. Please allow time for your provider to receive these results and explore management options, if applicable. 01/12/2022 12:[address] [facility] Final Diagnosis A. GALLBLADDER, CHOLECYSTECTOMY: - Chronic cholecystitis. 01/12/2022 12:15 [facility] Attestation There was significant resident/fellow involvement in the diagnostic evaluation of this case. By the signature below, the attending physician certifies that they have personally conducted a gross and/or microscopic examination of the described specimens and rendered or confirmed the above diagnosis. 01/12/2022 12:[address] [facility] at 1215 Clinical History Biliary dyskinesia 01/12/2022 12:[address] [facility] Gross Description A. Received in formalin labelled with proper patient identification (initials R, C) and gallbladder and contents is an intact gallbladder with an attached segment of cystic duct (8.5 x 3.5 x 3.0 cm). A cystic duct lymph node is not present. The serosa is fulton and smooth. The mucosa is green and velvety with focally yellow speckles and the wall averages 0.3 cm in thickness. The cystic duct lumen is patent and measures 0.5 cm in diameter. The cystic duct margin is inked blue. There are no choleliths identified. Two floor representative sections and the en face cystic duct margin are submitted in A1. PATI ROWAN MD 01/06/2022 17:11 01/12/2022 12:[address] [facility] Resident/Dg w: Pati Rowan MD 01/12/2022 12:[address] [facility] Performing Lab [facility] 01/12/2022 12:[address] [facility] Scanned Images 01/12/2022 12:15 [facility] Tissue ENTIRE GALLBLADDER / Unknown 01/05/2022 8:18 EDT 01/06/2022 10:00 EDT Virgie Chew MD PATHOLOGY ORDERA DIMPLE [facility] [address] [place] [address] documented in this encounter Visit Diagnoses Diagnosis Encounter for other general examination documented in this encounter Care Teams Truck Driver Rubbish Collector Relationship Specialty Start Date End Date Ese Alvarado FNP [address] [address] PCP - General 10/29/21 documented as of this encounter
--- OUTSIDE RECORDS SUMMARY | 2024-04-19 15:22 | XMS_ITS | Encounter Summary ---
Author Organization [facility] [place] [address] Care Team Providers Care Felt Hat Pouncing Operator Hand Name Role Phone Unavailable Primary Care Provider Unavailabl e Encounter Details Date Type Department Care Team (Late st Contact Info) Description 12/31/2020 Ancillary Procedure Radiology Library at [facility] [place] [address] Ese Alvarado APRN [address] [place], [place] [address] Social History Tobacco Use Types Packs/Day Years [...] FILM LIBRARY STORAGE ONLY ULTRASOUND STUDY Routine 12/31/2020 12:00 AM EDT documented in this encounter Results * Film Library- Storage Only Ultrasound Study (12/31/2020 12:00 AM EDT) Narrative [facility] - 09/23/2022 3:26 PM EST This exam is auto-finalizing. It's purpose is for storage only. Ese KANG FILM LIBRARY ORD ERABLES [facility] [place] documented in this encounter Visit Diagnoses Not on filedocumented in this encounter
--- OUTSIDE RECORDS SUMMARY | 2024-04-19 15:22 | XMS_ITS | Clinical Summary ---
Author Organization [facility] Address [address] [place] [address] Care Team Providers Care Sprinkler Worker Name Role Phone Ese Alvarado DENNIS Primary Care Provider [phone] Social History Tobacco Use Types Packs/Day Years Used Date Smoking Tobacco: Never Assessed Interpersonal Safety Answer Date Record ed Physically Hurt Never 07/03/2020 Verbally Threaten Not on file 07/03/2020 Sex and Gender Information Value Date Recorded Sex Assigned at Not on file Gender Identity Not on file Sexual Orientation Not on file Plan of Treatment Health Maintenance Due Date Last Done Comments Hepatitis C Screen 1995 Hepatitis B Vaccine (1 of 3 - 19+ 3-dose series) 10/05 COVID-19 Vaccine (2022- season) 2023 Care Teams Sprinkler Worker Relationship Specialty Start Date End Date Ese Alvarado FNP [address] [place] [address] PCP - General 10/29/21
--- OUTSIDE RECORDS SUMMARY | 2024-04-19 15:22 | XMS_ITS | Encounter Summary ---
[place] [address] Care Team Providers Care Histopathology Technician Name Role Phone Ese Alvarado APRN Primary Care Provider [phone] Reason for Referral * Consultation (Routine) - Closed Specialty Diagnoses / Procedures Referred By Cullen t Referred To Contact General Surgery Diagnoses Obesity, unspecified classification, unspecified obesity type, unspecified whether serious comorbidity present Ese Alvarado APRN [address] [place] [address] [facility] Gen Surgery [address] [place] [phone] Referral ID Status Reason Start Date Expiration Date V isits Requested Visits Authorized [id number] Closed Consult, Test & Treat 11/01/2021 11/01/2022 12 12 Encounter Details Date Type Department Care Team (Latest Contact Info) Description 11/01/2021 Transcribe Orders eDH Incoming Referrals [phone] Ese Alvarado APRN [address] [place] [address] Obesity, unspecified classification, unspecified obesity type, unspecified whether serious comorbidity present Social History Tobacco Use Types Packs/Day Years Used Date Smoking Tobacco: Never Assessed Sex and Gender Information Value Date Recorded Sex Assigned at Not on file Gender Identity Not on file Sexual Orientation Not on file documented as of this encounter Plan of Treatment Scheduled Referrals Name Type Priority Associated Diagnoses Orde r Schedule Referral to Bariatric Surgery Program Outpatient Referral Routine Obesity, unspecified classification, unspecified obesity type, unspecified whether serious comorbidity present Ordered: 11/01/2021 documented as of this encounter Visit Diagnoses Diagnosis Obesity, unspecified classification, unspecified obesity type, unspecified whether serious comorbidity present documented in this encounter Care Teams Histopathology Technician Relationship Specialty Start Date End Date Ese Alvarado APRN [address] [place] [address] PCP - General Family Medicine 10/31/21 documented as of this encounter
--- OUTSIDE RECORDS SUMMARY | 2024-04-19 15:22 | XMS_ITS | Referral Summary ---
Author Organization [facility] Address [address] [place] [address] Care Team Providers Care Air Conditioning Mechanic Name Role Phone Ese Alvarado DENNIS Primary Care Provider [phone] Social History Tobacco Use Types Packs/Day Years Used Date Smoking Tobacco: Never Assessed Interpersonal Safety Answer Date Record ed Physically Hurt Never 07/03/2020 Verbally Threaten Not on file 07/03/2020 Sex and Gender Information Value Date Recorded Sex Assigned at Not on file Gender Identity Not on file Sexual Orientation Not on file Plan of Treatment Not on file Care Teams Air Conditioning Mechanic Relationship Specialty Start Date End Date Ese Alvarado FNP [address] [place] [phone] PCP - General 10/29/21
[2024-04-22 10:36] LABS: HIV-1/2 Ag & Ab Screen Negative (Negative)
[2024-04-22 10:50] LABS: Syphilis Serology (RPR) Negative (Negative)
[2024-04-22 11:12] LABS: Hepatitis C Ab w Rflx HCV PCR Negative (Negative)
[2024-04-22 12:57] LABS: GC Result Negative (Negative)
[2024-04-22 13:06] LABS: Chlamydia Result Positive (Negative)
== END 2024-04-19 15:15 | disposition home or self-care (01) ==
LOC: NCHCN 15:14
PROVIDERS: PCP Nurse Practitioner Family; Visit Provider Nurse Practitioner Family
DX: Z00.00 Encounter for general adult medical examination without abnormal findings (principal); Z11.59 Encounter for screening for other viral diseases; E66.9 Obesity, unspecified
CPT/HCPCS: 80053; 80061; 85027; 86803; 87389; 87491; 87591; 83036; 86592; 87480; 87510; 87660

== ENCOUNTER 2024-05-10 02:59 | Outpatient (CLI) | payer OTHER, SELFPAY ==
--- OUTSIDE RECORDS SUMMARY | 2024-05-10 03:01 | XMS_ITS | Encounter Summary ---
Author Organization [facility] [place] [address] Care Team Providers Care Technical Fellow Name Role Phone Ese Alvarado APRN Primary Care Provider [phone] Encounter Details Date Type Department Care Team (Late st Contact Info) Description 11/15/2021 Ancillary Procedure Radiology Library at [facility] [place] [address] Ese Alvarado APRN [address] [place] [address] Social History Tobacco Use Types Packs/Day Years [...] on filedocumented in this encounter Care Teams Technical Fellow Relationship Specialty Start Date End Date Ese Alvarado APRN [address] [place] [address] PCP - General Family Medicine 10/31/21 documented as of this encounter
--- OUTSIDE RECORDS SUMMARY | 2024-05-10 03:01 | XMS_ITS | Encounter Summary ---
Author Organization [facility] [place] [address] Care Team Providers Care Figurine Maker Name Role Phone Ese Alvarado APRN Primary Care Provider [phone] Encounter Details Date Type Department Care Team (Late st Contact Info) Description 05/18/2022 Telephone [place] [address] Flaca Alfaro Social History Tobacco Use Types [...] calls can be handled by: Any Motility Fur Examiner documented in this encounter Plan of Treatment Not on file documented as of this encounter Visit Diagnoses Not on filedocumented in this encounter Care Teams Figurine Maker Relationship Specialty Start Date End Date Ese Alvarado APRN [address] [place] [address] PCP - General Family Medicine 10/31/21 documented as of this encounter
--- OUTSIDE RECORDS SUMMARY | 2024-05-10 03:01 | XMS_ITS | Encounter Summary ---
[facility] [place] [address] Care Team Providers Care Farm Equipment Assembler Name Role Phone Ese Alvarado APRN Primary Care Provider [phone] Encounter Details Date Type Department Care Team (Late st Contact Info) Description 10/18/2022 Orders [place] [address] Peyton Ivy APRN [address] [place] [address] Nausea and vomiting, unspecified vomiting type Social [...] type documented in this encounter Care Teams Farm Equipment Assembler Relationship Specialty Start Date End Date Ese Alvarado APRN [address] [place] [address] PCP - General Family Medicine 10/31/21 documented as of this encounter
--- OUTSIDE RECORDS SUMMARY | 2024-05-10 03:01 | XMS_ITS | Encounter Summary ---
Author Organization [facility] [place] [address] Care Team Providers Care Med Specialist Name Role Phone Ese Alvarado APRN Primary Care Provider [phone] Encounter Details Date Type Department Care Team (Late st Contact Info) Description 08/19/2022 Telephone Otolaryngology at [facility] [place] [address] Nicole Waldrop Social History Tobacco Use Types [...] on filedocumented in this encounter Care Teams Med Specialist Relationship Specialty Start Date End Date Ese Alvarado APRN [address] [place] [address] PCP - General Family Medicine 10/31/21 documented as of this encounter
--- OUTSIDE RECORDS SUMMARY | 2024-05-10 03:01 | XMS_ITS | Encounter Summary ---
[place] [address] Care Team Providers Care Rn Postpartum Name Role Phone Ese Alvarado APRN Primary Care Provider [phone] Reason for Referral * Consultation (Routine) - Closed Specialty Diagnoses / Procedures Referred By Cullen t Referred To Contact General Surgery Diagnoses Obesity, unspecified classification, unspecified obesity type, unspecified whether serious comorbidity present Ese Alvarado APRN [address] [place] [address] [facility] Gen Surgery [address] [place] [phone] Referral ID Status Reason Start Date Expiration Date V isits Requested Visits Authorized [id number] Closed Consult, Test & Treat 11/01/2021 11/01/2022 12 12 Encounter Details Date Type Department Care Team (Latest Contact Info) Description 11/01/2021 Transcribe Orders eDH Incoming Referrals [phone] Ese Alvarado APRN [address] [place] [address] Obesity, unspecified classification, unspecified obesity [...] present documented in this encounter Care Teams Rn Postpartum Relationship Specialty Start Date End Date Ese Alvarado APRN [address] [place] [address] PCP - General Family Medicine 10/31/21 documented as of this encounter
--- OUTSIDE RECORDS SUMMARY | 2024-05-10 03:01 | XMS_ITS | Encounter Summary ---
[facility] [place] [address] Care Team Providers Care Reliability Manager Name Role Phone Ese Alvarado APRN Primary Care Provider [phone] Reason for Visit * Diagnostic Test (Routine) - Closed Specialty Diagnoses / Procedures Referred By Contmanjit t Referred To Contact Radiology Diagnoses Bloating Nausea and vomiting, unspecified vomiting type Procedures NM Gastric Emptying Scan Peyton Ivy APRN [address] [place] [address] [place] [address] Referral ID Status Reason Start Date Expiration Date V isits Requested Visits Authorized [id number] Closed Specialty Service Requested 10/20/2022 04/22/2024 1 1 Encounter Details Date Type Department Care Team (Latest Contact Info) Description 01/06/2023 9:33 AM EDT - 01/06/2023 11:59 PM EDT Hospital Encounter [place] [address] Peyton Ivy APRN [address] [place] [address] Discharge Disposition: Home Social History [...] who have questions please contact the health customer care professional that requested your imaging first. ? Electronically signed by: Kalyn Thurman MD, [facility] ([phone]), at 01/06/2023 2:07 PM Narrative 01/06/2023 2:07 [...] hourslater. COMPARISON: [facility]contrast CT [facility] FINDINGS: Activity fills the stomach on [...] patients who have questions please contactthe health customer care professional that requested your imaging first. Peyton Ivy APRN IMG NM ORDERABLE S documented in this encounter Visit Diagnoses Not on filedocumented in this encounter Care Teams Reliability Manager Relationship Specialty Start Date End Date Ese Alvarado APRN [address] [place] [address] PCP - General Family Medicine 10/31/21 documented as of this encounter
--- OUTSIDE RECORDS SUMMARY | 2024-05-10 03:01 | XMS_ITS | Encounter Summary ---
Author Organization [facility] [place] [address] Care Team Providers Care Residential Sales Consultant Name Role Phone Christiano Ese BERMEO Primary Care Provider [phone] Reason for Referral * Consultation (Routine) - Closed Specialty Diagnoses / Procedures Referred By Cullen tierney Referred To Contact Gastroenterology Diagnoses Nausea and vomiting, unspecified vomiting type Right lower quadrant abdominal pain Gastroesophageal reflux disease, unspecified whether esophagitis present Nausea, vomiting, RLQ pain, Gerd, s/p Laparoscopic choleastectomy Farhana Miller DO [address] [place] [address] [facility] [address] [address] Referral ID Status Reason Start Date Expiration Date V isits Requested Visits Authorized [id number] Closed Consult, Test & Treat 02/16/2022 02/16/2023 1 1 Encounter Details Date Type Department Care Team (Latest Contact Info) Description 02/16/2022 Transcribe [place] [address] Naty Knowles Nausea and vomiting, [...] present documented in this encounter Care Teams Residential Sales Consultant Relationship Specialty Start Date End Date Ese Alvarado APRN [address] [place] [address] PCP - General Family Medicine 10/31/21 documented as of this encounter
--- OUTSIDE RECORDS SUMMARY | 2024-05-10 03:01 | XMS_ITS | Encounter Summary ---
Author Organization [facility] [place] [address] Care Team Providers Care Clinical Assistant Name Role Phone Ese Alvarado APRN Primary Care Provider [phone] Reason for Visit * Diagnostic Test (Routine) - Closed Specialty Diagnoses / Procedures Referred By Contmanjit t Referred To Contact Radiology Diagnoses Bloating Nausea and vomiting, unspecified vomiting type Procedures NM Gastric Emptying Scan Peyton Ivy APRN [address] [place] [address] [place] [address] Referral ID Status Reason Start Date Expiration Date V isits Requested Visits Authorized [id number] Closed Specialty Service Requested 10/20/2022 04/22/2024 1 1 Encounter Details Date Type Department Care Team (Latest Contact Info) Description 01/06/2023 9:32 AM EDT Hospital Encounter [place] [address] Peyton Ivy APRN [address] [place] [address] Discharge Disposition: Home Social History [...] who have questions please contact the health ocular care technologist that requested your imaging first. ? Narrative [...] patients who have questions please contactthe health ocular care technologist that requested your imaging first. Peyton Ivy APRN IMG NM ORDERABLE S documented in this encounter Visit Diagnoses Not on filedocumented in this encounter Care Teams Clinical Assistant Relationship Specialty Start Date End Date Ese Alvarado APRN [address] [place] [address] PCP - General Family Medicine 10/31/21 documented as of this encounter
--- OUTSIDE RECORDS SUMMARY | 2024-05-10 03:01 | XMS_ITS | Encounter Summary ---
Author Organization [facility] [place] [address] Care Team Providers Care Machinery Repair Maintenance Supervisor Name Role Phone Ese Alvarado APRN Primary Care Provider [phone] Reason for Visit * Diagnostic Test (Routine) - Closed Specialty Diagnoses / Procedures Referred By Contmanjit t Referred To Contact Radiology Diagnoses Bloating Nausea and vomiting, unspecified vomiting type Procedures NM Gastric Emptying Scan Peyton Ivy APRN [address] [place] [address] [place] [address] Referral ID Status Reason Start Date Expiration Date V isits Requested Visits Authorized [id number] Closed Specialty Service Requested 10/20/2022 04/22/2024 1 1 Encounter Details Date Type Department Care Team (Latest Contact Info) Description 01/06/2023 9:31 AM EDT Hospital En[place] [address] Peyton Ivy APRN [address] [place] [address] Discharge Disposition: Home Social History [...] who have questions please contact the health chronic care nurse that requested your imaging first. ? Electronically signed by: Kalyn Thurman MD, [facility] ([phone]), at 01/06/2023 2:07 PM Narrative 01/06/2023 2:07 [...] patients who have questions please contactthe health chronic care nurse that requested your imaging first. Electronically signed by: Kalyn Thurman MD, [facility]([phone]), at 01/06/2023 2:07 PM Peyton Ivy APRN IMG NM ORDERABLE S documented in this encounter Visit Diagnoses Not on filedocumented in this encounter Care Teams Machinery Repair Maintenance Supervisor Relationship Specialty Start Date End Date Ese Alvarado APRN [address] [place] [address] PCP - General Family Medicine 10/31/21 documented as of this encounter
--- OUTSIDE RECORDS SUMMARY | 2024-05-10 03:01 | XMS_ITS | Encounter Summary ---
[place] [address] Care Team Providers Care Project Management Consultant Name Role Phone Ese Alvarado APRN Primary Care Provider [phone] Reason for Referral * Consultation (Routine) - Closed Specialty Diagnoses / Procedures Referred By Cullen tierney Referred To Contact Otolaryngology Diagnoses Chronic tonsillitis Hypertrophy of tonsils Asher Resendiz MD [address] [place] [id number] [facility] Otolaryngology [address] [place] [phone] Referral ID Status Reason Start Date Expiration Date V isits Requested Visits Authorized [id number] Closed Consult, Test & Treat 08/19/2022 08/19/2023 1 1 Encounter Details Date Type Department Care Team (Late st Contact Info) Description 08/19/2022 Transcribe Orders eDH Incoming Referrals [phone] Asher Resendiz MD [address] [place] [address] [phone] Chronic tonsillitis; Hypertrophy of tonsils Social History [...] alone documented in this encounter Care Teams Project Management Consultant Relationship Specialty Start Date End Date Ese Alvarado APRN [address] [place] [address] PCP - General Family Medicine 10/31/21 documented as of this encounter
--- OUTSIDE RECORDS SUMMARY | 2024-05-10 03:01 | XMS_ITS | Encounter Summary ---
Author Organization [facility] [place] [address] Care Team Providers Care Associate Accountant Name Role Phone Ese Alvarado APRN Primary Care Provider [phone] Encounter Details Date Type Department Care Team (Late st Contact Info) Description 12/19/2021 Ancillary Procedure Radiology Library at [facility] [place] [address] Ese Alvarado APRN [address] [place] [address] Social History Tobacco Use Types Packs/Day Years [...] on filedocumented in this encounter Care Teams Associate Accountant Relationship Specialty Start Date End Date Ese Alvarado APRN [address] [place] [address] PCP - General Family Medicine 10/31/21 documented as of this encounter
--- OUTSIDE RECORDS SUMMARY | 2024-05-10 03:01 | XMS_ITS | Encounter Summary ---
[place] [address] Care Team Providers Care Rating Examiner Name Role Phone Ese Alvarado APRN Primary Care Provider [phone] Reason for Referral * Consultation (Routine) - Closed Specialty Diagnoses / Procedures Referred By Contmanjit t Referred To Contact Gastroenterology Diagnoses Vomiting, unspecified vomiting type, unspecified whether nausea present Nausea without vomiting Abdominal pain, unspecified abdominal location vomiting, nausea, abd pain Ese Alvarado APRN [address] [place] [address] [address] Referral ID Status Reason Start Date Expiration Date V isits Requested Visits Authorized [id number] Closed Consult, Test & Treat PCP Updated and/or Approved 10/01/2022 10/01/2023 12 12 Encounter Details Date Type Department Care Team (Latest Contact Info) Description 10/01/2022 Transcribe Orders eDH Incoming Referrals [phone] Ese Alvarado APRN [address] [place] [address] Vomiting, unspecified vomiting type, unspecified [...] location documented in this encounter Care Teams Rating Examiner Relationship Specialty Start Date End Date Ese Alvarado APRN [address] [place] [address] PCP - General Family Medicine 10/31/21 documented as of this encounter
--- OUTSIDE RECORDS SUMMARY | 2024-05-10 03:01 | XMS_ITS | Encounter Summary ---
Author Organization [facility] [place] [address] Care Team Providers Care Animal Handler Name Role Phone Unavailable Primary Care Provider Unavailabl e Encounter Details Date Type Department Care Team (Late st Contact Info) Description 03/23/2021 Ancillary Procedure Radiology Library at [facility] [place] [address] Ese Alvarado APRN [address] [place], [place] [address] Social History Tobacco Use Types Packs/Day Years [...] Ultrasound Study (03/23/2021 12:00 AM EDT) Narrative [facility] - 09/23/2022 3:27 PM EST This exam is auto-finalizing. It's purpose is for storage only. Ese KANG FILM LIBRARY ORD ERABLES [facility] [place] documented in this encounter Visit Diagnoses Not on filedocumented in this encounter
--- OUTSIDE RECORDS SUMMARY | 2024-05-10 03:01 | XMS_ITS | Encounter Summary ---
Author Organization [facility] [place] [address] Care Team Providers Care General Assignment Reporter Name Role Phone Ese Alvarado APRN Primary Care Provider [phone] Reason for Visit * Diagnostic Test (Routine) - Closed Specialty Diagnoses / Procedures Referred By Contmanjit t Referred To Contact Radiology Diagnoses Bloating Nausea and vomiting, unspecified vomiting type Procedures NM Gastric Emptying Scan Peyton Ivy APRN [address] [place] [address] [place] [address] Referral ID Status Reason Start Date Expiration Date V isits Requested Visits Authorized [id number] Closed Specialty Service Requested 10/20/2022 04/22/2024 1 1 Encounter Details Date Type Department Care Team (Latest Contact Info) Description 01/06/2023 9:32 AM EDT Hospital Encounter [place] [address] Peyton Ivy APRN [address] [place] [place] [address] Discharge Disposition: Home Social History [...] who have questions please contact the health nursing care attendant that requested your imaging first. ? Electronically signed by: Kalyn Thurman MD, [facility] ([phone]), at 01/06/2023 2:07 PM Narrative 01/06/2023 2:07 [...] patients who have questions please contactthe health nursing care attendant that requested your imaging first. Electronically signed by: Kalyn Thurman MD, [facility]([phone]), at 01/06/2023 2:07 PM Peyton Ivy APRN IMG NM ORDERABLE S documented in this encounter Visit Diagnoses Not on filedocumented in this encounter Care Teams General Assignment Reporter Relationship Specialty Start Date End Date Ese Alvarado APRN [address] [place] [address] PCP - General Family Medicine 10/31/21 documented as of this encounter
--- OUTSIDE RECORDS SUMMARY | 2024-05-10 03:01 | XMS_ITS | Encounter Summary ---
Author Organization [facility] [place] [address] Care Team Providers Care Graphic Design Specialist Name Role Phone Ese Alvarado APRN Primary Care Provider [phone] Encounter Details Date Type Department Care Team [...] on filedocumented in this encounter Care Teams Graphic Design Specialist Relationship Specialty Start Date End Date Ese Alvarado APRN [address] [place] [address] PCP - General Family Medicine 10/31/21 documented as of this encounter
--- OUTSIDE RECORDS SUMMARY | 2024-05-10 03:01 | XMS_ITS | Encounter Summary ---
[facility] [place] [address] Care Team Providers Care Professor Of Law Name Role Phone Ese Alvarado APRN Primary Care Provider [phone] Reason for Referral * Physical Therapy (Routine) - Closed Specialty Diagnoses / Procedures Referred By Contac t Referred To Contact Diagnoses Urinary incontinence, unspecified type Peyton Ivy APRN [address] [place] [address] Referral ID Status Reason Start Date Expiration Date V isits Requested Visits Authorized [id number] Closed Evaluate and Treat 04/08/2022 10/05/2022 12 12 Reason for Visit * Consultation (Routine) - Closed Specialty Diagnoses / Procedures Referred By Contac kelsy Referred To Contact Gastroenterology Diagnoses Nausea and vomiting, unspecified vomiting type Right lower quadrant abdominal pain Gastroesophageal reflux disease, unspecified whether esophagitis present Nausea, vomiting, RLQ pain, Gerd, s/p Laparoscopic choleastectomy Frahana Miller, DO [address] [place] [address] [facility] [place] [place] [address] Referral ID Status Reason Start Date Expiration Date V isits Requested Visits Authorized [id number] Closed Consult, Test & Treat 02/16/2022 02/16/2023 1 1 Encounter Details Date Type Department Care Team (Latest Contact Info) Description 04/08/2022 2:00 PM EDT TH Visit (TeleHealth) [place] [address] Peyton Ivy, RESERVATIONS MANAGER [place] [address] Gastroesophageal reflux disease, unspecified whether esophagitis present; [...] Patient Instructions * Patient Instructions* Peyton Ivy, RESERVATIONS MANAGER - 04/08/2022 2:00 PM EDT Review AVS [...] desk 3L on the main campus of [facility] in [place] or may report to [facility]. 6. Stool studies at your convenience. Please report to desk 3L on the main campus of [facility] in [place] or may report to [facility] 7. Smart pill. You will hear from our pneumatic drum sander to set this up once an appointment becomes available. You should hear from someone within one week. If not please call us. If insurance doesn't cover Ihave ordered a gastric emptying scan. 8. Hydrogen breath test. You will hear from our pneumatic drum sander to set this up once an appointment [...] Jm Earl APRN + Rosa Rojas APRN [facility] What are functional bowel disorders? These are the most common type of gastrointestinal disorders in the [facility] The most common functional bowel disorder in the [facility] is irritable bowel syndrome (IBS) Irritable bowel [...] what is the impact? 15-20% of general [place] population has IBS or FD or both 2nd most common cause for lost work days (after common cold) in [place] Estimated $30 billion dollar cost to [place] economy per year These disorders can have [...] with immediate onset of symptoms after infection); chcf symptoms are expected in most patients however [...] to you primary care provider and/or local oral surgery assistant and share this document. Treatment of functional [...] - this approach benefits most patients OTC (qpmx-qkj-lhlcfbw) medications can be used for ongoing bothersome symptoms as listed below Your provider (PCP or local Gastroenterology provider or [facility] Gastroenterology provider) may decide to use prescription [...] All-Bran psyllium buds, Metamucil, Konsyl, bulk psyllium (TIP Imaging stores and bulk stores) Specifically we recommend [...] but convincing medical evidence is still lacking Bkgf-gsb-pkkmznm supplements including probiotics are not typically evaluated [...] to decrease antibiotic-associated diarrhea and antibiotic-related infections Bypa-pua-Yesvtej Medications for Functional Gut Disorders Based on [...] a stool softener that is safe for chcf usage (no risk of dependency) andthe dosage [...] (GERD) Often a combination of anti-nausea medications (vaay-gyr-nehosyk or prescription) works better thanhigh doses of [...] for misuse/misinterpretation of this information Patient Resources [place] [employer] https://www.gastro.org/practice-guidance/ku-bdfvnkb-qceobp/ topic/bnkpubtvd-woacf-ayvhzzlb-ibs Badgut.org https://badgut.org/information-centre/e-t-rvkgotrsq-topics/ibs/ AboutIBS.org https://www.aboutibs.org/ Uptodate.com https://www.[employer].Soapbox Mobile/contents/hqdaullrb-fgede-rgbzlvnp-fvtwpa-zqe-pyakpk documented in this encounter Progress Notes * [...] CCY in December. 4-6 BMs per day. Mcminn type 5-7 BMs. Worse post-prandially. Endorses RUQ abdominal pain intermittently. Occurring a few times per week. Abdominal cramping and urgency, but has recently had COVID. Denies fecal incontinence. Difficulty emptying at times. Denies blood in stools. Headaches over the past month. Ondansetron 3 times per week. Ineffective. Carafate Omeprazole twice daily Famotidine twice daily Nexium [place] diet Has tried eliminating coffee Endorses one [...] visit Questionnaire: Q-GI [facility] 04/07/2022 [facility] Healthy Day Score 30 Work Absenteeism 61.2 [...] insufficiency 3. Chronic diarrhea with urgent nonbloody Mcminn type V-VII bowel movements between 4-6 times [...] after testing is complete Peyton Ivy APRN [facility] [place] [address] documented in this encounter Plan of Treatment [...] type documented in this encounter Care Teams Professor Of Law Relationship Specialty Start Date End Date Ese Alvarado APRN [address] [place] [address] PCP - General Family Medicine 10/31/21 documented as of this encounter
--- OUTSIDE RECORDS SUMMARY | 2024-05-10 03:01 | XMS_ITS | Encounter Summary ---
Author Organization [facility] [place] [address] Care Team Providers Care Cupola Charger Name Role Phone Ese Alvarado APRN Primary Care Provider [phone] Encounter Details Date Type Department Care Team (Late st Contact Info) Description 12/21/2021 Ancillary Procedure Radiology Library at [facility] [place] [address] Ese Alvarado APRN [address] [place] [address] Social History Tobacco Use Types Packs/Day Years [...] only. Ese KANG FILM LIBRARY ORD ERABLES [facility] [place] documented in this encounter Visit Diagnoses Not on filedocumented in this encounter Care Teams Cupola Charger Relationship Specialty Start Date End Date Ese Alvarado APRN [address] [place] [address] PCP - General Family Medicine 10/31/21 documented as of this encounter
--- OUTSIDE RECORDS SUMMARY | 2024-05-10 03:01 | XMS_ITS | Encounter Summary ---
Author Organization [place] [id number] Care Team Providers Care Medical Registrar Name Role Phone Ese Alvarado APRN Primary Care Provider Reason for Referral * Diagnostic Test (Routine) - Closed Specialty Diagnoses / Procedures Referred By Contac t Referred To Contact Radiology Diagnoses Bloating Nausea and vomiting, unspecified vomiting type Procedures NM Gastric Emptying Scan Peyton Ivy APRN [address] [place] [address] [place] [address] Referral ID Status Reason Start Date Expiration Date V isits Requested Visits Authorized [id number] Closed Specialty Service Requested 10/20/2022 04/22/2024 1 1 Reason for Visit * Diagnostic Test (Routine) - Closed Specialty Diagnoses / Procedures Referred By Contac t Referred To Contact Radiology Diagnoses Bloating Nausea and vomiting, unspecified vomiting type Procedures NM Gastric Emptying Scan Peyton Ivy APRN [address] [place] [address] [place] [address] Referral ID Status Reason Start Date Expiration Date V isits Requested Visits Authorized [id number] Closed Specialty Service Requested 10/20/2022 04/22/2024 1 1 Encounter Details Date Type Department Care Team (Latest Contact Info) Description 01/06/2023 9:30 AM EDT Hospital En[place] [address] Peyton Ivy, BI APPLICATION DEVELOPER [address] [place] [address] Bloating; Nausea and vomiting, unspecified vomiting type [...] who have questions please contact the health resident care assistant that requested your imaging first. ? Electronically signed by: Kalyn Thurman MD, [facility] ([phone]), at 01/06/2023 2:07 PM Narrative 01/06/2023 2:07 [...] the resident's interpretationand agree with the findings, aKlyn Thurman MD at 01/06/2023 2:07 PM Thank you for letting us participate in the care of this patient. If youare a health care provider and have any questions regarding this report,please contact the number below. For patients who have questions please contactthe health resident care assistant that requested your imaging first. Peyton Ivy BI APPLICATION DEVELOPER IMG NM ORDERABLE S documented in this [...] mCi documented in this encounter Care Teams Medical Registrar Relationship Specialty Start Date End Date Ese Alvarado APRN [address] [place] [address] PCP - General Family Medicine 10/31/21 documented as of this encounter
--- OUTSIDE RECORDS SUMMARY | 2024-05-10 03:01 | XMS_ITS | Encounter Summary ---
Author Organization [facility] [place] [address] Care Team Providers Care Quality Assurance Assistant Name Role Phone Ese Alvarado APRN Primary Care Provider [phone] Encounter Details Date Type Department Care Team (Late st Contact Info) Description 10/19/2022 Telephone [place] [address] [place] Social History Tobacco Use Types [...] calls can be handled by: Mot[facility] Asbestos Microscopist documented in this encounter Plan of Treatment Not on file documented as of this encounter Visit Diagnoses Not on filedocumented in this encounter Care Teams Quality Assurance Assistant Relationship Specialty Start Date End Date Ese Alvarado APRN [address] [place] [address] PCP - General Family Medicine 10/31/21 documented as of this encounter
--- OUTSIDE RECORDS SUMMARY | 2024-05-10 03:01 | XMS_ITS | Encounter Summary ---
Author Organization [facility] [address] Care Team Providers Care Personal Attendant Name Role Phone Ese Alvarado APRN Primary Care Provider [phone] Reason for Referral * Diagnostic Test (Routine) - Closed Specialty Diagnoses / Procedures Referred By Contmanjit t Referred To Contact Radiology Diagnoses Bloating Nausea and vomiting, unspecified vomiting type Procedures NM Gastric Emptying Scan Peyton Ivy APRN [address] [place] [address] [place] [address] Referral ID Status Reason Start Date Expiration Date V isits Requested Visits Authorized [id number] Closed Specialty Service Requested 10/20/2022 04/22/2024 1 1 Encounter Details Date Type Department Care Team (Late st Contact Info) Description 10/20/2022 Orders [place] [address] Peyton Ivy APRN [address] [place] [address] Bloating; Nausea and vomiting, unspecified [...] who have questions please contact the health direct care counselor that requested your imaging first. ? Electronically signed by: Kalyn Thurman MD, [facility] ([phone]), at 01/06/2023 2:07 PM Narrative 01/06/2023 2:07 [...] patients who have questions please contactthe health direct care counselor that requested your imaging first. Electronically signed by: Kalyn Thurman MD, [facility]([phone]), at 01/06/2023 2:07 PM Peyton Ivy REGULATORY SCIENTIST IMG NM ORDERABLE S documented in this encounter Visit Diagnoses Diagnosis Bloating Flatulence, eructation, and gas pain Nausea and vomiting, unspecified vomiting type Bloating Flatulence, eructation, and gas pain Nausea and vomiting, unspecified vomiting type documented in this encounter Care Teams Personal Attendant Relationship Specialty Start Date End Date Ese Alvarado APRN [address] [place] [address] PCP - General Family Medicine 10/31/21 documented as of this encounter
--- OUTSIDE RECORDS SUMMARY | 2024-05-10 03:01 | XMS_ITS | Encounter Summary ---
Author Organization [facility] [place] [place] [address] Care Team Providers Care Surgical Supplies Sterilizer Name Role Phone Ese Alvarado APRN Primary Care Provider [phone] Encounter Details Date Type Department Care Team (Late st Contact Info) Description 04/14/2022 Telephone [place] [address] Joanie Coy Social History Tobacco Use Types [...] on filedocumented in this encounter Care Teams Surgical Supplies Sterilizer Relationship Specialty Start Date End Date Ese Alvarado APRN [address] [place] [address] PCP - General Family Medicine 10/31/21 documented as of this encounter
--- OUTSIDE RECORDS SUMMARY | 2024-05-10 03:01 | XMS_ITS | Encounter Summary ---
Author Organization [facility] [place] [address] Care Team Providers Care Foreign Exchange Dealer Name Role Phone Ese Alvarado APRN Primary Care Provider [phone] Encounter Details Date Type Department Care Team (Late st Contact Info) Description 02/17/2022 Ancillary Procedure Radiology Library at [facility] [place] [address] Ese Alvarado APRN [address] [place] [address] Social History Tobacco Use Types Packs/Day Years [...] only. Ese KANG FILM LIBRARY ORD ERABLES [facility] [place] documented in this encounter Visit Diagnoses Not on filedocumented in this encounter Care Teams Foreign Exchange Dealer Relationship Specialty Start Date End Date Ese Alvarado APRN [address] [place] [address] PCP - General Family Medicine 10/31/21 documented as of this encounter
--- OUTSIDE RECORDS SUMMARY | 2024-05-10 03:01 | XMS_ITS | Encounter Summary ---
Author Organization [facility] [place] [address] Care Team Providers Care Home School Teacher Name Role Phone Ese Alvarado APRN Primary Care Provider [phone] Encounter Details Date Type Department Care Team (Late st Contact Info) Description 10/14/2022 Tele[place] [address] Chris Ignacio RN Social History Tobacco Use [...] on filedocumented in this encounter Care Teams Home School Teacher Relationship Specialty Start Date End Date Ese Alvarado APRN [address] [place] [address] PCP - General Family Medicine 10/31/21 documented as of this encounter
--- OUTSIDE RECORDS SUMMARY | 2024-05-10 03:01 | XMS_ITS | Encounter Summary ---
Author Organization [facility] [place] [address] Care Team Providers Care Chief Clinical Officer Name Role Phone Ese Alvarado APRN Primary Care Provider [phone] Encounter Details Date Type Department Care Team (Late st Contact Info) Description 03/13/2023 Notes [place] [address] Tea Segovia PA [facility] [place] [place] [address] Social History Tobacco Use Types Packs/Day Years [...] on filedocumented in this encounter Care Teams Chief Clinical Officer Relationship Specialty Start Date End Date Ese Alvarado APRN [address] [place] [address] PCP - General Family Medicine 10/31/21 documented as of this encounter
--- OUTSIDE RECORDS SUMMARY | 2024-05-10 03:01 | XMS_ITS | Clinical Summary ---
Author Organization [facility] Address [facility] [place] [address] Care Team Providers Care Maltster Name Role Phone Ese Alvarado APRN Primary Care Provider Allergies Active Allergy Reactions Criticality Noted Date [...] Next Due Covid-19 Monovalent (Moderna Spikevax) 12yrs+ (0626-1225) 09/07/2020,08/10/2020 Social History Tobacco Use Types Packs/Day Years Used Date Smoking Tobacco: Never Assessed Sex and Gender Information Value Date Recorded Sex Assigned at Not on file Gender Identity Not on file Sexual Orientation Not on file Plan of Treatment Health Maintenance Due Date Last Done Comments HIV screen 10/05/2013 Hepatitis C Screening 10/05/2013 Hepatitis B vaccine (0-59 yrs) (1) 10/05/2014 Tetanus/Diphtheria/Pertussis Vaccines (1 - Tdap) 10/05/2014 PAP Smear 10/05/2016 Covid-19 Vaccine (3 - season) 03/31/202402/2021, 08/10/2020 Influenza (Flu) vaccine (1 o f 1 - Influenza standard series) 03/31/2024 Care Teams Maltster Relationship Specialty Start Date End Date Ese Alvarado APRN [address] [place] [address] PCP - General Family Medicine 10/31/21
--- OUTSIDE RECORDS SUMMARY | 2024-05-10 03:02 | XMS_ITS | Encounter Summary ---
Author Organization [facility] Address [address] [place] [address] Care Team Providers Care Aerial Photographer Name Role Phone Ese Alvarado DENNIS Primary Care Provider [phone] Encounter Details Date Type Department Care Team (Late st Contact Info) Description 12/14/2022 Lab Requisition [facility] Pathology & Laboratory Medicine - [address] [address] Outr Resulting Lab, Provider Social History Tobacco [...] gonorrhoeae Result Negative Negative 12/15/2022 14:34 EDT [facility] Chlamydia trachomatis Result Negative Negative 12/15/2022 14:34 EDT [facility] Papanicolaou smear specimen (specimen) CERVIX UTERI STRUCTURE / Unknown 12/14/2022 10:40 EDT 12/15/2022 10:06 EDT Provider Outr Resulting Lab MICROBIOLOGY - GENERAL ORDERABLES [facility] [address] [place] [address] documented in this encounter Visit Diagnoses Not on filedocumented in this encounter Care Teams Aerial Photographer Relationship Specialty Start Date End Date Ese Alvarado FNP [address] [place] [address] [address] [place] [phone] PCP - General 10/29/21 documented as of this encounter
--- OUTSIDE RECORDS SUMMARY | 2024-05-10 03:02 | XMS_ITS | Encounter Summary ---
Author Organization [facility] Address [address] [place] [address] Care Team Providers Care Auto Parts Manager Name Role Phone Ese Alvarado DENNIS Primary Care Provider [phone] Encounter Details Date Type Department Care Team (Late st Contact Info) Description 12/20/2021 Lab Requisition [facility] Pathology & Laboratory Medicine - [address] [address] Outr Resulting Lab, Provider Social History Tobacco [...] Salmonella PCR Negative Negative 12/20/2021 23:21 EDT [facility] Shigella/Enteroin vasive E. coli Negative Negative 12/20/2021 23:21 EDT [facility] HN LAB CAMPYLOBACTER PCR Negative Negative 12/20/2021 23:21 EDT [facility] Shiga Toxin PCR Negative Negative 23:21 EDT [facility] Feces SPECIMEN FROM RECTUM / Unknown Stool Collect / Unknown 12/20/2021 8:30 EDT 12/20/2021 17:50 EDT Provider Outr Resulting Lab MICROBIOLOGY - GENERAL ORDERABLES [facility] [address] [place] [address] * OVA/PARASITE EXAM (12/20/2021 8:30 EDT) Parasite No ova and parasites seen. 12/21/2021 14:06 EDT [facility] Feces SPECIMEN FROM RECTUM / Unknown Stool Collect / Unknown 12/20/2021 8:30 EDT 12/20/2021 17:50 EDT Narrative [facility] - 12/21/2021 14:06 EDT (If Cryptosporidium, Cyclospora, or Microsporidium are suspected, specific tests must be requested.) Single negative specimen does not rule out the possibility of a parasitic infection. Provider Outr Resulting Lab MICROBIOLOGY - GENERAL ORDERABLES Performing Organization Address City/[facility] Co de Phone Number [facility] [address] [place] [address] documented in this encounter Visit Diagnoses Not on filedocumented in this encounter Care Teams Auto Parts Manager Relationship Specialty Start Date End Date Ese Alvarado FNP [address] [place] [phone] PCP - General 10/29/21 documented as of this encounter
--- OUTSIDE RECORDS SUMMARY | 2024-05-10 03:02 | XMS_ITS | Encounter Summary ---
Author Organization [facility] Address [address] [place] [address] Care Team Providers Care Occ Med Physician Name Role Phone Ese Alvarado DENNIS Primary Care Provider [phone] Encounter Details Date Type Department Care Team (Late st Contact Info) Description 12/01/2021 Lab Requisition [facility] Pathology & Laboratory Medicine - [address] [address] Virgie Chew MD [address] [place] [phone] Encounter for other general examination Social History [...] management options, if applicable. 12/03/2021 16:21 EDT [facility] Final Diagnosis A. STOMACH, ANTRUM, BIOPSY: - Gastric antral and oxyntic gland mucosa with mild congestion and surface denudation/erosion. - No H.pylori identified on H&E stain. B. GE JUNCTION, BIOPSY: - Squamous esophageal mucosa with features suggestive of reflux esophagitis. - Columnar mucosa with reactive epithelial changes and lymphoplasmacytic inflammation of the lamina propria. Negative for intestinal metaplasia. 12/03/2021 16:21 [facility] Attestation By the signature below, the attending physician certifies that they have 1) personally conducted a gross and/or microscopic examination of the described specimen(s), and/or personally interpreted the results of laboratory testing of the described specimen(s), and 2) personally rendered or confirmed the above diagnosis. 12/03/2021 16:21 [facility] at 1621 Clinical History GERD 12/03/2021 16:21 [facility] Gross Description A. Received [...] B1. Jarrett Dior 12/02/2021 9:51 12/03/2021 16:21 [facility] Performing Lab [facility] 12/03/2021 16:21 [facility] Scanned Images 12/03/2021 16:21 [facility] Tissue ENTIRE ESOPHAGUS / Unknown 12/01/2021 13:28 EDT 12/01/2021 23:49 EDT Tissue specimen (specimen) ESOPHAGEAL STRUCTURE / Unknown 12/01/2021 13:28 EDT 12/01/2021 23:49 EDT Virgie Chew MD PATHOLOGY ORDERA BLES [facility] [address] [place] [address] documented in this encounter Visit Diagnoses Diagnosis Encounter for other general examination documented in this encounter Care Teams Occ Med Physician Relationship Specialty Start Date End Date Ese Alvarado FNP [address] [phone] PCP - General 10/29/21 documented as of this encounter
--- OUTSIDE RECORDS SUMMARY | 2024-05-10 03:02 | XMS_ITS | Encounter Summary ---
Author Organization [facility] [place] [address] Care Team Providers Care Rolled Glass Crosscutter Name Role Phone Unavailable Primary Care Provider Unavailabl e Encounter Details Date Type Department Care Team (Late st Contact Info) Description 01/01/2021 Ancillary Procedure Radiology Library at [facility] [place] [phone] Ese Alvarado APRN [address] [place], [place] [address] Social History Tobacco Use Types Packs/Day Years [...] Ese KANG FILM LIBRARY ORD ERABLES [facility] [place] documented in this encounter Visit Diagnoses Not on filedocumented in this encounter
--- OUTSIDE RECORDS SUMMARY | 2024-05-10 03:02 | XMS_ITS | Clinical Summary ---
Author Organization [facility] Address [address] [place] [address] Care Team Providers Care Conflict Resolution Professional Name Role Phone Ese Alvarado DENNIS Primary Care Provider [phone] Encounters Date Type Department Care Team Description 04/20/2024 Lab Requisition [facility] Pathology & Laboratory [address] [address] Outr Resulting Lab, Provider 04/20/2024 Lab Requisition [facility] Pathology Laboratory [address] [address] Outr Resulting Lab, Provider 04/20/2024 Lab Requisition [facility] Pathology & Laboratory [facility] [address] [place] [address] Outr Resulting Lab, Provider from Last 3 Months Social History Tobacco Use Types Packs/Day Years Used Date Smoking Tobacco: Never Assessed Interpersonal Safety Answer Date Record ed Physically Hurt Never 07/03/2020 Verbally Threaten Not on file 07/03/2020 Sex and Gender Information Value Date Recorded Sex Assigned at Not on file Gender Identity Not on file Sexual Orientation Not on file Plan of Treatment Health Maintenance Due Date Last Done Comments Hepatitis B Vaccine (1 of 3 - 19+ 3-dose series) 10/05 COVID-19 Vaccine ( season) 2024 Hepatitis C Screen Completed 04/19/2024 Procedures Procedure Name Priority Date/Time Associated Diagnosis Comments SYPHILIS SEROLOGY Routine 04/19/2024 10: 30 EDT HEPATITIS C AB W REFLEX TO HCV RNA BY PCR Routine 04/19/2024 10:30 EDT HIV 1/2 ANTIGEN AND ANTIBODY, 4TH GENERATION Routine 04/19/2024 10:30 EDT CHLAMYDIA/N. GONORRHOEAE AMPLIFIED NUCLEIC ACID Routine 04/19/2024 10:30 EDT from Last 3 Months Results * SYPHILIS SEROLOGY (04/19/2024 10:30 EDT) Syphilis Serology Negative Negative 04/22/2024 10:46 EDT [facility] Blood VENOUS BLOOD / Unknown 04/19/2024 10:30 EDT 04/20/2024 21:57 EDT Provider Outr Resulting Lab IMMUNOLOGY A ND SEROLOGY ORDERABLES Performing Organization Address [facility]/ZIP Co de Phone Number [facility] [address] [place] [address] * (ABNORMAL) CHLAMYDIA/N. GONORRHOEAE AMPLIFIED NUCLEIC ACID (04/19/2024 10:30 EDT) Pathologist [facility] Neisseria gonorrhoeae Result Negative Negative 04/22/2024 12:52 EDT [facility] Chlamydia trachomatis Result Positive(A) Negative 04/22/2024 12:52 EDT [facility] Urine URINE / Unknown 04/19/2024 1 0:30 EDT 04/21/2024 16:51 EDT Narrative [facility] - 04/22/2024 12:52 EDT A first catch urine specimen is acceptable for detection of Gonorrhea and Chlamydia, but might detect up to 10% fewer infections when compared with vaginal swab samples. Provider Outr Resulting Lab MICROBIOLOGY - GENERAL ORDERABLES Performing Organization Address [facility]/ZIP Co de Phone Number [facility] [address] [place] [address] * HEPATITIS C AB W REFLEX TO HCV RNA BY PCR (04/19/2024 10:30 EDT) Hep C Antibody Negative Negative 04/22/2024 11:07 EDT [facility] Blood VENOUS BLOOD / Unknown 04/19/2024 10:30 EDT 04/20/2024 21:57 EDT Provider Outr Resulting Lab CHEMISTRY & BLOOD GAS ORDERABLES Performing Organization Address City/[facility]/ZIP Co de Phone Number [facility] [address] [place] [address] * HIV 1/2 ANTIGEN AND ANTIBODY, 4TH GENERATION (04/19/2024 10:30 EDT) [facility] HIV 1 and 2 Antibody/p24 Antigen, 4th Generation Negative Negative 04/22/2024 10:32 EDT [facility] Comment:If acute HIV-1 infec tion is suspected in a high risk patient, submit plasma specimen for HIV-1 RNA quantitation test. Blood VENOUS BLOOD / Unknown 04/19/2024 10:30 EDT 04/20/2024 21:57 EDT Narrative [facility] - 04/22/2024 10:32 EDT Fourth Generation assay performed on the Siemens Centaur XPT. Provider Outr Resulting Lab IMMUNOLOGY A ND SEROLOGY ORDERABLES [facility] [address] [place], [place] [address] from Last 3 Months Care Teams Conflict Resolution Professional Relationship Specialty Start Date End Date Ese Alvarado FNP [address] [place] [address] [address] [place] [phone] PCP - General 10/29/21
--- OUTSIDE RECORDS SUMMARY | 2024-05-10 03:02 | XMS_ITS | Referral Summary ---
Author Organization [facility] Address [address] [place] [address] Care Team Providers Care Erp Project Manager Name Role Phone Ese Alvarado DENNIS Primary Care Provider [phone] Encounters Date Type Department Care Team Description 04/20/2024 Lab Requisition [facility] Pathology & Laboratory [address] [address] Outr Resulting Lab, Provider 04/20/2024 Lab Requisition [facility] Pathology Laboratory [address] [address] Outr Resulting Lab, Provider 04/20/2024 Lab Requisition [facility] Pathology & Laboratory [facility] [address] [place] [address] Outr Resulting Lab, Provider from Last 3 [...] file Plan of Treatment Not on file Procedures Procedure Name Priority Date/Time Associated Diagnosis [...] Syphilis Serology Negative Negative 04/22/2024 10:46 EDT [facility] Blood VENOUS BLOOD / Unknown 04/19/2024 10:30 EDT 04/20/2024 21:57 EDT Provider Outr Resulting Lab IMMUNOLOGY A ND SEROLOGY ORDERABLES Performing Organization Address [facility] Co de Phone Number [facility] [address] [place], [place] [address] * (ABNORMAL) CHLAMYDIA/N. GONORRHOEAE AMPLIFIED NUCLEIC ACID (04/19/2024 10:30 EDT) Pathologist [facility] Neisseria gonorrhoeae Result Negative Negative 04/22/2024 12:52 EDT [facility] Chlamydia trachomatis Result Positive(A) Negative 04/22/2024 12:52 EDT [facility] Urine URINE / Unknown 04/19/2024 1 0:30 EDT 04/21/2024 16:51 EDT Narrative [facility] - 04/22/2024 12:52 EDT A first catch urine specimen is acceptable for detection of Gonorrhea and Chlamydia, but might detect up to 10% fewer infections when compared with vaginal swab samples. Provider Outr Resulting Lab MICROBIOLOGY - GENERAL ORDERABLES Performing Organization Address [facility] Co de Phone Number [facility] [address] [place], [place] [address] * HEPATITIS C AB W REFLEX TO HCV RNA BY PCR (04/19/2024 10:30 EDT) Pathologist [facility] Hep C Antibody Negative Negative 04/22/2024 11:07 EDT [facility] Blood VENOUS BLOOD / Unknown 04/19/2024 10:30 EDT 04/20/2024 21:57 EDT Provider Outr Resulting Lab CHEMISTRY & BLOOD GAS ORDERABLES [facility] [address] [place] [address] * HIV 1/2 ANTIGEN AND ANTIBODY, 4TH GENERATION (04/19/2024 10:30 EDT) [facility] HIV 1 and 2 Antibody/p24 Antigen, 4th Generation Negative Negative 04/22/2024 10:32 EDT [facility] Comment:If acute HIV-1 infec tion is suspected in a high risk patient, submit plasma specimen for HIV-1 RNA quantitation test. Blood VENOUS BLOOD / Unknown 04/19/2024 10:30 EDT 04/20/2024 21:57 EDT Narrative [facility] - 04/22/2024 10:32 EDT Fourth Generation assay performed on the Siemens T4 Mediaaur XPT. Provider Outr Resulting Lab IMMUNOLOGY A ND SEROLOGY ORDERABLES [facility] [address] [place] [address] from Last 3 Months Care Teams Erp Project Manager Relationship Specialty Start Date End Date Ese Alvarado FNP [address] [place] [phone] PCP - General 10/29/21
--- OUTSIDE RECORDS SUMMARY | 2024-05-10 03:02 | XMS_ITS | Encounter Summary ---
Author Organization [facility] Address [address] [place] [address] Care Team Providers Care Blood Bank Order Control Clerk Name Role Phone Ese Alvarado DENNIS Primary Care Provider [phone] Encounter Details Date Type Department Care Team (Late st Contact Info) Description 11/25/2021 Lab Requisition [facility] Pathology & Laboratory Medicine - [address] [address] Outr Resulting Lab, Provider Social History Tobacco [...] gonorrhoeae Result Negative Negative 11/26/2021 18:05 EDT [facility] Chlamydia trachomatis Result Negative Negative 11/26/2021 18:05 EDT [facility] Swab ENTIRE ENDOCERVIX / Unknown 11/24/2021 13:30 EDT 11/25/2021 17:59 EDT Provider Outr Resulting Lab MICROBIOLOGY - GENERAL ORDERABLES [facility] [address] [place] [address] documented in this encounter Visit Diagnoses Not on filedocumented in this encounter Care Teams Blood Bank Order Control Clerk Relationship Specialty Start Date End Date Ese Alvarado FNP [address] [place] [phone] PCP - General 10/29/21 documented as of this encounter
--- OUTSIDE RECORDS SUMMARY | 2024-05-10 03:02 | XMS_ITS | Encounter Summary ---
Author Organization [facility] Address [address] [place] [address] Care Team Providers Care Supervisor Vat House Name Role Phone Ese Alvarado DENNIS Primary Care Provider [phone] Encounter Details Date Type Department Care Team (Late st Contact Info) Description 09/22/2022 Lab Requisition [facility] Pathology & Laboratory Medicine - [address] [address] Outr Resulting Lab, Provider Social History Tobacco [...] 11:50 EST) Hold Hold 09/23/2022 0:01 EST [facility] Blood VENOUS BLOOD / Unknown 09/22/2022 11:50 EST 09/22/2022 23:00 EST Provider Outr Resulting Lab LAB INFO SER VICE AND SUPPORT & PHONE RESULT Performing Organization Address City/[facility]/ZIP Co de Phone Number [facility] [address] [place] [address] * ANTI NUCLEAR AB (LORI), IFA (09/22/2022 11:50 EST) LORI Interpretation Negative Negative 2022 15:26 [facility] Comment:No titer performed, LORI Screen is negative. Blood VENOUS BLOOD / Unknown 09/22/2022 11:50 EST 09/22/2022 23:00 EST Narrative [facility] - 09/23/2022 15:26 EST Results were obtained with the [employer] NOVA Lite HEp-2 LORI Kit by indirect immunofluorescence. Provider Outr Resulting Lab IMMUNOLOGY A ND SEROLOGY ORDERABLES Performing Organization Address [facility] Co de Phone Number [facility] [address] [place] [address] * CELIAC DISEASE PANEL (09/22/2022 11:50 EST) Pathologist [facility] Tissue Transglutaminase Antibody IGA <1.2 <4.0 U/mL 09/26/2022 13:57 [facility] Comment: A negative result may be due to IgA deficiency and does not rule out celiac disease. ? Negative: ??<4.0 U/mL ? Weak Positive: ??4.0 - 10.0 U/mL ? Positive: ??>10.0 U/mL Results were obtained with the [employer] QUANTA Lite R h-tTG IgA NATHALY assay on the Atox BioX. IgA 309 85 - 499 mg/dL 09/26/2022 13:57 [facility] Celiac Disease Interpretation Negative Serology. Celiac disease unlikely. Approximately 10% of patients with celiac disease are seronegative. Patients who are already adhering to a gluten-free diet may also be seronegative. If celiac disease is highly clinically suspected, referral to gastroenterology for additional evaluation is recommended. 09/26/2022 13:57 [facility] Blood VENOUS BLOOD / Unknown 09/22/2022 11:50 EST 09/22/2022 23:00 EST Provider Outr Resulting Lab IMMUNOLOGY A ND SEROLOGY ORDERABLES [facility] [address] [place] [address] documented in this encounter Visit Diagnoses Not on filedocumented in this encounter Care Teams Supervisor Vat House Relationship Specialty Start Date End Date Ese Alvarado FNP [address] [place] [address] [place] [phone] PCP - General 10/29/21 documented as of this encounter
--- OUTSIDE RECORDS SUMMARY | 2024-05-10 03:02 | XMS_ITS | Encounter Summary ---
Author Organization [facility] [place] [address] Care Team Providers Care Senior Pensions Administrator Name Role Phone Unavailable Primary Care Provider Unavailabl e Encounter Details Date Type Department Care Team (Late st Contact Info) Description 12/31/2020 Ancillary Procedure Radiology Library at [facility] [place] [phone] Ese Alvarado APRN [address] [place], [place] [phone] Social History Tobacco Use Types Packs/Day Years [...] Ultrasound Study (12/31/2020 12:00 AM EDT) Narrative [facility] - 09/23/2022 3:26 PM EST This exam is auto-finalizing. It's purpose is for storage only. Ese KANG FILM LIBRARY ORD ERABLES [facility] [place] documented in this encounter Visit Diagnoses Not on filedocumented in this encounter
--- OUTSIDE RECORDS SUMMARY | 2024-05-10 03:02 | XMS_ITS | Encounter Summary ---
Author Organization [facility] Address [address] [place] [address] Care Team Providers Care Job Hand Name Role Phone Ese Alvarado DENNIS Primary Care Provider [phone] Encounter Details Date Type Department Care Team (Late st Contact Info) Description 04/20/2024 Lab Requisition [facility] Pathology & [place] [address] Outr Resulting Lab, Provider Social History Tobacco [...] RNA BY PCR Routine 04/19/2024 10:30 EDT documented in this encounter Results * SYPHILIS SEROLOGY (04/19/2024 10:30 EDT) Syphilis Serology Negative Negative 04/22/2024 10:46 EDT [facility] Blood VENOUS BLOOD / Unknown 04/19/2024 10:30 EDT 04/20/2024 21:57 EDT Provider Outr Resulting Lab IMMUNOLOGY A ND SEROLOGY ORDERABLES [facility] [address] [place] [address] * HEPATITIS C AB W REFLEX TO HCV RNA BY PCR (04/19/2024 10:30 EDT) Hep C Antibody Negative Negative 04/22/2024 11:07 EDT [facility] Blood VENOUS BLOOD / Unknown 04/19/2024 10:30 EDT 04/20/2024 21:57 EDT Provider Outr Resulting Lab CHEMISTRY & BLOOD GAS ORDERABLES [facility] [address] [place], [place] [address] documented in this encounter Visit Diagnoses Not on filedocumented in this encounter Care Teams Job Hand Relationship Specialty Start Date End Date Ese Alvarado FNP [address] [facility] [address] [place] [phone] PCP - General 10/29/21 documented as of this encounter
--- OUTSIDE RECORDS SUMMARY | 2024-05-10 03:02 | XMS_ITS | Encounter Summary ---
Author Organization [facility] Address [address] [place] [id number] Care Team Providers Care Web Sizer Name Role Phone Ese Alvarado DENNIS Primary Care Provider [phone] Encounter Details Date Type Department Care Team (Late st Contact Info) Description 07/01/2020 Lab Requisition [facility] Pathology & Laboratory Medicine - [address] [address] Outr Resulting Lab, Provider Social History Tobacco [...] in accordance with CLIA regulations, [employer] (CAP) guidelines (Oct 17, 2019), and FDA guidance (Sep 28, 2019). This test is only for use under the Food and Drug Administration's Emergency Use Authorization. Swab ENTIRE NASOPHARYNX / Unknown 06/30/2020 13:10 EST 07/01/2020 16:31 EST Provider Outr Resulting Lab MICROBIOLOGY - GENERAL ORDERABLES [facility] [place], [place] * COVID-19 TESTING (06/30/2020 13:10 EST) COVID-19 rt-PCR Result NEGATIVE Negative 07/03/2020 12:57 EST [facility] Comment: 2019-novel Coronavirus (2019-nCoV) not [...] in accordance with CLIA regulations, [employer] (CAP) guidelines (Oct 17, 2019), and FDA guidance (Sep 28, 2019). This test is only for use under the Food and Drug Administration's Emergency Use Authorization. Performing Lab [facility] [place] 07/03/2020 12:57 EST [facility] Swab 06/30/2020 13:1 0 EST 07/01/2020 16:31 EST Provider Outr Resulting Lab MICROBIOLOGY - GENERAL ORDERABLES [facility] [address] [place] [address] [facility] [place], [place] documented in this encounter Visit Diagnoses Not on filedocumented in this encounter Care Teams Web Sizer Relationship Specialty Start Date End Date Ese Alvarado FNP [address] [place] [address] [place] [phone] PCP - General 10/29/21 documented as of this encounter
--- OUTSIDE RECORDS SUMMARY | 2024-05-10 03:02 | XMS_ITS | Encounter Summary ---
Author Organization [facility] Address [address] [place] [address] Care Team Providers Care Marker Assembler Name Role Phone Ese Alvarado DENNIS Primary Care Provider [phone] Encounter Details Date Type Department Care Team (Late st Contact Info) Description 04/20/2024 Lab Requisition [facility] Pathology & Laboratory Medicine - [address] [address] Outr Resulting Lab, Provider Social History Tobacco [...] Comments CHLAMYDIA/N. GONORRHOEAE AMPLIFIED NUCLEIC ACID Routine 04/19/2024 10:30 EDT documented in this encounter Results * (ABNORMAL) CHLAMYDIA/N. GONORRHOEAE AMPLIFIED NUCLEIC ACID (04/19/2024 10:30 EDT) Neisseria gonorrhoeae Result Negative Negative 04/22/2024 12:52 EDT [facility] Chlamydia trachomatis Result Positive(A) Negative 04/22/2024 12:52 EDT [facility] Urine URINE / Unknown 04/19/2024 1 0:30 EDT 04/21/2024 16:51 EDT Narrative [facility] - 04/22/2024 12:52 EDT A first catch urine specimen is acceptable for detection of Gonorrhea and Chlamydia, but might detect up to 10% fewer infections when compared with vaginal swab samples. Provider Outr Resulting Lab MICROBIOLOGY - GENERAL ORDERABLES [facility] [address] [place], [place] [id number] documented in this encounter Visit Diagnoses Not on filedocumented in this encounter Care Teams Marker Assembler Relationship Specialty Start Date End Date Ese Alvarado FNP [address] [place] [address] [place] [phone] PCP - General 10/29/21 documented as of this encounter
--- OUTSIDE RECORDS SUMMARY | 2024-05-10 03:02 | XMS_ITS | Encounter Summary ---
Author Organization [facility] Address [address] [place] [address] Care Team Providers Care Digital Print Operator Name Role Phone Ese Alvarado DENNIS Primary Care Provider [phone] Encounter Details Date Type Department Care Team (Late st Contact Info) Description 01/06/2022 Lab Requisition [facility] Pathology & Laboratory Medicine - [address] [address] Virgie Chew MD [address] [place] [phone] Encounter for other general examination Social History [...] management options, if applicable. 01/12/2022 12:15 EDT [facility] Final Diagnosis A. GALLBLADDER, CHOLECYSTECTOMY: - Chronic cholecystitis. 01/12/2022 12:15 [facility] Attestation There was significant resident/fellow involvement in the diagnostic evaluation of this case. By the signature below, the attending physician certifies that they have personally conducted a gross and/or microscopic examination of the described specimens and rendered or confirmed the above diagnosis. 01/12/2022 12:15 T [facility] at 1215 Clinical History Biliary dyskinesia 01/12/2022 12:15 EDT [facility] Gross Description A. Received [...] blue. There are no choleliths identified. Two automotive leasing sales representative sections and the en face cystic duct margin are submitted in A1. PATI ROWAN MD 01/06/2022 17:11 01/12/2022 12:15 T [facility] Resident/Dg w: Pati Rowan MD 01/12/2022 12:15 T [facility] Performing Lab [facility] 01/12/2022 12:15 T [facility] Scanned Images 01/12/2022 12:15 [facility] Tissue ENTIRE GALLBLADDER / Unknown 01/05/2022 8:18 EDT 01/06/2022 10:00 EDT Virgie Chew MD PATHOLOGY ORDERA DIMPLE [facility] [address] [place] [address] documented in this encounter Visit Diagnoses Diagnosis Encounter for other general examination documented in this encounter Care Teams Digital Print Operator Relationship Specialty Start Date End Date Ese Alvarado FNP [address] [phone] PCP - General 10/29/21 documented as of this encounter
--- OUTSIDE RECORDS SUMMARY | 2024-05-10 03:02 | XMS_ITS | Encounter Summary ---
Author Organization [facility] Address [address] [place] [address] Care Team Providers Care Service Observer Name Role Phone Ese Alvarado Primary Care Provider [phone] Encounter Details Date Type Department Care Team (Latest Contact Info) Description 12/16/2022 Lab Requisition [facility] Pathology & Laboratory Medicine - [address] [address] Ese Alvarado FNP [address] [place] [address] [place] [phone] Encounter for general adult medical examination [...] System with Manual Evaluation 12/28/2022 8:19 EDT [facility] Specimen Adequacy Satisfactory for Evaluation - transformation zone component present Scant due to excessive inflammation 12/28/2022 8:19 EDT [facility] General Categorization Negative for intraepithelial lesion or malignancy 12/28/2022 8:19 EDT [facility] Descriptive Diagnosis Reactive cellular changes associated with inflammation present (includes repair). Trichomonas vaginalis present. 12/28/2022 8:19 T [facility] Attestation By the signature below, the attending physician certifies that they have personally conducted a gross and/or microscopic examination of the described specimens and rendered or confirmed the above diagnosis. 12/28/2022 8:19 EDT [facility] at 0819 Clinical History SEE BELOW 12/29/19 8:19 [facility] Performing Lab [facility] 12/28/2022 8:19 [facility] Scanned Images 12/28/2022 8:19 [facility] Papanicolaou smear specimen (specimen) CERVIX UTERI STRUCTURE / Unknown 12/14/2022 10:40 EDT 12/16/2022 14:58 EDT Ese COLLINS PATHOLOGY ORDERABLES [facility] [address] [place] [address] documented in this encounter Visit Diagnoses Diagnosis Encounter for general adult medical examination without abnormal findings Unspecified general medical examination Encounter for gynecological examination (general) (routine) without abnormal findings Encounter for screening for malignant neoplasm of cervix Screening for malignant neoplasm of the cervix documented in this encounter Care Teams Service Observer Relationship Specialty Start Date End Date Ese Alvarado FNP [address] [place] [address] [place] [phone] PCP - General 10/29/21 documented as of this encounter
--- OUTSIDE RECORDS SUMMARY | 2024-05-10 03:02 | XMS_ITS | Encounter Summary ---
Author Organization [facility] Address [address] [place] [address] Care Team Providers Care Loader Malt [employer] Name Role Phone Ese Alvarado DENNIS Primary Care Provider Encounter Details Date Type Department Care Team (Late st Contact Info) Description 05/22/2021 Lab Requisition [facility] Pathology & Laboratory Medicine - [address] [address] Outr Resulting Lab, Provider Social History Tobacco [...] Lab MICROBIOLOGY - GENERAL ORDERABLES [facility] [address] [place] [address] * COVID-19 TESTING (05/21/2021 10:00 EDT) COVID-19 rt-PCR Result Negative Negative 05/23/2021 16:28 EDT [facility] Comment: This test has [...] developed and its performance characteristics determined by [facility]. It has not been cleared or approved [...] testing. This test is based on the [facility] COVID-19 Emergency Use Authorization (EUA) assay, with minor modification as defined by the FDA Performed on the [employer] 7 Flex RT-PCR System. Performing Lab [facility] 05/23/2021 16:28 EDT [facility] Swab 05/21/2021 10:0 0 EDT 05/22/2021 21:47 EDT Provider Outr Resulting Lab MICROBIOLOGY - GENERAL ORDERABLES [facility] [address] [place] [address] documented in this encounter Visit Diagnoses Not on filedocumented in this encounter Care Teams Loader Malt House Relationship Specialty Start Date End Date Ese Alvarado FNP [address] [phone] PCP - General 10/29/21 documented as of this encounter
--- OUTSIDE RECORDS SUMMARY | 2024-05-10 03:02 | XMS_ITS | Encounter Summary ---
Author Organization [facility] Address [address] [place] [address] Care Team Providers Care Dealer Account Manager Name Role Phone Ese Alvarado DENNIS Primary Care Provider [phone] Encounter Details Date Type Department Care Team (Late st Contact Info) Description 04/20/2024 Lab Requisition [facility] Pathology & Laboratory Medicine - [address] [address] Outr Resulting Lab, Provider Social History Tobacco [...] Procedure Name Priority Date/Time Associated Diagnosis Comments HIV 1/2 ANTIGEN AND ANTIBODY, 4TH GENERATION Routine 04/19/2024 10:30 EDT documented in this encounter Results * HIV 1/2 ANTIGEN AND ANTIBODY, 4TH GENERATION (04/19/2024 10:30 EDT) HIV 1 and 2 Antibody/p24 Antigen, 4th Generation Negative Negative 04/22/2024 10:32 EDT [facility] Comment:If acute HIV-1 infec tion is suspected in a high risk patient, submit plasma specimen for HIV-1 RNA quantitation test. Blood VENOUS BLOOD / Unknown 04/19/2024 10:30 EDT 04/20/2024 21:57 EDT Narrative [facility] - 04/22/2024 10:32 EDT Fourth Generation assay performed on the Siemens Centaur XPT. Provider Outr Resulting Lab IMMUNOLOGY A ND SEROLOGY ORDERABLES [facility] [address] [place] [address] documented in this encounter Visit Diagnoses Not on filedocumented in this encounter Care Teams Dealer Account Manager Relationship Specialty Start Date End Date Ese Alvarado FNP [address] [place] [phone] PCP - General 10/29/21 documented as of this encounter
[2024-05-10 14:12] LABS: ALT 27 U/L (14-59); AST 20 U/L (15-37); Albumin 3.9 g/dL (3.4-5.0); Alkaline Phosphatase 65 U/L (46-116); Anion Gap 12.3 mmol/L (3-11); BUN 6 mg/dL (7-18); Bilirubin, Total 0.64 mg/dL (0.2-1.0); CO2 24.7 mmol/L (21.0-32.0); CREATININE 0.9 mg/dL (0.55-1.02); Calcium 9.3 mg/dL (8.5-10.1); Chloride 106 mmol/L (98-107); Glucose 99 mg/dL (74-106); Potassium 3.9 mmol/L (3.5-5.1); Sodium 143 mmol/L (136-145); Total Protein 7.9 g/dL (6.4-8.2)
[2024-05-13 10:29] LABS: Hepatitis B Surface Ag Negative (Negative)
[2024-05-13 10:54] LABS: Hep B Core Antibody Negative (Negative)
[2024-05-13 11:57] LABS: Hep A Antibody IgM Negative (Negative)
== END 2024-05-10 03:00 | disposition home or self-care (01) ==
PROVIDERS: PCP Nurse Practitioner Family; Visit Provider Nurse Practitioner Family
DX: R74.01 Elevation of levels of liver transaminase levels (principal)
CPT/HCPCS: 36415; 80053; 86704; 86709; 87340

== ENCOUNTER 2025-01-31 00:21 | Emergency (ER) | payer SELFPAY ==
[2025-01-31 00:23] VITALS: PULSE 69; RESP 18; TEMP 36.7; O2SAT 98
[2025-01-31 00:28] VITALS: BP 131/80
--- NOTE | 2025-01-31 00:47 | ED.GENADUL_ITS ---
Discharge Plan Disposition Patient Disposition: Home Condition: Good Discharge Details Clinical Impression: Pain, dental Primary Care Provider: Ese Alvarado ED Provider: Yen Duvall Home Meds and New Rx's Prescriptions: New meloxicam 7.5 mg tablet 7.5 mg PO BID PRNQty: 10 0RF Continued sertraline 100 mg tablet 100 mg PO DAILY fluticasone propionate [Flonase Allergy Relief] 50 mcg/actuation spray,suspension 2 spray intranasal DAILY 30 Days Qty: 16 6RF Rx Instructions: administer into each nostril Nexplanon 68 mg implant 1 implant subdermal ONCE Rx Instructions: as a single dose acetaminophen 500 mg tablet 1,000 mg PO Q8H PRN Qty: 90 0RF Rx Instructions: Take two tablets up to every 8 hours as needed for pain Discontinued hydroxyzine HCl 25 mg tablet 25 mg PO TID PRN sumatriptan succinate [Imitrex] 25 mg tablet 25 mg PO ONCE PRN trazodone 50 mg tablet 50 mg PO DAILY PRN hyoscyamine sulfate 0.375 mg tablet extended release 12 hr 0.375 mg PO Q12H lurasidone [Latuda] 40 mg tablet 40 mg PO DAILY Rx Instructions: must administer with food (at least 350 calories) esomeprazole magnesium [Nexium] 40 mg capsule,delayed release(DR/EC) 40 mg PO DAILY PRN Discharge Instructions Instructions: Dental Pain ED Additional Instructions: Tylenol over the counter for pain; follow the directions on the bottle. You can take meloxicam twice a day as needed for pain. Do not take ibuprofen while you are taking this. You will need to followup with a dentist. A list of dentists has been provided; call them in the morning to schedule an appointment for as soon as possible. Return to the emergency department for new or worsening symptoms including fever, facial swelling, neck swelling, difficulty swallowing, or if you have any other concerns. HPI General Mode of arrival: ambulatory . Date/Time Provider Initiated Documentation: 01/31/25 00:23 . Limitations to Documentation: no limitations . Information obtained by: patient . HPI Narrative: 29yo F presenting with left lower molar pain. Has cracked teeth including molars. For the past 2 days has had pain in this area, worse with chewing. Has not seen a dentist. Pain persists despite home tylenol and ibuprofen. Othe rwise in her usual state of heatlh with no fevers, facial swelling, neck swelling, difficulty swallowing, or other concerns. Related Data Home Medications ?Medication ?Instructions ?Recorded ?Confirmed sertraline 100 mg tablet 100 mg PO DAILY 01/04/2111/22 etonogestrel 68 mg subdermal 1 implant subdermal ONCE 11/05/21 01/31/25 implant (Nexplanon) fluticasone propionate 50 2 spray intranasal DAILY 30 days 07/18/22 01/31/25 mcg/actuation nasal #16 grams spray,suspension (Flonase Allergy Relief) acetaminophen 500 mg tablet 1,000 mg (2 x 500 mg) PO Q 8H PRN 10/25/22 01/31/25 pain #90 tabs meloxicam 7.5 mg tablet 7.5 mg PO BID PRN #10 tabs 0 01/31/25 Previous Rx's ?Medication ?Instructions ?Recorded fluticasone propionate 50 2 spray intranasal DAILY 30 days 07/18/22 mcg/actuation nasal #16 grams spray,suspension (Flonase Allergy Relief) acetaminophen 500 mg tablet 1,000 mg (2 x 500 mg) PO Q 8H PRN 10/25/22 pain #90 tabs meloxicam 7.5 mg tablet 7.5 mg PO BID PRN #10 tabs 0 01/31/25 Allergies Allergy/AdvReac Type Severity Reaction Status Date / Time hydromorphone (Hydromorphone) Allergy Severe Anaphylaxis Verified 01/31/25 00:26 adhesive Allergy Mild Skin Rash Verified 01/31/25 00:26 ketorolac tromethamine (From Allergy Mild Skin Rash Verified 01/31/25 00:26 Toradol) latex Allergy itching,audie Verified 01/31/25 00:26 h lamotrigine AdvReac Intermediate Other (See Verified 01/31/25 00:26 Comment) skin glue Allergy Intermediate Skin Rash Uncoded 01/31/25 00:26 General Stated Complaint: DentalOral ROEL: 4 Review of Systems Narrative: see HPI Exam Narrative Exam Narrative: General: Alert, well appearing, well nourished, in no acute distress. Head: Normocephalic, atraumatic Neck: Trachea midline, ?Neck supple. Anterior neck non-tender with no swelling. ENT: ?MMM.? No oropharygeal lesions or exudate. No intraoral swelling or abscess. Poor dentition, multiple cracked teeth. Left manidbular molars TTP. Cardiac: ?RRR, no murmurs appreciated Resp: No respiratory distress. Neurologic: GCS 15. ? Moves all extremities freely against gravity Course Vital Signs Vital signs: Vital Signs Temperature 36.7 C 01/31/25 00:23 Pulse 69 01/31/25 00:23 Respiratory Rate 18 01/31/25 00:23 Pulse Oximetry 98 01/31/25 00:23 Temperature 36.7 C 01/31/25 00:23 Temperature Source Oral 01/31/25 00:23 Pulse 69 01/31/25 00:23 Respiratory Rate 18 01/31/25 00:23 Blood Pressure 131/80 01/31/25 00:28 Blood Pressure Mean 97 01/31/25 00:28 Blood Pressure Position Sitting 01/31/25 00:23 Pulse Oximetry 98 01/31/25 00:23 Oxygen Delivery Method Room Air 01/31/25 00: Oxygen Flow Rate 0 01/31/25 00:23 Medical Decision Making 29yo F presenting with left lower molar pain for two days Systemically well. Vital signs reassuring on arrival, poor dentition on exam with left mandibular molars tender to percussion. No intraoral abscess. No facial or neck swelling. Not septic. Not suggestive of Ludwigs, Lemierries, or deep space neck infection. No indication for labs or CT imaging. Will give dose of topical lidocaine and meloxicam here (patient with allergy to toradol) and advise dental followup. Discharged home; discharge instructions and return precautions were reviewed with patient who verbalized understanding. All questions were answered and she is in full agreement with the plan. PFSH All Active Problems (Updated 01/31/25 @ 00:50 by Yen Duvall MD) Pain, dental (Acute) Hemorrhagic prepatellar bursitis of left knee (Acute) aspirated 11/22/22 Status post left partial knee replacement (Acute 10/25/22) Patellofemoral replacement. Painful orthopaedic hardware (Acute) S/P laparoscopic cholecystectomy (Acute) Nausea and vomiting (Acute) Pelvic pressure in female (Acute) Right lower quadrant pain (Acute) Ovarian cyst, right (Acute) Gastritis (Acute) Esophagitis (Acute) GERD (gastroesophageal reflux disease) (Chronic) Medical History (Updated 01/31/25 @ 00:50 by Yen Duvall MD) Pharyngitis Thrush Biliary dyskinesia History of kidney stones UTI (urinary tract infection) Urticaria Deviated septum Intermittent palpitations Hematuria Nausea Chronic rhinitis (05/29/17) Chronic tonsillitis (05/29/17) Family history of bleeding or clotting disorder (08/24/17) Pt reports mother has clotting disorder. Pt told not to use estrogen containing contraception. History of depression (08/24/17) Knee instability (03/12/14) CHRONIC LEFT KNEE Psoas tendinitis, right hip (12/06/17) Tonsillar hypertrophy (05/29/17) Migraine Surgical History (Updated 11/07/22 @ 11:54 by EMELIA Kim) Status post arthroscopy of left knee (05/26/22) Left knee arthroscopy with patellar chondroplasty and revision allograft MPFL reconstruction Dr. Pepe S/P laparoscopic cholecystectomy (~01/05/22) History of esophagogastroduodenoscopy (EGD) (~11/2021) Hx of cystoscopy History of carpal tunnel release History of section History of nasal septoplasty History of arthroscopic knee surgery Family History Mother Mental disorder Disabled. Mental health issues. Father Mental disorder suicide. 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 Date GA/Weeks # Preg Succ Route Wgt Sex Labor Lgth Anesth esia Location Prov Complic 05/13/19 40 No 3855.535 g Male >24 hours [facility] Delivery Date: 05/13/19 Last Updated by: Suyapa Morin Pt had for failed induction
[2025-01-31] MEDS: Meloxicam 15 MG TAB PO (01:09)
== END 2025-01-31 01:19 | disposition home or self-care (01) ==
PROVIDERS: Emergency Provider Student in an Organized Health Care Education/Training Program; PCP Nurse Practitioner Family
DX: K08.89 Other specified disorders of teeth and supporting structures (principal)
CPT/HCPCS: 99283

== ENCOUNTER 2025-07-08 15:17 | Outpatient (REF) | payer OTHER, SELFPAY ==
[2025-07-08 14:41] LABS: HCT 42.7 % (36.0-46.0); HGB 14.4 g/dL (11.2-15.7); MCH 31.0 pg (27.0-33.0); MCHC 33.7 % (32.0-36.0); MCV 92 fL (80-95); MPV 10.6 fL (8.0-11.0); Platelet Count 338 10^3/uL (130-400); RBC 4.65 10^6/uL (3.93-5.22); RDW 12.6 % (11.7-14.6); RDW-SD 41.8 fL; WBC 11.75 10^3/uL (4.4-10.8)
[2025-07-08 14:59] LABS: ALT 56 U/L (10-49); AST 43 U/L (<34); Albumin 4.5 g/dL (3.2-5.0); Alkaline Phosphatase 70 U/L (46-116); Anion Gap 9.8 mmol/L (3-11); BUN 9 mg/dL (9-23); Bilirubin, Total 0.6 mg/dL (0.2-1.2); CO2 26.2 mmol/L (20.0-31.0); Calcium 9.3 mg/dL (8.3-10.6); Chloride 105 mmol/L (98-107); Glucose 111 mg/dL (74-106); Potassium 3.8 mmol/L (3.5-5.1); Sodium 141 mmol/L (136-145); Total Protein 8.0 g/dL (5.7-8.2)
[2025-07-09 11:14] LABS: Hepatitis C Ab w Rflx HCV PCR Negative (Negative)
[2025-07-09 11:17] LABS: HIV-1/2 Ag & Ab Screen Negative (Negative)
[2025-07-09 11:19] LABS: Chlamydia Result Negative (Negative); GC Result Negative (Negative)
[2025-07-09 11:20] LABS: Syphilis Serology (RPR) Negative (Negative)
== END 2025-07-08 15:18 | disposition home or self-care (01) ==
LOC: NCHCN 15:17
PROVIDERS: PCP Nurse Practitioner Family; Visit Provider Nurse Practitioner Family
DX: Z11.3 Encounter for screening for infections with a predominantly sexual mode of transmission (principal); Z00.00 Encounter for general adult medical examination without abnormal findings
CPT/HCPCS: 80053; 85027; 86803; 87389; 87491; 87591; 86592; 87480; 87510; 87660